=== PATIENT | female | born 1950 | race Caucasian/White ===

== ENCOUNTER 2016-12-30 08:00 | Inpatient (IN) | payer OTHER ==
--- NOTE | 2017-01-10 10:51 | HP ---
Admitting History and Physical - Primary Care Physician PCP: Rohan Stout - Admission Chief Complaint: right breast cancer History of Present Illness: 66 yo female with h/o right DCIS at 40 yo, presented to the office with a scaly red lesion which patient states she had had for a couple of years. Patient had a punch bx of the area which was positive for Paget's dz. MRI done 11/23/2016 was negative. Patient had a negative myRisk done 11/26/2016 which was also negative. Patient is now presenting for a right mastectomy, snbx, poss andx with reconstruction. History Source: Patient Limitations to Obtaining History: No Limitations - Past Medical History Cardiovascular: Yes: HTN Rheumatology: Yes: Gout Endocrine: Yes: Diabetes Mellitus (type two) - Past Surgical History Past Surgical History: Yes: Additional Past Surgical History: right breast WE with axillary LN bx 1990 D and C 3 yrs ago - Smoking History Smoking history: Never smoked Have you smoked in the past 12 months: No - Alcohol/Substance Use Hx Alcohol Use: Yes (socially) Home Medications - Allergies Allergies/Adverse Reactions: Allergies Allergy/AdvReac Type Severity Reaction Status Date / Time No Known Allergies Allergy Verified 11/26/16 15:28 - Home Medications Home Medications (free text): Diovan. Belviq. Toprol. metformi. allopurinol Family Disease History - Family Disease History Family Disease History: Heart Disease: Mother (CRC 82; colon cancer), CA: Grandparent (mat GF gastric ca 93), Mother Other Family History: paternal aunt-breast cancer. maternal uncle-tongue cancer Review of Systems - Review of Systems Constitutional: reports: No Symptoms Cardiovascular: reports: No Symptoms Respiratory: reports: No Symptoms Physical Examination Constitutional: Yes: Well Nourished, Calm Breast(s): Yes: Other (Ptotic B-cup on the right with well healed scar and radiation changes noted. Right/nipple areola complex with erythematous scaly lesion c/w known Paget's dz. No other suspicious masses or adenopathy noted bilaterally.) Problem List - Problems (1) Paget's disease of right breast Code(s): C50.011 - MALIGNANT NEOPLASM OF NIPPLE AND AREOLA, RIGHT FEMALE BREAST Assessment/Plan Plan: Right mastectomy, snbx, lymphoscintogram, poss andx, with reconstruction
[2017-01-18 17:36] VITALS: BMI 47.5
[2017-01-20] MEDS ORDERED: LIDOCAINE HCL 4% PRESERVE-FREE 5 ML AMP ONE (07:09)
[2017-01-20] MEDS ORDERED: HEPARIN NA (PORCINE) 5,000 UNITS/ML 1ML VIAL ONE (07:09)
[2017-01-20] MEDS ORDERED: ISOSULFAN BLUE 10 MG/ML VIAL SQ ONE (07:10)
[2017-01-20] MEDS ORDERED: SUCCINYLCHOLINE CHLORIDE 200 MG/10 ML VIAL ONE (07:41)
[2017-01-20] MEDS ORDERED: MIDAZOLAM HCL 2 MG/2 ML SINGLE DOSE VIAL ONE ×5 (07:41→09:23)
[2017-01-20] MEDS ORDERED: PROPOFOL 20 ML ONE ×2 (07:41)
[2017-01-20] MEDS ORDERED: ROCURONIUM BROMIDE 50 MG/5 ML VIAL ONE ×4 (07:41→12:47)
[2017-01-20] MEDS ORDERED: LIDOCAINE HCL/PF 2% SDV 5ML VIAL ONE (07:41)
[2017-01-20] MEDS ORDERED: PAPAVERINE HCL 30 MG/1 ML 10 ML VIAL NR ONE (07:59)
[2017-01-20] MEDS ORDERED: BUPIVACAINE HCL/PF 0.25% (2.5MG/ML) 10 ML VIAL ONE (07:59)
--- NOTE | 2017-01-20 08:43 | HP ---
History & Physical Update - History History: No Change - Physical Physical: No Change - Assessment Assessment: No Change - Plan Plan: No Change
[2017-01-20] MEDS ORDERED: ePHEDrine SULFATE 50 MG/1 ML AMPULE ONE (09:03)
[2017-01-20] MEDS ORDERED: LIDOCAINE HCL 0.5% EPINEPHRINE 1:200,000 50 ML VIAL IJ ONE ×3 (09:12→14:58)
[2017-01-20] MEDS ORDERED: ceFAZolin SODIUM 1 GM VIAL IVPB ONE (09:20)
[2017-01-20] MEDS ORDERED: HEPARIN NA (PORCINE) 5,000 UNITS/ML 1ML VIAL SQ ONE (09:24)
[2017-01-20] MEDS ORDERED: DESFLURANE GAS 240 ML BOTTLE IH ONE (09:54)
[2017-01-20] MEDS ORDERED: ONDANSETRON 4 MG/2 ML VIAL ONE ×2 (10:32→15:26)
[2017-01-20] MEDS ORDERED: FUROSEMIDE 40 MG/4 ML INJECTABLE VIAL ONE (13:08)
[2017-01-20] MEDS ORDERED: BUPIVACAINE LIPOSOME/PF (EXPAREL) 266 MG/20 ML VIAL NR ONE (14:00)
[2017-01-20] MEDS ORDERED: BUPIVACAINE HCL/PF 0.5% (5MG/ML) 10 ML VIAL ONE (14:53)
[2017-01-20] MEDS ORDERED: GLYCOPYRROLATE 0.2 MG/1 ML VIAL ONE (15:26)
[2017-01-20] MEDS ORDERED: NEOSTIGMINE METHYLSULFATE 0.5 MG/ML - 10 ML MDV ONE (15:26)
[2017-01-20] MEDS ORDERED: LACTATED RINGERS SOLUTION 1,000 ML IV STA (15:48)
[2017-01-20] MEDS ORDERED: LACTATED RINGERS SOLUTION 1,000 ML IV SCH (16:00)
[2017-01-20] MEDS ORDERED: ONDANSETRON 4 MG/2 ML VIAL IVPUSH PRN (16:24)
[2017-01-20] MEDS ORDERED: HYDROmorphone *PCA* 10MG/50ML DISP.SYRIN PCA ONE (16:58)
[2017-01-20] MEDS ORDERED: ceFAZolin SODIUM 1 GM VIAL ONE (16:58)
[2017-01-20] MEDS: HYDROmorphone *PCA* 10MG/50ML DISP.SYRIN PCA SCH ×2 (18:19→23:05)
[2017-01-20] MEDS ORDERED: CEFAZOLIN 1 GM in DEXTROSE 5%-WATER - 50 ML IVPB SCH (21:00)
--- NOTE | 2017-01-20 22:56 | CONSULT ---
Consult - text type - Consultation Consultation Note: PULM/CCM Pt Seen and examined in ICU CC: S/p CAT reconstruction R HPI: Briefly Ms Lao is a 66 yo female with h/o right DCIS at 40 yo in ICU post scheduled right mastectomy, snbx, poss andx with reconstruction. Performed without incident, extubated in PACU, in ICU for overnight observation and doppler monitoring of flap. Past Medical History Cardio/Vascular HTN Rheumatology Gout Endocrine Diabetes Mellitus (type two) Past Surgical History Past Surgical History Ambulatory Orders Allopurinol 300 mg PO DAILY 01/18/17 Aspirin Coated [Ecotrin -] 81 mg PO DAILY 01/18/17 Metformin HCl 500 mg PO BID 01/18/17 Metoprolol Succinate [Toprol Xl] 100 mg PO DAILY 01/18/17 Multivitamins [Tab-A-Vit -] 1 tab PO DAILY 01/18/17 Olmesartan/Hydrochlorothiazide [Benicar Hct 40-12.5 mg Tablet] 1 each PO DAILY 01/18/17 Current Medications Generic Name Dose Route Start Last Admin Trade Name Freq PRN Reason Stop Dose Admin Allopurinol 300 mg 01/21/17 10:00 Zyloprim - PO DAILY NICOL[facility]S Aspirin 325 mg 01/21/17 10:00 Asa - PO DAILY N[facility] Diazepam 5 mg 01/20/17 15:44 Valium - PO Q8H PRN ANXIETY Docusate Sodium 100 mg 01/20/17 22:00 Colace - PO BID N[facility] Enoxaparin Sodium 40 mg 01/21/17 10:00 Lovenox - SQ DAILY [facility] Hydrochlorothiazide 12.5 mg 01/21/17 10:00 Hctz - PO DAILY N[facility] Hydromorphone HCl 10 mg 01/20/17 16:30 01/20/17 18:19 Dilaudid Automatic Pattern Edger - CHIEF CRUISER 01/23/17 16:24 10 mg CHIEF CRUISER N[facility]OL[facility]S Administration Protocol Cefazolin Sodium 1 gm/ 50 mls @ 100 mls/hr 01/20/17 21:00 Dextrose IVPB Q6H-IV [facility] Lactated Ringer's 1,000 mls @ 150 mls/hr 01/20/17 16:00 Lactated Ringers Solution IV ASDIR [facility] Lactated Ringer's 1,000 mls @ 125 mls/hr 01/20/17 16:30 Lactated Ringers Solution IV ASDIR [facility] Metformin HCl 500 mg 01/20/17 16:30 Glucophage - PO BIDI [facility] Metoprolol Succinate 100 mg 01/21/17 10:00 Toprol Xl - PO DAILY [facility] Valsartan 320 mg 01/21/17 10:00 Diovan - PO DAILY [facility] Vital Signs Temp 98.8 F 01/20/17 19:30 Pulse 82 01/20/17 20:03 Resp 18 01/20/17 20:03 BP 125/66 01/20/17 20:03 Pulse Ox 96 01/20/17 20:00 Intake & Output 01/19/17 01/20/17 01/20/17 23:59 11:59 23:59 Intake Total 3500 550 Output Total 900 974 Balance 2600 -424 Weight 121.563 kg Intake: IV 3500 550 Output: Drainage 174 #1 Right Upper Breast 15 #2 Right Lower 22 #3 Left Lower Abdomen 50 Urine 800 800 Estimated Blood Loss 100 Other: Voiding Method Indwelling Catheter Height 5 ft 3 in Body Mass Index (BMI) 47.5 Weight Measurement Method Stated by Patient NO imaging ROS: 9 pt review unrevealing except as per HPI PE: Gen: awake, alert non-toxic HEENT: Atraumatic, PERRL, EOMI PULM: clear anterior, surgical site dressed, two drain with minimanl sero-sang output CV; RRR, no m/r/g appreciate ABD: soft, NT, abd drain with serosang EXT: w/wp, no edema NEURO: intact, non focal, pain controlled A/ 66 y/o woman POD #0 after R mastectomy & breast reconstruction P/ -overnight observation in ICU -monitor drain output -CHIEF CRUISER for pain control -q1 hr doppler of flap, notify Surgery if changes in pulsitility -advance diet in am -restart home meds as tolerated -to floor in am if no overnight changes Balta Gee ACNP [phone]
[2017-01-20] MEDS: LACTATED RINGERS SOLUTION 1,000 ML IV SCH (23:06)
[2017-01-20] MEDS: metFORMIN HCL 500 MG TABLET (FP) PO SCH (23:06)
[2017-01-20] MEDS ORDERED: PT OWN MED DRAWER 7, Y5N ONE (23:28)
[2017-01-20] MEDS: DOCUSATE SODIUM 100 MG CAPSULE (FP) PO SCH (23:59)
--- NOTE | 2017-01-21 09:18 | PN ---
Progress Note, Physician Chief Complaint: POD#1 S/P right mastectomy and CAT reconstruction History of Present Illness: Patient was seen today at the bedside in the semifowler position. Patient states that she does have good pain control but that she does have discomfort in right shoulder. Otherwise, patient reports decreased appetite although tolerating ice chips and some fluids. - Current Medication List Current Medications: Active Medications Allopurinol (Zyloprim -) 300 mg PO DAILY [facility] Aspirin (Asa -) 325 mg PO DAILY [facility] Cefazolin Sodium (Ancef 1gm Ivpb (Pre-Docked)) 1 gm IVPB Q6H-IV [facility] Last Admin: 01/20/17 23:59 Dose: 1 gm Diazepam (Valium -) 5 mg PO Q8H PRN PRN Reason: ANXIETY Docusate Sodium (Colace -) 100 mg PO BID [facility] Last Admin: 01/20/17 23:59 Dose: Not Given Enoxaparin Sodium (Lovenox -) 40 mg SQ DAILY [facility] Hydrochlorothiazide (Hctz -) 12.5 mg PO DAILY [facility] Hydromorphone HCl (Dilaudid Refrigeration Engineer -) 10 mg SULFUR CHLORIDE OPERATOR SULFUR CHLORIDE OPERATOR [facility] PRN Reason: Protocol Stop: 01/23/17 16:24 Last Admin: 01/20/17 23:05 Dose: Not Given Lactated Ringer's (Lactated Ringers Solution) 1,000 mls @ 150 mls/hr IV ASDIR [facility] Last Admin: 01/20/17 23:04 Dose: Not Given Lactated Ringer's (Lactated Ringers Solution) 1,000 mls @ 125 mls/hr IV ASDIR [facility] Last Admin: 01/20/17 23:06 Dose: Not Given Metformin HCl (Glucophage -) 500 mg PO BIDI [facility] Last Admin: 01/20/17 23:06 Dose: Not Given Metoprolol Succinate (Toprol Xl -) 100 mg PO DAILY [facility] Valsartan (Diovan -) 320 mg PO DAILY [facility] - Objective Vital Signs: Vital Signs Temperature 98.4 F 01/21/17 02:03 Pulse Rate 84 01/21/17 06:00 Respiratory Rate 22 01/21/17 06:00 Blood Pressure 110/61 01/21/17 06:00 O2 Sat by Pulse Oximetry (%) 96 01/20/17 20:00 Constitutional: Yes: Well Nourished, Calm Gastrointestinal: Yes: Other (abdominal incisions are clean with JPs intact and serosanginous discharge) Breast(s): Yes: Other (Right flap with good color. No swelling noted. Incision is clean without discharge. Positive doppler signal noted.) Problem List - Problems (1) Paget's disease of right breast Code(s): C50.011 - MALIGNANT NEOPLASM OF NIPPLE AND AREOLA, RIGHT FEMALE BREAST Assessment/Plan Plan: continue current tx regime as per Dr. Ashley Patient to followup with Dr. Stout for postop visit.
--- NOTE | 2017-01-21 09:49 | PN ---
Progress Note (short form) - Note Progress Note: Patient is POD #1 s/p right breast reconstruction with CAT flap immediately after mastectomy. Patient was seen by bedside this morning. Patient was seen by me and her nurse. Patient has been doing well. She has been tolerating pain well. Starting to eat clear liquid diet; did have jello this morning. Drinking water well. Denies headache, chills, nausea/vomiting/diarrhea, or any urinary sxs. Patient has been bedrest and has a ventura. She has been having the ivette hugger on her breast. On PE, she is A&O x 3. Interactive and cooperative. Right breast with appropriate swelling. Incision is covered by dermabond. The incision site is c/d/i with no surrounding erythema. Good cap refill on the flap , Flaps are warm to touch, and doppler has great sound, arterial and venous. MILO drains holding suction well. Left MILO drain is draining more than the right, but it is appropriate amount. Abdomen with appropriate swelling. Incision is covered with steri strips. no surrounding erythema. A/P: POD #1 s/p right breast reconstruction with CAT flap immediately after mastectomy. Diet: Continue with clear diet. Patient is starting to get No caffeine, no chocolate. OOB to chair as toelrated this afternoon. D/c ventura when patient is able to walk Pain: Switch to po pain meds. tolerating pain well. Doppler: q2hr checks Appreciate breast surgery following. Case management requested. Needs VNS upon dc. thank you. Will continue to monitor her closely.
[2017-01-21] MEDS ORDERED: PT OWN MED DRAWER 7, Y5N ONE (09:58)
[2017-01-21] MEDS ORDERED: PATIENT'S OWN MEDICATION (NON-FORMULARY) (Olmesartan/Hydrochlorothiazide [Benicar Hct 40-1 PO SCH (10:00)
[2017-01-21] MEDS: metFORMIN HCL 500 MG TABLET (FP) PO SCH ×2 (10:04→16:44)
[2017-01-21] MEDS: DOCUSATE SODIUM 100 MG CAPSULE (FP) PO SCH ×2 (10:04→23:03)
[2017-01-21] MEDS: VALSARTAN 160 MG TABLET (UD) PO SCH (10:04)
[2017-01-21] MEDS: ASPIRIN 325 MG TABLET PO SCH (10:04)
[2017-01-21] MEDS: HYDROCHLOROTHIAZIDE 12.5 MG CAPSULE (FP) PO SCH (10:04)
[2017-01-21] MEDS: METOPROLOL SUCCINATE 100 MG TAB.SR.24H (FP) PO SCH ×3 (10:05→23:03)
[2017-01-21] MEDS: ALLOPURINOL 300 MG TABLET (FP) PO SCH ×3 (10:05→23:03)
[2017-01-21] MEDS: ENOXAPARIN NA (PORCINE) 40 MG/0.4 ML DISP.SYRIN SQ SCH (10:05)
[2017-01-21] MEDS: diazePAM 5 MG TABLET PO PRN (10:06)
--- NOTE | 2017-01-21 11:51 | PN ---
Progress Note (short form) - Note Progress Note: Post op day#1.S/P Right mastectomy with flap under Ga uneventful.Patient stable and has pain score of 2-3/10 on Dilaudid HIGH SCHOOL PRINCIPAL.Willdc HIGH SCHOOL PRINCIPAL and put patient on prn pain medication.No any anesthesia related problem.Patient DC from the anesthesia care.
[2017-01-21] MEDS: ACETAMINOPHEN 325 MG TABLET (FP) PO PRN ×2 (12:08→16:34)
[2017-01-21] MEDS: oxyCODONE HCL 5 MG TABLET PO PRN ×3 (12:09→23:03)
--- NOTE | 2017-01-21 13:21 | PN ---
Progress Note (short form) - Note Progress Note: Patient seen and examined in the ICU. Awake and alert. Reports that her pain is adequately controlled. Denies CP or SOB Dopler signals adequate. Intake & Output 01/18/17 01/19/17 01/20/17 01/21/17 23:59 23:59 23:59 23:59 Intake Total 4800 1350 Output Total 1874 480 Balance 2926 870 Weight 268 lb 268 lb Last Vital Signs Temp Pulse Resp BP Pulse Ox 99.4 F 86 19 123/55 94 L 01/21/17 10:00 01/21/17 12:00 01/21/17 12:00 01/21/17 12:00 01/21/17 12:00 Active Medications Acetaminophen (Tylenol -) 325 mg PO Q4H PRN PRN Reason: PAIN Stop: 01/24/17 10:15 Last Admin: 01/21/17 12:08 Dose: 325 mg Acetaminophen (Tylenol -) 650 mg PO Q4H PRN PRN Reason: PAIN Stop: 01/24/17 10:15 Allopurinol (Zyloprim -) 300 mg PO HS [facility] Aspirin (Asa -) 325 mg PO DAILY [facility] Last Admin: 01/21/17 10:04 Dose: 325 mg Cefazolin Sodium (Ancef 1gm Ivpb (Pre-Docked)) 1 gm IVPB Q6H-IV [facility] Last Admin: 01/21/17 10:03 Dose: 1 gm Diazepam (Valium -) 5 mg PO Q8H PRN PRN Reason: ANXIETY Last Admin: 01/21/17 10:06 Dose: 5 mg Docusate Sodium (Colace -) 100 mg PO BID [facility] Last Admin: 01/21/17 10:04 Dose: Not Given Enoxaparin Sodium (Lovenox -) 40 mg SQ DAILY [facility] Last Admin: 01/21/17 10:05 Dose: 40 mg Hydrochlorothiazide (Hctz -) 12.5 mg PO DAILY [facility] Last Admin: 01/21/17 10:04 Dose: 12.5 mg Hydromorphone HCl (Dilaudid Injection -) 1 mg IVPB Q4H PRN PRN Reason: PAIN Lactated Ringer's (Lactated Ringers Solution) 1,000 mls @ 125 mls/hr IV ASDIR [facility] Last Admin: 01/20/17 23:06 Dose: Not Given Metformin HCl (Glucophage -) 500 mg PO BIDI [facility] Last Admin: 01/21/17 10:04 Dose: Not Given Metoprolol Succinate (Toprol Xl -) 100 mg PO HS [facility] Oxycodone HCl (Roxicodone -) 5 mg PO Q4H PRN PRN Reason: PAIN Last Admin: 01/21/17 12:09 Dose: 5 mg Oxycodone HCl (Roxicodone -) 10 mg PO Q4H PRN PRN Reason: PAIN Valsartan (Diovan -) 320 mg PO DAILY [facility] Last Admin: 01/21/17 10:04 Dose: 320 mg PE: Gen: awake, alert, NAD HEENT: Atraumatic, PERRL, EOMI PULM: clear anterior, surgical site dressed, two drain with minimanl sero-sang output CV; RRR, no m/r/g appreciated ABD: soft, NT, abd drain with serosang EXT: w/wp, no edema NEURO: intact, non focal, pain controlled Laboratory Results - last 24 hr 01/20/17 01/20/17 13:14 18:40 POC Glucometer 178 189 IMP: POD #1 Right mastectomy & breast reconstruction DM Morbid Obesity HTN Likely Sleep Apnea PLAN: -monitor drain output -pain control -Doppler monitoring of the of flap, notify Surgery if changes -PO as tolerated -Home meds as tolerated -Incentive Spirometry -Would likely benefit from a sleep apnea workup after discharge -Floor Dr Armstrong
[2017-01-21] MEDS: LACTATED RINGERS SOLUTION 1,000 ML IV SCH (13:30)
[2017-01-22] MEDS: HYDROmorphone HCL CARPU-JECT 1 MG/1 ML DISP.SYRIN IVPB PRN ×2 (05:09→21:51)
[2017-01-22] MEDS: metFORMIN HCL 500 MG TABLET (FP) PO SCH ×3 (06:07→17:58)
--- NOTE | 2017-01-22 08:17 | OP ---
DATE OF OPERATION: 01/20/2017 PREOPERATIVE DIAGNOSES: Recurrent right breast cancer, Paget disease. POSTOPERATIVE DIAGNOSES: Recurrent right breast cancer, Paget disease. PROCEDURE: Right breast total mastectomy with attempted right axillary sentinel lymph node biopsy and deep inferior epigastric perforators flap reconstruction. ANESTHESIA: General endotracheal anesthesia. PRIMARY SURGEON: Octavia Nesbitt MD DIRECT MARKETING SPECIALIST: SHAW Glasgow PRIMARY PLASTIC SURGEON: Octavia West MD PLASTIC SURGERY DIRECT MARKETING SPECIALIST: Harvey Ashley MD INSTRUMENT PANEL ASSEMBLER: SHAW Israel COMPLICATIONS: There were no complications. Briefly, the patient is a 66-year-old 3, para 2, postmenopausal white female who has a family history with a mother who had colon cancer at age 82, a paternal aunt had breast cancer in her 60s, and her maternal grandfather had gastric cancer. The patient underwent a right breast partial mastectomy in 1990 for DCIS and had an axillary node dissection, had 9 negative nodes at that time, and underwent radiation to the right breast. The patient had done well and then developed some redness around the right nipple in 2016 and underwent a nipple biopsy showing Paget disease of the right nipple. MRI was negative. The patient was advised on undergoing a total mastectomy and was seen by Plastic Surgery and felt to be a good candidate for a CAT flap reconstruction. It was felt that an attempt at a sentinel lymph node biopsy should be performed. She was brought in for the procedure on January 20, 2017, to [facility] and underwent the lymphoscintigraphy and then was brought to the holding area at [facility] where site verification was made and informed consent was obtained. She was marked preoperatively by the plastic surgeons. She was brought into the operating room and laid on the OR table in the supine position. Venodynes were placed on the lower extremities. She had 2 g of Ancef prior to incision. She underwent general endotracheal anesthesia. Both breasts were sterilely prepped and draped in the usual fashion with the right arm prepped in the field and the abdomen was prepped as well for the CAT flap reconstruction. Lymphazurin blue 2 mL were injected intradermally around the periareolar region of the right nipple-areolar complex. Massage was instituted. Attempt at sentinel lymph node biopsy was first performed and we made an incision just below the hair-bearing area of the right axilla. Dissection was undertaken. Unfortunately, the radioactive dye did not travel and there were no blue nodes found. Thorough dissection was undertaken to make sure there were no blue or hot nodes and none were found, so the sentinel lymph node biopsy was aborted. At this point, the total mastectomy was performed using a circumareolar incision but taking a fair amount of skin around the nipple-areolar complex and she did have significant Paget disease involving the nipple-areolar complex. Skin flaps were raised superiorly to the level of the clavicle, medially to the level of the sternum, laterally to the level of the latissimus, and inferiorly below the level of the inframammary fold. The breast was taken down off the pectoralis major muscle from medial to lateral, completely removed intact. It was oriented with a long lateral, short superior suture and weighed. The specimen was placed in formalin and sent to Pathology as right total mastectomy for Paget disease. At this point, Dr. West and Dr. Ashley were harvesting the CAT flap from the abdomen for the reconstruction and the rest of the dictation will be dictated by Plastic Surgery. All wound closures will be performed by Plastic Surgery and drains will be placed into the right breast and abdominal wall prior to closure. Estimated blood loss was about 40 mL at this point in the case. She was hemodynamically stable throughout. She did have a Araya placed at the beginning of the case and was making good urine at this point in the case. The patient will be recovered postoperatively and will be admitted to the ICU for postoperative management and Doppler checks of the flap. Again, all sponge and needle counts were correct at this point in the case. OCTAVAI NESBITT M.D. [id number]
--- NOTE | 2017-01-22 08:52 | CON.CARD ---
Consult Consult Specialty:: cardiology Reason for Consultation:: post-op arrhythmia - History of Present Illness Chief Complaint: Pt A&Ox3; no palpitations; pain at surgical site is mild, intermittent. History of Present Illness: 66 yo white female with h/o right DCIS at 40 yo,, HTN, obesity, gout, DM, now presented to the office with a scaly red lesion which patient states she had had for a couple of years. Patient had a punch bx of the area which was positive for Paget's dz. MRI done 11/23/2016 was negative. Patient had a negative myRisk done 11/26/2016 which was also negative. Patient is now presenting for a right mastectomy, snbx, poss andx with reconstruction. History Source: Patient Limitations to Obtaining History: No Limitations - Past Medical History Cardiovascular: Yes: HTN Rheumatology: Yes: Gout Endocrine: Yes: Diabetes Mellitus (type two) - Past Surgical History Past Surgical History: Yes: Additional Past Surgical History: right breast WE with axillary LN bx 1990 D and C 3 yrs ago - Smoking History: started at 20 yrs old, never heavy; quit after a short time Denies hx anxiety/depression. - History Source History Provided By: Patient, Medical Record Limitations to Obtaining History: No Limitations - Past Medical History Cardio/Vascular: Yes: HTN Reproductive: Yes: Postmenopausal ...: No Rheumatology: Yes: Gout Endocrine: Yes: Diabetes Mellitus (type two) - Past Surgical History Past Surgical History: Yes: - Alcohol/Substance Use Hx Alcohol Use: Yes (socially) - Smoking History Smoking history: Former smoker Have you smoked in the past 12 months: No If you are a former smoker, when did you quit?: 40YRS AGO Home Medications - Allergies Allergies/Adverse Reactions: Allergies Allergy/AdvReac Type Severity Reaction Status Date / Time No Known Allergies Allergy Verified 01/18/17 17:52 - Home Medications Home Medications: Ambulatory Orders Allopurinol 300 mg PO DAILY 01/18/17 Aspirin Coated [Ecotrin -] 81 mg PO DAILY 01/18/17 Metformin HCl 500 mg PO BID 01/18/17 Metoprolol Succinate [Toprol Xl] 100 mg PO DAILY 01/18/17 Multivitamins [Multivit ([facility] Formulary)] 1 tab PO DAILY 01/18/17 Olmesartan/Hydrochlorothiazide [Benicar Hct 40-12.5 mg Tablet] 1 each PO DAILY 01/18/17 Acetaminophen [Tylenol .Regular Strength -] 325 mg PO Q4H PRN #0 tablet Acetaminophen [Tylenol .Regular Strength -] 650 mg PO Q4H PRN #0 tablet Aspirin [ASA -] 81 mg PO DAILY tablet 01/23/17 Cefadroxil 500 mg PO BID #20 capsule 01/23/17 Diazepam [Valium] 5 mg PO Q8H PRN #15 tablet MDD 3 01/23/17 Metformin HCl [Glucophage -] 500 mg PO BIDI tablet 01/23/17 Oxycodone HCl [Roxicodone -] 5 mg PO Q4H PRN #30 tablet MDD 10 01/23/17 Valsartan [Diovan] 320 mg PO DAILY tablet 01/23/17 Family Disease History - Family Disease History Family Disease History: Heart Disease: Mother (CRC 82; colon cancer), CA: Grandparent (mat GF gastric ca 93), Mother Other Family History: paternal aunt-breast cancer. maternal uncle-tongue cancer - Risk Factors Known Risk Factors: Yes: Age, Hypertension, Physical Inactivity Vital Signs: Vital Signs Temperature 98.4 F 01/22/17 01:35 Pulse Rate 79 01/22/17 07:00 Respiratory Rate 17 01/22/17 07:00 Blood Pressure 91/53 01/22/17 07:00 O2 Sat by Pulse Oximetry (%) 99 01/21/17 21:00 Constitutional: Yes: Calm Eyes: Yes: WNL HENT: Yes: WNL Neck: Yes: WNL Respiratory: Yes: Regular Gastrointestinal: Yes: Soft Renal/: No: Anuria Cardiovascular: Yes: Regular Rate and Rhythm JVD: No Carotid Bruit: No PMI: Non-Displaced Heart Sounds: Yes: S1, S2 Musculoskeletal: Yes: Muscle Weakness Extremities: Yes: WNL Edema: No Peripheral Pulses WNL: Yes Integumentary: Yes: Incision Neurological: Yes: Alert, Oriented Psychiatric: Yes: WNL Imaging - Results Other: Image Reviewed (telemetry: NSR; earlier, several brief episodes of PAF) Problem List - Problems (1) Paget's disease of right breast Code(s): C50.011 - MALIGNANT NEOPLASM OF NIPPLE AND AREOLA, RIGHT FEMALE BREAST (2) PAF (paroxysmal atrial fibrillation) Assessment/Plan: several runs of PAF overa a period of about 5 minutes begining just before 3 am today. Pt denies remembering having palpitations, dizziness, or pain at that time, though she has insomnia, and may have woken up around that time. No hx palpitations, chest pain, syncope. Follow electrolytes. Pain management. Careful fluid control; avoid dehydration. Continue metoprolol. On ASA and Lovenox (DVT prophylaxsis dose). EKG now: NSR; APCs. Will observe.This is likely post-op stress-induced PAF, and may not require systemic anticoagulation. F/u ECHO (may be done as outpatient). Code(s): I48.0 - PAROXYSMAL ATRIAL FIBRILLATION (3) HTN (hypertension) Assessment/Plan: on metoprolol and ARB for years. Code(s): I10 - ESSENTIAL (PRIMARY) HYPERTENSION (4) Diabetes Code(s): E11.9 - TYPE 2 DIABETES MELLITUS WITHOUT COMPLICATIONS (5) Obesity Code(s): E66.9 - OBESITY, UNSPECIFIED (6) Chronic instability of right knee Assessment/Plan: torn menisci; pt says she has always been overweight, but this became much worse when her knee became more unstable. She has lost 30 lbs in the past year, however. Code(s): M23.51 - CHRONIC INSTABILITY OF KNEE, RIGHT KNEE
[2017-01-22] MEDS ORDERED: PT OWN MED DRAWER 7, Y5N ONE ×2 (09:00→21:49)
--- NOTE | 2017-01-22 09:00 | PN ---
Progress Note (short form) - Note Progress Note: Now POD#2 s/p Right mastectomy with immediate CAT flap reconstruction. Overnight, she had a brief run of A-fib. She denies any CP or SOB. Her pain is being controlled with Percocet and Valium. She is only taking liquids at this point. She has been OOB to a chair. She is voiding on her own. AVSS I/O: 3620/2310 MILO: 60cc breast; 140/150 cc abdomen UO:1800cc On exam, right breast flap warm, soft, with good capillary refill. Biphasic doppler signal. Abdomen soft, obese, incision C/D/I; umbilicus viable Plan: 1) Cardiology consult (spoke to Dr. Pérez) 2) 12-lead EKG 3) Full set of labs 4) Advance diet and add Glucerna supplements 5) D/C IVF 6) Can transition to Q4 hour flap checks today 7) D/C Bare Hugger 8) OOB and ambulate 9) Encourage IS 10) Daily ASA 11) DVT Prophylaxis
[2017-01-22] MEDS: HYDROCHLOROTHIAZIDE 12.5 MG CAPSULE (FP) PO SCH (09:04)
[2017-01-22] MEDS: VALSARTAN 160 MG TABLET (UD) PO SCH (09:05)
[2017-01-22] MEDS: DOCUSATE SODIUM 100 MG CAPSULE (FP) PO SCH ×2 (09:05→21:51)
[2017-01-22] MEDS: ASPIRIN 325 MG TABLET PO SCH (09:05)
[2017-01-22] MEDS: ENOXAPARIN NA (PORCINE) 40 MG/0.4 ML DISP.SYRIN SQ SCH (09:15)
--- NOTE | 2017-01-22 09:36 | OP ---
DATE OF OPERATION: 01/20/2017 PREOPERATIVE DIAGNOSES: 1. Right breast cancer. 2. Acquired absence of right breast and nipple. 3. Radiation-induced fibrosis of right breast skin. 4. Acute postoperative abdominal pain. POSTOPERATIVE DIAGNOSES: 1. Right breast cancer. 2. Acquired absence of right breast and nipple. 3. Radiation-induced fibrosis of right breast skin. 4. Acute postoperative abdominal pain. PROCEDURE: 1. Immediate right breast reconstruction with deep inferior epigastric gang bore operator microvascular free flap. 2. Partial resection of right 3rd rib. 3. Exploration of right internal mammary vessels with extensive adventitiectomies. 4. Bilateral ultrasound-guided transverse abdominis plane blocks. 5. Intraoperative angiography of mastectomy flap and microvascular free flap x2. 6. Processing and interpretation of intraoperative angiography images x2. ATTENDING SURGEON: Harvey Ashley MD CO-SURGEON: Dana West MD SERVICE ASSISTANT: SHAW Israel ANESTHESIA: General endotracheal. ESTIMATED BLOOD LOSS: 100 mL for plastic surgery portion. SPECIMEN: Additional right breast skin to pathology. DRAINS: 1. No. 15 round Bhanu drain x1 to right breast. 2. No. 19 round Bhanu drain x2 to abdomen. COMPLICATIONS: None. CONDITION: Stable to recovery room, extubated. INDICATIONS: The patient is a 66-year-old female with a history of right breast cancer who has previously undergone a lumpectomy and radiation therapy. The patient has now developed recurrent right breast cancer and has been recommended for a right mastectomy and sentinel lymph node biopsy. The patient has a large area of skin involvement and will require a large resection of skin along with the breast tissue. She was evaluated preoperatively for immediate reconstruction, and she is most appropriately a candidate for autologous reconstruction using her lower abdomen tissue. The risks, benefits, and alternatives of the immediate reconstruction were discussed with the patient in detail, and all questions were answered. The risks included, but not limited to, bleeding, infection, pain, need for revision or further surgery, partial or complete flap loss, damage to neighboring structures including nerves, arteries, veins, and tendons. The patient understands these risks and has elected to proceed with surgery. DESCRIPTION OF PROCEDURE: After appropriate identification and marking of the patient in the preoperative holding area, the patient was transported to the operating room and placed supine on the table where all noninvasive anesthesia monitors were applied. Intravenous access was established. General anesthesia was administered, and the patient was intubated without difficulty. SCD boots were applied to bilateral lower extremities. Then 5000 units of subcutaneous heparin was then given. Intravenous antibiotics were then given. A Araya catheter was then placed. The patient's bilateral breasts as well as abdomen and flanks were then prepped and draped in the usual sterile fashion. Dr. Stout from surgical oncology then proceeded to perform a right-sided mastectomy as well as an attempt at a sentinel lymph node biopsy. These procedures will be dictated separately. Concurrently, Dr. West and myself began working independently as co- surgeons with separate teams and instrument set ups. Attention was first turned towards the abdomen where the SPY machine was brought into the field, and a 5-mL injection of indocyanine green with a 10-mL saline flush was administered. Angiography of the deep inferior epigastric system was then performed, and the dominant perforators on both sides were marked. Doppler was used to confirm the location of the dominant perforators. Once this first round of angiography was performed, attention was turned towards the umbilicus where skin hooks were placed at the 12 o'clock and 6 o'clock positions. The umbilicus was circumferentially incised, and an umbilical stalk dissection was performed with electrocautery with care taken to leave adequate periumbilical fat. Next, the superior and inferior limbs of the lower abdominal flap were incised. The superior limb was carried down through the full thickness of the subcutaneous tissue down to the anterior abdominal wall. The inferior incision was carried down through the subcutaneous tissue. A superficial inferior epigastric vein was identified , and a more proximal dissection was performed on this until adequate length and caliber were achieved. The superficial vein was then ligated and divided at the most proximal extent of this dissection. The remainder of the subcutaneous tissue of the lower incision was then dissected down to the anterior abdominal wall. At this point, the lower abdominal flap was raised on the left side from a lateral-to- medial direction. There were noted to be multiple small lateral row perforators, and these were ligated and divided. The flap was then carefully raised with bipolar electrocautery until the medial row system was identified. There were noted to be 2 good sized medial row perforators with palpable pulses. The decision was made to include to perfuse the flap based on these 2 dominant perforators, which coincided with the initial angiography images. Therefore, the perforators were circumferentially dissected as they exited out through the fascia. The fascia was then opened superiorly and inferiorly. At this point, retrograde gang bore operator dissections were performed on both perforators down through the full thickness of the rectus abdominis muscle fiber. Care was taken to individually identify, circumferentially dissect, ligate, and divide muscular side branches. The perforators were noted to join in a Y fashion at their takeoff from the inferior epigastric pedicle. The superior continuation of the pedicle was circumferentially dissected and was ligated and divided. At this point, a more proximal pedicle dissection was performed until adequate length and caliber had been achieved. The artery and accompanying venae comitantes were then individually isolated. At this point, there were noted to be good skin signals at the location of the perforators, and these were marked on the skin paddle with 5-0 Prolene sutures. The remainder of lower abdominal tissue was then raised off of the anterior abdominal wall, and at this point, zones 3 and 4 were excised and discarded. There was noted to be good bleeding from the flap dermal edges. The flap was temporarily stapled in place at this point. Next, the SPY system was brought back onto the field, and an additional 3-mL intravenous injection of indocyanine green was given. At this point, angiography of the mastectomy flaps as well as the lower abdominal flap was performed. There was noted to be hypoperfusion to a small rim of the superior mastectomy flap, and this was marked for excision. The lower abdominal flap was noted to be well perfused throughout. Once this angiography was completed, attention was turned towards the chest for harvesting of the internal mammary vessels. Self-retaining retractors were placed. The interspace between the 2nd and 3rd rib was identified. A longitudinal cut was made in the pectoralis major muscle fibers down to the superior surface of the 3rd rib. The muscle was then divided superiorly and inferiorly over the interspace between the 2nd and 3rd rib. At this point, a periosteal elevator was used to perform a circumferential dissection around the 3rd rib, and the 3rd rib was then partially resected with a rongeur. The periosteum on the deep surface was then carefully opened, and the underlying internal mammary vessels were identified. The vein was noted to be bifurcating, and a 1.8-mm artery was noted. At this point, using microvascular instruments and technique, exploration of the internal mammary vessels was performed. Extensive adventitiectomies were performed on the artery as well as along both of the internal mammary vein. Once adequate length and caliber had been achieved, the veins were ligated distally, and an Acland clamp was placed proximally. In a similar fashion, the internal mammary artery was ligated distally, and an Acland clamp placed proximally. Adequate inflow was then confirmed through the internal mammary system, and this was back flushed with heparinized saline. At this point, with the recipient vessels and flap fully repaired, the inferior epigastric pedicle was ligated and divided at the extent of the dissection. The flap was brought up to the right breast pocket where it was temporarily stapled in place. The microvascular anastomoses were then performed. A 3-mm Synovus lead javascript engineer was used to perform the 1st venous anastomosis between the medial flap vein and the larger of the 2 internal mammary veins. Release of all clamps revealed good backflow across this anastomosis. Next, attention was turned towards the arterial anastomosis. An 8-0 nylon suture was used in a simple interrupted fashion in order to anastomose the internal mammary artery with the inferior epigastric artery. Release of all clamps revealed good flow across this anastomosis and good egress of venous blood through the remaining flap vein. A 2nd venous anastomosis was then performed using a 2-mm Synovus lead javascript engineer between the remaining flap vein and the 2nd internal mammary vein. Release of all clamps revealed good flow across the 3rd anastomosis. At this point, the right breast pocket was irrigated, and hemostasis was ensured. The pedicle was then carefully routed up out of the chest, and care was taken to ensure there was a good lie without twisting or kinking. The flap was then carefully positioned into the right breast pocket, and Doppler examination revealed a strong biphasic signal with the flap in place. At this point, the hypoperfused mastectomy flap skin was excised and passed off the field as additional right breast skin to pathology. The mastectomy flaps were then re-draped over the skin paddle of the CAT flap, and the amount of skin paddle to be externalized was marked, and the remainder of the flap was deepithelialized. At this point, a No. 15 round Bhanu drain was placed into the right breast pocket and laid inferiorly brought out through a separate stab incision laterally and secured to the skin with a 3-0 nylon suture. Biopatch and Tegaderm were placed around this drain exit site. The flap skin paddle was then inset to the surrounding mastectomy flap skin edges using a 2-0 Vicryl in an interrupted buried fashion in the level of the deep dermis followed by a 3-0 PDS in a running subcuticular fashion. Dermabond was applied to this incision line. Concurrently, closure of the abdomen was performed. The fascial edges were reapproximated using a 0 Ethibond suture in an interrupted figure of eight fashion. Once the fascia was completely closed, the patient was placed into a slightly flexed position. Prior to closure of the abdomen, the ultrasound was brought into the field and sterilely draped. Bilateral transversus abdominis plane blocks were performed. A local anesthetic solution consisting of 20 mL of Exparel mixed with 30 mL of 0.25% Marcaine and 80 mL of normal saline was used to perform these blocks. A total of 30 mL was injected into each transverse abdominis plane. This local anesthetic mixture was then infiltrated around the drain exit site of the breast. Two No. 19 round Bhanu drains were then placed in the abdominal pocket and brought out through separate stab incisions suprapubically and secured to the skin with 3-0 nylon sutures and dressed with Biopatch and Tegaderm. The Exparel solution was then infiltrated around these drain exit sites as well. At this point, the superior abdominal flap was advanced inferiorly and temporarily stapled close. A layered closure of the abdomen was then performed. A 0 Vicryl was placed in an interrupted buried fashion in the level of Stacy fascia. This was followed by 2-0 Vicryl in a buried deep dermal fashion and finally a 2-0 nylon in a simple running fashion centrally and a 2-0 nylon in a running horizontal mattress fashion laterally to complete the skin closure. Dermabond was then applied over this closure line followed by Steri- Strips. The site of the umbilicus transposition was marked, and a horizontal incision was made, and the umbilicus was delivered and transposed and inset using a 3-0 PDS in a buried deep dermal fashion followed by a 4-0 plain gut in a simple running fashion. Xeroform was applied followed by an eyepatch and Tegaderm to the umbilicus. At this point, Doppler examination of the flap revealed a good biphasic signal; therefore, the patient was slowly awakened and extubated without incident and transported to the recovery room in stable condition. Harsh [id number] MTDD
[2017-01-22 10:07] LABS: BASOPHIL 0.2 % (0-2.0); EOSINOPHIL 1.2 % (0-4.5); MCH 30.7 pg (25.7-33.7); MCHC 33.6 g/dl (32.0-36.0); MEAN CELL VOLUME 91.5 fl (80-96); MEAN PLT VOLUME 8.9 fl (7.5-11.1); NEUTROPHILS 77.1 % (42.8-82.8); PLATELET COUNT 169 K/MM3 (134-434); WHITE BLOOD COUNT 9.3 K/mm3 (4.0-10.0)
[2017-01-22 10:31] LABS: ALBUMIN 2.3 g/dl (3.4-5.0); ANION GAP 6 (8-16); CALCIUM 8.4 mg/dL (8.5-10.1); CO2 28 mmol/L (21-32); CREATININE 1.5 mg/dL (0.55-1.02); GLUCOSE,RANDOM 158 mg/dL (74-106); SGOT/AST 37 U/L (15-37); SGPT/ALT 19 U/L (12-78); TOT PROT 5.2 g/dl (6.4-8.2)
[2017-01-22 10:39] LABS: ALK PHOS 60 U/L (45-117); BILIRUBIN,TOTAL 0.5 mg/dL (0.2-1.0); THYROID STIMULATING HORMONE 1.04 uIU/ml (0.358-3.74); TROPONIN I < 0.02 ng/ml (0.00-0.05)
[2017-01-22] MEDS: ACETAMINOPHEN 325 MG TABLET (FP) PO PRN ×2 (10:52→15:01)
[2017-01-22] MEDS: diazePAM 5 MG TABLET PO PRN (10:52)
[2017-01-22] MEDS: oxyCODONE HCL 5 MG TABLET PO PRN ×2 (10:53→15:00)
--- NOTE | 2017-01-22 11:14 | PN ---
Progress Note, Physician Chief Complaint: s/p right MTX with DEIP History of Present Illness: Run of asymptomatic a-fib with stable vs. Pain controlled without complaints. Comfortable. - Current Medication List Current Medications: Active Medications Acetaminophen (Tylenol -) 325 mg PO Q4H PRN PRN Reason: PAIN Stop: 01/24/17 10:15 Last Admin: 01/22/17 10:52 Dose: 325 mg Acetaminophen (Tylenol -) 650 mg PO Q4H PRN PRN Reason: PAIN Stop: 01/24/17 10:15 Last Admin: 01/21/17 16:34 Dose: 650 mg Allopurinol (Zyloprim -) 300 mg PO HS [facility] Last Admin: 01/21/17 23:03 Dose: Not Given Aspirin (Asa -) 325 mg PO DAILY [facility] Last Admin: 01/22/17 09:05 Dose: 325 mg Cefazolin Sodium (Ancef 1gm Ivpb (Pre-Docked)) 1 gm IVPB Q6H-IV [facility] Last Admin: 01/22/17 09:03 Dose: 1 gm Diazepam (Valium -) 5 mg PO Q8H PRN PRN Reason: ANXIETY Last Admin: 01/22/17 10:52 Dose: 5 mg Docusate Sodium (Colace -) 100 mg PO BID [facility] Last Admin: 01/22/17 09:05 Dose: Not Given Enoxaparin Sodium (Lovenox -) 40 mg SQ DAILY [facility] Last Admin: 01/22/17 09:15 Dose: 40 mg Hydrochlorothiazide (Hctz -) 12.5 mg PO DAILY [facility] Last Admin: 01/22/17 09:04 Dose: 12.5 mg Hydromorphone HCl (Dilaudid Injection -) 1 mg IVPB Q4H PRN PRN Reason: PAIN Last Admin: 01/22/17 05:09 Dose: 1 mg Metformin HCl (Glucophage -) 500 mg PO BIDI [facility] Last Admin: 01/22/17 09:16 Dose: 500 mg Metoprolol Succinate (Toprol Xl -) 100 mg PO HS [facility] Last Admin: 01/21/17 23:03 Dose: 100 mg Oxycodone HCl (Roxicodone -) 5 mg PO Q4H PRN PRN Reason: PAIN Last Admin: 01/22/17 10:53 Dose: 5 mg Oxycodone HCl (Roxicodone -) 10 mg PO Q4H PRN PRN Reason: PAIN Last Admin: 01/21/17 16:32 Dose: 10 mg Valsartan (Diovan -) 320 mg PO DAILY [facility] Last Admin: 01/22/17 09:05 Dose: 320 mg - Objective Vital Signs: Vital Signs Temperature 98.4 F 01/22/17 01:35 Pulse Rate 79 01/22/17 07:00 Respiratory Rate 17 01/22/17 07:00 Blood Pressure 91/53 01/22/17 07:00 O2 Sat by Pulse Oximetry (%) 97 01/22/17 08:00 Constitutional: Yes: No Distress Wound/Incision: Yes: Clean/Dry (Flap viable w/o signs of infection.) Labs: CBC, BMP 01/22/17 09:40 01/22/17 09:40 Assessment/Plan POD #2 Right MTX with DEIP Appreciate PLS and Cards note Clinically looks well Supportive care and ambulation Pulmonary and dvt prophylaxis Disposition per PLS
--- NOTE | 2017-01-22 12:27 | PN ---
Progress Note (short form) - Note Progress Note: PULM/CRITICAL CARE FOLLOW UP: Progress Note (short form) - Note Progress Note: Patient seen and examined in the ICU. OOB to chair POD#2 Short run of paroxysmal AF overnight. Cardiology consulted Stable Current Medications Acetaminophen (Tylenol -) 325 mg PO Q4H PRN PRN Reason: PAIN Stop: 01/24/17 10:15 Last Admin: 01/22/17 10:52 Dose: 325 mg Acetaminophen (Tylenol -) 650 mg PO Q4H PRN PRN Reason: PAIN Stop: 01/24/17 10:15 Last Admin: 01/21/17 16:34 Dose: 650 mg Allopurinol (Zyloprim -) 300 mg PO HS [facility] Last Admin: 01/21/17 23:03 Dose: Not Given Aspirin (Asa -) 325 mg PO DAILY [facility] Last Admin: 01/22/17 09:05 Dose: 325 mg Cefazolin Sodium (Ancef 1gm Ivpb (Pre-Docked)) 1 gm IVPB Q6H-IV [facility] Last Admin: 01/22/17 09:03 Dose: 1 gm Diazepam (Valium -) 5 mg PO Q8H PRN PRN Reason: ANXIETY Last Admin: 01/22/17 10:52 Dose: 5 mg Docusate Sodium (Colace -) 100 mg PO BID [facility] Last Admin: 01/22/17 09:05 Dose: Not Given Enoxaparin Sodium (Lovenox -) 40 mg SQ DAILY [facility] Last Admin: 01/22/17 09:15 Dose: 40 mg Hydrochlorothiazide (Hctz -) 12.5 mg PO DAILY [facility] Last Admin: 01/22/17 09:04 Dose: 12.5 mg Hydromorphone HCl (Dilaudid Injection -) 1 mg IVPB Q4H PRN PRN Reason: PAIN Last Admin: 01/22/17 05:09 Dose: 1 mg Metformin HCl (Glucophage -) 500 mg PO BIDI [facility] Last Admin: 01/22/17 09:16 Dose: 500 mg Metoprolol Succinate (Toprol Xl -) 100 mg PO HS [facility] Last Admin: 01/21/17 23:03 Dose: 100 mg Oxycodone HCl (Roxicodone -) 5 mg PO Q4H PRN PRN Reason: PAIN Last Admin: 01/22/17 10:53 Dose: 5 mg Oxycodone HCl (Roxicodone -) 10 mg PO Q4H PRN PRN Reason: PAIN Last Admin: 01/21/17 16:32 Dose: 10 mg Valsartan (Diovan -) 320 mg PO DAILY [facility] Last Admin: 01/22/17 09:05 Dose: 320 mg Vital Signs Temp 99.8 F H 01/22/17 09:00 Pulse 81 01/22/17 09:00 Resp 15 01/22/17 09:00 BP 116/61 01/22/17 09:00 Pulse Ox 97 01/22/17 08:00 Intake & Output 01/21/17 01/22/17 01/22/17 18:59 06:59 18:59 Intake Total 2370 1550 Output Total 1340 655 600 Balance 1030 895 -600 Intake: IV 1350 1250 Lactated Ringers Solution 300 1,000 ml @ 150 mls/hr IV ASDIR N[facility] Rx#: [id number] Lactated Ringers Solution 1050 1250 1,000 ml @ 125 mls/hr IV ASDIR NICOLÁ[facility] Rx#: [id number] IVPB 100 200 Oral 920 100 Output: Drainage 440 155 #1 Right Upper Breast 40 20 #2 Right Lower 110 55 #3 Left Lower Abdomen 110 80 Right Lateral Chest 20 Both Lower Abdomen 160 Urine 900 500 600 Araya 900 Void 500 600 Other: Voiding Method Indwelling Catheter Bedpan # Unmeasured Voids Void 1 Bowel Movement No PE: Gen: awake, alert, NAD HEENT: Atraumatic, PERRL, EOMI PULM: clear anterior, surgical site dressed, two drain with minimanl sero-sang output CV; RRR, no m/r/g appreciated ABD: soft, NT, abd drain with serosang EXT: w/wp, no edema NEURO: intact, non focal, pain controlled CBC, BMP 01/22/17 09:40 01/22/17 09:40 IMP: POD #2 Right mastectomy & breast reconstruction DM Morbid Obesity HTN Likely Sleep Apnea PAF PLAN: -telemetry monitoring - cardiology following -monitor drain output -pain control -Doppler monitoring of the of flap, notify Surgery if changes -PO as tolerated -Home meds as tolerated -Incentive Spirometry -Would likely benefit from a sleep apnea workup after discharge Transfer to [facility] [place] Pulm/Critical Care [employer] [id number]
[2017-01-22] MEDS ORDERED: SIMETHICONE 80 MG TAB.CHEW (FP) PO PRN (20:27)
[2017-01-22] MEDS: METOPROLOL SUCCINATE 100 MG TAB.SR.24H (FP) PO SCH (21:51)
[2017-01-22] MEDS: ALLOPURINOL 300 MG TABLET (FP) PO SCH (21:51)
[2017-01-23 06:17] LABS: MCH 30.6 pg (25.7-33.7); MCHC 33.3 g/dl (32.0-36.0); MEAN CELL VOLUME 91.7 fl (80-96); MEAN PLT VOLUME 9.6 fl (7.5-11.1); PLATELET COUNT 171 K/MM3 (134-434); RDW 14.1 % (11.6-15.6); WHITE BLOOD COUNT 8.5 K/mm3 (4.0-10.0)
[2017-01-23 06:49] LABS: ANION GAP 15 (8-16); CALCIUM 7.2 mg/dL (8.5-10.1); CO2 23 mmol/L (21-32); MAGNESIUM 1.3 mg/dL (1.8-2.4)
[2017-01-23 06:53] LABS: CREATININE 2.6 mg/dL (0.55-1.02); PHOSPHOROUS 2.4 mg/dL (2.5-4.9)
[2017-01-23 07:08] VITALS: TEMP 98
[2017-01-23] MEDS: metFORMIN HCL 500 MG TABLET (FP) PO SCH (07:18)
[2017-01-23 07:21] LABS: GLUCOSE,RANDOM 675 mg/dL (74-106)
[2017-01-23] MEDS: diazePAM 5 MG TABLET PO PRN (07:57)
[2017-01-23 08:57] LABS: MEAN CELL VOLUME 91.3 fl (80-96); MEAN PLT VOLUME 9.4 fl (7.5-11.1); PLATELET COUNT 195 K/MM3 (134-434); RDW 13.9 % (11.6-15.6); WHITE BLOOD COUNT 11.1 K/mm3 (4.0-10.0)
[2017-01-23 09:06] LABS: ALBUMIN 2.4 g/dl (3.4-5.0); ALK PHOS 88 U/L (45-117); ANION GAP 8 (8-16); BILIRUBIN,TOTAL 0.4 mg/dL (0.2-1.0); CALCIUM 8.3 mg/dL (8.5-10.1); CO2 26 mmol/L (21-32); CREATININE 1.2 mg/dL (0.55-1.02); GLUCOSE,RANDOM 163 mg/dL (74-106); SGOT/AST 45 U/L (15-37); SGPT/ALT 26 U/L (12-78); TOT PROT 5.6 g/dl (6.4-8.2)
--- NOTE | 2017-01-23 09:12 | PN ---
Progress Note (short form) - Note Progress Note: Now POD#3 s/p Right mastectomy with immediate CAT flap reconstruction. Overnight, she has been stable without anymore runs of A-fib. She denies any CP or SOB. Her pain is being controlled with Percocet and Valium. She is OOB and ambulating. She is tolerating PO, but doesn't have much of an appetite. AVSS I/O: 2890/1555 MILO: 40cc breast; 215 cc abdomen total UO:1300cc On exam, right breast flap warm, soft, with good capillary refill. Biphasic doppler signal. Abdomen soft, obese, incision C/D/I; umbilicus viable Plan: 1) Appreciate cardiology input 2) F/U repeat labs 3) Plan for D/C home today as long as labs okay
[2017-01-23] MEDS: VALSARTAN 160 MG TABLET (UD) PO SCH (09:24)
[2017-01-23] MEDS: HYDROCHLOROTHIAZIDE 12.5 MG CAPSULE (FP) PO SCH (09:24)
[2017-01-23] MEDS: ASPIRIN 325 MG TABLET PO SCH (09:24)
[2017-01-23] MEDS: DOCUSATE SODIUM 100 MG CAPSULE (FP) PO SCH (09:24)
[2017-01-23] MEDS: ENOXAPARIN NA (PORCINE) 40 MG/0.4 ML DISP.SYRIN SQ SCH (09:25)
[2017-01-23 09:59] VITALS: BP 108/64; PULSE 74
[2017-01-23] MEDS ORDERED: CEPHALEXIN MONOHYDRATE 500 MG CAPSULE (UD) PO SCH (10:00)
--- NOTE | 2017-01-23 10:44 | PN ---
Progress Note, Physician Chief Complaint: Pt denies chest paiin, palpitations, dyspnea.OOB in chair; and daughter are at bedside. History of Present Illness: 66 yo white female with h/o right DCIS at 40 yo,, HTN, obesity, gout, DM, now presented to the office with a scaly red lesion which patient states she had had for a couple of years. Patient had a punch bx of the area which was positive for Paget's dz. MRI done 11/23/2016 was negative. Patient had a negative myRisk done 11/26/2016 which was also negative. Patient is now presenting for a right mastectomy, snbx, poss andx with reconstruction. History Source: Patient Limitations to Obtaining History: No Limitations - Past Medical History Cardiovascular: Yes: HTN Rheumatology: Yes: Gout Endocrine: Yes: Diabetes Mellitus (type two) - Past Surgical History Past Surgical History: Yes: Additional Past Surgical History: right breast WE with axillary LN bx 1990 D and C 3 yrs ago - Smoking History: started at 20 yrs old, never heavy; quit after a short time Denies hx anxiety/depression. - Current Medication List Current Medications: Active Medications Acetaminophen (Tylenol -) 325 mg PO Q4H PRN PRN Reason: PAIN Stop: 01/24/17 10:15 Last Admin: 01/22/17 10:52 Dose: 325 mg Acetaminophen (Tylenol -) 650 mg PO Q4H PRN PRN Reason: PAIN Stop: 01/24/17 10:15 Last Admin: 01/22/17 15:01 Dose: 650 mg Allopurinol (Zyloprim -) 300 mg PO HS [facility] Last Admin: 01/22/17 21:51 Dose: 300 mg Aspirin (Asa -) 325 mg PO DAILY [facility] Last Admin: 01/23/17 09:24 Dose: 325 mg Cefazolin Sodium (Ancef 1gm Ivpb (Pre-Docked)) 1 gm IVPB Q6H-IV [facility] Last Admin: 01/23/17 08:41 Dose: 1 gm Diazepam (Valium -) 5 mg PO Q8H PRN PRN Reason: ANXIETY Last Admin: 01/23/17 07:57 Dose: 5 mg Docusate Sodium (Colace -) 100 mg PO BID [facility] Last Admin: 01/23/17 09:24 Dose: 100 mg Enoxaparin Sodium (Lovenox -) 40 mg SQ DAILY [facility] Last Admin: 01/23/17 09:25 Dose: 40 mg Hydrochlorothiazide (Hctz -) 12.5 mg PO DAILY [facility] Last Admin: 01/23/17 09:24 Dose: 12.5 mg Hydromorphone HCl (Dilaudid Injection -) 1 mg IVPB Q4H PRN PRN Reason: PAIN Last Admin: 01/22/17 21:51 Dose: 1 mg Metformin HCl (Glucophage -) 500 mg PO BIDI [facility] Last Admin: 01/23/17 07:18 Dose: 500 mg Metoprolol Succinate (Toprol Xl -) 100 mg PO HS [facility] Last Admin: 01/22/17 21:51 Dose: 100 mg Oxycodone HCl (Roxicodone -) 5 mg PO Q4H PRN PRN Reason: PAIN Last Admin: 01/22/17 10:53 Dose: 5 mg Oxycodone HCl (Roxicodone -) 10 mg PO Q4H PRN PRN Reason: PAIN Last Admin: 01/22/17 15:00 Dose: 10 mg Simethicone (Mylicon -) 80 mg PO Q4H PRN PRN Reason: GAS Valsartan (Diovan -) 320 mg PO DAILY [facility] Last Admin: 01/23/17 09:24 Dose: 320 mg - Objective Vital Signs: Vital Signs Temperature 98 F 01/23/17 03:00 Pulse Rate 74 01/23/17 09:58 Respiratory Rate 18 01/23/17 09:58 Blood Pressure 108/64 01/23/17 09:58 O2 Sat by Pulse Oximetry (%) 96 01/23/17 08:00 Constitutional: Yes: Anxious Eyes: Yes: WNL HENT: Yes: WNL Neck: Yes: WNL Cardiovascular: Yes: Regular Rate and Rhythm Respiratory: Yes: Regular Gastrointestinal: Yes: Soft, Abdomen, Obese ...Rectal Exam: Yes: Deferred Genitourinary: No: Anuria Edema: Yes Edema: LLE: Trace, RLE: Trace Peripheral Pulses WNL: Yes Psychiatric: Yes: WNL Labs: CBC, BMP 01/23/17 08:10 01/23/17 08:10 Abnormal Lab Results 01/23/17 01/23/17 01/23/17 05:20 05:20 08:10 WBC 11.1 H D RBC 2.81 L 3.23 L Hgb 8.6 L D 10.0 L D Hct 25.8 L 29.5 L Sodium 125 L Potassium 3.4 L Chloride 87 L D Creatinine 2.6 H D Random Glucose 675 H* D Calcium 7.2 L Phosphorus 2.4 L Magnesium 1.3 L AST Total Protein Albumin 01/23/17 08:10 WBC RBC Hgb Hct Sodium Potassium Chloride Creatinine 1.2 H D Random Glucose 163 H D Calcium 8.3 L Phosphorus Magnesium AST 45 H D Total Protein 5.6 L Albumin 2.4 L Problem List - Problems (1) Paget's disease of right breast Assessment/Plan: s/p surgery. No pain presently. Earlier labs likely artifactual (repeats noted). Code(s): C50.011 - MALIGNANT NEOPLASM OF NIPPLE AND AREOLA, RIGHT FEMALE BREAST (2) PAF (paroxysmal atrial fibrillation) Assessment/Plan: No further PAF. As discussed with pt, would advise ECHO as outpatient to study LVEF, chamber sizes, valve status. The importance of losing weight, controlling blood pressure, and increasing exercise was emphasized. (Pt had a nuclear stress test recently that was reportedly WNL; she had an ECHO about 3 years ago). TSH WNL. Hydration (mild renal insufficiency). Continue metoprolol and ARB for HR, BP. Code(s): I48.0 - PAROXYSMAL ATRIAL FIBRILLATION (3) HTN (hypertension) Assessment/Plan: on metoprolol and ARB for years. Code(s): I10 - ESSENTIAL (PRIMARY) HYPERTENSION (4) Diabetes Code(s): E11.9 - TYPE 2 DIABETES MELLITUS WITHOUT COMPLICATIONS (5) Obesity Code(s): E66.9 - OBESITY, UNSPECIFIED (6) Chronic instability of right knee Assessment/Plan: torn menisci; pt says she has always been overweight, but this became much worse when her knee became more unstable. She has lost 30 lbs in the past year, however. Code(s): M23.51 - CHRONIC INSTABILITY OF KNEE, RIGHT KNEE
--- NOTE | 2017-01-23 18:16 | EKG ---
Test Reason : Blood Pressure : / mmHG Vent. Rate : 085 BPM Atrial Rate : 085 BPM P-R Int : 148 ms QRS Dur : 086 ms QT Int : 382 ms P-R-T Axes : 045 000 006 degrees QTc Int : 454 ms SINUS RHYTHM WITH PREMATURE ATRIAL COMPLEXES OTHERWISE NORMAL ECG WHEN COMPARED WITH ECG OF 17-DEC-2016 13:25, PREMATURE ATRIAL COMPLEXES ARE NOW PRESENT PATIENT SITTING IN CHAIR DURING EKG Confirmed by SHEIKH LISA, ATIF ([id number]) on 01/23/2017 6:15:55 PM Referred By: Rohan Stout Confirmed By:ATIF NUR MD
--- NOTE | 2017-01-26 15:37 | PATH ---
Surgical Pathology Report Patient Name: EUGENE CURTIS [facility]. Rec. #: [id number] /Age/Gender: 1950 (Age: 66) / F Account: [id number] Location: ICU MULESER Taken: 01/20/2017 Received: 01/21/2017 Reported: 01/26/2017 Physicians: Rohan Stout M.D. Specimen(s) Received A: RIGHT BREAST,TOTAL MASTECTOMY B: ABDOMINAL SKIN AND TISSUE Clinical History Right breast cancer Final Diagnosis A. BREAST, LEFT, TOTAL MASTECTOMY: TWO FOCI OF MICROINVASIVE CARCINOMA, NUCLEAR GRADE 2-3 (1.0 MM AND 0.5 MM) AND FEW SMALL FOCI OF ANGIOLYMPHATIC SPREAD. EXTENSIVE DUCTAL CARCINOMA IN SITU (DCIS), INTERMEDIATE TO HIGH NUCLEAR GRADE, SOLID TYPE, WITH CENTRAL COMEDO-TYPE NECROSIS, CALCIFICATIONS, LOBULAR EXTENSIONS, PERIDUCTAL SCLEROSIS, WITH NIPPLE DUCTS INVOLVEMENT; EXTENSIVE PAGET'S DISEASE OF THE NIPPLE. SURGICAL RESECTION MARGINS: NEGATIVE FOR INVASIVE CARCINOMA, CLOSEST RESECTION MARGIN (DEEP) IS 5.0 MM AWAY FROM INVASIVE CARCINOMA, DCIS IS 1.0 MM FROM ANTERIOR SIFT TISSUE MARGIN, SKIN AT RESECTION MARGINS APPEARS NEGATIVE FOR PAGET'S DISEASE. LYMPHOVASCULAR INVASION: PRESENT. PERINEURAL INVASION: NOT IDENTIFIED. SKIN: NOT INVOLVED BY INVASIVE CARCINOMA. SKELETAL MUSCLE: NOT INVOLVED BY CARCINOMA. SURROUNDING BREAST TISSUE: STROMAL FIBROSIS WITH FOCAL CALCIFICATIONS, SUGGESTIVE OF RADIATION RELATED CHANGES. PATHOLOGIC STAGING: mpT1mi pNX (ALSO REFER TO CHECKLIST BELOW). RECEPTOR STATUS: SEE COMMENT. Comment: ER, NY, Her2 and Ki67 studies are pending; results will be reported in an addendum. B. ABDOMINAL SKIN AND TISSUE: BENIGN SKIN AND FATTY TISSUE. Comments Breast Invasive Carcinoma: Surgical Pathology Cancer Case Summary Based on AJCC/UICC TNM, 7th edition Procedure _x_ Total mastectomy (including nipple and skin) Lymph Node Sampling _x_ No lymph nodes present Specimen Laterality _x_ Right Tumor Size: Size of Largest Invasive Carcinoma _x_ Microinvasion only (= 1 mm) Tumor Focality _x_ Multiple foci of invasive carcinoma Number of foci: 2 and few additional small foci of angiolymphatic spread Sizes of individual foci: 1.0 mm and 0.5 mm Macroscopic and Microscopic Extent of Tumor Skin _x_ Invasive carcinoma does not invade into the dermis or epidermis Nipple _x_ DCIS involves nipple epidermis (Paget disease of the nipple) Skeletal Muscle _x_ Carcinoma does not invades skeletal muscle Ductal Carcinoma In Situ (DCIS) _x_ DCIS is present _x_ as a major component (>25% of tumor, extensive intraductal component) Histologic Type of Invasive Carcinoma: _x_ Micro-invasive carcinoma Histologic Grade: (Gamaliel Histologic Score) Tubular Differentiation _x_ Only microinvasion present (not graded) Nuclear Pleomorphism _x_ Only microinvasion present (not graded) Mitotic Rate _x_ Only microinvasion present (not graded) Overall Grade _x_ Only microinvasion present (not graded) Margins _x_ Margins uninvolved by invasive carcinoma (required only if residual invasive carcinoma is present in specimen) Distance from closest margin: 1 mm Specify margin: deep _x_ DCIS is focally 1.0 mm from the anterior soft tissue margin Lymph-Vascular Invasion _x_ Present Pathologic Staging (pTNM) Primary Tumor (Invasive Carcinoma): mpT1mi Regional Lymph Nodes (pN): pNX Distant Metastasis (pM): not applicable Biomarker Studies Results of ER, NY Her2 and KI67 studies will be reported separately in an addendum. Electronically Signed Khris Webb M.D. Addendum Reported: 01/28/2017 Addendum Diagnosis Immunohistochemical stain for E-cadherin performed and interpreted at [facility] on antoine A14 is positive in tumor cells with membranous staining supporting ductal phenotype. Results of Estrogen Receptor (ER) and Progesterone Receptor (NY) studies performed on block A14 at [facility] are as follows: ER (clone [id number] mouse monoclonal antibody by [employer]): ~50-60% nuclear staining moderate intensity (Positive). NY (clone16 mouse monoclonal antibody by [employer]): ~25-30% nuclear staining moderate intensity (Positive). Results of Her2 (IHC) & Ki-67 studies performed on block A14 at [place], [place] ([id number]) are as follows: Her2 IHC (EP3 from [employer], formerly known as [id number], using [employer] Polymer Refine detection kit): 0 (Negative) Ki-67: ~20% (Intermediate proliferation index) Positive and negative controls (internal if applicable) show appropriate results. Formalin fixation and cold ischemic times are within current ASCO/CAP recommendations for ER, NY and Her2 testing. Khris Webb M.D. Gross Description A. Received in formalin, labeled "right breast total mastectomy" is a 435 gram, 14 x 14 x 6 cm. right skin sparing mastectomy specimen with a short suture marking the superior aspect and a long suture marking the lateral aspect of the specimen, per the surgeon. There is an 8.5 x 7.5 portion of skin containing the nipple and areola, with marked discoloration. Scaly induration is noted in this area.. The deep margin is inked black and the anterior soft tissue margin is inked blue. The specimen is serially sectioned from lateral to medial. Sectioning reveals yellow adipose tissue and osei fibrous tissue with marked discoloration in the retroareolar area. No distinct mass is identified within the retroareolar tissue. Approximately 0.6 cm in greatest dimension firm area is noted abutting the deep margin, and 0.5 cm from the superior portion of the anterior margin. In addition, a 0.6 cm calcified nodule is present 1.1 cm from the superior portion of the anterior margin, and 1.9 cm from the deep margin. Also present within the specimen container is an 8 x 8 x 3 cm aggregate of portions of skin and yellow fibrofatty tissue. Director Social Service sections are submitted in 17 cassettes as follows: 1-accounts payable representative superior skin shaved margin, 2- accounts payable representative inferior skin shaved margin, 3-7-nipple with adjacent areola, 8-areola with superior skin, 9-areola with anterior skin, 10 and 11-retroareolar tissue, 12-14-deep margin with firm area, 15 -16-hard nodule submitted after decalcification, 17-sections of additional skin and soft tissue within specimen container, cassettes 18-24 additional sections of breast tissue Time to formalin fixation: not indicated Total formalin fixation time: ~12-48h. B. Received in formalin labelled "abdominal skin and tissue" is a 1623 gram, 30 x 25 x 2 5 cm aggregate of portions of skin and subcutaneous adipose tissue. No focal lesions are identified. A accounts payable representative portion is submitted in one cassette. [facility]/01/21/2017 [facility]/01/21/2017
== END 2017-01-23 11:33 | disposition home health service (06) | DRG 580 ==
LOC: JSAMEDAYSX 01-20 06:11 → JICU 01-20 19:34
PROVIDERS: ADMIT Surgery Surgical Oncology; ATTEND Surgery Surgical Oncology
PROC: 0HTT0ZZ Resection of Right Breast, Open Approach (ICD-10-PCS; principal; 2017-01-20 08:00)
PROC: 0XJ Anatomical Regions, Upper Extremities, Inspection (ICD-10-PCS; 2017-01-20 08:00)
PROC: 0HRT077 Replacement of Right Breast using Deep Inferior Epigastric Artery Perforator Flap, Open Approach (ICD-10-PCS; 2017-01-20 08:00)
PROC: 4A1GXSH Monitoring of Skin and Breast Vascular Perfusion using Indocyanine Green Dye, External Approach (ICD-10-PCS; 2017-01-20 08:00)
DX: C50.011 Malignant neoplasm of nipple and areola, right female breast (principal); I97.89 Other postprocedural complications and disorders of the circulatory system, not elsewhere classified; Z68.42 Body mass index [BMI] 45.0-49.9, adult; N60.31 Fibrosclerosis of right breast; R10.9 Unspecified abdominal pain; I10 Essential (primary) hypertension; M10.9 Gout, unspecified; E11.9 Type 2 diabetes mellitus without complications; Z79.84 Long term (current) use of oral hypoglycemic drugs; Z53.8 Procedure and treatment not carried out for other reasons; E66.01 Morbid (severe) obesity due to excess calories; G47.30 Sleep apnea, unspecified; Z87.891 Personal history of nicotine dependence; I48.0 Paroxysmal atrial fibrillation; M23.51 Chronic instability of knee, right knee; Y83.8 Other surgical procedures as the cause of abnormal reaction of the patient, or of later complication, without mention of misadventure at the time of the procedure; Z80.0 Family history of malignant neoplasm of digestive organs
CPT/HCPCS: 36415; 78195-TC; 80048; 80053; 83735; 84100; 84443; 84484; 85025; 85027; 86850; 86900; 86901; 88302-TC; 88307-TC; 93005; 93010; 94010; 94760; A9541; J1644

== ENCOUNTER 2017-02-20 03:26 | Inpatient (IN) | payer OTHER ==
[2017-02-20 03:43] VITALS: BMI 44.9
[2017-02-20] MEDS ORDERED: SODIUM CHLORIDE 0.9% 1000 ML INFUS.BAG IV ONE (04:03)
[2017-02-20] MEDS ORDERED: SODIUM CHLORIDE 0.9% 500 ML INFUS.BAG IV ONE (04:06)
[2017-02-20] MEDS ORDERED: dilTIAZem HCL 50 MG/10 ML - 10 ML VIAL IVPUSH ONE ×2 (04:07→04:23)
[2017-02-20 04:08] LABS: BASOPHIL 0.6 % (0-2.0); EOSINOPHIL 2.3 % (0-4.5); MCH 30.6 pg (25.7-33.7); MCHC 33.3 g/dl (32.0-36.0); MEAN PLT VOLUME 9.5 fl (7.5-11.1); NEUTROPHILS 64.6 % (42.8-82.8); PLATELET COUNT 295 K/MM3 (134-434); RDW 14.3 % (11.6-15.6); WHITE BLOOD COUNT 11.9 K/mm3 (4.0-10.0)
[2017-02-20 04:22] LABS: INR 0.88 (0.82-1.09); PROTHROMBIN TIME (PATIENT) 9.6 SEC (9.98-11.88)
[2017-02-20 04:25] LABS: ACTIVATED PTT 27.5 SECONDS (26.9-34.4)
[2017-02-20 04:31] LABS: ALBUMIN 3.4 g/dl (3.4-5.0); ANION GAP 15 (8-16); BILIRUBIN,TOTAL 0.4 mg/dL (0.2-1.0); CALCIUM 7.7 mg/dL (8.5-10.1); CO2 19 mmol/L (21-32); CPK 60 IU/L (26-192); CREATININE 1.8 mg/dL (0.55-1.02); GLUCOSE,RANDOM 274 mg/dL (74-106); MAGNESIUM 1.7 mg/dL (1.8-2.4); PHOSPHOROUS 4.3 mg/dL (2.5-4.9); SGOT/AST 22 U/L (15-37); SGPT/ALT 29 U/L (12-78); TOT PROT 6.8 g/dl (6.4-8.2)
[2017-02-20 04:34] LABS: ALK PHOS 73 U/L (45-117); TROPONIN I 0.11 ng/ml (0.00-0.05)
--- NOTE | 2017-02-20 04:35 | PDOC ---
Attending Attestation - Resident Resident Name: Driss Mathews - ED Attending Attestation I have performed the following: I have examined & evaluated the patient, The case was reviewed & discussed with the resident, I agree w/resident's findings & plan, Exceptions are as noted - HPI HPI: 02/20/17 04:32 66 year old female with hx of breast ca, HTN, obesity, gout, DM, Paget's disease p/w shortness of breath x 4 day. The patient ~4 wks ago had R sided mastectomy and plastic reconstruction. Several days ago, she had her drains pulled out. Noticed 4 days ago that she was feeling short of breath and lightheaded. Never had chest pain. Today, she woke up feeling significant palpitations and shortness of breath. Denies recent illnesses, fevers, chills. Did endorse intermittent loose stools x 1 month. Pt was noted to be ~200 and irregularly irregular. Pt was seen immediately by me and Dr. Driss Mathews. - Physicial Exam PE: 02/20/17 04:35 GENERAL: Awake, alert, and fully oriented. Tachypneic and visibly short of breath. HEAD: No signs of trauma EYES: PERRLA, EOMI, sclera anicteric, conjunctiva clear ENT: Auricles normal inspection, hearing grossly normal, nares patent, oropharynx clear without exudates. NECK: Normal ROM, supple, no lymphadenopathy, JVD, or masses LUNGS: Breath sounds equal, clear to auscultation bilaterally. No wheezes, and no crackles HEART: Irregularly regular rate and rhythm and tachycardic. normal S1 and S2, no murmurs, rubs or gallops ABDOMEN: Soft, nontender, normoactive bowel sounds. No guarding, no rebound. No masses EXTREMITIES: Normal range of motion, no edema. No clubbing or cyanosis. No cords, erythema, or tenderness NEUROLOGICAL: Cranial nerves II through XII grossly intact. Normal speech, normal gait SKIN: Warm, Dry, normal turgor, no rashes or lesions noted. S/P right sided mastectomy. Several surgical drains with no erythema. - Critical Care Time Total Critical Care Time: 35 Critical Care Statement: The care of this patient involved high complexity decision making to prevent further life threatening deterioration of the patient 's condition and/or to evaluate & treat vital organ system(s) failure or risk of failure. - Medical Decision Making 02/20/17 04:39 Vital Signs Temp Pulse Resp BP Pulse Ox 109 H 14 91/53 100 02/20/17 03:34 02/20/17 03:34 02/20/17 03:34 02/20/17 03:34 66 year old female c/ multiple medical problems presents with palpitations and SOB. ECG demonstrates afib RVR (which is new. she did have some pafib several weeks ago, but pt not on anticoagulation). Denies chest pain. Denies hx of clots. Pt given IV diltiazem with improvement of symptoms for afib RVR. Chest xray, Trop, labs. web developer. Consider anticoagulation. Admit to cardiac tele. 02/20/17 05:08 CBC, BMP 02/20/17 03:50 02/20/17 03:50 CMP Sodium 138 mmol/L (136-145) 02/20/17 03:50 Potassium 4.9 mmol/L (3.5-5.1) D 02/20/17 03:50 Chloride 104 mmol/L (98-107) 02/20/17 03:50 Carbon Dioxide 19 mmol/L (21-32) L D 02/20/17 03:50 Anion Gap 15 (8-16) 02/20/17 03:50 BUN 31 mg/dL (7-18) H D 02/20/17 03:50 Creatinine 1.8 mg/dL (0.55-1.02) H D 02/20/17 03:50 Creat Clearance w eGFR 28.33 (>60) 02/20/17 03:50 Random Glucose 274 mg/dL (74-106) H D 02/20/17 03:50 Lactic Acid 5.9 mmol/L (0.4-2.0) H* 02/20/17 03:50 Calcium 7.7 mg/dL (8.5-10.1) L 02/20/17 03:50 Phosphorus 4.3 mg/dL (2.5-4.9) D 02/20/17 03:50 Magnesium 1.7 mg/dL (1.8-2.4) L D 02/20/17 03:50 Total Bilirubin 0.4 mg/dL (0.2-1.0) 02/20/17 03:50 AST 22 U/L (15-37) D 02/20/17 03:50 ALT 29 U/L (12-78) 02/20/17 03:50 Alkaline Phosphatase 73 U/L (45-117) 02/20/17 03:50 Creatine Kinase 60 IU/L (26-192) 02/20/17 03:50 Troponin I 0.11 ng/ml (0.00-0.05) H 02/20/17 03:50 B-Natriuretic Peptide 4839.61 pg/ml (5-125) H 02/20/17 03:50 Total Protein 6.8 g/dl (6.4-8.2) D 02/20/17 03:50 Albumin 3.4 g/dl (3.4-5.0) D 02/20/17 03:50 Magnesium repleted. Noted to have trop 0.11 and BNP 4800. Chest xray reviewed by me. No acute findings. No pleural effusion or pulm vasc congestion. I suspect the tachycardia was driving the demand ischemia and elevated BNP. Pt had recieved 2L of IVF initially for low BPs. Will continue to monitor. Pt should be admitted for further evaluation to telemetry and for consideration of anticoagulation and echo. 02/20/17 06:59 Critical Care Time: 35 minutes Heart Score/ECG Review #1 ECG reviewed & interpreted by me at: 03:40 02/20/17 04:36 atrial fibrillation 194 RVR, no JESÚS, QTC 391 msec #2 ECG reviewed & interpreted by me at: 05:00 02/20/17 05:08 atrial fibrillation 107, TWI III, V-3, no std/jesús, QTC 515 msec #3 ECG reviewed & interpreted by me at: 06:00 02/20/17 06:07 NSR 71, TWI III, avF, QTC 502 msec. no std/jesús.
[2017-02-20] MEDS ORDERED: dilTIAZem HCL 30 MG TABLET (FP) PO ONE (04:48)
[2017-02-20] MEDS ORDERED: MAGNESIUM SULF 50% (8.12 MEQ/2 ML-1 GM VIAL) IVPB ONE (04:50)
[2017-02-20] MEDS ORDERED: MAGNESIUM SULF 50% (8.12 MEQ/2 ML-1 GM VIAL) ONE (05:02)
[2017-02-20] MEDS ORDERED: dilTIAZem HCL 30 MG TABLET (FP) ONE (05:02)
--- NOTE | 2017-02-20 05:04 | PDOC ---
History of Present Illness - General Chief Complaint: Shortness of Breath Stated Complaint: SHORTNESS OF BREATH Time Seen by Provider: 02/20/17 03:28 - History of Present Illness Initial Comments: 02/20/17 04:59 Patient is a 66 year old female with progressive sob of 4 days that became acutely worse this morning waking patient from sleep. Past History - Past Medical History Allergies/Adverse Reactions: Allergies Allergy/AdvReac Type Severity Reaction Status Date / Time No Known Allergies Allergy Verified 02/20/17 03:33 Home Medications: Ambulatory Orders Allopurinol 300 mg PO DAILY 01/18/17 Aspirin Coated [Ecotrin -] 81 mg PO DAILY 01/18/17 Metformin HCl 500 mg PO BID 01/18/17 Metoprolol Succinate [Toprol Xl] 100 mg PO DAILY 01/18/17 Multivitamins [Multivit ([facility] Formulary)] 1 tab PO DAILY 01/18/17 Olmesartan/Hydrochlorothiazide [Benicar Hct 40-12.5 mg Tablet] 1 each PO DAILY 01/18/17 Acetaminophen [Tylenol .Regular Strength -] 325 mg PO Q4H PRN #0 tablet Acetaminophen [Tylenol .Regular Strength -] 650 mg PO Q4H PRN #0 tablet Aspirin [ASA -] 81 mg PO DAILY tablet 01/23/17 Cefadroxil 500 mg PO BID #20 capsule 01/23/17 Diazepam [Valium] 5 mg PO Q8H PRN #15 tablet MDD 3 01/23/17 Metformin HCl [Glucophage -] 500 mg PO BIDI tablet 01/23/17 Oxycodone HCl [Roxicodone -] 5 mg PO Q4H PRN #30 tablet MDD 10 01/23/17 Valsartan [Diovan] 320 mg PO DAILY tablet 01/23/17 Anemia: No Asthma: No Cancer: Yes (BREAST CANCER -RIGHT 25YRS AGO) Cardiac Disorders: No CVA: No COPD: No CHF: No Dementia: No Diabetes: Yes (TYPE 2 (2YRS)) GI Disorders: No Disorders: No HTN: Yes Hypercholesterolemia: No Liver Disease: No Seizures: No Thyroid Disease: No - Psycho/Social/Smoking Cessation Hx Suicidal Ideation: No Smoking History: Never smoked Have you smoked in the past 12 months: No If you are a former smoker, when did you quit?: 40YRS AGO Information on smoking cessation initiated: No Hx Alcohol Use: No Drug/Substance Use Hx: No Substance Use Type: Alcohol Hx Substance Use Treatment: No *Physical Exam - Vital Signs Last Vital Signs Temp Pulse Resp BP Pulse Ox 109 H 14 91/53 100 02/20/17 03:34 02/20/17 03:34 02/20/17 03:34 02/20/17 03:34 ED Treatment Course - LABORATORY CBC & Chemistry Diagram: 02/20/17 03:50 02/20/17 03:50 - ADDITIONAL ORDERS Additional order review: Laboratory Results 02/20/17 02/20/17 02/20/17 03:50 03:50 03:50 INR 0.88 PTT (Actin FS) 27.5 Sodium 138 Potassium 4.9 D Chloride 104 Carbon Dioxide 19 L D Anion Gap 15 BUN 31 H D Creatinine 1.8 H D Creat Clearance w eGFR 28.33 Random Glucose 274 H D Lactic Acid 5.9 H* Calcium 7.7 L Phosphorus 4.3 D Magnesium 1.7 L D Total Bilirubin 0.4 AST 22 D ALT 29 Alkaline Phosphatase 73 Creatine Kinase 60 Troponin I 0.11 H B-Natriuretic Peptide 4839.61 H Total Protein 6.8 D Albumin 3.4 D 02/20/17 03:50 RBC 3.98 D MCV 92.0 MCHC 33.3 RDW 14.3 MPV 9.5 Neutrophils % 64.6 Lymphocytes % 26.3 D Monocytes % 6.2 Eosinophils % 2.3 D Basophils % 0.6 - Medications Given in the ED: ED Medications Discontinued Medications Generic Name Dose Route Start Last Admin Trade Name Brendan PRLakesha Reason Stop Dose Admin Diltiazem HCl 20 mg 02/20/17 04:07 02/20/17 04:07 Cardizem Injection - IVPUSH 02/20/17 04:08 20 mg NOW ONE Administration Diltiazem HCl 10 mg 02/20/17 04:23 02/20/17 04:32 Cardizem Injection - IVPUSH 02/20/17 04:24 10 mg ONCE ONE Administration Sodium Chloride 1,000 ml 02/20/17 04:03 02/20/17 04:05 Normal Saline - IV 02/20/17 04:04 1,000 ml NOW ONE Administration Sodium Chloride 1,000 ml 02/20/17 04:06 02/20/17 04:06 Normal Saline - IV 02/20/17 04:07 1,000 ml NOW ONE Administration Medical Decision Making - Medical Decision Making 02/20/17 05:00 66 year old female with sob presenting in afib Plan Dilt IV 10 mg, repeat doses titrate to HR < 120 Dilt PO 30 mg 02/20/17 05:00 Patient has a HAS-BLED score of 3 (HTN, Renal Disease, Age) indicating a high risk of bleeding (5.8%) if started on anticoagulation. Patient was not started on anticoagulation in the ED and left for the slitter and cutter operator decision 02/20/17 05:49 Spoke with hospitalist about patient admission. *DC/Admit/Observation/Transfer Diagnosis at time of Disposition: PAF (paroxysmal atrial fibrillation) - Discharge Dispostion Condition at time of disposition: Improved Admit: Yes - Attestations Physician Attestion: 02/20/17 05:54 I, Dr. Driss Mathews, attest that this document has been prepared under my direction and personally reviewed by me in its entirety. I further attest, that it accurately reflects all work, treatment, procedures and medical decision -making performed by me.
--- NOTE | 2017-02-20 08:07 | CON.CARD ---
Consult - History of Present Illness History of Present Illness: 66 year old female with hx of breast ca, HTN, obesity, gout, DM, Paget's disease p/w shortness of breath x 4 day. The patient ~4 wks ago had R sided mastectomy and plastic reconstruction. Several days ago, she had her drains pulled out. Noticed 4 days ago that she was feeling short of breath and lightheaded. Never had chest pain. Today, she woke up feeling significant palpitations and shortness of breath. Denies recent illnesses, fevers, chills. Did endorse intermittent loose stools x 1 month. - Past Medical History Cardio/Vascular: Yes: HTN Rheumatology: Yes: Gout Endocrine: Yes: Diabetes Mellitus (type two) - Past Surgical History Past Surgical History: Yes: - Alcohol/Substance Use Hx Alcohol Use: No - Smoking History Smoking history: Never smoked Have you smoked in the past 12 months: No If you are a former smoker, when did you quit?: 40YRS AGO Home Medications - Allergies Allergies/Adverse Reactions: Allergies Allergy/AdvReac Type Severity Reaction Status Date / Time No Known Allergies Allergy Verified 02/20/17 03:33 - Home Medications Home Medications: Ambulatory Orders Allopurinol 300 mg PO DAILY 01/18/17 Aspirin Coated [Ecotrin -] 81 mg PO DAILY 01/18/17 Metformin HCl 500 mg PO BID 01/18/17 Metoprolol Succinate [Toprol Xl] 100 mg PO DAILY 01/18/17 Multivitamins [Multivit ([facility] Formulary)] 1 tab PO DAILY 01/18/17 Olmesartan/Hydrochlorothiazide [Benicar Hct 40-12.5 mg Tablet] 1 each PO DAILY 01/18/17 Acetaminophen [Tylenol .Regular Strength -] 650 mg PO Q4H PRN #0 tablet Cefadroxil 500 mg PO BID #20 capsule 01/23/17 Diazepam [Valium] 5 mg PO Q8H PRN #15 tablet MDD 3 01/23/17 Oxycodone HCl [Roxicodone -] 5 mg PO Q4H PRN #30 tablet MDD 10 01/23/17 Valsartan [Diovan] 320 mg PO DAILY tablet 01/23/17 Family Disease History - Family Disease History Family Disease History: Heart Disease: Mother (CRC 82; colon cancer), CA: Grandparent (mat GF gastric ca 93), Mother Vital Signs: Vital Signs Temperature Pulse Rate 75 02/20/17 06:30 Respiratory Rate 19 02/20/17 06:30 Blood Pressure 89/48 02/20/17 06:30 O2 Sat by Pulse Oximetry (%) 99 02/20/17 06:30 - Other Data Labs, Other Data: INR, PTT INR 0.88 (0.82-1.09) 02/20/17 03:50
--- NOTE | 2017-02-20 08:23 | HP ---
CHIEF COMPLAINT: palpitations and SOB Surgeon: Chilo Miner and Dr. Ashley Endo: Dr. Hansen PCP: none HISTORY OF PRESENT ILLNESS: 66 yr old woman with recent breast reconstruction surgery 01/20, present with palpitations since 12AM this morning. She was sleeping and was woken up with "pounding" in her chest, midsternum, no pain, nonradiating, lasting few minutes , a/w shortness of breath. While laying in bed she felt dizzy and lightheaded, she felt that if she stood up she would pass out.For past few days she has been having worsening exertional dyspnea, walking from her car to her Dr's office ( in [facility]) on Tuesday made her feel "winded." Last week she was walking around her house packing clothes when she suddenly had an episode of lightheadedness and shortness of breath, she immediately laid down and her symptoms improved in seconds, denies LOC/chest pain/palpitations at that time. She was seen on Tuesday to remove a drain on the right side incision. As per daughter, since then there has been more foul-smelling discharge "oozing" out. Also notes that her BGM's at home have been much higher than usual in the last few days; typically she is between 100-120, now 200's. On previous admission for surgery, pt had asymptomatic paroxsyml afib that resolved without intervention. says she had a treadmill stress test prior to surgery in September and she reached the target hr and was told everything was normal. ER course was notable for: (1) cardizem 10+20mg push + 30mg po (2) serial EKG's (3) Cxy Recent Travel: none PAST MEDICAL HISTORY: NIDDM II, last Hba1c in september 6.3, as per pt HTN Breast Ca (DCIS) dx'd >25 yrs ago, underwent lumpectomy and radiation to the right chest at that time Gout Chart reviewed for further information. PAST SURGICAL HISTORY: Breast surgery 01/20 Hx of C-sections Social History: Smoking: denies Alcohol: denies Drugs: denies Family History: Mother (CRC 82; colon cancer), CA: maternal Grandparent (mat GF gastric ca 93), paternal aunt-breast cancer. maternal uncle-tongue cancer Allergies No Known Allergies Allergy (Verified 02/20/17 03:33) HOME MEDICATIONS: Home Medications Medication Instructions Recorded Allopurinol 300 mg PO DAILY 01/18/17 Aspirin Coated [Ecotrin -] 81 mg PO DAILY 01/18/17 Metformin HCl 500 mg PO BID 01/18/17 Metoprolol Succinate [Toprol Xl] 100 mg PO DAILY 01/18/17 Multivitamins [Multivit ([facility] 1 tab PO DAILY 01/18/17 Formulary)] Olmesartan/Hydrochlorothiazide 1 each PO DAILY 01/18/17 [Benicar Hct 40-12.5 mg Tablet] Acetaminophen [Tylenol .Regular 650 mg PO Q4H PRN #0 tablet 01/23/17 Strength -] Cefadroxil 500 mg PO BID #20 capsule 01/23/17 Diazepam [Valium] 5 mg PO Q8H PRN #15 tablet MDD 3 01/23/17 Oxycodone HCl [Roxicodone -] 5 mg PO Q4H PRN #30 tablet MDD 10 01/23/17 Valsartan [Diovan] 320 mg PO DAILY tablet 01/23/17 REVIEW OF SYSTEMS CONSTITUTIONAL: Present: intentional weight change, loss of 30lbs Absent: fever, chills, diaphoresis, generalized weakness, malaise, loss of appetite, HEENT: Absent: rhinorrhea, nasal congestion, throat pain, throat swelling, difficulty swallowing, mouth swelling, ear pain, eye pain, visual changes CARDIOVASCULAR: Present: palpitations, irregular heart rate, Absent: chest pain, syncope, lightheadedness, peripheral edema RESPIRATORY: Present: dyspnea with exertion, Absent: cough, shortness of breath, orthopnea, wheezing, stridor, hemoptysis GASTROINTESTINAL: Present: diarrhea, for the past month, nonbloody watery loose bowel movements Absent: abdominal pain, abdominal distension, nausea, vomiting, constipation, melena, hematochezia GENITOURINARY: Absent: dysuria, frequency, urgency, hesitancy, hematuria, flank pain, genital pain MUSCULOSKELETAL: Absent: myalgia, arthralgia, joint swelling, back pain, neck pain SKIN: Absent: rash, itching, pallor HEMATOLOGIC/IMMUNOLOGIC: Absent: easy bleeding, easy bruising, lymphadenopathy, frequent infections ENDOCRINE: Absent: unexplained weight gain, unexplained weight loss, heat intolerance, cold intolerance NEUROLOGIC: Absent: headache, focal weakness or paresthesias, dizziness, unsteady gait, seizure, mental status changes, bladder or bowel incontinence PHYSICAL EXAMINATION Vital Signs - 24 hr 02/20/17 06:30 Pulse Rate [ 75 Right Apical] Respiratory 19 Rate Blood Pressure 89/48 [Left Arm] O2 Sat by Pulse 99 Oximetry (%) GENERAL: Awake, alert, and fully oriented, in no acute distress. HEAD: Normal with no signs of trauma. EYES: Pupils equal, round and reactive to light, extraocular movements intact, sclera anicteric, conjunctiva clear. No lid lag. EARS, NOSE, THROAT: oropharynx clear without exudates. dry mucous membranes. no erythema, no thrush NECK: Normal range of motion, supple without lymphadenopathy, JVD, or masses. LUNGS: Breath sounds equal, clear to auscultation bilaterally. No wheezes, and no crackles. No accessory muscle use. HEART: Regular rate and rhythm, normal S1 and S2 without murmur, rub or gallop. ABDOMEN: obese, Soft, nontender, +distended, normoactive bowel sounds, no guarding, no rebound, no masses. lower abdominal incision, well healing anteriorly, right and left lateral portions with areas of drainage, left with 2mev4op serous drainage no underlying fluctuance, no purulent discharge, nontender, right with 2cm serous nonbloody drainage with minimal surrounding erythema, nontender, no underlying fluctuance. right breast with circumferential insicion with dried scabs, medially with open skin and serous/ thick drainage(pt has been placing sulfaziade on at the side) center has darkened skin. umbilicus with scant serous drainage and dried scabs circumferentially, nontender, mild erythema surrounding MUSCULOSKELETAL: Normal range of motion at all joints. No bony deformities or tenderness. No CVA tenderness. UPPER EXTREMITIES: 2+ radial pulses, warm, well-perfused. No cyanosis. No clubbing. No peripheral edema. LOWER EXTREMITIES: 2+ DP pulses, warm, well-perfused. No calf tenderness. scant NEUROLOGICAL: Cranial nerves II-XII intact. Normal speech. Normal gait. PSYCHIATRIC: Cooperative. Good eye contact. Appropriate mood and affect. SKIN: Warm, dry, normal turgor, no rashes or lesions noted, normal capillary refill. Laboratory Results - last 24 hr 02/20/17 06:30 Lactic Acid 3.8 H* Active Medications Acetaminophen (Tylenol -) 650 mg PO Q4H PRN PRN Reason: FEVER OR PAIN Aspirin (Asa -) 325 mg PO DAILY [facility] Last Admin: 02/20/17 16:56 Dose: 325 mg Diltiazem HCl (Cardizem -) 30 mg PO Q8H [facility] Last Admin: 02/20/17 14:10 Dose: 30 mg Enoxaparin Sodium (Lovenox -) 100 mg SQ BID [facility] Last Admin: 02/20/17 16:56 Dose: 100 mg Sodium Chloride (Normal Saline -) 1,000 mls @ 75 mls/hr IV ASDIR [facility] Last Admin: 02/20/17 09:04 Dose: 75 mls/hr Insulin Aspart (Novolog Vial Sliding Scale -) 1 vial SQ ACHS [facility] PRN Reason: Protocol Last Admin: 02/20/17 16:58 Dose: Not Given Melatonin (Melatonin) 1 mg PO HS [facility] Silver Sulfadiazine (Silvadene -) 1 applic TP DAILY [facility] Last Admin: 02/20/17 15:28 Dose: 1 applic ASSESSMENT/PLAN: 66 yr old woman with Breast Ca, DM II, presents with rapid Afib and sob admitted to Tele for further workup. - r/o DVT due to LE swelling and c/o of sob(vitals currently stable, if continues to worsen, will consider CTA to r/o PE #Rapid Afib - now rate controlled after cardizem 30mg push and 30 mg po - continue cardizem 30mg q8hr, hold benicar and toprol xl for now as per cardio - Tele monitoring, echo - cardiology consult Dr. Oneal - Has bleed score of 3, ChadsVasc 2 #DM II - hold metformin, BGM ACHS with NISS - diabetic diet #Jimmie (baseline 1.2) - likely due to hypoperfusion - urine studies #Lactic acidosis - likely due to increased wob vs infectious cause, bld cx drawn in the ED, monitor off abx for now - trend #Diarrhea - check c.diff given recent abx use #s/p surgery: daily dressing changes at draining sites, call placed to Dr. Stout, discussed with on-call surgeon, pt will be seen shortly and they will notify Dr. Ashley (as I was unable to reach his call service to notify him myself). apply silver silvadene daily to sites DVT: lovenox sq diet: diabetic/low Na Pain: tylenol 650mg po F: IVF NS @75cc/hr Visit type - Emergency Visit Emergency Visit: Yes ED Registration Date: 02/20/17 Care time: The patient presented to the Emergency Department on the above date and was hospitalized for further evaluation of their emergent condition. - New Patient This patient is new to me today: Yes Date on this admission: 02/20/17 - Critical Care Critical Care patient: No
[2017-02-20] MEDS ORDERED: ACETAMINOPHEN 325 MG TABLET (FP) PO PRN (08:59)
[2017-02-20] MEDS: SODIUM CHLORIDE 1,000 ML IV SCH (09:04)
[2017-02-20 11:17] LABS: TROPONIN I 0.1 ng/ml (0.00-0.05)
[2017-02-20] MEDS: INSULIN SLIDING SCALE (NOVOLOG) 1 VIAL SQ SCH ×3 (12:21→21:45)
[2017-02-20] MEDS ORDERED: HEPARIN NA (PORCINE) 5,000 UNITS/ML 1ML VIAL SQ SCH (14:00)
[2017-02-20] MEDS: dilTIAZem HCL 30 MG TABLET (FP) PO SCH ×2 (14:10→21:44)
--- NOTE | 2017-02-20 14:43 | PN ---
Teaching Attending Note Name of Resident: Harry Blair ATTENDING PHYSICIAN STATEMENT I saw and evaluated the patient. I reviewed the resident's note and discussed the case with the resident. I agree with the resident's findings and plan as documented. SUBJECTIVE:66yo F c/o SOB and dizziness for the past 2 weeks. episodes on exertion but would resolve with rest. this morning she had palpitations which she did not previously experience with SOB which prompted her to come to the ER. She underwent breast reconstruction surgery on 01/20. denies CP, hemoptysis, N/V/C/D, blurred vision, calf pain or tenderness OBJECTIVE: Last Vital Signs Temp Pulse Resp BP Pulse Ox 98.6 F 75 20 116/68 99 02/20/17 11:09 02/20/17 11:09 02/20/17 11:09 02/20/17 11:09 02/20/17 11:09 General NAD CV S1 S2 RRR no murmur/rub/gallop Lungs CTA B/L no wheezing/rales/rhonchi Abdomen soft NT/ND obese large trans-abdominal scar under pannus, dehisced on ends with pus drainage and mild erythema. middle of scar looks clean without drainage extremities non pitting edema B/L no calf tenderness ASSESSMENT AND PLAN: 66yo F with PMH breast ca, DM, HTn and gout presented to the ER with SOb and found to be in afib 1. Paroxysmal afib- tele admission for continous cardiac monitoring. on monitor now pt currently in sinus rhythm after receiving cardizem 30mg IV and 30mg po. now on cardizem po. check echo. [id number] 2. will hold on anticoagulation at this time as already converted. will defer to cardiology. on asa 2. SOB- can likely be due to afib. however has high risk factors for PE. currently saturating 97% on RA. if remains SOB now that is in sinus rhythm should consider CTA. will hold off for now as not hypoxic and in AILYN. ddimer would not be useful at this time due to cancer pt with recent surgery, likely to be flasely elevated. will check dopplers of legs. 3. AILYN- likley due to hypoperfusion as was hypotensive on arrival. gently IV fluids as may need contrast tomorrow. check urine studies avoid nephrotoxic agents 4. hypotension- now resolved. hold oral antihypertensives at this time 5. Elevated troponin- likely demand ischemia due to tachycardia. trend cardiac enzymes Q6H. echo pending 6. Lactic acidosis- likley due to demand ischemia. IVF. repeat 7. surgical wound- +active drainage at surgical site. states she saw plastic surgeon last week, unsure if it was actively draining at that time. will hold off on treating with abx at this time. call placed out to Dr Stout and Dr Ashley. daily dressing changes for now 8. DM- hold oral agents. ISS, bgm. diabetic diet 9. Breast ca- outpatient follow up 10. DVT ppx- lovenox
--- NOTE | 2017-02-20 15:09 | CON.CARD ---
Consult - History of Present Illness History of Present Illness: 66 year old female with hx of breast ca, HTN, obesity, gout, DM, Paget's disease p/w shortness of breath x 4 day. The patient ~4 wks ago had R sided mastectomy and plastic reconstruction. Several days ago, she had her drains pulled out. Noticed 4 days ago that she was feeling short of breath and lightheaded. Never had chest pain. Today, she woke up feeling significant palpitations and shortness of breath. Denies recent illnesses, fevers, chills. Did endorse intermittent loose stools x 1 month. - History Source History Provided By: Patient, Medical Record - Past Medical History Cardio/Vascular: Yes: AFIB, HTN Rheumatology: Yes: Gout Endocrine: Yes: Diabetes Mellitus (type two) - Past Surgical History Past Surgical History: Yes: - Alcohol/Substance Use Hx Alcohol Use: No - Smoking History Smoking history: Never smoked Have you smoked in the past 12 months: No If you are a former smoker, when did you quit?: 40YRS AGO Home Medications - Allergies Allergies/Adverse Reactions: Allergies Allergy/AdvReac Type Severity Reaction Status Date / Time No Known Allergies Allergy Verified 02/20/17 03:33 - Home Medications Home Medications: Ambulatory Orders Allopurinol 300 mg PO DAILY 01/18/17 Aspirin Coated [Ecotrin -] 81 mg PO DAILY 01/18/17 Metformin HCl 500 mg PO BID 01/18/17 Metoprolol Succinate [Toprol Xl] 100 mg PO DAILY 01/18/17 Multivitamins [Multivit ([facility] Formulary)] 1 tab PO DAILY 01/18/17 Olmesartan/Hydrochlorothiazide [Benicar Hct 40-12.5 mg Tablet] 1 each PO DAILY 01/18/17 Acetaminophen [Tylenol .Regular Strength -] 650 mg PO Q4H PRN #0 tablet Cefadroxil 500 mg PO BID #20 capsule 01/23/17 Diazepam [Valium] 5 mg PO Q8H PRN #15 tablet MDD 3 01/23/17 Oxycodone HCl [Roxicodone -] 5 mg PO Q4H PRN #30 tablet MDD 10 01/23/17 Valsartan [Diovan] 320 mg PO DAILY tablet 01/23/17 Family Disease History - Family Disease History Family Disease History: Heart Disease: Mother (CRC 82; colon cancer), CA: Grandparent (mat GF gastric ca 93), Mother Review of Systems - Review of Systems Constitutional: reports: No Symptoms Eyes: reports: No Symptoms HENT: reports: No Symptoms Neck: reports: No Symptoms Cardiovascular: reports: Palpitations Gastrointestinal: reports: No Symptoms Genitourinary: reports: No Symptoms Breasts: reports: No Symptoms Reported Musculoskeletal: reports: No Symptoms Integumentary: reports: No Symptoms Neurological: reports: No Symptoms Endocrine: reports: No Symptoms Hematology/Lymphatic: reports: No Symptoms Psychiatric: reports: No Symptoms Vital Signs: Vital Signs Temperature 98.6 F 02/20/17 11:09 Pulse Rate 75 02/20/17 11:09 Respiratory Rate 20 02/20/17 11:09 Blood Pressure 116/68 02/20/17 11:09 O2 Sat by Pulse Oximetry (%) 99 02/20/17 11:09 Constitutional: Yes: Well Nourished, No Distress, Calm Eyes: Yes: WNL, Conjunctiva Clear, EOM Intact HENT: Yes: WNL, Atraumatic, Normocephalic Neck: Yes: WNL, Supple, Trachea Midline Respiratory: Yes: WNL, Regular, CTA Bilaterally Gastrointestinal: Yes: WNL, Normal Bowel Sounds Renal/: Yes: WNL Cardiovascular: Yes: WNL, Regular Rate and Rhythm Musculoskeletal: Yes: WNL Extremities: Yes: WNL Integumentary: Yes: WNL Neurological: Yes: WNL, Alert, Oriented ...Motor Strength: WNL Psychiatric: Yes: WNL, Alert, Oriented - Other Data Labs, Other Data: INR, PTT INR 0.88 (0.82-1.09) 02/20/17 03:50 Troponin, BNP 02/20/17 09:56 Troponin I 0.10 H Troponin, BNP 02/20/17 09:56 Troponin I 0.10 H Laboratory Tests 02/20/17 02/20/17 02/20/17 03:48 03:50 03:50 WBC 11.9 H RBC 3.98 D Hgb 12.2 D Hct 36.6 D MCV 92.0 MCH 30.6 MCHC 33.3 RDW 14.3 Plt Count 295 D MPV 9.5 Neutrophils % 64.6 Lymphocytes % 26.3 D Monocytes % 6.2 Eosinophils % 2.3 D Basophils % 0.6 INR 0.88 PTT (Actin FS) 27.5 Sodium Potassium Chloride Carbon Dioxide Anion Gap BUN Creatinine Creat Clearance w eGFR POC Glucometer Random Glucose Serum Osmolality 304 Lactic Acid Calcium Phosphorus Magnesium Total Bilirubin AST ALT Alkaline Phosphatase Creatine Kinase Troponin I B-Natriuretic Peptide Total Protein Albumin Ur Random Urea Nitrogn 02/20/17 02/20/17 02/20/17 03:50 03:50 06:30 WBC RBC Hgb Hct MCV MCH MCHC RDW Plt Count MPV Neutrophils % Lymphocytes % Monocytes % Eosinophils % Basophils % INR PTT (Actin FS) Sodium 138 Potassium 4.9 D Chloride 104 Carbon Dioxide 19 L D Anion Gap 15 BUN 31 H D Creatinine 1.8 H D Creat Clearance w eGFR 28.33 POC Glucometer Random Glucose 274 H D Serum Osmolality Lactic Acid 5.9 H* 3.8 H* Calcium 7.7 L Phosphorus 4.3 D Magnesium 1.7 L D Total Bilirubin 0.4 AST 22 D ALT 29 Alkaline Phosphatase 73 Creatine Kinase 60 Troponin I 0.11 H B-Natriuretic Peptide 4839.61 H Total Protein 6.8 D Albumin 3.4 D Ur Random Urea Nitrogn 02/20/17 02/20/17 02/20/17 09:56 11:39 14:00 WBC RBC Hgb Hct MCV MCH MCHC RDW Plt Count MPV Neutrophils % Lymphocytes % Monocytes % Eosinophils % Basophils % INR PTT (Actin FS) Sodium Potassium Chloride Carbon Dioxide Anion Gap BUN Creatinine Creat Clearance w eGFR POC Glucometer 153 Random Glucose Serum Osmolality Lactic Acid Calcium Phosphorus Magnesium Total Bilirubin AST ALT Alkaline Phosphatase Creatine Kinase 55 Troponin I 0.10 H B-Natriuretic Peptide Total Protein Albumin Ur Random Urea Nitrogn Cancelled Imaging - Results Chest X-ray: Image Reviewed (wnl) EKG: Image Reviewed (af rvr repeated sr wnl) Problem List - Problems (1) PAF (paroxysmal atrial fibrillation) Code(s): I48.0 - PAROXYSMAL ATRIAL FIBRILLATION (2) Chronic instability of right knee Code(s): M23.51 - CHRONIC INSTABILITY OF KNEE, RIGHT KNEE (3) Diabetes Code(s): E11.9 - TYPE 2 DIABETES MELLITUS WITHOUT COMPLICATIONS (4) HTN (hypertension) Code(s): I10 - ESSENTIAL (PRIMARY) HYPERTENSION (5) Obesity Code(s): E66.9 - OBESITY, UNSPECIFIED (6) Paget's disease of right breast Code(s): C50.011 - MALIGNANT NEOPLASM OF NIPPLE AND AREOLA, RIGHT FEMALE BREAST Assessment/Plan paf in nsr htn dm sob elevated tni/s obesity plan r/o PE echo cont telemetry and cardizem AC foe cva prevention lipids
[2017-02-20] MEDS ORDERED: ENOXAPARIN NA (PORCINE) 100 MG/1 ML DISP.SYRIN SQ SCH (15:15)
[2017-02-20] MEDS: SILVER SULFADIAZINE 1% TOP CREAM 50 GM JAR TP SCH (15:28)
[2017-02-20] MEDS: ASPIRIN 325 MG TABLET PO SCH (16:56)
--- NOTE | 2017-02-20 20:20 | EKG ---
Test Reason : Blood Pressure : / mmHG Vent. Rate : 194 BPM Atrial Rate : 192 BPM P-R Int : 000 ms QRS Dur : 080 ms QT Int : 218 ms P-R-T Axes : 000 061 017 degrees QTc Int : 391 ms ATRIAL FIBRILLATION WITH RAPID VENTRICULAR RESPONSE MARKED ST ABNORMALITY, POSSIBLE ANTERIOR SUBENDOCARDIAL INJURY ABNORMAL ECG WHEN COMPARED WITH ECG OF 22-JAN-2017 09:44, ATRIAL FIBRILLATION HAS REPLACED SINUS RHYTHM SIGNIFICANT CHANGES HAVE OCCURRED Reconfirmed by WILBER BREWSTER MD ([id number]) on 02/20/2017 8:22:34 PM Referred By: MILO Confirmed By:WILBER BREWSTER MD
--- NOTE | 2017-02-20 20:24 | EKG ---
Test Reason : Blood Pressure : / mmHG Vent. Rate : 107 BPM Atrial Rate : 098 BPM P-R Int : 000 ms QRS Dur : 090 ms QT Int : 386 ms P-R-T Axes : 000 047 008 degrees QTc Int : 515 ms ATRIAL FIBRILLATION WITH RAPID VENTRICULAR RESPONSE NONSPECIFIC ST AND T WAVE ABNORMALITY ABNORMAL ECG WHEN COMPARED WITH ECG OF 20-FEB-2017 03:37, VENT. RATE HAS DECREASED BY 86 BPM Confirmed by WILBER BREWSTER MD ([id number]) on 02/20/2017 8:24:10 PM Referred By: Confirmed By:WILBER BREWSTER MD
--- NOTE | 2017-02-20 20:26 | EKG ---
Test Reason : Blood Pressure : / mmHG Vent. Rate : 071 BPM Atrial Rate : 071 BPM P-R Int : 152 ms QRS Dur : 086 ms QT Int : 462 ms P-R-T Axes : 007 039 001 degrees QTc Int : 502 ms NORMAL SINUS RHYTHM LOW VOLTAGE QRS T-WAVE INVERSION IN ANTERIOR LEADS PROLONGED QT ABNORMAL ECG WHEN COMPARED WITH ECG OF 20-FEB-2017 04:55, SINUS RHYTHM HAS REPLACED ATRIAL FIBRILLATION VENT. RATE HAS DECREASED BY 36 BPM T WAVE INVERSION MORE EVIDENT IN ANTERIOR LEADS Confirmed by WILBER BREWSTER MD ([id number]) on 02/20/2017 8:25:55 PM Referred By: Confirmed By:WILBER BREWSTER MD
[2017-02-20] MEDS: MELATONIN 1 MG TABLET PO SCH (21:44)
[2017-02-20] MEDS: ENOXAPARIN NA (PORCINE) 100 MG/1 ML DISP.SYRIN SQ SCH (21:45)
[2017-02-21] MEDS: dilTIAZem HCL 30 MG TABLET (FP) PO SCH ×3 (05:55→21:31)
[2017-02-21] MEDS: SODIUM CHLORIDE 1,000 ML IV SCH ×2 (05:55→09:35)
[2017-02-21] MEDS: INSULIN SLIDING SCALE (NOVOLOG) 1 VIAL SQ SCH ×4 (06:05→21:38)
[2017-02-21 07:44] LABS: CHOLESTEROL 171 mg/dL (50-200)
[2017-02-21 07:46] LABS: LDL CHOLESTEROL (ONLY SJRH) 91 mg/dL (5-100)
[2017-02-21 09:08] LABS: BASOPHIL 0.3 % (0-2.0); EOSINOPHIL 2.6 % (0-4.5); MCH 30.1 pg (25.7-33.7); MCHC 32.6 g/dl (32.0-36.0); MEAN CELL VOLUME 92.1 fl (80-96); MEAN PLT VOLUME 9.1 fl (7.5-11.1); NEUTROPHILS 63.4 % (42.8-82.8); PLATELET COUNT 132 K/MM3 (134-434); RDW 14.3 % (11.6-15.6); WHITE BLOOD COUNT 8.1 K/mm3 (4.0-10.0)
[2017-02-21 09:28] LABS: ANION GAP 12 (8-16); CALCIUM 8.6 mg/dL (8.5-10.1); CO2 20 mmol/L (21-32); CREATININE 1.1 mg/dL (0.55-1.02); GLUCOSE,RANDOM 136 mg/dL (74-106)
[2017-02-21] MEDS: ENOXAPARIN NA (PORCINE) 100 MG/1 ML DISP.SYRIN SQ SCH ×2 (09:28→21:30)
[2017-02-21] MEDS: ASPIRIN 325 MG TABLET PO SCH (09:28)
--- NOTE | 2017-02-21 09:36 | PN ---
Progress Note, Physician Chief Complaint: c/o sob History of Present Illness: 66 year old female with hx of breast ca, HTN, obesity, gout, DM, Paget's disease p/w shortness of breath x 4 day. The patient ~4 wks ago had R sided mastectomy and plastic reconstruction. Several days ago, she had her drains pulled out. Noticed 4 days ago that she was feeling short of breath and lightheaded. Never had chest pain. Today, she woke up feeling significant palpitations and shortness of breath. Denies recent illnesses, fevers, chills. Did endorse intermittent loose stools x 1 month. - Current Medication List Current Medications: Active Medications Acetaminophen (Tylenol -) 650 mg PO Q4H PRN PRN Reason: FEVER OR PAIN Aspirin (Asa -) 325 mg PO DAILY [facility] Last Admin: 02/20/17 16:56 Dose: 325 mg Diltiazem HCl (Cardizem -) 30 mg PO Q8H [facility] Last Admin: 02/21/17 05:55 Dose: 30 mg Enoxaparin Sodium (Lovenox -) 100 mg SQ BID [facility] Last Admin: 02/20/17 21:45 Dose: 100 mg Sodium Chloride (Normal Saline -) 1,000 mls @ 75 mls/hr IV ASDIR [facility] Last Admin: 02/21/17 05:55 Dose: 75 mls/hr Insulin Aspart (Novolog Vial Sliding Scale -) 1 vial SQ ACHS [facility] PRN Reason: Protocol Last Admin: 02/21/17 06:05 Dose: Not Given Melatonin (Melatonin) 1 mg PO HS [facility] Last Admin: 02/20/17 21:44 Dose: 1 mg Silver Sulfadiazine (Silvadene -) 1 applic TP DAILY [facility] Last Admin: 02/20/17 15:28 Dose: 1 applic - Objective Vital Signs: Vital Signs Temperature 97.7 F 02/21/17 05:58 Pulse Rate 81 02/21/17 05:58 Respiratory Rate 18 02/21/17 05:58 Blood Pressure 131/75 02/21/17 05:58 O2 Sat by Pulse Oximetry (%) 97 02/20/17 21:00 Eyes: Yes: WNL, Conjunctiva Clear, EOM Intact HENT: Yes: WNL, Atraumatic, Normocephalic Neck: Yes: WNL, Supple, Trachea Midline Cardiovascular: Yes: WNL, Regular Rate and Rhythm Respiratory: Yes: WNL, Regular, CTA Bilaterally Gastrointestinal: Yes: WNL, Normal Bowel Sounds Genitourinary: Yes: WNL Musculoskeletal: Yes: WNL Extremities: Yes: WNL Edema: No Integumentary: Yes: WNL Neurological: Yes: WNL, Alert, Oriented ...Motor Strength: WNL Psychiatric: Yes: WNL Labs: CBC, BMP 02/21/17 06:24 02/21/17 06:00 INR, PTT INR 0.88 (0.82-1.09) 02/20/17 03:50 Problem List - Problems (1) PAF (paroxysmal atrial fibrillation) Code(s): I48.0 - PAROXYSMAL ATRIAL FIBRILLATION (2) Chronic instability of right knee Code(s): M23.51 - CHRONIC INSTABILITY OF KNEE, RIGHT KNEE (3) Diabetes Code(s): E11.9 - TYPE 2 DIABETES MELLITUS WITHOUT COMPLICATIONS (4) HTN (hypertension) Code(s): I10 - ESSENTIAL (PRIMARY) HYPERTENSION (5) Obesity Code(s): E66.9 - OBESITY, UNSPECIFIED (6) Paget's disease of right breast Code(s): C50.011 - MALIGNANT NEOPLASM OF NIPPLE AND AREOLA, RIGHT FEMALE BREAST Assessment/Plan paf in nsr htn dm sob elevated tni/s obesity plan r/o PE echo cont telemetry and cardizem AC foe cva prevention lipids d/c IVF check BNP
--- NOTE | 2017-02-21 10:39 | PN ---
Progress Note, Physician Chief Complaint: Pt admitted yesterday with complaint of sob, and lightheadedness x 4 days. She was in Afib but now in NSR. Pt is s/p CAT flap to right breast 4 wks ago. History of Present Illness: 66 y/o female s/p cat flap reconstruction of right breast Ca over 4 weeks ago admitted for AF. Pt states she is sob when she ambulates a few states. Denies any sob at rest. No cp, nausea or vomiting. Pt had been doing daily dressing changes to wound under right breast and right lower abdominal incision, and dry gauze to umbilicus. Afebrile. - Current Medication List Current Medications: Active Medications Acetaminophen (Tylenol -) 650 mg PO Q4H PRN PRN Reason: FEVER OR PAIN Aspirin (Asa -) 325 mg PO DAILY [facility] Last Admin: 02/21/17 09:28 Dose: 325 mg Diltiazem HCl (Cardizem -) 30 mg PO Q8H [facility] Last Admin: 02/21/17 05:55 Dose: 30 mg Enoxaparin Sodium (Lovenox -) 100 mg SQ BID [facility] Last Admin: 02/21/17 09:28 Dose: 100 mg Insulin Aspart (Novolog Vial Sliding Scale -) 1 vial SQ ACHS [facility] PRN Reason: Protocol Last Admin: 02/21/17 06:05 Dose: Not Given Melatonin (Melatonin) 1 mg PO HS [facility] Last Admin: 02/20/17 21:44 Dose: 1 mg Silver Sulfadiazine (Silvadene -) 1 applic TP DAILY [facility] Last Admin: 02/20/17 15:28 Dose: 1 applic - Objective Vital Signs: Vital Signs Temperature 98.2 F 02/21/17 10:00 Pulse Rate 91 H 02/21/17 10:00 Respiratory Rate 18 02/21/17 10:00 Blood Pressure 158/73 02/21/17 10:00 O2 Sat by Pulse Oximetry (%) 99 02/21/17 10:00 Constitutional: Yes: No Distress, Calm Eyes: Yes: WNL HENT: Yes: WNL Neck: Yes: WNL Cardiovascular: Yes: Regular Rate and Rhythm Respiratory: Yes: Regular, CTA Bilaterally Gastrointestinal: Yes: Normal Bowel Sounds, Soft, Other (1cm dehiscence to right lateral lower abdominal wound with mild drainage. No s/s of infection.) ...Rectal Exam: Yes: Deferred Genitourinary: Yes: WNL Breast(s): Yes: Other (Right breast cat flap healing well with 2inch x 2inch superficial wound at medial IMF. No s/s of infection noted. No drainage noted. ) Extremities: Yes: WNL Edema: No Peripheral Pulses WNL: Yes Integumentary: Yes: WNL Wound/Incision: Yes: Other (as noted in breast and abd exam) ...Motor Strength: WNL Psychiatric: Yes: WNL Additional Findings/Remarks: Assessment /Plan Pt is s/p Cat reconstruction over 4 weeks ago. She was brought to ER yesterday in Afib. Pt is currently in NSR with sob. She has concurrent HTN, DM, and obesity. Plan: R/o PE, pending CT of lungs Echocardiogram/ f/u results cont with Lovonox and asa cont to f/u daily labs Please do daily dressing changes. Clean area with normal saline and apply silvadine cream to right breast wound, right lower abdominal incision wound, and dry gauze to umbilicus. Surgical site can get wet. Labs: CBC, BMP 02/21/17 06:24 02/21/17 06:00 INR, PTT INR 0.88 (0.82-1.09) 02/20/17 03:50
[2017-02-21] MEDS: SILVER SULFADIAZINE 1% TOP CREAM 50 GM JAR TP SCH (11:13)
[2017-02-21] MEDS ORDERED: SODIUM CHLORIDE 1,000 ML IV SCH (14:45)
--- NOTE | 2017-02-21 15:10 | PN ---
Teaching Attending Note Name of Resident: Evaristo Cheung ATTENDING PHYSICIAN STATEMENT I saw and evaluated the patient. I reviewed the resident's note and discussed the case with the resident. I agree with the resident's findings and plan as documented. SUBJECTIVE:clinically improved. states she feels slightly dyspnic on exertion but much improved from yesterday. denies palpitations, hemoptysis, N/V/C/D OBJECTIVE: Last Vital Signs Temp Pulse Resp BP Pulse Ox 97.7 F 83 18 126/73 99 02/21/17 11:00 02/21/17 11:00 02/21/17 11:00 02/21/17 11:00 02/21/17 10:00 General NAD CV S1 S2 RRR no murmur/rub/gallop Lungs CTA B/L no wheezing/rales/rhonchi Abdomen soft NT/ND obese large trans-abdominal scar under pannus, dehisced on ends with pus drainage and mild erythema. middle of scar looks clean without drainage extremities non pitting edema B/L no calf tenderness ASSESSMENT AND PLAN: 66yo F with PMH breast ca, DM, HTn and gout presented to the ER with SOb and found to be in afib 1. Paroxysmal afib-self converted to sinus rhythm. on cardizem po. on full dose lovenox. echo pending. cardio on board. 2. SOB- can likely be due to afib. however has high risk factors for PE. currently saturating 97% on RA. vascular dopplers negative for DVT. less dyspnic than yesterday. d/w pt about still possibly having a PE. since pt is symptomatically improved and just recovering from AILYN. since she is already on anticoagulation it will not change current management. will hold off on CTA at this time and re-evaluate tomorrow. if dyspnea worsens will workup for PE. echo pneding. 3. AILYN- likley due to hypoperfusion vs lactic acidosis. improved. urine studies pending. hold ARB. avoid nephrotoxic agents 4. hypotension- now resolved. hold oral antihypertensives at this time 5. Elevated troponin- likely demand ischemia due to tachycardia. cardiac enzymes stable at 0.11. echo pending 6. Lactic acidosis- likley due to demand ischemia vs metformin. was trending down but now trending up. repeat 7. surgical wound- +active drainage at surgical site. evalauted by plastic surgery. daily dressing changes per plastics. 8. DM- hold oral agents. ISS, bgm. diabetic diet 9. Acute microcytic anemia- likely dilutional due to aggressive IVF. seems to be near baseline during previous admission. no signs of active bleeding. repeat CBC to ensure it is stable. check iron studies 10. Breast ca- outpatient follow up 11. DVT ppx- full dose lovenox
--- NOTE | 2017-02-21 16:35 | PN ---
Physical Exam: SUBJECTIVE: Patient seen and examined at bed side. complained of some episode of palpitation. She stiill have some dyspnea but improved compare to yesterday. She denies D/C/N/N or chest pain. OBJECTIVE: Last Vital Signs Vital Signs Period Temp Pulse Resp BP Sys/Beck Pulse Ox Last 24 Hr 97.4 F-98.2 F 77-91 16-18 107-158/65-75 97-99 GENERAL: The patient is awake, alert, and fully oriented, in no acute distress. HEAD: Normal with no signs of trauma. EYES: PERRL, sclera anicteric, conjunctiva clear. No ptosis. ENT: Ears normal, moist mucous membranes. NECK: Trachea midline, full range of motion, supple. LUNGS: Breath sounds equal, clear to auscultation bilaterally, no wheezes, no crackles, no accessory muscle use. HEART: Regular rate and rhythm, S1, S2 without murmur, rub or gallop. ABDOMEN: soft NT/ND obese large trans-abdominal scar under pannus, dehisced on ends with pus drainage and mild erythema. middle of scar looks clean without drainage EXTREMITIES: 2+ pulses, warm, well-perfused, no edema. NEUROLOGICAL: Normal speech, gait not observed. PSYCH: Normal mood, normal affect. SKIN: Warm, dry, normal turgor, no rashes or lesions noted Laboratory Results - last 24 hr 02/20/17 02/21/17 02/21/17 20:47 05:54 06:00 WBC RBC Hgb Hct MCV MCH MCHC RDW Plt Count MPV Neutrophils % Lymphocytes % Monocytes % Eosinophils % Basophils % Sodium 142 Potassium 4.5 Chloride 110 H Carbon Dioxide 20 L Anion Gap 12 BUN 24 H D Creatinine 1.1 H D POC Glucometer 126 143 Random Glucose 136 H D Lactic Acid Calcium 8.6 Triglycerides 373 H Cholesterol 171 Total LDL Cholesterol 91 HDL Cholesterol 40 02/21/17 02/21/17 02/21/17 06:00 06:24 09:50 WBC 8.1 D RBC 3.50 L Hgb 10.5 L D Hct 32.2 L MCV 92.1 MCH 30.1 MCHC 32.6 RDW 14.3 Plt Count 132 L D MPV 9.1 Neutrophils % 63.4 Lymphocytes % 28.3 Monocytes % 5.4 Eosinophils % 2.6 Basophils % 0.3 Sodium Cancelled Potassium Cancelled Chloride Cancelled Carbon Dioxide Cancelled Anion Gap Cancelled BUN Cancelled Creatinine Cancelled POC Glucometer Random Glucose Cancelled Lactic Acid 3.9 H* Calcium Cancelled Triglycerides Cholesterol Total LDL Cholesterol HDL Cholesterol 02/21/17 02/21/17 11:13 17:06 WBC RBC Hgb Hct MCV MCH MCHC RDW Plt Count MPV Neutrophils % Lymphocytes % Monocytes % Eosinophils % Basophils % Sodium Potassium Chloride Carbon Dioxide Anion Gap BUN Creatinine POC Glucometer 150 124 Random Glucose Lactic Acid Calcium Triglycerides Cholesterol Total LDL Cholesterol HDL Cholesterol 02/21/17 02/21/17 02/21/17 05:54 06:00 06:00 WBC RBC Hgb Hct MCV MCH MCHC RDW Plt Count MPV Neutrophils % Lymphocytes % Monocytes % Eosinophils % Basophils % Sodium 142 Cancelled Potassium 4.5 Cancelled Chloride 110 H Cancelled Carbon Dioxide 20 L Cancelled Anion Gap 12 Cancelled BUN 24 H D Cancelled Creatinine 1.1 H D Cancelled POC Glucometer 143 Random Glucose 136 H D Cancelled Lactic Acid Calcium 8.6 Cancelled Triglycerides 373 H Cholesterol 171 Total LDL Cholesterol 91 HDL Cholesterol 40 02/21/17 02/21/17 02/21/17 06:24 09:50 11:13 WBC 8.1 D RBC 3.50 L Hgb 10.5 L D Hct 32.2 L MCV 92.1 MCH 30.1 MCHC 32.6 RDW 14.3 Plt Count 132 L D MPV 9.1 Neutrophils % 63.4 Lymphocytes % 28.3 Monocytes % 5.4 Eosinophils % 2.6 Basophils % 0.3 Sodium Potassium Chloride Carbon Dioxide Anion Gap BUN Creatinine POC Glucometer 150 Random Glucose Lactic Acid 3.9 H* Calcium Triglycerides Cholesterol Total LDL Cholesterol HDL Cholesterol Active Medications Generic Name Dose Route Start Last Admin Trade Name Freq PRN Reason Stop Dose Admin Acetaminophen 650 mg 02/20/17 08:59 Tylenol - PO Q4H PRN FEVER OR PAIN Aspirin 325 mg 02/20/17 15:15 02/21/17 09:28 Asa - PO 325 mg DAILY [facility] Administration Diltiazem HCl 30 mg 02/20/17 13:00 02/21/17 12:37 Cardizem - PO 30 mg Q8H [facility] Administration Enoxaparin Sodium 100 mg 02/20/17 22:00 02/21/17 09:28 Lovenox - SQ 100 mg BID [facility] Administration Sodium Chloride 1,000 mls @ 125 mls/hr 02/21/17 14:45 Normal Saline - IV ASDIR [facility] Insulin Aspart 1 vial 02/20/17 11:00 02/21/17 11:14 Novolog Vial Sliding Scale - SQ Not Given ACHS [facility] Protocol Melatonin 1 mg 02/20/17 22:00 02/20/17 21:44 Melatonin PO 1 mg HS [facility] Administration Silver Sulfadiazine 1 applic 02/20/17 10:00 02/21/17 11:13 Silvadene - TP 1 applic DAILY [facility] Administration ASSESSMENT/PLAN: 66 yr old woman with Breast Ca, DM II, presents with rapid Afib and sob admitted to Tele for further workup. to r/o DVT due to LE swelling and c/o of sob(vitals currently stable, if continues to worsen, will consider CTA to r/o PE #Paroxysmal Afib - now rate controlled after cardizem 30mg push and 30 mg po. converted to Sinus rhythm - continue cardizem 30mg q8hr, hold benicar and toprol xl for now as per cardio - on full dose Levonox - Tele monitoring, echo did not show any acute pathology - cardiology consult Dr. Oneal - Has bleed score of 3, ChadsVasc 2 # Shortness of breath - Most likely due to Afib vs high possibility PE -Saturation is 97 % on room air , dyspnes has improved. - LE Doppler are negative for DVT - will continue anticoagulation for now and will reassess the patient tomorrow - Will reconsider CTA if dyspnea worsen tomorrow - Echo WNL no acute pathology. #DM II - hold metformin, BGM ACHS with NISS - diabetic diet - Random Glu 143 #Jimmie (baseline 1.2) Likely due to hypoperfusion vs Lactic acidosis - Cr today 1.1 improved from 1.8 - F/U urine studies - Avoid nephrotoxic agents, Hold ARB #Lactic acidosis likely due to demand ischemia vs infectious cause vs metformin - LA today 3.9 worsen after has improved - blood cx drawn in the ED, monitor, off abx for now - trend LA - Start IV fluids NS @125 # Acute microcytic anemia - likely dilutional due to aggressive IVF. - no signs of active bleeding. -repeat CBC to ensure it is stable. - check iron studies #Elevated troponin - likely due to demand ischemia due to tachycardia. -cardiac enzymes stable at 0.11. -echo did not show any acute pathology #Diarrhea - check c.diff given recent abx use #s/p surgery:+active drainage at surgical site. daily dressing changes at draining sites. apply silver silvadene daily to sites. Patient evaluated by plastic surgery. # hypotension, Resolved - hold oral antihypertensives at this time -continue monitor BP # Breast cancer : -Will follow as out patient DVT: lovenox sq diet: diabetic/low Na Pain: tylenol 650mg po F: IVF NS @75cc/hr Visit type - Emergency Visit Emergency Visit: Yes ED Registration Date: 02/20/17 Care time: The patient presented to the Emergency Department on the above date and was hospitalized for further evaluation of their emergent condition. - New Patient This patient is new to me today: Yes Date on this admission: 02/21/17 - Critical Care Critical Care patient: No
[2017-02-21 17:30] LABS: MCH 30.9 pg (25.7-33.7); MCHC 33.8 g/dl (32.0-36.0); MEAN CELL VOLUME 91.3 fl (80-96); PLATELET COUNT 144 K/MM3 (134-434); RDW 14.4 % (11.6-15.6); WHITE BLOOD COUNT 6.3 K/mm3 (4.0-10.0)
--- NOTE | 2017-02-21 18:58 | EKG ---
Test Reason : Blood Pressure : / mmHG Vent. Rate : 086 BPM Atrial Rate : 086 BPM P-R Int : 146 ms QRS Dur : 088 ms QT Int : 404 ms P-R-T Axes : 071 057 005 degrees QTc Int : 483 ms NORMAL SINUS RHYTHM NONSPECIFIC T WAVE ABNORMALITY PROLONGED QT ABNORMAL ECG WHEN COMPARED WITH ECG OF 20-FEB-2017 06:03, T WAVE VARIATION Confirmed by SANA SANCHEZ MD ([id number]) on 02/21/2017 6:57:45 PM Referred By: ANTONIO HERRERA Confirmed By:SANA SANCHEZ MD
[2017-02-21] MEDS ORDERED: PT OWN MED DRAWER 7, Y5N ONE (21:25)
[2017-02-21] MEDS: MELATONIN 1 MG TABLET PO SCH (21:31)
[2017-02-22] MEDS: dilTIAZem HCL 30 MG TABLET (FP) PO SCH ×3 (05:15→22:55)
[2017-02-22] MEDS: INSULIN SLIDING SCALE (NOVOLOG) 1 VIAL SQ SCH ×4 (06:35→22:57)
[2017-02-22 09:25] LABS: MCH 30.5 pg (25.7-33.7); MCHC 33.2 g/dl (32.0-36.0); MEAN CELL VOLUME 91.9 fl (80-96); MEAN PLT VOLUME 8.1 fl (7.5-11.1); PLATELET COUNT 87 K/MM3 (134-434); RDW 14.1 % (11.6-15.6); WHITE BLOOD COUNT 5.9 K/mm3 (4.0-10.0)
--- NOTE | 2017-02-22 09:30 | PN ---
Progress Note, Physician Chief Complaint: c/o sob History of Present Illness: 66 year old female with hx of breast ca, HTN, obesity, gout, DM, Paget's disease p/w shortness of breath x 4 day. The patient ~4 wks ago had R sided mastectomy and plastic reconstruction. Several days ago, she had her drains pulled out. Noticed 4 days ago that she was feeling short of breath and lightheaded. Never had chest pain. Today, she woke up feeling significant palpitations and shortness of breath. Denies recent illnesses, fevers, chills. Did endorse intermittent loose stools x 1 month. - Current Medication List Current Medications: Active Medications Acetaminophen (Tylenol -) 650 mg PO Q4H PRN PRN Reason: FEVER OR PAIN Last Admin: 02/22/17 05:15 Dose: 650 mg Aspirin (Asa -) 325 mg PO DAILY [facility] Last Admin: 02/21/17 09:28 Dose: 325 mg Diltiazem HCl (Cardizem -) 30 mg PO Q8H [facility] Last Admin: 02/22/17 05:15 Dose: 30 mg Enoxaparin Sodium (Lovenox -) 100 mg SQ BID [facility] Last Admin: 02/21/17 21:30 Dose: 100 mg Sodium Chloride (Normal Saline -) 1,000 mls @ 125 mls/hr IV ASDIR [facility] Last Admin: 02/21/17 17:14 Dose: 125 mls/hr Insulin Aspart (Novolog Vial Sliding Scale -) 1 vial SQ ACHS [facility] PRN Reason: Protocol Last Admin: 02/22/17 06:35 Dose: Not Given Melatonin (Melatonin) 1 mg PO HS [facility] Last Admin: 02/21/17 21:31 Dose: 1 mg Silver Sulfadiazine (Silvadene -) 1 applic TP DAILY [facility] Last Admin: 02/21/17 11:13 Dose: 1 applic - Objective Vital Signs: Vital Signs Temperature 97.4 F L 02/22/17 06:00 Pulse Rate 95 H 02/22/17 06:00 Respiratory Rate 18 02/22/17 06:00 Blood Pressure 123/65 02/22/17 06:00 O2 Sat by Pulse Oximetry (%) 99 02/21/17 22:00 Eyes: Yes: WNL, Conjunctiva Clear, EOM Intact HENT: Yes: WNL, Atraumatic, Normocephalic Neck: Yes: WNL, Supple, Trachea Midline Cardiovascular: Yes: WNL, Regular Rate and Rhythm Respiratory: Yes: WNL, Regular, CTA Bilaterally Gastrointestinal: Yes: WNL, Normal Bowel Sounds Genitourinary: Yes: WNL Musculoskeletal: Yes: WNL Extremities: Yes: WNL Edema: No Integumentary: Yes: WNL Neurological: Yes: WNL, Alert, Oriented ...Motor Strength: WNL Psychiatric: Yes: WNL Labs: CBC, BMP 02/22/17 08:55 INR, PTT INR 0.88 (0.82-1.09) 02/20/17 03:50 Problem List - Problems (1) PAF (paroxysmal atrial fibrillation) Code(s): I48.0 - PAROXYSMAL ATRIAL FIBRILLATION (2) Chronic instability of right knee Code(s): M23.51 - CHRONIC INSTABILITY OF KNEE, RIGHT KNEE (3) Diabetes Code(s): E11.9 - TYPE 2 DIABETES MELLITUS WITHOUT COMPLICATIONS (4) HTN (hypertension) Code(s): I10 - ESSENTIAL (PRIMARY) HYPERTENSION (5) Obesity Code(s): E66.9 - OBESITY, UNSPECIFIED (6) Paget's disease of right breast Code(s): C50.011 - MALIGNANT NEOPLASM OF NIPPLE AND AREOLA, RIGHT FEMALE BREAST Assessment/Plan paf in nsr htn dm sob elevated tni/s obesity plan r/o PE VQ scan echo tds cont telemetry and cardizem AC foe cva prevention lipids d/c IVF bnp elevated check d - diamer
[2017-02-22 09:32] LABS: ANION GAP 12 (8-16); CALCIUM 8.3 mg/dL (8.5-10.1); CO2 17 mmol/L (21-32); CREATININE 0.9 mg/dL (0.55-1.02); GLUCOSE,RANDOM 136 mg/dL (74-106)
[2017-02-22] MEDS: ASPIRIN 325 MG TABLET PO SCH (09:56)
[2017-02-22] MEDS: ENOXAPARIN NA (PORCINE) 100 MG/1 ML DISP.SYRIN SQ SCH ×2 (09:56→22:56)
[2017-02-22] MEDS ORDERED: INSULIN (NOVOLOG) ASPART 100 UNITS/ML 10ML VIAL ONE (11:59)
--- NOTE | 2017-02-22 12:52 | PN ---
Teaching Attending Note Name of Resident: Evaristo Cheung ATTENDING PHYSICIAN STATEMENT I saw and evaluated the patient. I reviewed the resident's note and discussed the case with the resident. I agree with the resident's findings and plan as documented. SUBJECTIVE: Patient feels short of breath with exertion. OBJECTIVE: Vital Signs Period Temp Pulse Resp BP Sys/Beck Pulse Ox Last 24 Hr 97.4 F-98.8 F 87-95 16-18 117-154/65-89 98-99 HEART: S1S2, RRR LUNGS: Clear ABDOMEN: Obese, soft, non-tender, non-distended, normal BS EXTREMITIES: No edema ASSESSMENT AND PLAN: This is a 66 year old woman with a history of breast cancer, type 2 DM, HTN, gout who presented to the ER with SOB. 1. Atrial fibrillation - Continues to have episodes of a fib - Continue Cardizem, Lovenox - Echo pending 2. Dyspnea - Likely secondary to a fib - Has risks for PE - Plan for chest CTA 3. Acute kidney injury - Improved 4. Hypotension - Resolved 5. Demand ischemia - Secondary to tachycardia - Continue aspirin 6. Lactic acidosis - Improved 7. Right breast cancer, recent CAT flap reconstruction - Continue to apply Silvadene to breast wound, dressing changes 8. Type 2 DM - Metformin held - Continue Novolog sliding scale 9. HTN - Benicar HCT, Toprol XL, Diovan held secondary to AILYN, hypotension - On Cardizem
--- NOTE | 2017-02-22 13:33 | MSN ---
Progress Note (SOAP) - Subjective Chief Complaint: SOB History of Present Illness: No overnight events. Pt's dyspnea has improved. Pt denies palpitations, chest pain, headache, and dizziness. - Current Medications Current Medications: Active Medications Acetaminophen (Tylenol -) 650 mg PO Q4H PRN PRN Reason: FEVER OR PAIN Last Admin: 02/22/17 05:15 Dose: 650 mg Aspirin (Asa -) 325 mg PO DAILY [facility] Last Admin: 02/22/17 09:56 Dose: 325 mg Diltiazem HCl (Cardizem -) 30 mg PO Q8H [facility] Last Admin: 02/22/17 05:15 Dose: 30 mg Enoxaparin Sodium (Lovenox -) 100 mg SQ BID [facility] Last Admin: 02/22/17 09:56 Dose: 100 mg Insulin Aspart (Novolog Vial Sliding Scale -) 1 vial SQ ACHS [facility] PRN Reason: Protocol Last Admin: 02/22/17 12:04 Dose: Not Given Melatonin (Melatonin) 1 mg PO HS [facility] Last Admin: 02/21/17 21:31 Dose: 1 mg Silver Sulfadiazine (Silvadene -) 1 applic TP DAILY [facility] Last Admin: 02/21/17 11:13 Dose: 1 applic - Objective Vital Signs: Vital Signs Temperature 98.8 F 02/22/17 09:00 Pulse Rate 91 H 02/22/17 09:00 Respiratory Rate 18 02/22/17 09:00 Blood Pressure 154/89 02/22/17 09:00 O2 Sat by Pulse Oximetry (%) 98 02/22/17 09:00 Constitutional: Yes: Well Nourished, No Distress, Calm, Obese HENT: Yes: Atraumatic, Normocephalic Cardiovascular: Yes: Regular Rate and Rhythm Respiratory: Yes: CTA Bilaterally, SOB. No: Cough, Rales, Rhonchi, Stridor, Wheezes Breast(s): Yes: Other (Well-healing scars from mastectomy 01/20/17) Extremities: Yes: Other (UE edema B/L) Neurological: Yes: WNL, Alert, Oriented Psychiatric: Yes: WNL Labs Lab Results: Laboratory Results - last 24 hr 02/21/17 02/21/17 02/21/17 17:06 17:21 17:21 WBC 6.3 RBC 3.57 L Hgb 11.0 Hct 32.6 MCV 91.3 MCH 30.9 MCHC 33.8 RDW 14.4 Plt Count 144 MPV 9.0 D-Dimer Sodium Potassium Chloride Carbon Dioxide Anion Gap BUN Creatinine POC Glucometer 124 Random Glucose Lactic Acid 1.5 Calcium Ferritin B-Natriuretic Peptide Ur Random Sodium Ur Random Potassium Ur Random Chloride 02/21/17 02/22/17 02/22/17 21:36 04:10 05:17 WBC RBC Hgb Hct MCV MCH MCHC RDW Plt Count MPV D-Dimer Sodium Potassium Chloride Carbon Dioxide Anion Gap BUN Creatinine POC Glucometer 130 145 Random Glucose Lactic Acid Calcium Ferritin B-Natriuretic Peptide Ur Random Sodium 95 Ur Random Potassium 11.3 Ur Random Chloride 97 02/22/17 02/22/17 02/22/17 06:15 06:15 06:15 WBC RBC Hgb Hct MCV MCH MCHC RDW Plt Count MPV D-Dimer Sodium 141 Cancelled Potassium 4.4 Cancelled Chloride 112 H Cancelled Carbon Dioxide 17 L Cancelled Anion Gap 12 Cancelled BUN 17 D Cancelled Creatinine 0.9 Cancelled POC Glucometer Random Glucose 136 H Cancelled Lactic Acid Calcium 8.3 L Cancelled Ferritin 225.340 B-Natriuretic Peptide 2898.69 H Ur Random Sodium Ur Random Potassium Ur Random Chloride 02/22/17 02/22/17 02/22/17 08:55 10:53 11:45 WBC 5.9 RBC 3.59 L Hgb 11.0 Hct 33.0 MCV 91.9 MCH 30.5 MCHC 33.2 RDW 14.1 Plt Count 87 L D MPV 8.1 D-Dimer 1168 H Sodium Potassium Chloride Carbon Dioxide Anion Gap BUN Creatinine POC Glucometer 156 Random Glucose Lactic Acid Calcium Ferritin B-Natriuretic Peptide Ur Random Sodium Ur Random Potassium Ur Random Chloride Assessment/Plan #Dyspnea - continue anticoagulation - reassess patient tomorrow - possible CTA if dyspnea worsens #PAF - monitor rate and rhythm - continue Cardizem 30mg q8hr - continue Lovenox #DM II - continue to hold metformin - continue BGM #AILYN - trend Cr #Lactic Acidosis - trend LA - discontinue IV fluids NS @125 #Acute microcytic anemia - trend CBC
[2017-02-22] MEDS: SILVER SULFADIAZINE 1% TOP CREAM 50 GM JAR TP SCH (13:39)
--- NOTE | 2017-02-22 14:07 | PN ---
Physical Exam: SUBJECTIVE: Patient seen and examined at bed side . she still have some SOB on small excretion. she denies any palpitation light headedness. She denies N/V/D/ C. OBJECTIVE: Vital Signs Period Temp Pulse Resp BP Sys/Beck Pulse Ox Last 24 Hr 97.4 F-98.8 F 87-95 18-18 117-154/65-89 98-99 GENERAL: The patient is awake, alert, and fully oriented, in no acute distress. HEAD: Normal with no signs of trauma. EYES: PERRL, extraocular movements intact, sclera anicteric, conjunctiva clear. No ptosis. ENT: Ears normal, nares patent, oropharynx clear without exudates, moist mucous membranes. NECK: Trachea midline, full range of motion, supple. LUNGS: Breath sounds equal, clear to auscultation bilaterally, no wheezes, no crackles, no accessory muscle use. HEART: Sinus Tachy @ 120, S1, S2 without murmur, rub or gallop. ABDOMEN: Soft, nontender, nondistended, normoactive bowel sounds, no guarding, no rebound, no hepatosplenomegaly, no masses. EXTREMITIES: 2+ pulses, warm, well-perfused, no edema. trace edema in LE . Upper extremity Righ Arm edema S/P breast mastectomy NEUROLOGICAL: Cranial nerves II through XII grossly intact. Normal speech, gait not observed. PSYCH: Normal mood, normal affect. SKIN: Warm, dry, normal turgor, no rashes or lesions noted Laboratory Results - last 24 hr 02/21/17 02/21/17 02/21/17 17:06 17:21 17:21 WBC 6.3 RBC 3.57 L Hgb 11.0 Hct 32.6 MCV 91.3 MCH 30.9 MCHC 33.8 RDW 14.4 Plt Count 144 MPV 9.0 D-Dimer Sodium Potassium Chloride Carbon Dioxide Anion Gap BUN Creatinine POC Glucometer 124 Random Glucose Lactic Acid 1.5 Calcium Ferritin B-Natriuretic Peptide Ur Random Sodium Ur Random Potassium Ur Random Chloride 02/21/17 02/22/17 02/22/17 21:36 04:10 05:17 WBC RBC Hgb Hct MCV MCH MCHC RDW Plt Count MPV D-Dimer Sodium Potassium Chloride Carbon Dioxide Anion Gap BUN Creatinine POC Glucometer 130 145 Random Glucose Lactic Acid Calcium Ferritin B-Natriuretic Peptide Ur Random Sodium 95 Ur Random Potassium 11.3 Ur Random Chloride 97 02/22/17 02/22/17 02/22/17 06:15 06:15 06:15 WBC RBC Hgb Hct MCV MCH MCHC RDW Plt Count MPV D-Dimer Sodium 141 Cancelled Potassium 4.4 Cancelled Chloride 112 H Cancelled Carbon Dioxide 17 L Cancelled Anion Gap 12 Cancelled BUN 17 D Cancelled Creatinine 0.9 Cancelled POC Glucometer Random Glucose 136 H Cancelled Lactic Acid Calcium 8.3 L Cancelled Ferritin 225.340 B-Natriuretic Peptide 2898.69 H Ur Random Sodium Ur Random Potassium Ur Random Chloride 02/22/17 02/22/17 02/22/17 08:55 10:53 11:45 WBC 5.9 RBC 3.59 L Hgb 11.0 Hct 33.0 MCV 91.9 MCH 30.5 MCHC 33.2 RDW 14.1 Plt Count 87 L D MPV 8.1 D-Dimer 1168 H Sodium Potassium Chloride Carbon Dioxide Anion Gap BUN Creatinine POC Glucometer 156 Random Glucose Lactic Acid Calcium Ferritin B-Natriuretic Peptide Ur Random Sodium Ur Random Potassium Ur Random Chloride Active Medications Generic Name Dose Route Start Last Admin Trade Name Freq PRN Reason Stop Dose Admin Acetaminophen 650 mg 02/20/17 08:59 02/22/17 05:15 Tylenol - PO 650 mg Q4H PRN Administration FEVER OR PAIN Aspirin 325 mg 02/20/17 15:15 02/22/17 09:56 Asa - PO 325 mg DAILY NICOLÁS Administration Diltiazem HCl 30 mg 02/20/17 13:00 02/22/17 14:00 Cardizem - PO 30 mg Q8H NICOLÁS Administration Enoxaparin Sodium 100 mg 02/20/17 22:00 02/22/17 09:56 Lovenox - SQ 100 mg BID NICOLÁS Administration Insulin Aspart 1 vial 02/20/17 11:00 02/22/17 12:04 Novolog Vial Sliding Scale - SQ Not Given ACHS [facility] Protocol Melatonin 1 mg 02/20/17 22:00 02/21/17 21:31 Melatonin PO 1 mg HS NICOLÁS Administration Silver Sulfadiazine 1 applic 02/20/17 10:00 02/22/17 13:39 Silvadene - TP 1 applic DAILY NICOLÁS Administration ASSESSMENT/PLAN: 66 yr old woman with Breast Ca, DM II, presents with rapid Afib and sob admitted to Tele for further workup. to r/o DVT due to LE swelling and c/o of sob(vitals currently stable, if continues to worsen, will consider CTA to r/o PE #Paroxysmal Afib - now rate controlled after cardizem 30mg push and 30 mg po. converted to Sinus rhythm - continue cardizem 30mg q8hr, hold benicar and toprol xl for now as per cardio - on full dose Levonox - Tele monitoring, echo did not show any acute pathology - cardiology consult Dr. Oneal - Has bleed score of 3, ChadsVasc 2 # Shortness of breath - Most likely due to Afib vs high possibility PE vs Obstructive sleep apnea -Saturation is 97 % on room air , dyspnes has improved. - LE Doppler are negative for DVT - will continue anticoagulation for now and will reassess the patient tomorrow - Will reconsider CTA if dyspnea worsen tomorrow - Echo WNL no acute pathology. #DM II - hold metformin, BGM ACHS with NISS - diabetic diet - Random Glu 121 #Jimmie (baseline 1.2) Likely due to hypoperfusion vs Lactic acidosis - Cr today 1.1 improved from 1.8 - F/U urine studies - Avoid nephrotoxic agents, Hold ARB #Lactic acidosis likely due to demand ischemia vs infectious cause vs metformin - LA today 1.5 - blood cx drawn in the ED, monitor, off abx for now - trend LA - Dc IV fluids # Acute microcytic anemia - likely dilutional due to aggressive IVF. - no signs of active bleeding. -repeat CBC to ensure it is stable. - check iron studies #Elevated troponin - likely due to demand ischemia due to tachycardia. -cardiac enzymes stable at 0.11. -echo did not show any acute pathology #Diarrhea - check c.diff given recent abx use #s/p surgery:+active drainage at surgical site. daily dressing changes at draining sites. apply silver silvadene daily to sites. Patient evaluated by plastic surgery. # hypotension, Resolved - hold oral antihypertensives at this time -continue monitor BP # Breast cancer : -Will follow as out patient DVT: lovenox sq diet: diabetic/low Na Pain: tylenol 650mg po F: IVF NS @75cc/hr Visit type - Emergency Visit Emergency Visit: Yes ED Registration Date: 02/20/17 Care time: The patient presented to the Emergency Department on the above date and was hospitalized for further evaluation of their emergent condition. - New Patient This patient is new to me today: No - Critical Care Critical Care patient: No
[2017-02-22] MEDS ORDERED: PT OWN MED DRAWER 7, Y5N ONE (22:53)
[2017-02-22] MEDS: MELATONIN 1 MG TABLET PO SCH (22:55)
[2017-02-23] MEDS: dilTIAZem HCL 30 MG TABLET (FP) PO SCH (05:53)
[2017-02-23] MEDS: INSULIN SLIDING SCALE (NOVOLOG) 1 VIAL SQ SCH ×4 (06:03→22:04)
[2017-02-23 06:09] LABS: SERUM IRON 70 ug/dL (27-139); TOTAL IRON BINDING CAPACITY 310 ug/dL (250-450); UIBC 240 ug/dL (118-369)
[2017-02-23] MEDS: ASPIRIN 325 MG TABLET PO SCH (09:35)
[2017-02-23] MEDS: ENOXAPARIN NA (PORCINE) 100 MG/1 ML DISP.SYRIN SQ SCH ×2 (09:35→22:06)
--- NOTE | 2017-02-23 10:15 | PN ---
Progress Note, Physician Chief Complaint: c/o sob History of Present Illness: 66 year old female with hx of breast ca, HTN, obesity, gout, DM, Paget's disease p/w shortness of breath x 4 day. The patient ~4 wks ago had R sided mastectomy and plastic reconstruction. Several days ago, she had her drains pulled out. Noticed 4 days ago that she was feeling short of breath and lightheaded. Never had chest pain. Today, she woke up feeling significant palpitations and shortness of breath. Denies recent illnesses, fevers, chills. Did endorse intermittent loose stools x 1 month. - Current Medication List Current Medications: Active Medications Acetaminophen (Tylenol -) 650 mg PO Q4H PRN PRN Reason: FEVER OR PAIN Last Admin: 02/22/17 05:15 Dose: 650 mg Aspirin (Asa -) 325 mg PO DAILY [facility] Last Admin: 02/23/17 09:35 Dose: 325 mg Diltiazem HCl (Cardizem -) 30 mg PO Q8H [facility] Last Admin: 02/23/17 05:53 Dose: 30 mg Enoxaparin Sodium (Lovenox -) 100 mg SQ BID [facility] Last Admin: 02/23/17 09:35 Dose: 100 mg Insulin Aspart (Novolog Vial Sliding Scale -) 1 vial SQ ACHS [facility] PRN Reason: Protocol Last Admin: 02/23/17 06:03 Dose: Not Given Melatonin (Melatonin) 1 mg PO HS [facility] Last Admin: 02/22/17 22:55 Dose: 1 mg Silver Sulfadiazine (Silvadene -) 1 applic TP DAILY [facility] Last Admin: 02/22/17 13:39 Dose: 1 applic - Objective Vital Signs: Vital Signs Temperature 97.4 F L 02/23/17 06:00 Pulse Rate 98 H 02/23/17 06:00 Respiratory Rate 18 02/23/17 06:00 Blood Pressure 146/70 02/23/17 06:00 O2 Sat by Pulse Oximetry (%) 96 02/22/17 21:00 Eyes: Yes: WNL, Conjunctiva Clear, EOM Intact HENT: Yes: WNL, Atraumatic, Normocephalic Neck: Yes: WNL, Supple, Trachea Midline Cardiovascular: Yes: WNL, Regular Rate and Rhythm Respiratory: Yes: WNL, Regular, CTA Bilaterally Gastrointestinal: Yes: WNL, Normal Bowel Sounds Genitourinary: Yes: WNL Musculoskeletal: Yes: WNL Extremities: Yes: WNL Edema: No Integumentary: Yes: WNL Neurological: Yes: WNL, Alert, Oriented ...Motor Strength: WNL Psychiatric: Yes: WNL Labs: CBC, BMP 02/22/17 08:55 02/22/17 06:15 INR, PTT INR 0.88 (0.82-1.09) 02/20/17 03:50 Problem List - Problems (1) PAF (paroxysmal atrial fibrillation) Code(s): I48.0 - PAROXYSMAL ATRIAL FIBRILLATION (2) Chronic instability of right knee Code(s): M23.51 - CHRONIC INSTABILITY OF KNEE, RIGHT KNEE (3) Diabetes Code(s): E11.9 - TYPE 2 DIABETES MELLITUS WITHOUT COMPLICATIONS (4) HTN (hypertension) Code(s): I10 - ESSENTIAL (PRIMARY) HYPERTENSION (5) Obesity Code(s): E66.9 - OBESITY, UNSPECIFIED (6) Paget's disease of right breast Code(s): C50.011 - MALIGNANT NEOPLASM OF NIPPLE AND AREOLA, RIGHT FEMALE BREAST Assessment/Plan paf in nsr htn dm sob elevated tni/s obesity plan r/o PE VQ scan echo tds cont telemetry and cardizem add toprol AC foe cva prevention lipids d/c IVF bnp elevated d - diamer elevated poor IV acces and no electrolytes for last 48 hrs make CTA impossible to perform right now. V/Q scan canceled by radiology
[2017-02-23] MEDS: METOPROLOL SUCCINATE 25 MG TAB.SR.24H (FP) PO SCH (11:32)
[2017-02-23] MEDS: SILVER SULFADIAZINE 1% TOP CREAM 50 GM JAR TP SCH (11:32)
--- NOTE | 2017-02-23 13:14 | PN ---
Physical Exam: SUBJECTIVE: Patient seen and examined at bed side. She is doing better bur she is still complaining of SOB on excertion. She denies any chest pain ,light headedness, N/V/D/C. No acute events over night. OBJECTIVE: Vital Signs Period Temp Pulse Resp BP Sys/Beck Pulse Ox Last 24 Hr 97.4 F-98.7 F 75-102 16-18 103-159/65-88 95-96 GENERAL: The patient is awake, alert, and fully oriented, in no acute distress. HEAD: Normal with no signs of trauma. EYES: PERRL, extraocular movements intact, sclera anicteric, conjunctiva clear. No ptosis. ENT: Ears normal, nares patent, oropharynx clear without exudates, moist mucous membranes. NECK: Trachea midline, full range of motion, supple. LUNGS: Breath sounds equal, clear to auscultation bilaterally, no wheezes, no crackles, no accessory muscle use. HEART: Regular rate and rhythm, S1, S2 without murmur, rub or gallop. ABDOMEN: Soft, nontender, nondistended, normoactive bowel sounds, no guarding, no rebound, no hepatosplenomegaly, no masses. EXTREMITIES: 2+ pulses, warm, well-perfused, no edema. NEUROLOGICAL: Normal speech, gait not observed. PSYCH: Normal mood, normal affect. SKIN: Warm, dry, normal turgor, no rashes or lesions noted Laboratory Results - last 24 hr 02/22/17 02/22/17 02/22/17 06:15 16:45 22:40 POC Glucometer 138 128 Iron 70 TIBC 310 Iron Saturation 23 02/23/17 02/23/17 05:52 11:47 POC Glucometer 121 137 Iron TIBC Iron Saturation Active Medications Generic Name Dose Route Start Last Admin Trade Name Freq PRN Reason Stop Dose Admin Acetaminophen 650 mg 02/20/17 08:59 02/22/17 05:15 Tylenol - PO 650 mg Q4H PRN Administration FEVER OR PAIN Aspirin 325 mg 02/20/17 15:15 02/23/17 09:35 Asa - PO 325 mg DAILY NICOLÁS Administration Diltiazem HCl 120 mg 02/23/17 10:30 02/23/17 11:32 Cardizem Cd - PO 120 mg DAILY NICOLÁS Administration Enoxaparin Sodium 100 mg 02/20/17 22:00 02/23/17 09:35 Lovenox - SQ 100 mg BID NICOLÁS Administration Insulin Aspart 1 vial 02/20/17 11:00 02/23/17 11:49 Novolog Vial Sliding Scale - SQ Not Given ACHS [facility] Protocol Melatonin 1 mg 02/20/17 22:00 02/22/17 22:55 Melatonin PO 1 mg HS NICOLÁS Administration Metoprolol Succinate 25 mg 02/23/17 10:30 02/23/17 11:32 Toprol Xl - PO 25 mg DAILY NICOLÁS Administration Silver Sulfadiazine 1 applic 02/20/17 10:00 02/23/17 11:32 Silvadene - TP 1 applic DAILY NICOLÁS Administration ASSESSMENT/PLAN: 66 yr old woman with Breast Ca, DM II, presents with rapid Afib and sob admitted to Tele for further workup. to r/o DVT due to LE swelling and c/o of sob(vitals currently stable, if continues to worsen, will consider CTA to r/o PE #Paroxysmal Afib - now rate controlled after cardizem 30mg push and 30 mg po. converted to Sinus rhythm - continue cardizem 30mg q8hr, hold benicar and toprol xl for now as per cardio - on full dose Levonox - Tele monitoring, echo did not show any acute pathology - cardiology consulted Dr. Oneal - Has bleed score of 3, ChadsVasc 2 # Shortness of breath - Most likely due to Afib vs high possibility PE vs Obstructive sleep apnea -Saturation is 97 % on room air , dyspnes has improved. - LE Doppler are negative for DVT - will continue anticoagulation for now and will reassess the patient tomorrow -D-DIMER ELEVATION MAY BE SECONDARY TO RECENT SURG/UNDERLYING BREAST CA - pulmonary consulted and ordered CTA to R/o PE witch come back positive for B/ L PE -POSSIBLE UNDERLYING OSAS WHICH IS ASSOCIATED WITH AN INCREASED INCIDENCE OF AF/ MO/CVA/TIA -sleep screening study to R/o Sleep apnea - Echo WNL no acute pathology. - She will follow as out patient with the pulmonary doctor. -F/U PT recommendation #DM II - hold metformin, BGM ACHS with NISS - diabetic diet - Random Glu 121 #Jimmie (baseline 1.2) Likely due to hypoperfusion vs Lactic acidosis - Cr today 1.1 improved from 1.8 - F/U urine studies - Avoid nephrotoxic agents, Hold ARB #Lactic acidosis likely due to demand ischemia vs infectious cause vs metformin - LA today 1.5 - blood cx drawn in the ED, monitor, off abx for now - trend LA - Dc IV fluids # Acute microcytic anemia - likely dilutional due to aggressive IVF. - no signs of active bleeding. -repeat CBC to ensure it is stable. - check iron studies #Elevated troponin - likely due to demand ischemia due to tachycardia. -cardiac enzymes stable at 0.11. -echo did not show any acute pathology #s/p surgery:+active drainage at surgical site. daily dressing changes at draining sites. apply silver silvadene daily to sites. Patient evaluated by plastic surgery. # hypotension, Resolved - hold oral antihypertensives at this time -continue monitor BP # Breast cancer : -Will follow as out patient Patient seen and examined at bed side. She is doing better bur she is still complaining of SOB on excertion. She denies any chest pain ,light headedness, N /V/D/C. No acute events over night. # Morbid obesity with BMI 45.0 #Probable ABENA DVT: lovenox sq diet: diabetic/low Na Pain: tylenol 650mg po F: on no fluid Evaristo Cheung MD. PGY1 Visit type - Emergency Visit Emergency Visit: Yes ED Registration Date: 02/20/17 Care time: The patient presented to the Emergency Department on the above date and was hospitalized for further evaluation of their emergent condition. - New Patient This patient is new to me today: No - Critical Care Critical Care patient: No
--- NOTE | 2017-02-23 14:25 | CON.PULM ---
Consult Consult Specialty:: PULMONARY Referred by:: NIMISHA Reason for Consultation:: R/O PE - History of Present Illness Chief Complaint: SOB History of Present Illness: 66 yr old woman with recent breast reconstruction surgery 01/20, present with palpitations since this morning. She was sleeping and was awoken with "pounding " in her chest, no chest pain, palps lasted a few minutes, admits to shortness of breath. While laying in bed she felt dizzy and lightheaded, she felt that if she stood up she would pass out. For past few days she has been having worsening exertional dyspnea, walking from her car to her Dr's office (in [facility] ) on Tuesday made her feel "winded." Last week she was walking around her house packing clothes when she suddenly had an episode of lightheadedness and shortness of breath, she immediately laid down and her symptoms improved in seconds, denies LOC/chest pain/palpitations at that time. She was seen on Tuesday to remove a drain on the right side incision. As per daughter, since then there has been more foul-smelling discharge "oozing" out. Also notes that her BGM's at home have been much higher than usual in the last few days; typically she is between 100-120, now 200's. On previous admission for surgery, pt had asymptomatic paroxsyml afib that resolved without intervention. 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 No: Asthma, COPD, O2 Dependent, Pneumonia , Pulmonary Embolus, Pulmonary Fibrosis Gastrointestinal: No: Ascites Hepatobiliary: No: Cirrhosis Renal/: No: Renal Failure Reproductive: Yes: Postmenopausal Heme/Onc: Yes: Anemia, Cancer (breast) Infectious Disease: No: AIDS Psych: No: Addictions Musculoskeletal: Yes: Other (pagets/gout) Rheumatology: Yes: Gout Endocrine: Yes: Diabetes Mellitus (type two) - Past Surgical History Past Surgical History: Yes: , Mastectomy (right with reconstruction) - Alcohol/Substance Use Hx Alcohol Use: No - Smoking History Smoking history: Never smoked Have you smoked in the past 12 months: No If you are a former smoker, when did you quit?: 40YRS AGO - Social History Usual Living Arrangement: With Spouse ADL: Independent Place of : [place] History of Recent Travel: No Home Medications - Allergies Allergies/Adverse Reactions: Allergies Allergy/AdvReac Type Severity Reaction Status Date / Time No Known Allergies Allergy Verified 02/20/17 03:33 - Home Medications Home Medications: Ambulatory Orders Allopurinol 300 mg PO DAILY 01/18/17 Aspirin Coated [Ecotrin -] 81 mg PO DAILY 01/18/17 Metformin HCl 500 mg PO BID 01/18/17 Metoprolol Succinate [Toprol Xl] 100 mg PO DAILY 01/18/17 Multivitamins [Multivit ([facility] Formulary)] 1 tab PO DAILY 01/18/17 Olmesartan/Hydrochlorothiazide [Benicar Hct 40-12.5 mg Tablet] 1 each PO DAILY 01/18/17 Acetaminophen [Tylenol .Regular Strength -] 650 mg PO Q4H PRN #0 tablet Cefadroxil 500 mg PO BID #20 capsule 01/23/17 Diazepam [Valium] 5 mg PO Q8H PRN #15 tablet MDD 3 01/23/17 Oxycodone HCl [Roxicodone -] 5 mg PO Q4H PRN #30 tablet MDD 10 01/23/17 Valsartan [Diovan] 320 mg PO DAILY tablet 01/23/17 Family Disease History - Family Disease History Family Disease History: Heart Disease: Mother (CRC 82; colon cancer), CA: Grandparent (mat GF gastric ca 93), Mother Review of Systems - Review of Systems Constitutional: denies: Fever Eyes: denies: Blurred Vision HENT: denies: Difficult Swallowing Neck: denies: Decreased ROM Cardiovascular: reports: Palpitations, Shortness of Breath. denies: Chest Pain Respiratory: reports: Exercise Intolerance, SOB, SOB on Exertion. denies: Hemoptysis, Wheezing Gastrointestinal: denies: Abdominal Pain Genitourinary: reports: No Symptoms Breasts: reports: Other (s/p right mastectomy with reconstruction) Physical Exam Vital Sings: Vital Signs Temperature 98.3 F 02/23/17 13:45 Pulse Rate 89 02/23/17 13:45 Respiratory Rate 16 02/23/17 13:45 Blood Pressure 138/57 02/23/17 13:45 O2 Sat by Pulse Oximetry (%) 95 02/23/17 09:00 Constitutional: Yes: Calm Eyes: Yes: EOM Intact HENT: Yes: Normocephalic Neck: Yes: Trachea Midline Cardiovascular: Yes: Regular Rate and Rhythm, S1, S2 Respiratory: Yes: CTA Bilaterally Gastrointestinal: Yes: Soft, Abdomen, Obese Breast(s): Yes: Other (s/p right reconstructive surg) Edema: LLE: 3+, RLE: 3+ Labs: CBC, BMP 02/22/17 08:55 02/22/17 06:15 Imaging - Results Chest X-ray: Report Reviewed, Image Reviewed Problem List - Problems (1) PAF (paroxysmal atrial fibrillation) Code(s): I48.0 - PAROXYSMAL ATRIAL FIBRILLATION (2) Chronic instability of right knee Code(s): M23.51 - CHRONIC INSTABILITY OF KNEE, RIGHT KNEE (3) Diabetes Code(s): E11.9 - TYPE 2 DIABETES MELLITUS WITHOUT COMPLICATIONS (4) HTN (hypertension) Code(s): I10 - ESSENTIAL (PRIMARY) HYPERTENSION (5) Obesity Code(s): E66.9 - OBESITY, UNSPECIFIED (6) Paget's disease of right breast Code(s): C50.011 - MALIGNANT NEOPLASM OF NIPPLE AND AREOLA, RIGHT FEMALE BREAST (7) ABENA (obstructive sleep apnea) Code(s): G47.33 - OBSTRUCTIVE SLEEP APNEA (ADULT) (PEDIATRIC) Assessment/Plan MODERATE INDEX OF SUSPICION FOR PE CTA HAS BEEN ORDERED D-DIMER ELEVATION MAY BE SECONDARY TO RECENT SURG/UNDERLYING BREAST CA RAPID AF MAY BE SOLE CAUSATIVE FACTOR IN SOB OF NOTE IS POSSIBLE UNDERLYING OSAS WHICH IS ASSOCIATED WITH AN INCREASED INCIDENCE OF AF/AK/CVA/TIA HAVE ORDERED ABENA SCREEN TONIGHT HAVE INSTRUCTED PATIENT TO FOLLOW IN MY OFFICE FOR OUTPATIENT PSG WILL FOLLOW Nicole BARKSDALE MD
--- NOTE | 2017-02-23 15:59 | PN ---
Teaching Attending Note Name of Resident: Evaristo Cheung ATTENDING PHYSICIAN STATEMENT I saw and evaluated the patient. I reviewed the resident's note and discussed the case with the resident. I agree with the resident's findings and plan as documented. SUBJECTIVE: Patient still feels SOB with exertion, but she feels she is improving. OBJECTIVE: Vital Signs Period Temp Pulse Resp BP Sys/Beck Pulse Ox Last 24 Hr 97.4 F-98.7 F 75-102 16-18 110-159/57-88 95-96 HEART: Irregular LUNGS: Clear ABDOMEN: Obese, soft, non-tender, non-distended, normal BS EXTREMITIES: 1+ edema Current Medications Generic Name Dose Route Start Last Admin Trade Name Freq PRN Reason Stop Dose Admin Acetaminophen 650 mg 02/20/17 08:59 02/22/17 05:15 Tylenol - PO 650 mg Q4H PRN Administration FEVER OR PAIN Aspirin 325 mg 02/20/17 15:15 02/23/17 09:35 Asa - PO 325 mg DAILY NICOLÁS Administration Diltiazem HCl 120 mg 02/23/17 10:30 02/23/17 11:32 Cardizem Cd - PO 120 mg DAILY [facility] Administration Enoxaparin Sodium 100 mg 02/20/17 22:00 02/23/17 09:35 Lovenox - SQ 100 mg BID NICOLÁS Administration Insulin Aspart 1 vial 02/20/17 11:00 02/23/17 11:49 Novolog Vial Sliding Scale - SQ Not Given ACHS [facility] Protocol Melatonin 1 mg 02/20/17 22:00 02/22/17 22:55 Melatonin PO 1 mg HS NICOLÁS Administration Metoprolol Succinate 25 mg 02/23/17 10:30 02/23/17 11:32 Toprol Xl - PO 25 mg DAILY N[facility]S Administration Silver Sulfadiazine 1 applic 02/20/17 10:00 02/23/17 11:32 Silvadene - TP 1 applic DAILY NICOLÁS Administration ASSESSMENT AND PLAN: This is a 66 year old woman with a history of breast cancer, type 2 DM, HTN, gout who presented to the ER with SOB. 1. Atrial fibrillation - Continues to have episodes of a fib - Continue Cardizem, Lovenox - Toprol XL restarted - Echo technically limited but shows normal size LV with normal EF 2. Dyspnea - Likely secondary to a fib - Has risks for PE - D-dimer elevated possibly secondary to recent surgery, breast cancer - Pulmonary consult appreciated - Plan for chest CTA 3. Acute kidney injury - Improved 4. Hypotension - Resolved 5. Demand ischemia - Secondary to tachycardia - Continue aspirin 6. Lactic acidosis - Improved 7. Right breast cancer, recent CAT flap reconstruction - Continue to apply Silvadene to breast wound, dressing changes 8. Type 2 DM - Metformin held - Continue Novolog sliding scale 9. HTN - Benicar HCT, Diovan held secondary to AILYN, hypotension - Continue Cardizem, Toprol XL 10. Morbid obesity with BMI 45.0 11. Probable ABENA
[2017-02-23] MEDS ORDERED: PT OWN MED DRAWER 7, Y5N ONE (21:45)
[2017-02-23] MEDS: MELATONIN 1 MG TABLET PO SCH (22:06)
[2017-02-24] MEDS: INSULIN SLIDING SCALE (NOVOLOG) 1 VIAL SQ SCH ×4 (06:41→21:59)
--- NOTE | 2017-02-24 07:55 | PN ---
Physical Exam: SUBJECTIVE: Patient seen and examined at bed side. She is doing better bur she is still complaining of SOB on excertion. She denies any chest pain ,light headedness, N/V/D/C. No acute events over night.Screening sleep test was done last night. some oozing from her surgery wound. OBJECTIVE: Vital Signs Period Temp Pulse Resp BP Sys/Beck Pulse Ox Last 24 Hr 98.0 F-98.7 F 80-100 16-20 114-159/57-88 95-98 GENERAL: The patient is awake, alert, and fully oriented, in no acute distress. HEAD: Normal with no signs of trauma. EYES: PERRL, extraocular movements intact, sclera anicteric, conjunctiva clear. No ptosis. ENT: Ears normal, nares patent, oropharynx clear without exudates, moist mucous membranes. NECK: Trachea midline, full range of motion, supple. LUNGS: Breath sounds equal, clear to auscultation bilaterally, no wheezes, no crackles, no accessory muscle use. HEART: Regular rate and rhythm, S1, S2 without murmur, rub or gallop. ABDOMEN: Soft, nontender, nondistended, normoactive bowel sounds, no guarding, no rebound, no hepatosplenomegaly, no masses. EXTREMITIES: 2+ pulses, warm, well-perfused, no edema. NEUROLOGICAL: Cranial nerves II through XII grossly intact. Normal speech, gait not observed. PSYCH: Normal mood, normal affect. SKIN: Warm, dry, normal turgor, no rashes or lesions noted Laboratory Results - last 24 hr 02/23/17 02/23/17 02/23/17 11:47 18:43 20:40 POC Glucometer 137 122 175 02/24/17 06:10 POC Glucometer 136 Active Medications Generic Name Dose Route Start Last Admin Trade Name Freq PRN Reason Stop Dose Admin Acetaminophen 650 mg 02/20/17 08:59 02/22/17 05:15 Tylenol - PO 650 mg Q4H PRN Administration FEVER OR PAIN Aspirin 325 mg 02/20/17 15:15 02/23/17 09:35 Asa - PO 325 mg DAILY NICOLÁS Administration Diltiazem HCl 120 mg 02/23/17 10:30 02/23/17 11:32 Cardizem Cd - PO 120 mg DAILY NICOLÁS Administration Enoxaparin Sodium 100 mg 02/20/17 22:00 02/23/17 22:06 Lovenox - SQ 100 mg BID NICOLÁS Administration Insulin Aspart 1 vial 02/20/17 11:00 02/24/17 06:41 Novolog Vial Sliding Scale - SQ Not Given ACHS [facility] Protocol Melatonin 1 mg 02/20/17 22:00 02/23/17 22:06 Melatonin PO 1 mg HS NICOLÁS Administration Metoprolol Succinate 25 mg 02/23/17 10:30 02/23/17 11:32 Toprol Xl - PO 25 mg DAILY NICOLÁS Administration Silver Sulfadiazine 1 applic 02/20/17 10:00 02/23/17 11:32 Silvadene - TP 1 applic DAILY NICOLÁS Administration ASSESSMENT/PLAN: 66 yr old woman with Breast Ca, DM II, presents with rapid Afib and sob admitted to Tele for further workup. to r/o DVT due to LE swelling and c/o of sob(vitals currently stable, if continues to worsen, will consider CTA to r/o PE #Paroxysmal Afib - now rate controlled after cardizem 30mg push and 30 mg po. converted to Sinus rhythm - continue cardizem 30mg q8hr, hold benicar and toprol xl for now as per cardio - on full dose Levonox - Tele monitoring, echo did not show any acute pathology - cardiology consulted Dr. Oneal - Has bleed score of 3, ChadsVasc 2 - Patient refused to be Discharge on Lovenox injection -Hematology/oncology were consulted for antincoagulation.(DR. Devyn chopra) -credit collections specialist agree to the treatment with Lovenox 110 mg SQ BID -ID was consulted due to possible infection in the wound site. # Shortness of breath - Most likely due to Afib vs high possibility PE vs Obstructive sleep apnea -Saturation is 97 % on room air , dyspnes has improved. - LE Doppler are negative for DVT - will continue anticoagulation for now and will reassess the patient tomorrow -D-DIMER ELEVATION MAY BE SECONDARY TO RECENT SURG/UNDERLYING BREAST CA - pulmonary consulted and ordered CTA to R/o PE witch come back positive for B/ L PE -POSSIBLE UNDERLYING OSAS WHICH IS ASSOCIATED WITH AN INCREASED INCIDENCE OF AF/ [place]/CVA/TIA -sleep screening study to R/o Sleep apnea - Echo WNL no acute pathology. - She will follow as out patient with the pulmonary doctor. -F/U PT recommendation #DM II - hold metformin, BGM ACHS with NISS - diabetic diet - Random Glu 121 #Jimmie (baseline 1.2) Likely due to hypoperfusion vs Lactic acidosis - Cr today 1.1 improved from 1.8 - F/U urine studies - Avoid nephrotoxic agents, Hold ARB #Lactic acidosis likely due to demand ischemia vs infectious cause vs metformin - LA today 1.5 - blood cx drawn in the ED, monitor, off abx for now - trend LA - Dc IV fluids # Acute microcytic anemia - likely dilutional due to aggressive IVF. - no signs of active bleeding. -repeat CBC to ensure it is stable. - check iron studies #Elevated troponin - likely due to demand ischemia due to tachycardia. -cardiac enzymes stable at 0.11. -echo did not show any acute pathology #s/p surgery:+active drainage at surgical site. daily dressing changes at draining sites. apply silver silvadene daily to sites. Patient evaluated by plastic surgery. # hypotension, Resolved - hold oral antihypertensives at this time -continue monitor BP -ID was consulted to possible infection in the wound site. # Breast cancer : -Will follow as out patient Patient seen and examined at bed side. She is doing better bur she is still complaining of SOB on excertion. She denies any chest pain ,light headedness, N /V/D/C. No acute events over night. # Morbid obesity with BMI 45.0 #Probable ABENA DVT: lovenox sq diet: diabetic/low Na Pain: tylenol 650mg po F: on no fluid Visit type - Emergency Visit Emergency Visit: Yes ED Registration Date: 02/20/17 Care time: The patient presented to the Emergency Department on the above date and was hospitalized for further evaluation of their emergent condition. - New Patient This patient is new to me today: No - Critical Care Critical Care patient: No
--- NOTE | 2017-02-24 09:19 | PN ---
Progress Note, Physician Chief Complaint: Pt A&Ox3; OOB in chair. Feels much better (less dyspneic with exertion). 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 The patient ~4 wks ago had R sided mastectomy and plastic reconstruction. Several days ago, she had her drains pulled out. Noticed 4 days ago that she was feeling short of breath and lightheaded. Never had chest pain. Today, she woke up feeling significant palpitations and shortness of breath. Denies recent illnesses, fevers, chills. Did endorse intermittent loose stools x 1 month. Pt was noted to have a heart rate of ~200 and irregularly irregular. - Current Medication List Current Medications: Active Medications Acetaminophen (Tylenol -) 650 mg PO Q4H PRN PRN Reason: FEVER OR PAIN Last Admin: 02/22/17 05:15 Dose: 650 mg Aspirin (Asa -) 325 mg PO DAILY [facility] Last Admin: 02/23/17 09:35 Dose: 325 mg Diltiazem HCl (Cardizem Cd -) 120 mg PO DAILY [facility] Last Admin: 02/23/17 11:32 Dose: 120 mg Enoxaparin Sodium (Lovenox -) 100 mg SQ BID [facility] Last Admin: 02/23/17 22:06 Dose: 100 mg Insulin Aspart (Novolog Vial Sliding Scale -) 1 vial SQ ACHS [facility] PRN Reason: Protocol Last Admin: 02/24/17 06:41 Dose: Not Given Melatonin (Melatonin) 1 mg PO HS [facility] Last Admin: 02/23/17 22:06 Dose: 1 mg Metoprolol Succinate (Toprol Xl -) 25 mg PO DAILY [facility] Last Admin: 02/23/17 11:32 Dose: 25 mg Silver Sulfadiazine (Silvadene -) 1 applic TP DAILY [facility] Last Admin: 02/23/17 11:32 Dose: 1 applic - Objective Vital Signs: Vital Signs Temperature 98.7 F 02/24/17 06:00 Pulse Rate 80 02/24/17 06:00 Respiratory Rate 18 02/24/17 06:00 Blood Pressure 130/68 02/24/17 06:00 O2 Sat by Pulse Oximetry (%) 98 02/23/17 21:00 Constitutional: Yes: Calm Eyes: Yes: WNL HENT: Yes: WNL Neck: Yes: WNL Cardiovascular: Yes: Regular Rate and Rhythm Respiratory: Yes: Diminished Gastrointestinal: Yes: Soft, Abdomen, Obese ...Rectal Exam: Yes: Deferred Genitourinary: No: Anuria Breast(s): No: Right (mastectomy 01/10) Musculoskeletal: Yes: Muscle Weakness Extremities: Yes: Cool Edema: Yes Edema: LLE: 1+, RLE: 2+ Peripheral Pulses WNL: Yes Integumentary: Yes: Incision Wound/Incision: Yes: Clean/Dry Neurological: Yes: Alert, Oriented Psychiatric: Yes: WNL Labs: CBC, BMP 02/22/17 08:55 02/22/17 06:15 INR, PTT INR 0.88 (0.82-1.09) 02/20/17 03:50 Problem List - Problems (1) Breast CA Code(s): C50.919 - MALIGNANT NEOPLASM OF UNSP SITE OF UNSPECIFIED FEMALE BREAST (2) ABENA (obstructive sleep apnea) Assessment/Plan: f/u with real estate agency principal for Rx. Code(s): G47.33 - OBSTRUCTIVE SLEEP APNEA (ADULT) (PEDIATRIC) (3) PAF (paroxysmal atrial fibrillation) Assessment/Plan: On metoprolol and diltiazem for HR control; now in normal sinus rhythm. On IV heparin for PE, PAF; change eventually to PO (warfarin or NOAC). ECHO: normal LVEF (limited study; could not r/o regional wall motion abnormailities; consider repeat when pt is better able to be positioned for optimal views). Code(s): I48.0 - PAROXYSMAL ATRIAL FIBRILLATION (4) Pulmonary emboli Assessment/Plan: CTA results noted. On IV heparin; eventually change to PO anticoagulant (warfarin or NOAC). PAF: on diltiazem and metoprolol for HR control. Code(s): I26.99 - OTHER PULMONARY EMBOLISM WITHOUT ACUTE COR PULMONALE (5) Chronic instability of right knee Code(s): M23.51 - CHRONIC INSTABILITY OF KNEE, RIGHT KNEE (6) Diabetes Code(s): E11.9 - TYPE 2 DIABETES MELLITUS WITHOUT COMPLICATIONS (7) HTN (hypertension) Assessment/Plan: start losartan 50 mg daily (HTN; DM). Pt was on another ARB in the past, but stopped it due to insurance not paying for it. Code(s): I10 - ESSENTIAL (PRIMARY) HYPERTENSION (8) Obesity Code(s): E66.9 - OBESITY, UNSPECIFIED (9) Paget's disease of right breast Code(s): C50.011 - MALIGNANT NEOPLASM OF NIPPLE AND AREOLA, RIGHT FEMALE BREAST (10) Hypertriglyceridemia Assessment/Plan: start fibrate. Diet modification; weight loss; increase exercise. Code(s): E78.1 - PURE HYPERGLYCERIDEMIA (11) Diastolic CHF Code(s): I50.30 - UNSPECIFIED DIASTOLIC (CONGESTIVE) HEART FAILURE
[2017-02-24] MEDS: ENOXAPARIN NA (PORCINE) 100 MG/1 ML DISP.SYRIN SQ SCH ×2 (10:20→22:07)
[2017-02-24] MEDS: METOPROLOL SUCCINATE 25 MG TAB.SR.24H (FP) PO SCH (10:20)
[2017-02-24] MEDS: SILVER SULFADIAZINE 1% TOP CREAM 50 GM JAR TP SCH (11:00)
[2017-02-24] MEDS: ASPIRIN 325 MG TABLET PO SCH (12:09)
--- NOTE | 2017-02-24 13:47 | PN ---
Progress Note, Physician History of Present Illness: pulmonary alert,feeling better,less dyspneic - Current Medication List Current Medications: Active Medications Acetaminophen (Tylenol -) 650 mg PO Q4H PRN PRN Reason: FEVER OR PAIN Last Admin: 02/22/17 05:15 Dose: 650 mg Aspirin (Asa -) [address] [facility] Last Admin: 02/24/17 12:09 Dose: Not Given Diltiazem HCl (Cardizem Cd -) [address] [facility] Last Admin: 02/24/17 10:20 Dose: 120 mg Enoxaparin Sodium (Lovenox -) [address] [facility] Last Admin: 02/24/17 10:20 Dose: 100 mg Insulin Aspart (Novolog Vial Sliding Scale -) [address] [facility] PRN Reason: Protocol Last Admin: 02/24/17 11:50 Dose: Not Given Melatonin (Melatonin) [address] [facility] Last Admin: 02/23/17 22:06 Dose: 1 mg Metoprolol Succinate (Toprol Xl -) [address] [facility] Last Admin: 02/24/17 10:20 Dose: 25 mg Silver Sulfadiazine (Silvadene -) [address] [facility] Last Admin: 02/23/17 11:32 Dose: 1 applic - Objective Vital Signs: Vital Signs Temperature 98.6 F 02/24/17 09:00 Pulse Rate 83 02/24/17 09:00 Respiratory Rate 17 02/24/17 09:00 Blood Pressure 145/70 02/24/17 09:00 O2 Sat by Pulse Oximetry (%) 98 02/23/17 21:00 Constitutional: Yes: Well Nourished, Calm Eyes: Yes: WNL HENT: Yes: WNL, Tonsillar Exudate Cardiovascular: Yes: Regular Rate and Rhythm, S1, S2 Respiratory: Yes: CTA Bilaterally Gastrointestinal: Yes: Normal Bowel Sounds, Soft Extremities: Yes: WNL Edema: Yes Labs: CBC, BMP 02/22/17 08:55 02/22/17 06:15 INR, PTT INR 0.88 (0.82-1.09) 02/20/17 03:50 Problem List - Problems (1) ABENA (obstructive sleep apnea) Code(s): G47.33 - OBSTRUCTIVE SLEEP APNEA (ADULT) (PEDIATRIC) (2) PAF (paroxysmal atrial fibrillation) Code(s): I48.0 - PAROXYSMAL ATRIAL FIBRILLATION (3) Diabetes Code(s): E11.9 - TYPE 2 DIABETES MELLITUS WITHOUT COMPLICATIONS (4) HTN (hypertension) Code(s): I10 - ESSENTIAL (PRIMARY) HYPERTENSION (5) Obesity Code(s): E66.9 - OBESITY, UNSPECIFIED (6) Pulmonary emboli Code(s): I26.99 - OTHER PULMONARY EMBOLISM WITHOUT ACUTE COR PULMONALE (7) Breast CA Code(s): C50.919 - MALIGNANT NEOPLASM OF UNSP SITE OF UNSPECIFIED FEMALE BREAST Assessment/Plan IMP ACUTE PULMONARY EMBOLISM BREAST CA S/P MASTECTOMY AFIB MILD ABENA PLAN LOVENOX MONITOR HR HEME/ONC OPINION SLEEP STUDIES OUTPATIENT DR GONZALEZ
--- NOTE | 2017-02-24 15:02 | PN ---
Teaching Attending Note Name of Resident: Evaristo Cheung ATTENDING PHYSICIAN STATEMENT I saw and evaluated the patient. I reviewed the resident's note and discussed the case with the resident. I agree with the resident's findings and plan as documented. SUBJECTIVE: Patient feels less short of breath with exertion. OBJECTIVE: Vital Signs Period Temp Pulse Resp BP Sys/Beck Pulse Ox Last 24 Hr 98.0 F-98.7 F 80-89 16-20 114-161/62-82 98-98 HEART: Irregular LUNGS: Clear ABDOMEN: Obese, soft, non-tender, non-distended, normal BS EXTREMITIES: Trace edema Current Medications Generic Name Dose Route Start Last Admin Trade Name Freq PRN Reason Stop Dose Admin Acetaminophen 650 mg 02/20/17 08:59 02/22/17 05:15 Tylenol - PO 650 mg Q4H PRN Administration FEVER OR PAIN Aspirin 325 mg 02/20/17 15:15 02/24/17 12:09 Asa - PO Not Given DAILY NICOLÁS Diltiazem HCl 120 mg 02/23/17 10:30 02/24/17 10:20 Cardizem Cd - PO 120 mg DAILY NIC[facility]S Administration Enoxaparin Sodium 100 mg 02/20/17 22:00 02/24/17 10:20 Lovenox - SQ 100 mg BID NICOLÁS Administration Insulin Aspart 1 vial 02/20/17 11:00 02/24/17 11:50 Novolog Vial Sliding Scale - SQ Not Given ACHS [facility] Protocol Melatonin 1 mg 02/20/17 22:00 02/23/17 22:06 Melatonin PO 1 mg HS NICOLÁS Administration Metoprolol Succinate 25 mg 02/23/17 10:30 02/24/17 10:20 Toprol Xl - PO 25 mg DAILY NICOLÁS Administration Silver Sulfadiazine 1 applic 02/20/17 10:00 02/23/17 11:32 Silvadene - TP 1 applic DAILY NICOLÁS Administration ASSESSMENT AND PLAN: This is a 66 year old woman with a history of breast cancer, type 2 DM, HTN, gout who presented to the ER with SOB. 1. Atrial fibrillation - Continues to have episodes of a fib - rate controlled - Continue Cardizem, Toprol XL, Lovenox - Echo technically limited but shows normal size LV with normal EF 2. Bilateral pulmonary emboli - On Lovenox - Pulmonary consult appreciated - Discussed lifetime treatment with Lovenox - Patient does not want to self- inject - Hematology consult 3. Acute kidney injury - Improved 4. Hypotension - Resolved 5. Demand ischemia - Secondary to tachycardia - Continue aspirin 6. Lactic acidosis - Improved 7. Right breast cancer, recent CAT flap reconstruction - Continue to apply Silvadene to breast wound, dressing changes 8. Type 2 DM - Metformin held - Continue Novolog sliding scale 9. HTN - Benicar HCT, Diovan held secondary to AILYN, hypotension - Continue Cardizem, Toprol XL 10. Morbid obesity with BMI 45.0 11. Probable ABENA
[2017-02-24] MEDS ORDERED: PT OWN MED DRAWER 7, Y5N ONE ×2 (18:18→22:00)
[2017-02-24] MEDS: LOSARTAN POTASSIUM 50 MG TABLET (FP) PO SCH (18:25)
[2017-02-24] MEDS: FENOFIBRIC ACID 135 MG CAP PO SCH (18:26)
--- NOTE | 2017-02-24 21:48 | CONSULT ---
Consult - text type - Consultation Consultation Note: 66 yr old woman with recent rt. brest mastectomy and breast reconstruction surgery 01/20, presented with palpitations. She was sleeping and was woken up with "pounding" in her chest, midsternum, no pain, nonradiating, lasting few minutes, a/w shortness of breath. While laying in bed she felt dizzy and lightheaded, she felt that if she stood up she would pass out. She had worsening exertional dyspnea. She was seen on Tuesday to remove a drain on the right side incision. As per daughter, since then there has been more foul-smelling discharge "oozing" out. Also notes that her BGM's at home have been much higher than usual in the last few days; typically she is between 100-120, now 200's. 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 T1mi, with LVI ER+/MN+/Her2- Gout PAST SURGICAL HISTORY: Breast surgery 01/20 Hx of C-sections Social History: Smoking: denies Alcohol: denies Drugs: denies Family History: Mother (CRC 82; colon cancer), CA: maternal Grandparent (mat GF gastric ca 93), paternal aunt-breast cancer. maternal uncle-tongue cancer Allergies No Known Allergies Allergy (Verified 02/20/17 03:33) HOME MEDICATIONS: Home Medications Medication Instructions Recorded Allopurinol 300 mg PO DAILY 01/18/17 Aspirin Coated [Ecotrin -] 81 mg PO DAILY 01/18/17 Metformin HCl 500 mg PO BID 01/18/17 Metoprolol Succinate [Toprol Xl] 100 mg PO DAILY 01/18/17 Multivitamins [Multivit ([facility] 1 tab PO DAILY 01/18/17 Formulary)] Olmesartan/Hydrochlorothiazide 1 each PO DAILY 01/18/17 [Benicar Hct 40-12.5 mg Tablet] Acetaminophen [Tylenol .Regular 650 mg PO Q4H PRN #0 tablet 01/23/17 Strength -] Cefadroxil 500 mg PO BID #20 capsule 01/23/17 Diazepam [Valium] 5 mg PO Q8H PRN #15 tablet MDD 3 01/23/17 Oxycodone HCl [Roxicodone -] 5 mg PO Q4H PRN #30 tablet MDD 10 01/23/17 Valsartan [Diovan] 320 mg PO DAILY tablet 01/23/17 PHYSICAL EXAMINATION Last Vital Signs Temp Pulse Resp BP Pulse Ox 97.6 F 81 18 131/73 96 02/25/17 02:00 02/25/17 02:00 02/25/17 02:00 02/25/17 02:00 02/24/17 21:00 HEENT: PRESLEY, EOM Intact Oropharynx: No thrush, No mucositis Neck: Supple Nodes: Without adenopathy Breasts:rt. breast reconstruction/healing incisions Cor: RSR, No murmurs, No gallops Lungs: Clear to P&A Abd: Soft, Normal bowel sounds, healing abdominal wall incisions. Drainage from belly button incision Ext:No significant edema ASSESSMENT/PLAN: 66 yr old woman with obesity, recent rt. mastectomy and reconstruction 01/20, DM II, presents with rapid Afib and sob Patient was relatively immobile post operatively Noted to have extensive b/l PE involving Rt. main PA and multple b/l upper and lower lobar arteries On lovenox----based on weight ----110mg SC bid discussed with patient pros/cons of different a/c options including NOACS/ coumadin/lovenox. discussed that NOACs have a warning for use in patients with BMI > 40 and may be ineffective in this subgroup of patients. Discussed coumadin would be ideal as we could monitor its efficacy in this setting. But patient reluctant to get INR monitoring and bridging. discussed that its recommended to check anti Xa levels even for lovenox use in obese patients. She understands pros/cons of various options and at this time prefers to take lovenox Will prescribe lovenox 1mg/kg Sc bid PE most likely provoked from relative immobility post op. Could consider 3 months of a/c-reevaluate as outpatient Pagets disease of the breast Microinvasive breast cancer: T1mi, LVI+, extensive DCIS, ER 50-60%, MN-25-30%, Her2 neg. Would consider aromatase inhibitor for 5yrs. Drainage from abdominal incision---would consult ID teAM Patient to f/u as outpatient WITH US Discussed with house staff
[2017-02-24] MEDS: MELATONIN 1 MG TABLET PO SCH (22:08)
[2017-02-25] MEDS: INSULIN SLIDING SCALE (NOVOLOG) 1 VIAL SQ SCH ×3 (06:56→17:20)
[2017-02-25 07:08] VITALS: TEMP 98.7
[2017-02-25 07:19] LABS: MCH 30.6 pg (25.7-33.7); MCHC 33.4 g/dl (32.0-36.0); MEAN CELL VOLUME 91.5 fl (80-96); MEAN PLT VOLUME 8.4 fl (7.5-11.1); PLATELET COUNT 93 K/MM3 (134-434); RDW 14.9 % (11.6-15.6); WHITE BLOOD COUNT 6.3 K/mm3 (4.0-10.0)
[2017-02-25 07:40] LABS: ANION GAP 7 (8-16); CO2 24 mmol/L (21-32); CREATININE 0.9 mg/dL (0.55-1.02); GLUCOSE,RANDOM 123 mg/dL (74-106)
--- NOTE | 2017-02-25 08:19 | PN ---
Progress Note (short form) - Note Progress Note: ID Consult dictated NO fever chills Not acutely ill in appearance Selected Entries 02/25/17 06:45 Temperature 98.7 F Pulse Rate 76 Respiratory 16 Rate Blood Pressure 144/50 Breast ABD and umbilical wounds noted No purulence odor or erythema There is some drainage noted on dressing no fluctuance Laboratory Tests 02/25/17 02/25/17 02/25/17 07:00 07:00 07:10 WBC 6.3 Hgb 10.4 L Hct 31.2 L Plt Count 93 L BUN 14 POC Glucometer 121 Assessment From ID standpoint nothing to do other then local wound care as ordered and f/u with her surgeon next week Donnell GONZALEZ Problem List - Problems (1) Cellulitis Code(s): L03.90 - CELLULITIS, UNSPECIFIED
--- NOTE | 2017-02-25 08:49 | CONS ---
DATE OF CONSULTATION: DATE OF DICTATION: 02/25/2017 This is a 66-year-old diabetic woman who recently underwent right breast mastectomy with reconstructive surgery January 20 at [facility]. Surgery was uneventful, and the patient was discharged and readmitted with chief complaint of palpitations which woke her up, experienced as a pounding in her chest and midsternal area, unassociated with any pain and nonradiating. She also noted shortness of breath and here had a CAT scan of the chest done which was positive for pulmonary embolus for which she was anticoagulated and also found to be in new-onset atrial fibrillation. She is a diabetic type 2, and I am asked to see her at the request of Dr. Khan, the oncologist, after she saw the patient yesterday and expressed concerns about possible wound infection. The patient notes that the plastic surgeon's nurse practitioner has been to the hospital recently, examined the wounds and found no evidence of infection and/or need for antibiotic treatment beyond just local wound care with Silvadene. She has no fever, chills, or other systemic complaints and generally appears in good spirits at the current time. PAST MEDICAL HISTORY: Wwe-pyivepj-qkviulpcc diabetes, hypertension, Paget's disease of the nipple, microinvasive breast cancer diagnosed, with mastectomy another reconstruction. Gout, cesarian sections. SOCIAL HISTORY: Nonsmoker, no alcohol, no history of substance abuse. FAMILY HISTORY: Mother with colon cancer. Maternal grandparent with gastric cancer. Paternal aunt and maternal uncle with breast and tongue cancer. ALLERGIES: None known. REVIEW OF SYSTEMS: All systems reviewed and noncontributory. PHYSICAL EXAMINATION: Vital Signs: Physical examination revealed a heavy-set woman, 254 pounds, afebrile. Pulse 76, blood pressure 144/50, respirations 16. Neck: Supple. Lungs: Clear to P&A. Heart: S1, S2, regular rhythm without audible murmur. Abdomen: Soft, nontender, without organomegaly. Skin: Skin revealed a circular reconstructive incision of the right breast with some superficial skin necrosis but no erythema or fluctuance noted. The abdomen with an umbilical reconstructive surgery wound with some dry skin, eschar, but no purulent drainage or fluctuance noted. Two lower abdominal lateral reconstructive incisions. The right was open, with some drainage on the wound dressing, but not purulent and no erythema or fluctuance. The left abdominal wound appeared well healed. LABORATORY: The BUN was , creatinine 0.9. White count 6.3, hemoglobin 10.4, platelets of 93. Two sets of blood cultures obtained February 20, no growth. CTA of the chest shows acute pulmonary embolus, trace right pleural effusion, trace pericardial effusion. ASSESSMENT: A 66-year-old female status post reconstructive breast surgery, right mastectomy January 20, now complicated by atrial fibrillation and pulmonary embolus. Asked to evaluate the wounds, which do not appear grossly infected. She is at high risk for infection based on her diabetes mellitus; however, at the current time she is asymptomatic with a normal white count, and the wounds do not appear to me to require antibiotic treatment. I would continue with the local wound care with Yolanda, and she has an appointment with her plastic surgeon to be seen within the coming days. Please kidney re-call me for any further questions. CELESTE NAQVI M.D. [id number]
[2017-02-25] MEDS ORDERED: PT OWN MED DRAWER 7, Y5N ONE (10:06)
[2017-02-25] MEDS: FENOFIBRIC ACID 135 MG CAP PO SCH (10:08)
[2017-02-25] MEDS: METOPROLOL SUCCINATE 25 MG TAB.SR.24H (FP) PO SCH (10:09)
[2017-02-25] MEDS: ENOXAPARIN NA (PORCINE) 100 MG/1 ML DISP.SYRIN SQ SCH (10:09)
[2017-02-25] MEDS: LOSARTAN POTASSIUM 50 MG TABLET (FP) PO SCH (10:09)
[2017-02-25] MEDS: SILVER SULFADIAZINE 1% TOP CREAM 50 GM JAR TP SCH (10:38)
--- NOTE | 2017-02-25 10:38 | PN ---
Progress Note, Physician Chief Complaint: Pt A&Ox3. Denies chest pain, palpitations, or dyspnea. 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 The patient ~4 wks ago had R sided mastectomy and plastic reconstruction. Several days ago, she had her drains pulled out. Noticed 4 days ago that she was feeling short of breath and lightheaded. Never had chest pain. Today, she woke up feeling significant palpitations and shortness of breath. Denies recent illnesses, fevers, chills. Did endorse intermittent loose stools x 1 month. Pt was noted to have a heart rate of ~200 and irregularly irregular. - Current Medication List Current Medications: Active Medications Acetaminophen (Tylenol -) 650 mg PO Q4H PRN PRN Reason: FEVER OR PAIN Last Admin: 02/22/17 05:15 Dose: 650 mg Diltiazem HCl (Cardizem Cd -) 120 mg PO DAILY [facility] Last Admin: 02/25/17 10:09 Dose: 120 mg Enoxaparin Sodium (Lovenox -) 100 mg SQ BID [facility] Last Admin: 02/25/17 10:09 Dose: 100 mg Fenofibric Acid (Trilipix -) 135 mg PO DAILY [facility] Last Admin: 02/25/17 10:08 Dose: Not Given Insulin Aspart (Novolog Vial Sliding Scale -) 1 vial SQ ACHS [facility] PRN Reason: Protocol Last Admin: 02/25/17 06:56 Dose: Not Given Losartan Potassium (Cozaar -) 50 mg PO DAILY [facility] Last Admin: 02/25/17 10:09 Dose: 50 mg Melatonin (Melatonin) 1 mg PO HS [facility] Last Admin: 02/24/17 22:08 Dose: 1 mg Metoprolol Succinate (Toprol Xl -) 25 mg PO DAILY [facility] Last Admin: 02/25/17 10:09 Dose: 25 mg Silver Sulfadiazine (Silvadene -) 1 applic TP DAILY [facility] Last Admin: 02/24/17 11:00 Dose: 1 applic - Objective Vital Signs: Vital Signs Temperature 98.7 F 02/25/17 09:58 Pulse Rate 83 09/01/17 09:58 Respiratory Rate 18 02/25/17 09:58 Blood Pressure 150/74 02/25/17 09:58 O2 Sat by Pulse Oximetry (%) 96 02/24/17 21:00 Labs: CBC, BMP 02/25/17 07:00 02/25/17 07:00 INR, PTT INR 0.88 (0.82-1.09) 02/20/17 03:50 Problem List - Problems (1) Breast CA Code(s): C50.919 - MALIGNANT NEOPLASM OF UNSP SITE OF UNSPECIFIED FEMALE BREAST (2) ABENA (obstructive sleep apnea) Code(s): G47.33 - OBSTRUCTIVE SLEEP APNEA (ADULT) (PEDIATRIC) (3) PAF (paroxysmal atrial fibrillation) Assessment/Plan: On metoprolol and diltiazem for HR control; now in normal sinus rhythm. On IV heparin for PE, PAF; change eventually to PO (she says warfarin would be acceptable to her if she could use a home monitor for INR). ECHO: normal LVEF (limited study; could not r/o regional wall motion abnormailities; consider repeat when pt is better able to be positioned for optimal views). Code(s): I48.0 - PAROXYSMAL ATRIAL FIBRILLATION (4) Pulmonary emboli Assessment/Plan: CTA results noted. On IV heparin; eventually change to PO anticoagulant (warfarin). PAF: on diltiazem and metoprolol for HR control. Code(s): I26.99 - OTHER PULMONARY EMBOLISM WITHOUT ACUTE COR PULMONALE (5) Chronic instability of right knee Code(s): M23.51 - CHRONIC INSTABILITY OF KNEE, RIGHT KNEE (6) Diabetes Code(s): E11.9 - TYPE 2 DIABETES MELLITUS WITHOUT COMPLICATIONS (7) HTN (hypertension) Assessment/Plan: start losartan 50 mg daily (HTN; DM). Pt was on another ARB in the past, but stopped it due to insurance not paying for it. Pt agrees to take it now. Code(s): I10 - ESSENTIAL (PRIMARY) HYPERTENSION (8) Obesity Code(s): E66.9 - OBESITY, UNSPECIFIED (9) Paget's disease of right breast Code(s): C50.011 - MALIGNANT NEOPLASM OF NIPPLE AND AREOLA, RIGHT FEMALE BREAST (10) Hypertriglyceridemia Assessment/Plan: Wanted to start fibrate, but pt had bad reaction to a cholesterol medication ( does not remember which) in the past. She prefers to try non-medication regime, then repeat triglycerides in 3 months. Diet modification; weight loss (she has lost 30 lbs in the past 3 years after changing diet when she learned she had diabetes); increase exercise. Code(s): E78.1 - PURE HYPERGLYCERIDEMIA (11) Diastolic CHF Code(s): I50.30 - UNSPECIFIED DIASTOLIC (CONGESTIVE) HEART FAILURE
--- NOTE | 2017-02-25 12:51 | PN ---
Teaching Attending Note Name of Resident: Evaristo Cheung ATTENDING PHYSICIAN STATEMENT I saw and evaluated the patient. I reviewed the resident's note and discussed the case with the resident. I agree with the resident's findings and plan as documented. SUBJECTIVE: Patient has no complaints. OBJECTIVE: Vital Signs Period Temp Pulse Resp BP Sys/Beck Pulse Ox Last 24 Hr 97.6 F-98.8 F 76-89 16-18 131-161/50-82 96 HEART: S1S2, RRR LUNGS: Clear ABDOMEN: Obese, soft, non-tender, non-distended, normal BS EXTREMITIES: Trace edema Current Medications Generic Name Dose Route Start Last Admin Trade Name Freq PRN Reason Stop Dose Admin Acetaminophen 650 mg 02/20/17 08:59 02/22/17 05:15 Tylenol - PO 650 mg Q4H PRN Administration FEVER OR PAIN Diltiazem HCl 120 mg 02/23/17 10:30 02/25/17 10:09 Cardizem Cd - PO 120 mg DAILY [facility] Administration Enoxaparin Sodium 100 mg 02/20/17 22:00 02/25/17 10:09 Lovenox - SQ 100 mg BID [facility] Administration Fenofibric Acid 135 mg 02/24/17 17:45 02/25/17 10:08 Trilipix - PO Not Given DAILY [facility] Insulin Aspart 1 vial 02/20/17 11:00 02/25/17 12:28 Novolog Vial Sliding Scale - SQ Not Given ACHS [facility] Protocol Losartan Potassium 50 mg 02/24/17 17:45 02/25/17 10:09 Cozaar - PO 50 mg DAILY [facility] Administration Melatonin 1 mg 02/20/17 22:00 02/24/17 22:08 Melatonin PO 1 mg HS [facility] Administration Metoprolol Succinate 25 mg 02/23/17 10:30 02/25/17 10:09 Toprol Xl - PO 25 mg DAILY [facility] Administration Silver Sulfadiazine 1 applic 02/20/17 10:00 02/25/17 10:38 Silvadene - TP 1 applic DAILY [facility] Administration ASSESSMENT AND PLAN: This is a 66 year old woman with a history of breast cancer, type 2 DM, HTN, gout who presented to the ER with SOB. 1. Paroxysmal atrial fibrillation - Currently in SR - Continue Cardizem CD, Toprol XL, Lovenox - Echo technically limited but shows normal size LV with normal EF 2. Bilateral pulmonary emboli - Continue Lovenox - Heme/onc consult appreciated - Plan for Lovenox x 3 months, then re-evaluate 3. Acute kidney injury - Improved 4. Hypotension - Resolved 5. Demand ischemia - Secondary to tachycardia - Continue aspirin 6. Lactic acidosis - Improved 7. Right breast cancer, history of lumpectomy/XRT, recent mastectomy and CAT flap reconstruction - Continue wound care 8. Type 2 DM - Restart Metformin at discharge 9. HTN - Continue Diana Vogel CD, Toprol XL 10. Morbid obesity with BMI 45.0 11. Probable ABENA - Outpatient sleep study 12. OK for discharge home
--- NOTE | 2017-02-25 14:06 | PN ---
Progress Note, Physician History of Present Illness: pulmonary alert,feeling better,less dyspneic - Current Medication List Current Medications: Active Medications Acetaminophen (Tylenol -) 650 mg PO Q4H PRN PRN Reason: FEVER OR PAIN Last Admin: 02/22/17 05:15 Dose: 650 mg Diltiazem HCl (Cardizem Cd -) 120 mg PO DAILY [facility] Last Admin: 02/25/17 10:09 Dose: 120 mg Enoxaparin Sodium (Lovenox -) 100 mg SQ BID [facility] Last Admin: 02/25/17 10:09 Dose: 100 mg Fenofibric Acid (Trilipix -) 135 mg PO DAILY [facility] Last Admin: 02/25/17 10:08 Dose: Not Given Insulin Aspart (Novolog Vial Sliding Scale -) 1 vial SQ ACHS [facility] PRN Reason: Protocol Last Admin: 02/25/17 12:28 Dose: Not Given Losartan Potassium (Cozaar -) 50 mg PO DAILY [facility] Last Admin: 02/25/17 10:09 Dose: 50 mg Melatonin (Melatonin) 1 mg PO HS [facility] Last Admin: 02/24/17 22:08 Dose: 1 mg Metoprolol Succinate (Toprol Xl -) 25 mg PO DAILY [facility] Last Admin: 02/25/17 10:09 Dose: 25 mg Silver Sulfadiazine (Silvadene -) 1 applic TP DAILY [facility] Last Admin: 02/25/17 10:38 Dose: 1 applic - Objective Vital Signs: Vital Signs Temperature 98.7 F 02/25/17 09:58 Pulse Rate 83 02/25/17 09:58 Respiratory Rate 18 02/25/17 09:58 Blood Pressure 150/74 02/25/17 09:58 O2 Sat by Pulse Oximetry (%) 96 02/24/17 21:00 Constitutional: Yes: Well Nourished, Calm Eyes: Yes: WNL HENT: Yes: WNL Neck: Yes: WNL Cardiovascular: Yes: Regular Rate and Rhythm, S1, S2 Respiratory: Yes: CTA Bilaterally Gastrointestinal: Yes: Normal Bowel Sounds, Soft Extremities: Yes: WNL Edema: Yes Labs: CBC, BMP 02/25/17 07:00 02/25/17 07:00 INR, PTT INR 0.88 (0.82-1.09) 02/20/17 03:50 Problem List - Problems (1) ABENA (obstructive sleep apnea) Code(s): G47.33 - OBSTRUCTIVE SLEEP APNEA (ADULT) (PEDIATRIC) (2) PAF (paroxysmal atrial fibrillation) Code(s): I48.0 - PAROXYSMAL ATRIAL FIBRILLATION (3) Diabetes Code(s): E11.9 - TYPE 2 DIABETES MELLITUS WITHOUT COMPLICATIONS (4) HTN (hypertension) Code(s): I10 - ESSENTIAL (PRIMARY) HYPERTENSION (5) Obesity Code(s): E66.9 - OBESITY, UNSPECIFIED (6) Pulmonary emboli Code(s): I26.99 - OTHER PULMONARY EMBOLISM WITHOUT ACUTE COR PULMONALE (7) Breast CA Code(s): C50.919 - MALIGNANT NEOPLASM OF UNSP SITE OF UNSPECIFIED FEMALE BREAST Assessment/Plan IMP ACUTE PULMONARY EMBOLISM BREAST CA S/P MASTECTOMY AFIB MILD ABENA PLAN LOVENOX MONITOR HR SLEEP STUDIES OUTPATIENT DR GONZALEZ
[2017-02-25 15:33] VITALS: BP 145/71; PULSE 81
--- NOTE | 2017-02-26 17:10 | DS ---
Physical Exam: SUBJECTIVE: Patient seen and examined at bed side. She is stable and ready to be discharged home OBJECTIVE: PHYSICAL EXAM GENERAL: The patient is awake, alert, and fully oriented, in no acute distress. HEAD: Normal with no signs of trauma. EYES: PERRL, extraocular movements intact, sclera anicteric, conjunctiva clear. ENT: Ears normal, nares patent, oropharynx clear without exudates, moist mucous membranes. NECK: Trachea midline, full range of motion, supple. LUNGS: Breath sounds equal, clear to auscultation bilaterally, no wheezes, no crackles, no accessory muscle use. HEART: Regular rate and rhythm, S1, S2 without murmur, rub or gallop. ABDOMEN: Soft, nontender, nondistended, normoactive bowel sounds, no guarding, no rebound, no hepatosplenomegaly, no masses. EXTREMITIES: 2+ pulses, warm, well-perfused, no edema. NEUROLOGICAL: Cranial nerves II through XII grossly intact. Normal speech, gait not observed. PSYCH: Normal mood, normal affect. SKIN: Warm, dry, normal turgor, no rashes or lesions noted. LABS HOSPITAL COURSE: Date of Admission:02/20/17 Date of Discharge: 02/26/17 Patient is 66 yr old woman with Breast Cancer, DM II, presents with rapid Afib and sob admitted to Tele for further workup. and to r/o DVT due to LE swelling and sob patient was found to have Atrial fibrillation which was treated with Cardizem 30 mg and converted to sinus rhythm , and she was put on Lovenox full dose for anticoagulation.She was on tele monitor to follow cardiac rhythm. Cardiology was consulted, Echo was done WNL . she was worked out also for the shortness of breath and CTA was done and we found B/L pulmonary embolism which is already being treated with full dose Lovenox. Procedure Rn was consulted and agreed to put her on 110 Lovenox SQ BID and will follow up with her as out patient. Church Official DR. Rose was consulted and put her on screening test for Obstructive sleep apnea and she will follow up with him as out patient regarding that. Her Lactic acidosis was elevated on admission most likely 2/2 demand ischemia vs infectious etiology, Blood culture came back negative and the LA went back to Normal limits with IV fluids . patient has AILYN on admission most likely 2/2 to dehydration vs hypoperfusion and it is improved with IV fluids and AFIB treatment. Patient was stable on day of discharge and she agreed with the plan. Patient was informed that she need to follow up with her primary care physician in one week, Follow up with Dr Stacy Vo or DR May For Pulmonary embolism and obstructive sleep apnea. They will be able to do further testing for your sleep apnea. Follow up with the supervisor loading for your atrial fibrillation. Follow up with the printer assistant/oncologist for anticoagulation. Patient was informed about the changes in her medications. Prescriptions needed were sent to appropriate pharmacy. If she develop fever , chills, Shortness of breath, chest pain, She call her primary care doctor or come back to Emergency room. Discharged summary was discussed with the medical team and the attending Discharge information was discussed with the patient Evaristo Cheung MD PGY1 Minutes to complete discharge: 20 Discharge Summary Reason For Visit: PAF (PAROXYSMAL ATRIAL FIBRILLATION Condition: Stable - Instructions Diet, Activity, Other Instructions: Follow upu with your primary care physician in one week Follow up with Dr Stacy Vo or DR May For Pulmonary embolism and obstructive sleep apnea. They will be able to do further testing for your sleep apnea. Follow up with the supervisor loading for your atrial fibrillation. Follow up with the printer assistant/oncologist for anticoagulation. Take your medicine as prescribed. Lovenox 110 mg Sub cutaneous Twice aday for blood thinner The followinh changes has been made to your meds: you will be taking Cardizem, Losartan, for blood pressure and heart rate control your Metoprolol has been decreased to 25 Mg daily, Fenofibric is also had beed added to control your fatty acid in the blood. You are to stop taking the following meds, Benicar, Aspirin, your 100 mg metoprolol , valsartan. Continue to do at home physical therapy to help strengthen your muscles and to improve your breathing. Your swelling in your legs will also improve with movement. If your legs get swollen after walking elevate them when sitting down. Your new meds have been sent to your pharmacy. If you develop fever , chills, Shortness of breath, chest pain call your primary care doctor or come back to Emergency room. Referrals: Rohan Stout MD [Staff Physician] - Dalton Rose MD [Staff Physician] - Harvey Ashley MD [Staff Physician] - Robert Pérez MD [Staff Physician] - Yolanda Marcus MD [Staff Physician] - Disposition: HOME - Home Medications Comprehensive Discharge Medication List: Ambulatory Orders Allopurinol 300 mg PO DAILY 01/18/17 Metformin HCl 500 mg PO BID 01/18/17 Multivitamins [Multivit ([facility] Formulary)] 1 tab PO DAILY 01/18/17 Diazepam [Valium] 5 mg PO Q8H PRN #15 tablet MDD 3 01/23/17 Diltiazem Cd [Cardizem Cd -] 120 mg PO DAILY #30 cap.cd.24h 02/25/17 Enoxaparin Sodium [Lovenox] 110 mg SQ BID #60 vial 02/25/17 Fenofibric Acid [Trilipix -] 135 mg PO DAILY #30 cap 02/25/17 Losartan Potassium [Cozaar -] 50 mg PO DAILY #30 tablet 02/25/17 Metoprolol Succinate [Toprol Xl -] 25 mg PO DAILY #30 tab.sr.24h 02/25/17 This patient is new to me today: No Emergency Visit: Yes ED Registration Date: 02/20/17 Care time: The patient presented to the Emergency Department on the above date and was hospitalized for further evaluation of their emergent condition. Critical Care patient: No - Discharge Referral Referred to [facility] Med P.C.: No
== END 2017-02-25 16:33 | disposition home or self-care (01) | DRG 291 ==
LOC: JER 03:26 → JERBED 05:55 → J4S 10:21
PROVIDERS: ADMIT Internal Medicine; ATTEND Internal Medicine
DX: I50.32 Chronic diastolic (congestive) heart failure (principal); I26.99 Other pulmonary embolism without acute cor pulmonale; N17.9 Acute kidney failure, unspecified; E87.2 Acidosis; Z68.42 Body mass index [BMI] 45.0-49.9, adult; I48.0 Paroxysmal atrial fibrillation; E66.01 Morbid (severe) obesity due to excess calories; D50.9 Iron deficiency anemia, unspecified; I10 Essential (primary) hypertension; E11.9 Type 2 diabetes mellitus without complications; Z85.3 Personal history of malignant neoplasm of breast; M10.9 Gout, unspecified; Z90.11 Acquired absence of right breast and nipple; Z79.84 Long term (current) use of oral hypoglycemic drugs; Z87.891 Personal history of nicotine dependence; Z80.3 Family history of malignant neoplasm of breast; Z80.0 Family history of malignant neoplasm of digestive organs; Z80.8 Family history of malignant neoplasm of other organs or systems; R19.7 Diarrhea, unspecified; M23.51 Chronic instability of knee, right knee; G47.33 Obstructive sleep apnea (adult) (pediatric); E78.1 Pure hyperglyceridemia
CPT/HCPCS: 36415; 71010-TC; 71275-TC; 80048; 80053; 80061; 82436; 82728; 83540; 83550; 83605; 83721; 83735; 83880; 83930; 84100; 84133; 84300; 84484; 84540; 85025; 85027; 85379; 85610; 85730; 87040; 93005; 93010; 93306-TC; 93970-TC; 97116-GP; 97161-GP; 99285-25; J1644

== ENCOUNTER 2017-03-09 10:18 | Inpatient (IN) | payer OTHER ==
[2017-03-09 11:14] LABS: BASOPHIL 0.8 % (0-2.0); EOSINOPHIL 2.3 % (0-4.5); MCH 29.8 pg (25.7-33.7); MCHC 33.4 g/dl (32.0-36.0); MEAN CELL VOLUME 89.2 fl (80-96); MEAN PLT VOLUME 8.9 fl (7.5-11.1); NEUTROPHILS 63.5 % (42.8-82.8); RDW 14.2 % (11.6-15.6); WHITE BLOOD COUNT 5.6 K/mm3 (4.0-10.0)
[2017-03-09 11:18] LABS: PLATELET COUNT 24 K/MM3 (134-434)
[2017-03-09 11:34] LABS: ALBUMIN 3.7 g/dl (3.4-5.0); ANION GAP 11 (8-16); BILIRUBIN,TOTAL 0.5 mg/dL (0.2-1.0); CALCIUM 9.2 mg/dL (8.5-10.1); CO2 23 mmol/L (21-32); GLUCOSE,RANDOM 142 mg/dL (74-106); SGOT/AST 19 U/L (15-37); SGPT/ALT 34 U/L (12-78); TOT PROT 7.2 g/dl (6.4-8.2)
[2017-03-09 11:35] LABS: ALK PHOS 87 U/L (45-117); CPK 51 IU/L (26-192)
[2017-03-09 11:36] LABS: TROPONIN I < 0.02 ng/ml (0.00-0.05)
[2017-03-09 11:41] LABS: INR 1.08 (0.82-1.09); PROTHROMBIN TIME (PATIENT) 11.9 SEC (9.98-11.88)
[2017-03-09 11:43] LABS: ACTIVATED PTT 31.1 SECONDS (26.9-34.4)
--- NOTE | 2017-03-09 13:54 | PDOC ---
History of Present Illness <Meagan Hutchinson - Last Filed: 03/09/17 14:06> - History of Present Illness Initial Comments: 03/09/17 13:48 "The patient is a 66 year old female, with a significant past medical history of PE on lovenox, HTN, diabetes mellitus, gout, and breast cancer s/p right mastectomy around 7 weeks ago (January 20) who was referred to the emergency department by her PCP due to low blood platelet count. She states she was started on lovenox 2 weeks ago when she was diagnosed with acute PE. Patient denies currently experiencing any chest pain or palpitations but admits to SOB from time to time. She denies experiencing any new bruises. She denies recent fevers, chills, headache or dizziness. She denies recent nausea, vomit, diarrhea or constipation. She denies recent dysuria, frequency, urgency or hematuria. She denies recent chest pain. Allergies: NKA Past surgical history: Right masectomy Social history: Nonsmoker. Denies EtOH use and recreational drug use. Primary Care Physician: Carrie Price M.D. " <Carlton Encinas - Last Filed: 03/09/17 14:39> - General Chief Complaint: Revisit, Lab Variance Stated Complaint: LOW BLOOD LEVEL (PCP SENT) Time Seen by Provider: 03/09/17 10:38 Past History <Meagan Hutchinson - Last Filed: 03/09/17 14:06> - Past Medical History Anemia: No Asthma: No Cancer: Yes (BREAST CANCER -RIGHT 25YRS AGO) Cardiac Disorders: No CVA: No COPD: No (HX PE) CHF: No Dementia: No Diabetes: Yes (TYPE 2 (2YRS)) GI Disorders: No Disorders: No HTN: Yes Hypercholesterolemia: No Liver Disease: No Seizures: No Thyroid Disease: No - Surgical History Abdominal Surgery: Yes (FLAP.) - Immunization History Immunization Up to Date: No - Psycho/Social/Smoking Cessation Hx Anxiety: No Suicidal Ideation: No Smoking History: Never smoked Have you smoked in the past 12 months: No If you are a former smoker, when did you quit?: 40YRS AGO Hx Alcohol Use: No Drug/Substance Use Hx: No Substance Use Type: None Hx Substance Use Treatment: No <Carlton Encinas - Last Filed: 03/09/17 14:39> - Past Medical History Allergies/Adverse Reactions: Allergies Allergy/AdvReac Type Severity Reaction Status Date / Time No Known Allergies Allergy Verified 03/09/17 10:22 Home Medications: Ambulatory Orders Allopurinol 300 mg PO DAILY 01/18/17 Metformin HCl 500 mg PO BID 01/18/17 Multivitamins [Multivit ([facility] Formulary)] 1 tab PO DAILY 01/18/17 Diltiazem Cd [Cardizem Cd -] 120 mg PO DAILY #30 cap.cd.24h 02/25/17 Enoxaparin Sodium [Lovenox] 110 mg SQ BID #60 vial 02/25/17 Fenofibric Acid [Trilipix -] 135 mg PO DAILY #30 cap 02/25/17 Losartan Potassium [Cozaar -] 50 mg PO DAILY #30 tablet 02/25/17 Metoprolol Succinate [Toprol Xl -] 25 mg PO DAILY #30 tab.sr.24h 02/25/17 Review of Systems - Review of Systems Comments:: 03/09/17 13:50 "GENERAL/CONSTITUTIONAL: No fever or chills. No weakness. HEAD, EYES, EARS, NOSE AND THROAT: No change in vision. No ear pain or discharge. No sore throat. CARDIOVASCULAR: + Shortness of breath.No chest pain. RESPIRATORY: No cough, wheezing, or hemoptysis. GASTROINTESTINAL: No nausea, vomiting, diarrhea or constipation. GENITOURINARY: No dysuria, frequency, or change in urination. MUSCULOSKELETAL: No joint or muscle swelling or pain. No neck or back pain. SKIN: No rash NEUROLOGIC: No headache, vertigo, loss of consciousness, or change in strength/ sensation. ENDOCRINE: No increased thirst. No abnormal weight change. HEMATOLOGIC/LYMPHATIC: No anemia, no bruising or bleeding. ALLERGIC/IMMUNOLOGIC: No hives or skin allergy." <Carlton Encinas - Last Filed: 03/09/17 14:39> *Physical Exam - Vital Signs Last Vital Signs Temp Pulse Resp BP Pulse Ox 98.5 F 86 18 115/57 96 03/09/17 10:19 03/09/17 12:01 03/09/17 12:01 03/09/17 12:01 03/09/17 12:01 <Meagan Hutchinson - Last Filed: 03/09/17 14:06> - Vital Signs Last Vital Signs Temp Pulse Resp BP Pulse Ox 98.5 F 86 18 115/57 96 03/09/17 10:19 03/09/17 12:01 03/09/17 12:01 03/09/17 12:01 03/09/17 12:01 - Physical Exam Comments: 03/09/17 13:51 "GENERAL: Awake, alert, and fully oriented, in no acute distress HEAD: No signs of trauma EYES: PERRLA, EOMI, sclera anicteric, conjunctiva clear ENT: Auricles normal inspection, hearing grossly normal, nares patent, oropharynx clear without exudates. Moist mucosa NECK: Normal ROM, supple, no lymphadenopathy, JVD, or masses LUNGS: Breath sounds equal, clear to auscultation bilaterally. No wheezes, and no crackles HEART: Regular rate and rhythm, normal S1 and S2, no murmurs, rubs or gallops ABDOMEN: Soft, nontender, normoactive bowel sounds. No guarding, no rebound. No masses EXTREMITIES: Normal range of motion, no edema. No clubbing or cyanosis. No cords, erythema, or tenderness NEUROLOGICAL: Cranial nerves II through XII grossly intact. Normal speech, normal gait SKIN: Warm, Dry, normal turgor, no rashes or lesions noted. " <CeCarlton - Last Filed: 03/09/17 14:39> ED Treatment Course - LABORATORY CBC & Chemistry Diagram: 03/09/17 11:00 03/09/17 11:00 - ADDITIONAL ORDERS Additional order review: Laboratory Results 03/09/17 03/09/17 03/09/17 11:00 11:00 11:00 INR 1.08 PTT (Actin FS) 31.1 Sodium 142 Potassium 4.1 Chloride 108 H Carbon Dioxide 23 Anion Gap 11 BUN 15 Creatinine 1.0 Creat Clearance w eGFR 55.82 Random Glucose 142 H Calcium 9.2 Total Bilirubin 0.5 D AST 19 ALT 34 Alkaline Phosphatase 87 Creatine Kinase Troponin I B-Natriuretic Peptide Total Protein 7.2 Albumin 3.7 Blood Type A POSITIVE Antibody Screen Negative 03/09/17 11:00 INR PTT (Actin FS) Sodium Potassium Chloride Carbon Dioxide Anion Gap BUN Creatinine Creat Clearance w eGFR Random Glucose Calcium Total Bilirubin AST ALT Alkaline Phosphatase Creatine Kinase 51 Troponin I < 0.02 B-Natriuretic Peptide 179.12 H Total Protein Albumin Blood Type Antibody Screen 03/09/17 11:00 RBC 4.15 D MCV 89.2 MCHC 33.4 RDW 14.2 MPV 8.9 Neutrophils % 63.5 Lymphocytes % 25.5 Monocytes % 7.9 Eosinophils % 2.3 Basophils % 0.8 <Meagan Hutchinson - Last Filed: 03/09/17 14:06> - LABORATORY CBC & Chemistry Diagram: 03/09/17 11:00 03/09/17 11:00 - ADDITIONAL ORDERS Additional order review: Laboratory Results 03/09/17 03/09/17 03/09/17 11:00 11:00 11:00 INR 1.08 PTT (Actin FS) 31.1 Sodium 142 Potassium 4.1 Chloride 108 H Carbon Dioxide 23 Anion Gap 11 BUN 15 Creatinine 1.0 Creat Clearance w eGFR 55.82 Random Glucose 142 H Calcium 9.2 Total Bilirubin 0.5 D AST 19 ALT 34 Alkaline Phosphatase 87 Creatine Kinase Troponin I B-Natriuretic Peptide Total Protein 7.2 Albumin 3.7 Blood Type A POSITIVE Antibody Screen Negative 03/09/17 11:00 INR PTT (Actin FS) Sodium Potassium Chloride Carbon Dioxide Anion Gap BUN Creatinine Creat Clearance w eGFR Random Glucose Calcium Total Bilirubin AST ALT Alkaline Phosphatase Creatine Kinase 51 Troponin I < 0.02 B-Natriuretic Peptide 179.12 H Total Protein Albumin Blood Type Antibody Screen 03/09/17 11:00 RBC 4.15 D MCV 89.2 MCHC 33.4 RDW 14.2 MPV 8.9 Neutrophils % 63.5 Lymphocytes % 25.5 Monocytes % 7.9 Eosinophils % 2.3 Basophils % 0.8 - RADIOLOGY Radiology Studies Ordered: Category Date Time Status CHEST CTA [CT] Stat CT Scan 03/09/17 12:40 Ordered DUPLEX VASCUL US-2LEGS [US] Stat Ultrasound 03/09/17 12:43 Ordered <Ou,Carlton - Last Filed: 03/09/17 14:39> Medical Decision Making - Medical Decision Making 03/09/17 13:54 66 F with thrombocytopenia of unclear etiology. Concerning for HIT given recent initiation of lovenox for PE. - Labs - Repeat CTPE, LE dopplers - Hold heparin/lovenox - Will need bridge to coumadin <Ou,Carlton - Last Filed: 03/09/17 14:39> *DC/Admit/Observation/Transfer - Attestations Scribe Attestion: 03/09/17 14:06 Documentation prepared by Meagan Hutchinson, acting as medical office manager for Carlton Encinas MD. <Meagan Hutchinson - Last Filed: 03/09/17 14:06> - Discharge Dispostion Admit: Yes <Carlton Encinas - Last Filed: 03/09/17 14:39> Diagnosis at time of Disposition: Thrombocytopenia - Referrals Referrals: Carrie Price MD [Primary Care Provider] -
--- NOTE | 2017-03-09 14:21 | PN ---
Progress Note (short form) - Note Progress Note: PULMONARY CONSULTATION DICTATED 03/09/17 IMP THROMBOCYTOPENIA LIKELY HIT RECENT BILATERAL EMBOLI PROVOKED BREAST CA S/P MASTECTOMY OSAS DM PLAN MONITOR PLT CT CHEST CTA DUPLEX ULTRASOUND HEME W/UP ? ARGATROBAN DR GONZALEZ Problem List - Problems (1) ABENA (obstructive sleep apnea) Code(s): G47.33 - OBSTRUCTIVE SLEEP APNEA (ADULT) (PEDIATRIC) (2) PAF (paroxysmal atrial fibrillation) Code(s): I48.0 - PAROXYSMAL ATRIAL FIBRILLATION (3) Pulmonary emboli Code(s): I26.99 - OTHER PULMONARY EMBOLISM WITHOUT ACUTE COR PULMONALE (4) Breast CA Code(s): C50.919 - MALIGNANT NEOPLASM OF UNSP SITE OF UNSPECIFIED FEMALE BREAST (5) Diabetes Code(s): E11.9 - TYPE 2 DIABETES MELLITUS WITHOUT COMPLICATIONS (6) HTN (hypertension) Code(s): I10 - ESSENTIAL (PRIMARY) HYPERTENSION (7) Obesity Code(s): E66.9 - OBESITY, UNSPECIFIED (8) Thrombocytopenia Code(s): D69.6 - THROMBOCYTOPENIA, UNSPECIFIED
--- NOTE | 2017-03-09 15:35 | HP ---
Admitting History and Physical - Primary Care Physician PCP: Carrie Price - Admission Chief Complaint: thrombocytopenia History of Present Illness: was seen in office for first time yesterday, following discharge from [facility] after PE. has been on lovenox 110 mg sc bid since dc on 02.25.17 pt was reluctant to start warfarin inpt myra blood that showed plt count of 22 000-pt was called and sent to er has been complaining of easy bruising and fatigue also has dry non-productive cough exertional dyspnea is better than during previous admission, in fact has been improving History Source: Patient Limitations to Obtaining History: No Limitations - Past Medical History Cardiovascular: Yes: AFIB (paroxysmal while with PE), HTN Pulmonary: Yes: Pulmonary Embolus (2017), Other (likely osas). 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) Musculoskeletal: Yes: Other (pagets/gout) Rheumatology: Yes: Gout Endocrine: Yes: Diabetes Mellitus (type two) - Past Surgical History Past Surgical History: Yes: , Mastectomy (right with reconstruction 01.20.17) - Smoking History Smoking history: Never smoked Have you smoked in the past 12 months: No If you are a former smoker, when did you quit?: 40YRS AGO - Alcohol/Substance Use Hx Alcohol Use: No - Social History Usual Living Arrangement: Yes: With Spouse ADL: Independent History of Recent Travel: No Home Medications - Allergies Allergies/Adverse Reactions: Allergies Allergy/AdvReac Type Severity Reaction Status Date / Time No Known Allergies Allergy Verified 03/09/17 10:22 - Home Medications Home Medications: Ambulatory Orders Allopurinol 300 mg PO DAILY 01/18/17 Metformin HCl 500 mg PO BID 01/18/17 Multivitamins [Multivit ([facility] Formulary)] 1 tab PO DAILY 01/18/17 Diltiazem Cd [Cardizem Cd -] 120 mg PO DAILY #30 cap.cd.24h 02/25/17 Enoxaparin Sodium [Lovenox] 110 mg SQ BID #60 vial 02/25/17 Fenofibric Acid [Trilipix -] 135 mg PO DAILY #30 cap 02/25/17 Losartan Potassium [Cozaar -] 50 mg PO DAILY #30 tablet 02/25/17 Metoprolol Succinate [Toprol Xl -] 25 mg PO DAILY #30 tab.sr.24h 02/25/17 Family Disease History - Family Disease History Family Disease History: Heart Disease: Mother (CRC 82; colon cancer), CA: Grandparent (mat GF gastric ca 93), Mother, Other: Brother (CVA) Review of Systems - Review of Systems Constitutional: reports: No Symptoms Eyes: reports: No Symptoms HENT: reports: No Symptoms Neck: reports: No Symptoms Respiratory: reports: Cough (dry), Exercise Intolerance, SOB on Exertion. denies: Hemoptysis, Orthopnea, Wheezing Gastrointestinal: reports: No Symptoms Genitourinary: reports: No Symptoms Musculoskeletal: reports: Back Pain Integumentary: reports: Wound Hematology/Lymphatic: reports: Easily Bruised Physical Examination Vital Signs: Vital Signs Temperature 98.5 F 03/09/17 10:19 Pulse Rate 86 03/09/17 12:01 Respiratory Rate 18 03/09/17 12:01 Blood Pressure 115/57 03/09/17 12:01 O2 Sat by Pulse Oximetry (%) 96 03/09/17 12:01 Constitutional: Yes: No Distress, Calm Eyes: Yes: EOM Intact HENT: Yes: Normocephalic Neck: Yes: Trachea Midline Cardiovascular: Yes: Regular Rate and Rhythm Respiratory: Yes: CTA Bilaterally Gastrointestinal: Yes: Normal Bowel Sounds, Soft Breast(s): Yes: Other Edema: Yes Edema: LLE: 1+, RLE: 1+ Peripheral Pulses WNL: Yes Integumentary: Yes: Other (healing garnulomatous skin over righ t lower abdominal incision, umbilicus, below right breast-without sign of infection) Wound/Incision: Yes: Clean/Dry Neurological: Yes: WNL ...Motor Strength: WNL Psychiatric: Yes: WNL Labs: Laboratory Results - last 24 hr 03/09/17 03/09/17 03/09/17 11:00 11:00 11:00 WBC 5.6 RBC 4.15 D Hgb 12.4 D Hct 37.0 D MCV 89.2 MCH 29.8 MCHC 33.4 RDW 14.2 Plt Count 24 L* D MPV 8.9 Neutrophils % 63.5 Lymphocytes % 25.5 Monocytes % 7.9 Eosinophils % 2.3 Basophils % 0.8 INR 1.08 PTT (Actin FS) 31.1 Sodium Potassium Chloride Carbon Dioxide Anion Gap BUN Creatinine Creat Clearance w eGFR Random Glucose Calcium Total Bilirubin AST ALT Alkaline Phosphatase Creatine Kinase 51 Troponin I < 0.02 B-Natriuretic Peptide 179.12 H Total Protein Albumin Blood Type Antibody Screen 03/09/17 03/09/17 11:00 11:00 WBC RBC Hgb Hct MCV MCH MCHC RDW Plt Count MPV Neutrophils % Lymphocytes % Monocytes % Eosinophils % Basophils % INR PTT (Actin FS) Sodium 142 Potassium 4.1 Chloride 108 H Carbon Dioxide 23 Anion Gap 11 BUN 15 Creatinine 1.0 Creat Clearance w eGFR 55.82 Random Glucose 142 H Calcium 9.2 Total Bilirubin 0.5 D AST 19 ALT 34 Alkaline Phosphatase 87 Creatine Kinase Troponin I B-Natriuretic Peptide Total Protein 7.2 Albumin 3.7 Blood Type A POSITIVE Antibody Screen Negative Problem List - Problems (1) Thrombocytopenia Code(s): D69.6 - THROMBOCYTOPENIA, UNSPECIFIED (2) PAF (paroxysmal atrial fibrillation) Code(s): I48.0 - PAROXYSMAL ATRIAL FIBRILLATION (3) Pulmonary emboli Code(s): I26.99 - OTHER PULMONARY EMBOLISM WITHOUT ACUTE COR PULMONALE Qualifiers: Pulmonary embolism type: other (4) Breast CA Code(s): C50.919 - MALIGNANT NEOPLASM OF UNSP SITE OF UNSPECIFIED FEMALE BREAST Qualifiers: Patient sex: female Laterality: right (5) Diabetes Code(s): E11.9 - TYPE 2 DIABETES MELLITUS WITHOUT COMPLICATIONS Qualifiers: Diabetes mellitus type: type 2 Diabetes mellitus complication status: without complication Diabetes mellitus laborer marine terminal insulin use: without laborer marine terminal use Qualified Code(s): E11.9 - Type 2 diabetes mellitus without complications (6) HTN (hypertension) Code(s): I10 - ESSENTIAL (PRIMARY) HYPERTENSION Qualifiers: Hypertension type: essential hypertension Qualified Code(s): I10 - Essential (primary) hypertension Assessment/Plan r/o HIT on lovenox does not appear septic but will do cultures if plt count is stable will consider starting warfarin tomorrow hold heparin now Heme f/up requested
--- NOTE | 2017-03-09 16:13 | CON.CARD ---
Consult Consult Specialty:: cardiology - History of Present Illness History of Present Illness: "The patient is a 66 year old female, with a significant past medical history of PE on lovenox, HTN, diabetes mellitus, gout, and breast cancer s/p right mastectomy around 7 weeks ago (January 20) who was referred to the emergency department by her PCP due to low blood platelet count. She states she was started on lovenox 2 weeks ago when she was diagnosed with acute PE. Patient denies currently experiencing any chest pain or palpitations but admits to SOB from time to time. She denies experiencing any new bruises. She denies recent fevers, chills, headache or dizziness. She denies recent nausea, vomit, diarrhea or constipation. She denies recent dysuria, frequency, urgency or hematuria. She denies recent chest pain. Allergies: NKA Past surgical history: Right masectomy Social history: Nonsmoker. Denies EtOH use and recreational drug use. Primary Care Physician: Carrie Price M.D. " - Past Medical History Cardio/Vascular: Yes: AFIB (paroxysmal while with PE), HTN Pulmonary: Yes: Pulmonary Embolus (2017), Other (likely osas). No: Asthma, COPD , O2 Dependent, Pneumonia, Pulmonary Fibrosis Musculoskeletal: Yes: Other (pagets/gout) Rheumatology: Yes: Gout Endocrine: Yes: Diabetes Mellitus (type two) - Past Surgical History Past Surgical History: Yes: , Mastectomy (right with reconstruction 01.20.17) - Alcohol/Substance Use Hx Alcohol Use: No - Smoking History Smoking history: Never smoked Have you smoked in the past 12 months: No If you are a former smoker, when did you quit?: 40YRS AGO - Social History Usual Living Arrangement: With Spouse ADL: Independent History of Recent Travel: No Home Medications - Allergies Allergies/Adverse Reactions: Allergies Allergy/AdvReac Type Severity Reaction Status Date / Time No Known Allergies Allergy Verified 03/09/17 10:22 - Home Medications Home Medications: Ambulatory Orders Allopurinol 300 mg PO DAILY 01/18/17 Metformin HCl 500 mg PO BID 01/18/17 Multivitamins [Multivit ([facility] Formulary)] 1 tab PO DAILY 01/18/17 Diltiazem Cd [Cardizem Cd -] 120 mg PO DAILY #30 cap.cd.24h 02/25/17 Enoxaparin Sodium [Lovenox] 110 mg SQ BID #60 vial 02/25/17 Fenofibric Acid [Trilipix -] 135 mg PO DAILY #30 cap 02/25/17 Losartan Potassium [Cozaar -] 50 mg PO DAILY #30 tablet 02/25/17 Metoprolol Succinate [Toprol Xl -] 25 mg PO DAILY #30 tab.sr.24h 02/25/17 Family Disease History - Family Disease History Family Disease History: Heart Disease: Mother (CRC 82; colon cancer), CA: Grandparent (mat GF gastric ca 93), Mother, Other: Brother (CVA) Review of Systems - Review of Systems Constitutional: reports: No Symptoms Eyes: reports: No Symptoms HENT: reports: No Symptoms Neck: reports: No Symptoms Cardiovascular: reports: No Symptoms Gastrointestinal: reports: No Symptoms Genitourinary: reports: No Symptoms Breasts: reports: No Symptoms Reported Musculoskeletal: reports: No Symptoms Integumentary: reports: No Symptoms Neurological: reports: No Symptoms Endocrine: reports: No Symptoms Hematology/Lymphatic: reports: Easily Bruised Psychiatric: reports: No Symptoms Vital Signs: Vital Signs Temperature 98.5 F 03/09/17 10:19 Pulse Rate 86 03/09/17 12:01 Respiratory Rate 18 03/09/17 12:01 Blood Pressure 115/57 03/09/17 12:01 O2 Sat by Pulse Oximetry (%) 96 03/09/17 12:01 Constitutional: Yes: Well Nourished, No Distress, Calm Eyes: Yes: WNL, Conjunctiva Clear, EOM Intact HENT: Yes: WNL, Atraumatic, Normocephalic Neck: Yes: WNL, Supple, Trachea Midline Respiratory: Yes: WNL, Regular, CTA Bilaterally Gastrointestinal: Yes: WNL, Normal Bowel Sounds Renal/: Yes: WNL Cardiovascular: Yes: WNL, Regular Rate and Rhythm Musculoskeletal: Yes: WNL Extremities: Yes: WNL Integumentary: Yes: WNL Neurological: Yes: WNL, Alert, Oriented ...Motor Strength: WNL Psychiatric: Yes: WNL, Alert, Oriented - Other Data Labs, Other Data: INR, PTT INR 1.08 (0.82-1.09) 03/09/17 11:00 Laboratory Tests 03/09/17 03/09/17 03/09/17 11:00 11:00 11:00 WBC 5.6 RBC 4.15 D Hgb 12.4 D Hct 37.0 D MCV 89.2 MCH 29.8 MCHC 33.4 RDW 14.2 Plt Count 24 L* D MPV 8.9 Neutrophils % 63.5 Lymphocytes % 25.5 Monocytes % 7.9 Eosinophils % 2.3 Basophils % 0.8 INR 1.08 PTT (Actin FS) 31.1 Sodium Potassium Chloride Carbon Dioxide Anion Gap BUN Creatinine Creat Clearance w eGFR Random Glucose Calcium Total Bilirubin AST ALT Alkaline Phosphatase Creatine Kinase 51 Troponin I < 0.02 B-Natriuretic Peptide 179.12 H Total Protein Albumin Blood Type Antibody Screen 03/09/17 03/09/17 11:00 11:00 WBC RBC Hgb Hct MCV MCH MCHC RDW Plt Count MPV Neutrophils % Lymphocytes % Monocytes % Eosinophils % Basophils % INR PTT (Actin FS) Sodium 142 Potassium 4.1 Chloride 108 H Carbon Dioxide 23 Anion Gap 11 BUN 15 Creatinine 1.0 Creat Clearance w eGFR 55.82 Random Glucose 142 H Calcium 9.2 Total Bilirubin 0.5 D AST 19 ALT 34 Alkaline Phosphatase 87 Creatine Kinase Troponin I B-Natriuretic Peptide Total Protein 7.2 Albumin 3.7 Blood Type A POSITIVE Antibody Screen Negative Imaging - Results Chest X-ray: Pending EKG: Pending Problem List - Problems (1) Thrombocytopenia Code(s): D69.6 - THROMBOCYTOPENIA, UNSPECIFIED (2) Cellulitis Code(s): L03.90 - CELLULITIS, UNSPECIFIED (3) Chronic instability of right knee Code(s): M23.51 - CHRONIC INSTABILITY OF KNEE, RIGHT KNEE (4) ABENA (obstructive sleep apnea) Code(s): G47.33 - OBSTRUCTIVE SLEEP APNEA (ADULT) (PEDIATRIC) (5) PAF (paroxysmal atrial fibrillation) Code(s): I48.0 - PAROXYSMAL ATRIAL FIBRILLATION (6) Pulmonary emboli Code(s): I26.99 - OTHER PULMONARY EMBOLISM WITHOUT ACUTE COR PULMONALE Qualifiers: Pulmonary embolism type: other (7) Breast CA Code(s): C50.919 - MALIGNANT NEOPLASM OF UNSP SITE OF UNSPECIFIED FEMALE BREAST Qualifiers: Patient sex: female Laterality: right (8) Diabetes Code(s): E11.9 - TYPE 2 DIABETES MELLITUS WITHOUT COMPLICATIONS Qualifiers: Diabetes mellitus type: type 2 Diabetes mellitus complication status: without complication Diabetes mellitus custodial insulin use: without custodial use Qualified Code(s): E11.9 - Type 2 diabetes mellitus without complications (9) Diastolic CHF Code(s): I50.30 - UNSPECIFIED DIASTOLIC (CONGESTIVE) HEART FAILURE (10) HTN (hypertension) Code(s): I10 - ESSENTIAL (PRIMARY) HYPERTENSION Qualifiers: Hypertension type: essential hypertension Qualified Code(s): I10 - Essential (primary) hypertension (11) Hypertriglyceridemia Code(s): E78.1 - PURE HYPERGLYCERIDEMIA (12) Obesity Code(s): E66.9 - OBESITY, UNSPECIFIED (13) Paget's disease of right breast Code(s): C50.011 - MALIGNANT NEOPLASM OF NIPPLE AND AREOLA, RIGHT FEMALE BREAST Assessment/Plan PE on lovenox, HTN, diabetes mellitus, gout, breast cancer s/p right mastectomy around 7 weeks ago (January 20) thrombocytopenia -most likely HIT Plan ekg cardiac mckeon stable no signs of chf or paf ac with coumadin hematology consult
[2017-03-09] MEDS ORDERED: SODIUM CHLORIDE 1,000 ML IV SCH ×2 (17:45→18:48)
--- NOTE | 2017-03-09 18:05 | CONSULT ---
Consult - text type - Consultation Consultation Note: Discussed dtails of case with all teams involved The patient is a 66 year old female, with a significant past medical history of PE on lovenox, HTN, diabetes mellitus, gout, and breast cancer s/p right mastectomy/reconstruction around 7 weeks ago (January 20) . She was started on lovenox 02/20 when she was diagnosed with afib./acute PE. Patient denies currently experiencing any chest pain or palpitations . She reports bruising at the sites of lovenox injections but not else where. No other bleeding issues she was asked to come in for thrombocytopenia She denies recent fevers, chills, headache or dizziness. She denies recent nausea, vomit, abdominal pain. She denies recent dysuria, frequency, urgency or hematuria. She denies recent chest pain. 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 T1mi, with LVI ER+/ME+/Her2- 02/20 mastectomy/TRAM flap Gout PAST SURGICAL HISTORY: Breast surgery 01/20 Hx of C-sections Social History: Smoking: denies Alcohol: denies Drugs: denies Family History: Mother (CRC 82; colon cancer), CA: maternal Grandparent (mat GF gastric ca 93), paternal aunt-breast cancer. maternal uncle-tongue cancer Allergies No Known Allergies Allergy (Verified 02/20/17 03:33) Home Medications: Ambulatory Orders Allopurinol 300 mg PO DAILY 01/18/17 Metformin HCl 500 mg PO BID 01/18/17 Multivitamins [Multivit ([facility] Formulary)] 1 tab PO DAILY 01/18/17 Diltiazem Cd [Cardizem Cd -] 120 mg PO DAILY #30 cap.cd.24h 02/25/17 Enoxaparin Sodium [Lovenox] 110 mg SQ BID #60 vial 02/25/17 Fenofibric Acid [Trilipix -] 135 mg PO DAILY #30 cap 02/25/17 Losartan Potassium [Cozaar -] 50 mg PO DAILY #30 tablet 02/25/17 Metoprolol Succinate [Toprol Xl -] 25 mg PO DAILY #30 tab.sr.24h 02/25/17 Active Medications Allopurinol (Zyloprim -) 300 mg PO DAILY [facility] Last Admin: 03/10/17 09:56 Dose: 300 mg Diltiazem HCl (Cardizem Cd -) 120 mg PO DAILY [facility] Last Admin: 03/10/17 09:56 Dose: 120 mg Fenofibric Acid (Trilipix -) 135 mg PO DAILY [facility] Last Admin: 03/10/17 13:24 Dose: Not Given Argatroban 250,000 mcg/ Sodium (Chloride) 250 mls @ 13.77 mls/hr IVPB TITR NICOLÁS ; 2 MCG/KG/MIN PRN Reason: Protocol Last Admin: 03/09/17 20:37 Dose: 13.77 mls/hr Sodium Chloride (Normal Saline -) 1,000 mls @ 60 mls/hr IV ASDIR [facility] Losartan Potassium (Cozaar -) 50 mg PO DAILY [facility] Last Admin: 03/10/17 09:56 Dose: 50 mg Melatonin (Melatonin) 1 mg PO [facility] Metoprolol Succinate (Toprol Xl -) 25 mg PO DAILY [facility] Last Admin: 03/10/17 09:56 Dose: 25 mg Silver Sulfadiazine (Silvadene -) 1 applic TP DAILY [facility] *Physical Exam - Vital Signs Last Vital Signs Temp Pulse Resp BP Pulse Ox 98.5 F 86 18 115/57 96 03/09/17 10:19 03/09/17 12:01 03/09/17 12:01 03/09/17 12:01 03/09/17 12:01 HEENT: PRESLEY, EOM Intact Oropharynx: No thrush, No mucositis Neck: Supple Nodes: Without adenopathy Breasts: rt. breast reconstruction healing incisional wound Cor: RSR, No murmurs, No gallops Lungs: Clear to P&A Abd: Soft, Normal bowel sounds, No organomegaly Ext:No significant edema Abnormal Lab Results 03/09/17 03/10/17 03/10/17 18:00 05:00 05:00 RBC 3.54 L Hct 31.3 L D Plt Count 26 L* INR 1.33 H PTT (Actin FS) Fibrinogen 176.0 L Chloride Random Glucose Total Protein Albumin 03/10/17 03/10/17 05:00 05:00 RBC Hct Plt Count INR PTT (Actin FS) 48.3 H D Fibrinogen Chloride 110 H Random Glucose 125 H Total Protein 6.3 L Albumin 3.1 L A/P 66 y/o patient s/p mastectomy/breast reconstrucion--01/20 presented with palpitations/afib --02/20 Diagnosed with PE 02/23, Now with severe thrombocytopenia High suspicion for HIT/T given time frame and clinical scenario No other obvious etiology for thrombocytopenia CT scan shows increased embolic clot Lt. main pulmonary artery Discussewd scenario with patient in detail challenging situation with high clot burden PE and thrombocytopenia High risk of clotting. need to monitor for bleeding complications aswell Will start argatroban with close monitoring PTT Monitor CBC closely gentle hydration will hold coumadin until platelets normalize will check antiphospholipid panel discussed in great detail with patient, her and daughters discussed potentially serious, life threatening consequences of HIT/t
[2017-03-09 18:29] VITALS: BMI 44.9
[2017-03-09] MEDS: ARGATROBAN - 250,000 MCG in SODIUM CHLORIDE 247.5 ML IVPB SCH (20:37)
--- NOTE | 2017-03-09 21:33 | CONS ---
DATE OF CONSULTATION: 03/09/2017 REFERRING PHYSICIAN: Yolanda Marcus MD; Carrie Price MD The patient is a 66-year-old white female, known to me from previous hospitalization, history of breast CA 25 years ago, had recurrent breast CA on the right breast, status post right mastectomy January 20 with breast reconstruction, who was recently hospitalized at [facility] secondary to a pulmonary embolism. Patient was treated with Lovenox and discharged home in stable condition. Patient went to see a PMD yesterday, had a CBC drawn, which revealed evidence of thrombocytopenia, at which time she was advised to go back to the emergency room to treat for possible HIT. Patient denies any chest pain, palpitations. She does complain of shortness of breath with exertion. She denies any cough or hemoptysis. Denies any excessive bruising, except by the injection site where she administers Lovenox. Of note is on previous hospitalization she underwent a sleep scan, which revealed mild obstructive sleep apnea with AHI of 5.0, for which she is going to have an outpatient sleep study. She is a nonsmoker. There is no history of occupational exposure to chemicals or fumes. She denies any history of COPD or asthma in the past. Past medical history, again, includes breast CA on the right 25 years ago, recurrence 2 months ago, status post right mastectomy, status post breast reconstruction; history of bilateral pulmonary emboli; type 2 diabetes mellitus for approximately 2 years. SOCIAL HISTORY: Again, history of smoking greater than 40 years ago, quit greater than 40 years ago. No occupational exposures. REVIEW OF SYSTEMS: No orthopnea, no PND, no chest pain, no palpitations. Positive dyspnea on exertion. No dyspnea at rest. Positive mild cough, nonproductive. No fever, no chills, no weight loss, no night sweats. PHYSICAL EXAMINATION: General: The patient is a well-developed, well-nourished female, awake, alert, in no acute distress. Vital Signs: She is currently afebrile. Blood pressure is 115/57. Respiratory rate is 18. O2 saturation is 99% on room air. HEENT: Normocephalic, atraumatic. Neck: Supple. Heart: Regular, with S1, S2. Chest: Clear. Abdomen: Soft. Bowel sounds are present. Extremities: No cyanosis. Mild lower extremity edema. LABORATORIES: WBC is 5.6, hemoglobin 12.4, hematocrit 37, platelet count is 24,000. BUN 15, creatinine 1.0. INR is 1.08. Chest x-ray is pending. IMPRESSION: 1. 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 2. History of bilateral pulmonary emboli, provoked, secondary to history of recent surgery as well as breast cancer. 3. Cough, etiology to be determined. 4. Mild obstructive sleep apnea. 5. Type 2 diabetes. PLAN: Argatroban, start bridging heparin, start Coumadin, monitor platelet count and CBC. Would also obtain duplex of the lower extremities and will review chest x-ray. Will schedule for sleep study as outpatient. CAITIE GONZALEZ M.D. DAVID/[id number]
[2017-03-09] MEDS ORDERED: MELATONIN 1 MG TABLET PO SCH (22:00)
[2017-03-10 05:40] LABS: BASOPHIL 0.7 % (0-2.0); EOSINOPHIL 2.9 % (0-4.5); MCH 30.1 pg (25.7-33.7); MCHC 34.1 g/dl (32.0-36.0); MEAN CELL VOLUME 88.4 fl (80-96); WHITE BLOOD COUNT 4.4 K/mm3 (4.0-10.0)
[2017-03-10 05:57] LABS: INR 1.33 (0.82-1.09); PROTHROMBIN TIME (PATIENT) 14.7 SEC (9.98-11.88)
[2017-03-10 06:11] LABS: ALBUMIN 3.1 g/dl (3.4-5.0); ALK PHOS 72 U/L (45-117); ANION GAP 10 (8-16); BILIRUBIN,TOTAL 0.3 mg/dL (0.2-1.0); CALCIUM 8.8 mg/dL (8.5-10.1); CO2 21 mmol/L (21-32); CREATININE 0.9 mg/dL (0.55-1.02); GLUCOSE,RANDOM 125 mg/dL (74-106); SGOT/AST 19 U/L (15-37); SGPT/ALT 30 U/L (12-78); TOT PROT 6.3 g/dl (6.4-8.2)
[2017-03-10 06:31] LABS: MEAN PLT VOLUME 9.3 fl (7.5-11.1)
[2017-03-10 06:32] LABS: PLATELET COMMENT2 NO CLUMPING NOTED; PLATELET ESTIMATE MARKEDLY DECREASED (NORMAL)
[2017-03-10 06:41] LABS: PLATELET COUNT 26 K/MM3 (134-434)
[2017-03-10] MEDS: LOSARTAN POTASSIUM 50 MG TABLET (FP) PO SCH (09:56)
[2017-03-10] MEDS: ALLOPURINOL 300 MG TABLET (FP) PO SCH (09:56)
[2017-03-10] MEDS: FENOFIBRIC ACID 135 MG CAP PO SCH ×2 (09:56→13:24)
[2017-03-10] MEDS: METOPROLOL SUCCINATE 25 MG TAB.SR.24H (FP) PO SCH (09:56)
[2017-03-10] MEDS ORDERED: MULTIVITAMINS (DAILY MVI) TABLET (FP) PO SCH (10:00)
--- NOTE | 2017-03-10 10:11 | PN ---
Progress Note, Physician Chief Complaint: Pt Beatrist; OOB in chair; asymptomatic (her breathing has steadily improved at home). History of Present Illness: "The patient is a 66 year old white female, with a significant past medical history of PE on lovenox, HTN, diabetes mellitus, gout, and breast cancer s/p right mastectomy around 7 weeks ago (January 20) who was referred to the emergency department by her PCP due to low blood platelet count. She states she was started on lovenox 2 weeks ago when she was diagnosed with acute PE. Patient denies currently experiencing any chest pain or palpitations but admits to SOB from time to time. She denies experiencing any new bruises. She denies recent fevers, chills, headache or dizziness. She denies recent nausea, vomit, diarrhea or constipation. She denies recent dysuria, frequency, urgency or hematuria. She denies recent chest pain. Allergies: NKA Past surgical history: Right masectomy Social history: Nonsmoker. Denies EtOH use and recreational drug use. Primary Care Physician: Carrie Price M.D. - Current Medication List Current Medications: Active Medications Allopurinol (Zyloprim -) 300 mg PO DAILY [facility] [place] Last Admin: 03/10/17 09:56 Dose: 300 mg Diltiazem HCl (Cardizem Cd -) 120 mg PO DAILY [facility] Last Admin: 03/10/17 09:56 Dose: 120 mg Fenofibric Acid (Trilipix -) 135 mg PO DAILY [facility] Argatroban 250,000 mcg/ Sodium (Chloride) 250 mls @ 13.77 mls/hr IVPB TITR NICOLÁS ; 2 MCG/KG/MIN PRN Reason: Protocol Last Admin: 03/09/17 20:37 Dose: 13.77 mls/hr Sodium Chloride (Normal Saline -) 1,000 mls @ 60 mls/hr IV ASDIR NICOLÁS Losartan Potassium (Cozaar -) 50 mg PO DAILY N[facility]S Last Admin: 03/10/17 09:56 Dose: 50 mg Melatonin (Melatonin) 1 mg PO HS NICOL[facility]S Metoprolol Succinate (Toprol Xl -) 25 mg PO DAILY N[facility] Last Admin: 03/10/17 09:56 Dose: 25 mg - Objective Vital Signs: Vital Signs Temperature 98 F 03/10/17 05:37 Pulse Rate 89 03/10/17 05:37 Respiratory Rate 20 03/10/17 05:37 Blood Pressure 130/70 03/10/17 05:37 O2 Sat by Pulse Oximetry (%) 96 03/09/17 20:00 Constitutional: Yes: Calm Eyes: Yes: WNL HENT: Yes: WNL Neck: Yes: WNL Cardiovascular: Yes: Regular Rate and Rhythm Respiratory: Yes: Regular Gastrointestinal: Yes: Soft ...Rectal Exam: Yes: Deferred Genitourinary: No: Anuria Breast(s): Yes: WNL Musculoskeletal: Yes: WNL Extremities: Yes: WNL Edema: No Peripheral Pulses WNL: Yes Integumentary: Yes: WNL Neurological: Yes: WNL Psychiatric: Yes: WNL Labs: CBC, BMP 03/10/17 05:00 03/10/17 05:00 INR, PTT INR 1.33 (0.82-1.09) H 03/10/17 05:00 Fibrinogen 176.0 mg/dL (238-498) L 03/09/17 18:00 - ....Imaging Other: Image Reviewed (telemetry: NSR; no arrhythmias) Problem List - Problems (1) Thrombocytopenia Assessment/Plan: Start agatroban. start warfarin when directed to by Dr. Guerrero, stone sandblaster. Code(s): D69.6 - THROMBOCYTOPENIA, UNSPECIFIED (2) Cellulitis Code(s): L03.90 - CELLULITIS, UNSPECIFIED (3) Chronic instability of right knee Code(s): M23.51 - CHRONIC INSTABILITY OF KNEE, RIGHT KNEE (4) ABENA (obstructive sleep apnea) Code(s): G47.33 - OBSTRUCTIVE SLEEP APNEA (ADULT) (PEDIATRIC) (5) PAF (paroxysmal atrial fibrillation) Code(s): I48.0 - PAROXYSMAL ATRIAL FIBRILLATION (6) Pulmonary emboli Code(s): I26.99 - OTHER PULMONARY EMBOLISM WITHOUT ACUTE COR PULMONALE Qualifiers: Pulmonary embolism type: other (7) Breast CA Code(s): C50.919 - MALIGNANT NEOPLASM OF UNSP SITE OF UNSPECIFIED FEMALE BREAST Qualifiers: Patient sex: female Laterality: right (8) Diabetes Code(s): E11.9 - TYPE 2 DIABETES MELLITUS WITHOUT COMPLICATIONS Qualifiers: Diabetes mellitus type: type 2 Diabetes mellitus complication status: without complication Diabetes mellitus residential insulin use: without termite control service representative use Qualified Code(s): E11.9 - Type 2 diabetes mellitus without complications (9) Diastolic CHF Code(s): I50.30 - UNSPECIFIED DIASTOLIC (CONGESTIVE) HEART FAILURE (10) HTN (hypertension) Code(s): I10 - ESSENTIAL (PRIMARY) HYPERTENSION Qualifiers: Hypertension type: essential hypertension Qualified Code(s): I10 - Essential (primary) hypertension (11) Hypertriglyceridemia Code(s): E78.1 - PURE HYPERGLYCERIDEMIA (12) Obesity Code(s): E66.9 - OBESITY, UNSPECIFIED (13) Paget's disease of right breast Code(s): C50.011 - MALIGNANT NEOPLASM OF NIPPLE AND AREOLA, RIGHT FEMALE BREAST
--- NOTE | 2017-03-10 11:07 | PN ---
Progress Note (short form) - Note Progress Note: Patient seen and examined c/o 3 episodes of diarrhea yesterday some cough But reports feeling much better overall Denies dyspnea/chest pain Last Vital Signs Temp Pulse Resp BP Pulse Ox 98 F 89 20 130/70 96 03/10/17 05:37 03/10/17 05:37 03/10/17 05:37 03/10/17 05:37 03/09/17 20:00 Breasts: right breast reconstruction. Incision is healing Cor: RSR, No murmurs, No gallops Lungs: Clear to P&A Abd: Soft, Normal bowel sounds, healing abdominal incision Ext:No significant edema Skin: No rashes, Integument intact A/P 66 y/o patient s/p Rt. mastectomy/breast reconstrucion--01/20 presented with palpitations/afib --02/20 Diagnosed with b/l PE 02/23, Now with severe thrombocytopenia High suspicion for delayed onset HIT/T given time frame and clinical scenario No other obvious etiology for thrombocytopenia CT scan shows increased embolic clot Lt. main pulmonary artery challenging situation with high clot burden PE and thrombocytopenia High risk of clotting. need to monitor for bleeding complications given thrombocytopenia on argatroban -- PTT is 48.3 at 15cc/hr, recheck PTT/CBC later today will hold coumadin until platelets normalize will check antiphospholipid panel
--- NOTE | 2017-03-10 12:15 | PN ---
Progress Note (short form) - Note Progress Note: No new complaints, dry cough persists. CBC, BMP 03/10/17 05:00 03/10/17 05:00 Vital Signs Period Temp Pulse Resp BP Sys/Beck Pulse Ox Last 24 Hr 96.8 F-98.9 F 88-90 18-20 130-166/70-84 96 S1S2 RRR LUNGS CTA decreased pedal edema scattered bruising over thigh, abdomen due to injections. Imp Thrombocytopenia, likely heparin induced recent bilateral pulmonary embolism following reconstructive breast surgery after mastectomy. NIDDM HTN h/o afib during the last admission Plan Argatroban while monitoring plt count close monitoring for bleeding problems once thrombocytes recover will have to be bridged to warfarin continue other care wound care with silvadene below breast Problem List - Problems (1) Thrombocytopenia Code(s): D69.6 - THROMBOCYTOPENIA, UNSPECIFIED (2) PAF (paroxysmal atrial fibrillation) Code(s): I48.0 - PAROXYSMAL ATRIAL FIBRILLATION (3) Pulmonary emboli Code(s): I26.99 - OTHER PULMONARY EMBOLISM WITHOUT ACUTE COR PULMONALE Qualifiers: Pulmonary embolism type: other (4) Breast CA Code(s): C50.919 - MALIGNANT NEOPLASM OF UNSP SITE OF UNSPECIFIED FEMALE BREAST Qualifiers: Patient sex: female Laterality: right (5) Diabetes Code(s): E11.9 - TYPE 2 DIABETES MELLITUS WITHOUT COMPLICATIONS Qualifiers: Diabetes mellitus type: type 2 Diabetes mellitus complication status: without complication Diabetes mellitus penitentiary insulin use: without roasterman use Qualified Code(s): E11.9 - Type 2 diabetes mellitus without complications (6) HTN (hypertension) Code(s): I10 - ESSENTIAL (PRIMARY) HYPERTENSION Qualifiers: Hypertension type: essential hypertension Qualified Code(s): I10 - Essential (primary) hypertension
--- NOTE | 2017-03-10 12:50 | PN ---
Progress Note (short form) - Note Progress Note: OOB to chair. NAD on RA. Breathing feels overall better, but still with some SCHILLING. No CP. Intake & Output 03/07/17 03/08/17 03/09/17 03/10/17 23:59 23:59 23:59 23:59 Weight 254 lb Last Vital Signs Temp Pulse Resp BP Pulse Ox 98 F 89 20 130/70 96 03/10/17 05:37 03/10/17 05:37 03/10/17 05:37 03/10/17 05:37 03/09/17 20:00 Active Medications Allopurinol (Zyloprim -) 300 mg PO DAILY [facility] Last Admin: 03/10/17 09:56 Dose: 300 mg Diltiazem HCl (Cardizem Cd -) 120 mg PO DAILY [facility] Last Admin: 03/10/17 09:56 Dose: 120 mg Fenofibric Acid (Trilipix -) 135 mg PO DAILY [facility] Argatroban 250,000 mcg/ Sodium (Chloride) 250 mls @ 13.77 mls/hr IVPB TITR NICOLÁS ; 2 MCG/KG/MIN PRN Reason: Protocol Last Admin: 03/09/17 20:37 Dose: 13.77 mls/hr Sodium Chloride (Normal Saline -) 1,000 mls @ 60 mls/hr IV ASDIR NICOLÁS Losartan Potassium (Cozaar -) 50 mg PO DAILY [facility] Last Admin: 03/10/17 09:56 Dose: 50 mg Melatonin (Melatonin) 1 mg PO HS [facility] Metoprolol Succinate (Toprol Xl -) 25 mg PO DAILY [facility] Last Admin: 03/10/17 09:56 Dose: 25 mg Silver Sulfadiazine (Silvadene -) 1 applic TP DAILY [facility] Constitutional: Yes: NAD Eyes: Yes: WNL, Conjunctiva Clear, EOM Intact HENT: Yes: WNL, Atraumatic, Normocephalic Neck: Yes: WNL, Supple, Trachea Midline Respiratory: Yes: CTA Bilaterally Gastrointestinal: Yes: WNL, Normal Bowel Sounds Renal/: Yes: WNL Cardiovascular: Yes: WNL, Regular Rate and Rhythm Musculoskeletal: Yes: WNL Extremities: Yes: WNL Integumentary: Yes: WNL Neurological: Yes: WNL, Alert, Oriented ...Motor Strength: WNL Psychiatric: Yes: WNL, Alert, Oriented Laboratory Results - last 24 hr 03/09/17 03/09/17 03/10/17 18:00 23:10 05:00 WBC 4.4 RBC 3.54 L Hgb 10.7 D Hct 31.3 L D MCV 88.4 MCH 30.1 MCHC 34.1 RDW 14.0 Plt Count 26 L* MPV 9.3 Neutrophils % 62.0 Lymphocytes % 25.8 Monocytes % 8.6 Eosinophils % 2.9 Basophils % 0.7 Platelet Estimate Markedly decreased Platelet Comment No clumping noted INR PTT (Actin FS) 30.0 Fibrinogen 176.0 L Sodium Potassium Chloride Carbon Dioxide Anion Gap BUN Creatinine Creat Clearance w eGFR Random Glucose Calcium Total Bilirubin AST ALT Alkaline Phosphatase Total Protein Albumin 03/10/17 03/10/17 03/10/17 05:00 05:00 05:00 WBC RBC Hgb Hct MCV MCH MCHC RDW Plt Count MPV Neutrophils % Lymphocytes % Monocytes % Eosinophils % Basophils % Platelet Estimate Platelet Comment INR 1.33 H PTT (Actin FS) 48.3 H D Fibrinogen Sodium 141 Potassium 3.7 Chloride 110 H Carbon Dioxide 21 Anion Gap 10 BUN 14 Creatinine 0.9 Creat Clearance w eGFR > 60 Random Glucose 125 H Calcium 8.8 Total Bilirubin 0.3 D AST 19 ALT 30 Alkaline Phosphatase 72 Total Protein 6.3 L Albumin 3.1 L Problem List - Problems (1) ABENA (obstructive sleep apnea) Code(s): G47.33 - OBSTRUCTIVE SLEEP APNEA (ADULT) (PEDIATRIC) (2) PAF (paroxysmal atrial fibrillation) Code(s): I48.0 - PAROXYSMAL ATRIAL FIBRILLATION (3) Pulmonary emboli Code(s): I26.99 - OTHER PULMONARY EMBOLISM WITHOUT ACUTE COR PULMONALE (4) Breast CA Code(s): C50.919 - MALIGNANT NEOPLASM OF UNSP SITE OF UNSPECIFIED FEMALE BREAST (5) Diabetes Code(s): E11.9 - TYPE 2 DIABETES MELLITUS WITHOUT COMPLICATIONS (6) HTN (hypertension) Code(s): I10 - ESSENTIAL (PRIMARY) HYPERTENSION (7) Obesity Code(s): E66.9 - OBESITY, UNSPECIFIED (8) Thrombocytopenia Code(s): D69.6 - THROMBOCYTOPENIA, UNSPECIFIED IMP THROMBOCYTOPENIA -> SUSPECTED HIT RECENT PROVOKED BILATERAL PE BREAST CA S/P MASTECTOMY OSAS DM PLAN MONITOR PLT CT ARGATROBAN O2 NEEDED AMBULATE TOLERATED DR TREJO
[2017-03-10] MEDS: SILVER SULFADIAZINE 1% TOP CREAM 50 GM JAR TP SCH (13:17)
[2017-03-10] MEDS ORDERED: PT OWN MED DRAWER 7, Y5N ONE ×2 (13:18→21:32)
[2017-03-10 15:15] LABS: URINE APPEARANCE CLEAR; URINE BILIRUBIN NEGATIVE (NEGATIVE); URINE BLOOD NEGATIVE (NEGATIVE); URINE COLOR LTYELLOW; URINE GLUCOSE (UA) NEGATIVE (NEGATIVE); URINE KETONE NEGATIVE (NEGATIVE); URINE LEUK ESTERASE NEGATIVE (NEGATIVE); URINE NITRITE NEGATIVE (NEGATIVE); URINE PROTEIN NEGATIVE (NEGATIVE); URINE UROBILINOGEN NEGATIVE mg/dL (0.2-1.0)
[2017-03-10 15:35] LABS: BASOPHIL 0.7 % (0-2.0); EOSINOPHIL 2.9 % (0-4.5); MCH 29.9 pg (25.7-33.7); MCHC 33.5 g/dl (32.0-36.0); MEAN CELL VOLUME 89.2 fl (80-96); MEAN PLT VOLUME 9.6 fl (7.5-11.1); NEUTROPHILS 66.1 % (42.8-82.8); PLATELET COUNT 38 K/MM3 (134-434); RDW 14.3 % (11.6-15.6); WHITE BLOOD COUNT 5.5 K/mm3 (4.0-10.0)
[2017-03-10 15:50] LABS: INR 1.59 (0.82-1.09); PROTHROMBIN TIME (PATIENT) 17.6 SEC (9.98-11.88)
[2017-03-10 15:52] LABS: ACTIVATED PTT 63.4 SECONDS (26.9-34.4)
[2017-03-10] MEDS: ARGATROBAN - 250,000 MCG in SODIUM CHLORIDE 247.5 ML IVPB SCH ×2 (17:28→22:45)
[2017-03-10] MEDS: guaiFENesin/D-METHORPHAN HB 10 ML UNIT-DOSE CUPS PO PRN (21:35)
[2017-03-10] MEDS ORDERED: MELATONIN 5 MG TABLETS PO SCH (22:00)
[2017-03-11] MEDS: ARGATROBAN - 250,000 MCG in SODIUM CHLORIDE 247.5 ML IVPB SCH ×2 (00:15→18:00)
[2017-03-11 08:09] LABS: BASOPHIL 0.6 % (0-2.0); EOSINOPHIL 2.8 % (0-4.5); MCH 29.9 pg (25.7-33.7); MCHC 33.7 g/dl (32.0-36.0); MEAN CELL VOLUME 88.6 fl (80-96); MEAN PLT VOLUME 9.7 fl (7.5-11.1); NEUTROPHILS 62.6 % (42.8-82.8); PLATELET COUNT 39 K/MM3 (134-434); RDW 14.2 % (11.6-15.6); WHITE BLOOD COUNT 5.1 K/mm3 (4.0-10.0)
--- NOTE | 2017-03-11 08:31 | PN ---
Progress Note (short form) - Note Progress Note: ID Full note dictated Patient known to me from recent visit in which I am asked to see her for evaluation of slowly healing wounds related to breat reconstructive surgery. I did not find the wounds to be infected then nor now. Low platelets likley related to heparin ( Lovenox) at home for PE rather then infection. Cultures sent any way No need for antibiotics Plastic surgery following carefully for slowly healing wounds Anticoagulation per hematology No work up for infection related thrombocytopenia Donnell GONZALEZ Problem List - Problems (1) Thrombocytopenia Code(s): D69.6 - THROMBOCYTOPENIA, UNSPECIFIED (2) Cellulitis Code(s): L03.90 - CELLULITIS, UNSPECIFIED (3) Breast CA Code(s): C50.919 - MALIGNANT NEOPLASM OF UNSP SITE OF UNSPECIFIED FEMALE BREAST Qualifiers: Patient sex: female Laterality: right
[2017-03-11 08:47] LABS: INR 2.06 (0.82-1.09)
[2017-03-11 08:50] LABS: ACTIVATED PTT 60.5 SECONDS (26.9-34.4)
[2017-03-11 08:56] LABS: ALK PHOS 66 U/L (45-117); ANION GAP 8 (8-16); BILIRUBIN,TOTAL 0.4 mg/dL (0.2-1.0); CALCIUM 8.8 mg/dL (8.5-10.1); CO2 24 mmol/L (21-32); CREATININE 0.8 mg/dL (0.55-1.02); GLUCOSE,RANDOM 121 mg/dL (74-106); SGOT/AST 17 U/L (15-37); SGPT/ALT 29 U/L (12-78)
[2017-03-11] MEDS ORDERED: PT OWN MED DRAWER 7, Y5N ONE ×3 (09:12→22:06)
[2017-03-11] MEDS: LOSARTAN POTASSIUM 50 MG TABLET (FP) PO SCH (09:23)
[2017-03-11] MEDS: PANTOPRAZOLE 40 MG TABLET (FP) PO SCH (09:23)
[2017-03-11] MEDS: ALLOPURINOL 300 MG TABLET (FP) PO SCH (09:23)
[2017-03-11] MEDS: METOPROLOL SUCCINATE 25 MG TAB.SR.24H (FP) PO SCH (09:24)
--- NOTE | 2017-03-11 09:24 | PN ---
Progress Note (short form) - Note Progress Note: No new complaints, dry cough persists. CBC, BMP 03/11/17 06:00 03/11/17 06:00 Vital Signs Period Temp Pulse Resp BP Sys/Beck Pulse Ox Last 24 Hr 97.8 F-98.8 F 70-98 19-20 121-136/44-70 95 S1S2 RRR LUNGS CTA decreased pedal edema scattered bruising over thigh, abdomen due to injections. Imp Heparin Induced Thrombocytopenia recent bilateral pulmonary embolism following reconstructive breast surgery after mastectomy. NIDDM HTN h/o afib-paroxysmal with PE diagnosis-none on telemetry so far Plan Argatroban while monitoring plt count close monitoring for bleeding problems once thrombocytes over 150 will have to be bridged to warfarin dc iv fluids continue other care Problem List - Problems (1) Thrombocytopenia Code(s): D69.6 - THROMBOCYTOPENIA, UNSPECIFIED (2) PAF (paroxysmal atrial fibrillation) Code(s): I48.0 - PAROXYSMAL ATRIAL FIBRILLATION (3) Pulmonary emboli Code(s): I26.99 - OTHER PULMONARY EMBOLISM WITHOUT ACUTE COR PULMONALE Qualifiers: Pulmonary embolism type: other (4) Breast CA Code(s): C50.919 - MALIGNANT NEOPLASM OF UNSP SITE OF UNSPECIFIED FEMALE BREAST Qualifiers: Patient sex: female Laterality: right (5) Diabetes Code(s): E11.9 - TYPE 2 DIABETES MELLITUS WITHOUT COMPLICATIONS Qualifiers: Diabetes mellitus type: type 2 Diabetes mellitus complication status: without complication Diabetes mellitus fpc insulin use: without fpc use Qualified Code(s): E11.9 - Type 2 diabetes mellitus without complications (6) HTN (hypertension) Code(s): I10 - ESSENTIAL (PRIMARY) HYPERTENSION Qualifiers: Hypertension type: essential hypertension Qualified Code(s): I10 - Essential (primary) hypertension
[2017-03-11] MEDS: FENOFIBRIC ACID 135 MG CAP PO SCH (09:28)
[2017-03-11] MEDS: SILVER SULFADIAZINE 1% TOP CREAM 50 GM JAR TP SCH (09:28)
--- NOTE | 2017-03-11 09:38 | CONS ---
INFECTIOUS DISEASE CONSULTATION DATE OF CONSULTATION: DATE OF DICTATION: 03/11/2017 HISTORY OF PRESENT ILLNESS: This is a 66-year-old female who I am asked to see for concern regarding possible soft tissue infection from a recent breast reconstructive surgery. She was recently discharged from an admission in which she was diagnosed with a large pulmonary embolus on February 23. An acute embolic clot was then seen in the distal aspect of the right main pulmonary artery as well as within several bilateral upper and lower lobe arteries. I had seen her during that admission at the request of Dr. Guerrero, noting that the patient had underwent a right breast mastectomy with reconstructive surgery at [facility] on January 20. The patient was discharged postoperatively and readmitted with palpitations and new-onset atrial fibrillation with a diagnosis of pulmonary embolus. She was anticoagulated with Lovenox in and around surgery as well as after the diagnosis of PE was made. She is a type 2 diabetic, and I had seen her on February 25 because of concerns about slowly healing breast wounds that were thought potentially to be infected. The patient is carefully followed by her plastic surgeon as an outpatient. At the time of my evaluation, February 25, the breast wounds did not appear to be infected, and though she was at high risk for infection because of her diabetes, I felt no antibiotics were necessary and that she could proceed with Silvadene dressings as had bene suggested by her plastic surgeon. He has continued to follow her as an outpatient. However, she was recently noted in the last 2 days to have a low platelet count and was referred to the hospital for admission. I am asked to see her now specifically regarding whether or not the wounds might be once again infected. I am asked to see her once again regarding the issue of infection related to her original breast surgery. She has no fever and no chills. Her white count on admission was 5.6 with a hemoglobin of 12.4 and platelets of 24,000. Again, she had been on b.i.d. Lovenox at home since discharge. She has no fever, though did note an episode of chills on the night of discharge at home but took her temperature and found that she had no fever. She has no headaches, abdominal pain, diarrhea, or sore throat. She does have a dry cough but states she has had this for several weeks. There is no history of travel. She lives in [place]. She has [id number] tick exposure locally at least in the last few weeks, but did travel to [place], [place], during the summer and did remove several ticks from her dog at that time. PAST MEDICAL HISTORY: As noted above. CURRENT MEDICATION: Cozaar, argatroban, Toprol, Cardizem. ALLERGIES: None known. SOCIAL HISTORY: Former smoker many years ago, gave this up. . No HIV risk factors. No alcohol use. FAMILY HISTORY: Reviewed and noncontributory. REVIEW OF SYSTEMS: Respiratory: Dry nonproductive cough. No hemoptysis. No shortness of breath. Cardiac: History of recent-onset atrial fibrillation. No palpitations, syncope, or chest pain. Gastrointestinal: No nausea, vomiting, or abdominal pain. Genitourinary: No dysuria, hematuria, or urinary frequency. PHYSICAL EXAMINATION: General: The patient was a heavy-set woman, alert and in no acute distress. Vital Signs: The temperature was 98, pulse 98, blood pressure 127/44, respirations 20. Neck: Supple. Lungs: Clear to auscultation. Heart: S1, S2. Regular rhythm without murmur. Chest: With recent reconstructive breast surgery. Still, there was an inferior breast incision which had some superficial skin necrosis but no cellulitis or purulent drainage, tenderness, or fluctuance noted. Smaller wounds were noted on the lower abdomen and right upper quadrant, again related to recent reconstructive surgery, which were not infected. DIAGNOSTIC DATA: The white count is 5.1, hemoglobin 10.7, platelets of 39,000. INR of 1.59. BUN 14, creatinine 0.9. Liver enzymes within normal limit. Urinalysis screening negative. Two sets of blood cultures and a urine culture pending. ASSESSMENT: A 66-year-old female with: 1. Recent reconstructive breast surgery complicated by massive pulmonary embolus. 2. Thrombocytopenia related to heparin-induced effect (HIT, heparin-induced thrombocytopenia). 3. Slowly healing breast wounds, noninfected, being closely followed by Plastic Surgery with topical Silvadene dressing. 4. Diabetes mellitus. 5. Hypertension. 6. New-onset atrial fibrillation. PLAN: At this point, would continue with local wound care, does not need antibiotic treatment. We will defer any further workup for infectious cause of low platelets given positive HIT antibody. CELESTE NAQVI M.D. JENNIFER/[id number]
--- NOTE | 2017-03-11 11:32 | PN ---
Progress Note (short form) - Note Progress Note: Patient seen and examined. She still has cough, took robitussin last night, helped her. Breasts: right breast reconstruction. Incision is healing Cor: RSR, No murmurs, No gallops Lungs: Clear to P&A Abd: Soft, Normal bowel sounds, healing abdominal incision Ext:No significant edema Skin: No rashes, Integument intact Last Vital Signs Temp Pulse Resp BP Pulse Ox 97.8 F 86 22 145/78 95 03/11/17 10:00 03/11/17 10:00 03/11/17 10:00 03/11/17 10:00 03/10/17 21:00 CBC, BMP 03/11/17 06:00 03/11/17 06:00 Current Medications Generic Name Dose Route Start Last Admin Trade Name Freq PRN Reason Stop Dose Admin Allopurinol 300 mg 03/10/17 10:00 03/11/17 09:23 Zyloprim - PO 300 mg DAILY NICOLÁS Administration Diltiazem HCl 120 mg 03/10/17 10:00 03/11/17 09:23 Cardizem Cd - PO 120 mg DAILY NICOLÁS Administration Fenofibric Acid 135 mg 03/10/17 10:00 03/11/17 09:28 Trilipix - PO Not Given DAILY NICOLÁS Guaifenesin 10 ml 03/10/17 17:20 03/10/17 21:35 Robitussin Dm - PO 10 ml Q6H PRN Administration COUGH Argatroban 250,000 mcg/ Sodium 250 mls @ 13.77 mls/hr 03/09/17 18:00 03/11/17 00:15 Chloride IVPB 13.77 mls/hr TITR NICOLÁS Administration Protocol 2 MCG/KG/MIN Losartan Potassium 50 mg 03/10/17 10:00 03/11/17 09:23 Cozaar - PO 50 mg DAILY NICOLÁS Administration Melatonin 3 mg 03/11/17 22:00 Melatonin PO HS NICOLÁS Metoprolol Succinate 25 mg 03/10/17 10:00 03/11/17 09:24 Toprol Xl - PO 25 mg DAILY NICOL[facility]S Administration Pantoprazole Sodium 40 mg 03/11/17 10:00 03/11/17 09:23 Protonix - PO 40 mg DAILY NICOLÁS Administration Silver Sulfadiazine 1 applic 03/10/17 12:30 03/11/17 09:28 Silvadene - TP 1 applic DAILY NICOLÁS Administration A/P 66 y/o patient s/p Rt. 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 on argatroban -- PTT is therapeutic (goal of 45-60),now at 13.8 cc/hr, platelets are improving slowly, anticipating for the uptrend recheck PTT later today will hold coumadin until platelets normalize ( goal of 150K to start coumadin) f/u on APLS labs. No further diarrhea. Cough: etilogy? dry, will c/w robitussin. Cards note reviewed. Pulm on case. ID note noted. If access issues , may need to consider PICC line.
--- NOTE | 2017-03-11 11:43 | PN ---
Progress Note, Physician History of Present Illness: PULMONARY ALERT,OOB-CHAIR,FEELING BETTER,LESS SOB - Current Medication List Current Medications: Active Medications Allopurinol (Zyloprim -) 300 mg PO DAILY [facility] Last Admin: 03/11/17 09:23 Dose: 300 mg Diltiazem HCl (Cardizem Cd -) 120 mg PO DAILY [facility] Last Admin: 03/11/17 09:23 Dose: 120 mg Fenofibric Acid (Trilipix -) 135 mg PO DAILY [facility] Last Admin: 03/11/17 09:28 Dose: Not Given Guaifenesin (Robitussin Dm -) 10 ml PO Q6H PRN PRN Reason: COUGH Last Admin: 03/10/17 21:35 Dose: 10 ml Argatroban 250,000 mcg/ Sodium (Chloride) 250 mls @ 13.77 mls/hr IVPB TITR [facility] ; 2 MCG/KG/MIN PRN Reason: Protocol Last Admin: 03/11/17 00:15 Dose: 13.77 mls/hr Losartan Potassium (Cozaar -) 50 mg PO DAILY [facility] Last Admin: 03/11/17 09:23 Dose: 50 mg Melatonin (Melatonin) 3 mg PO [facility] Metoprolol Succinate (Toprol Xl -) 25 mg PO DAILY [facility] Last Admin: 03/11/17 09:24 Dose: 25 mg Pantoprazole Sodium (Protonix -) 40 mg PO DAILY [facility] Last Admin: 03/11/17 09:23 Dose: 40 mg Silver Sulfadiazine (Silvadene -) 1 applic TP DAILY [facility] Last Admin: 03/11/17 09:28 Dose: 1 applic - Objective Vital Signs: Vital Signs Temperature 97.8 F 03/11/17 10:00 Pulse Rate 86 03/11/17 10:00 Respiratory Rate 22 03/11/17 10:00 Blood Pressure 145/78 03/11/17 10:00 O2 Sat by Pulse Oximetry (%) 95 03/10/17 21:00 Constitutional: Yes: Well Nourished, Calm Eyes: Yes: WNL HENT: Yes: WNL Neck: Yes: WNL Cardiovascular: Yes: Regular Rate and Rhythm, S1, S2 Respiratory: Yes: Diminished Gastrointestinal: Yes: Normal Bowel Sounds, Soft Extremities: Yes: WNL Edema: No Labs: CBC, BMP 03/11/17 06:00 03/11/17 06:00 INR, PTT INR 2.06 (0.82-1.09) H 03/11/17 06:00 Fibrinogen 176.0 mg/dL (238-498) L 03/09/17 18:00 Problem List - Problems (1) ABENA (obstructive sleep apnea) Code(s): G47.33 - OBSTRUCTIVE SLEEP APNEA (ADULT) (PEDIATRIC) (2) PAF (paroxysmal atrial fibrillation) Code(s): I48.0 - PAROXYSMAL ATRIAL FIBRILLATION (3) Pulmonary emboli Code(s): I26.99 - OTHER PULMONARY EMBOLISM WITHOUT ACUTE COR PULMONALE Qualifiers: Pulmonary embolism type: other (4) Breast CA Code(s): C50.919 - MALIGNANT NEOPLASM OF UNSP SITE OF UNSPECIFIED FEMALE BREAST Qualifiers: Patient sex: female Laterality: right (5) Diabetes Code(s): E11.9 - TYPE 2 DIABETES MELLITUS WITHOUT COMPLICATIONS Qualifiers: Diabetes mellitus type: type 2 Diabetes mellitus complication status: without complication Diabetes mellitus chcf insulin use: without exterminator termite use Qualified Code(s): E11.9 - Type 2 diabetes mellitus without complications (6) HTN (hypertension) Code(s): I10 - ESSENTIAL (PRIMARY) HYPERTENSION Qualifiers: Hypertension type: essential hypertension Qualified Code(s): I10 - Essential (primary) hypertension (7) Obesity Code(s): E66.9 - OBESITY, UNSPECIFIED (8) Thrombocytopenia Code(s): D69.6 - THROMBOCYTOPENIA, UNSPECIFIED Assessment/Plan Progress Note: PULMONARY IMP THROMBOCYTOPENIA LIKELY HIT RECENT BILATERAL EMBOLI PROVOKED BREAST CA S/P MASTECTOMY OSAS DM PLAN MONITOR PLT CT ARGATROBAN ECHO DR GONZALEZ Problem List - Problems (1) ABENA (obstructive sleep apnea) Code(s): G47.33 - OBSTRUCTIVE SLEEP APNEA (ADULT) (PEDIATRIC) (2) PAF (paroxysmal atrial fibrillation) Code(s): I48.0 - PAROXYSMAL ATRIAL FIBRILLATION (3) Pulmonary emboli Code(s): I26.99 - OTHER PULMONARY EMBOLISM WITHOUT ACUTE COR PULMONALE (4) Breast CA Code(s): C50.919 - MALIGNANT NEOPLASM OF UNSP SITE OF UNSPECIFIED FEMALE BREAST (5) Diabetes Code(s): E11.9 - TYPE 2 DIABETES MELLITUS WITHOUT COMPLICATIONS (6) HTN (hypertension) Code(s): I10 - ESSENTIAL (PRIMARY) HYPERTENSION (7) Obesity Code(s): E66.9 - OBESITY, UNSPECIFIED (8) Thrombocytopenia Code(s): D69.6 - THROMBOCYTOPENIA, UNSPECIFIED
[2017-03-11] MEDS: guaiFENesin/D-METHORPHAN HB 10 ML UNIT-DOSE CUPS PO PRN ×2 (12:06→22:04)
--- NOTE | 2017-03-11 12:22 | PN ---
Progress Note (short form) - Note Progress Note: Dr. Guerrero did a review on HIT asssociated with profound thrombocytopenia. No indication for platelet infusion unless bleeding diathesis Continue argatroban - to prevent arterial thrombosis. Monitor platelets. No indication for IVC filter.
--- NOTE | 2017-03-11 16:20 | PN ---
Progress Note, Physician Chief Complaint: Pt sitting in chair; her daughter is present. Pt denies chest pain or dyspnea. History of Present Illness: "The patient is a 66 year old white female, with a significant past medical history of PE on lovenox, HTN, diabetes mellitus, obesity, gout, presumed obstructive sleep apnea, and breast cancer s/p right mastectomy around 7 weeks ago (January 20) who was referred to the emergency department by her PCP due to low blood platelet count. She states she was started on lovenox 2 weeks ago when she was diagnosed with acute PE. Patient denies currently experiencing any chest pain or palpitations but admits to SOB from time to time. She denies experiencing any new bruises. She denies recent fevers, chills, headache or dizziness. She denies recent nausea, vomit, diarrhea or constipation. She denies recent dysuria, frequency, urgency or hematuria. She denies recent chest pain. Allergies: NKA Past surgical history: Right masectomy Social history: Nonsmoker. Denies EtOH use and recreational drug use. Primary Care Physician: Carrie Price M.D. - Current Medication List Current Medications: Active Medications Allopurinol (Zyloprim -) 300 mg PO DAILY [facility] Last Admin: 03/11/17 09:23 Dose: 300 mg Diltiazem HCl (Cardizem Cd -) 120 mg PO DAILY [facility] Last Admin: 03/11/17 09:23 Dose: 120 mg Fenofibric Acid (Trilipix -) 135 mg PO DAILY [facility] Last Admin: 03/11/17 09:28 Dose: Not Given Guaifenesin (Robitussin Dm -) 10 ml PO Q6H PRN PRN Reason: COUGH Last Admin: 03/11/17 12:06 Dose: 10 ml Argatroban 250,000 mcg/ Sodium (Chloride) 250 mls @ 13.77 mls/hr IVPB TITR [facility] ; 2 MCG/KG/MIN PRN Reason: Protocol Last Admin: 03/11/17 00:15 Dose: 13.77 mls/hr Losartan Potassium (Cozaar -) 50 mg PO DAILY [facility] Last Admin: 03/11/17 09:23 Dose: 50 mg Melatonin (Melatonin) 3 mg PO [facility] Metoprolol Succinate (Toprol Xl -) 25 mg PO DAILY [facility] Last Admin: 09/15/17 09:24 Dose: 25 mg Pantoprazole Sodium (Protonix -) 40 mg PO DAILY [facility] Last Admin: 03/11/17 09:23 Dose: 40 mg Silver Sulfadiazine (Silvadene -) 1 applic TP DAILY [facility] Last Admin: 03/11/17 09:28 Dose: 1 applic - Objective Vital Signs: Vital Signs Temperature 97.7 F 03/11/17 14:00 Pulse Rate 78 03/11/17 14:00 Respiratory Rate 18 03/11/17 14:00 Blood Pressure 152/76 03/11/17 14:00 O2 Sat by Pulse Oximetry (%) 96 03/11/17 09:00 Constitutional: Yes: Calm Eyes: Yes: WNL HENT: Yes: WNL Neck: Yes: WNL Cardiovascular: Yes: Regular Rate and Rhythm, S1, S2, S4 Respiratory: Yes: Regular Gastrointestinal: Yes: Soft, Abdomen, Obese ...Rectal Exam: Yes: Deferred Genitourinary: No: Anuria Breast(s): Yes: Other (s/p right mastectomy) Musculoskeletal: Yes: Muscle Weakness Extremities: Yes: Cool Edema: Yes Edema: LLE: Trace, RLE: Trace Peripheral Pulses WNL: Yes Integumentary: Yes: WNL Neurological: Yes: WNL Psychiatric: Yes: WNL Labs: CBC, BMP 03/11/17 06:00 03/11/17 06:00 INR, PTT INR 2.06 (0.82-1.09) H 03/11/17 06:00 Fibrinogen 176.0 mg/dL (238-498) L 03/09/17 18:00 Abnormal Lab Results 03/09/17 03/11/17 03/11/17 14:34 06:00 06:00 Hct 31.9 L Plt Count 39 L PT with INR 23.00 H INR 2.06 H PTT (Actin FS) 60.5 H Chloride Random Glucose Total Protein Albumin Hep-Induced Plt Ab Rapid 2.540 H 03/11/17 03/11/17 06:00 18:45 Hct Plt Count PT with INR INR PTT (Actin FS) 59.3 H Chloride 110 H Random Glucose 121 H Total Protein 6.0 L Albumin 3.0 L Hep-Induced Plt Ab Rapid - ....Imaging Ultrasound: Report Reviewed (ECHO: normal LVEF: hyperdynamic RV) Problem List - Problems (1) Thrombocytopenia Assessment/Plan: Started agatroban. start warfarin when directed to by Dr. Guerrero, pan shover.\\ Platelets 24-->39 in past 48 hours. Code(s): D69.6 - THROMBOCYTOPENIA, UNSPECIFIED (2) Cellulitis Code(s): L03.90 - CELLULITIS, UNSPECIFIED (3) ABENA (obstructive sleep apnea) Assessment/Plan: f/u sleep studies. Code(s): G47.33 - OBSTRUCTIVE SLEEP APNEA (ADULT) (PEDIATRIC) (4) Chronic instability of right knee Code(s): M23.51 - CHRONIC INSTABILITY OF KNEE, RIGHT KNEE (5) PAF (paroxysmal atrial fibrillation) Code(s): I48.0 - PAROXYSMAL ATRIAL FIBRILLATION (6) Pulmonary emboli Assessment/Plan: On agatraban until able to start warfarin. Code(s): I26.99 - OTHER PULMONARY EMBOLISM WITHOUT ACUTE COR PULMONALE Qualifiers: Pulmonary embolism type: other (7) Breast CA Code(s): C50.919 - MALIGNANT NEOPLASM OF UNSP SITE OF UNSPECIFIED FEMALE BREAST Qualifiers: Patient sex: female Laterality: right (8) Diabetes Code(s): E11.9 - TYPE 2 DIABETES MELLITUS WITHOUT COMPLICATIONS Qualifiers: Diabetes mellitus type: type 2 Diabetes mellitus complication status: without complication Diabetes mellitus technician terminal and repeater insulin use: without detention use Qualified Code(s): E11.9 - Type 2 diabetes mellitus without complications (9) Diastolic CHF Code(s): I50.30 - UNSPECIFIED DIASTOLIC (CONGESTIVE) HEART FAILURE (10) HTN (hypertension) Assessment/Plan: on metoprolol, diltiazem, and losartan, Serial BP checks; increse losartan to 100 mg daily if necessary. F/u EKG Code(s): I10 - ESSENTIAL (PRIMARY) HYPERTENSION Qualifiers: Hypertension type: essential hypertension Qualified Code(s): I10 - Essential (primary) hypertension (11) Hypertriglyceridemia Assessment/Plan: On Trilipix. Code(s): E78.1 - PURE HYPERGLYCERIDEMIA (12) Obesity Assessment/Plan: f/u with contract administrative assistant. Code(s): E66.9 - OBESITY, UNSPECIFIED (13) Paget's disease of right breast Code(s): C50.011 - MALIGNANT NEOPLASM OF NIPPLE AND AREOLA, RIGHT FEMALE BREAST
[2017-03-11] MEDS ORDERED: MELATONIN 1 MG TABLET PO SCH (22:00)
[2017-03-12 07:31] LABS: BASOPHIL 0.6 % (0-2.0); EOSINOPHIL 2.6 % (0-4.5); MCH 30.1 pg (25.7-33.7); MCHC 34.2 g/dl (32.0-36.0); MEAN CELL VOLUME 88.1 fl (80-96); MEAN PLT VOLUME 8.2 fl (7.5-11.1); NEUTROPHILS 64.6 % (42.8-82.8); PLATELET COUNT 41 K/MM3 (134-434); WHITE BLOOD COUNT 5.7 K/mm3 (4.0-10.0)
--- NOTE | 2017-03-12 07:39 | PN ---
Progress Note (short form) - Note Progress Note: No new complaints, dry cough persists. Vital Signs Period Temp Pulse Resp BP Sys/Beck Pulse Ox Last 24 Hr 97.6 F-98.5 F 75-86 18-22 131-152/69-78 96-97 S1S2 RRR LUNGS CTA decreased pedal edema scattered bruising over thigh, abdomen due to injections. Imp Heparin Induced Thrombocytopenia recent bilateral pulmonary embolism following reconstructive breast surgery after mastectomy. NIDDM HTN h/o afib-paroxysmal with PE diagnosis-none on telemetry so far Plan Argatroban while monitoring plt count close monitoring for bleeding problems once thrombocytes over 150 will have to be bridged to warfarin dc iv fluids continue other care Problem List - Problems (1) Thrombocytopenia Code(s): D69.6 - THROMBOCYTOPENIA, UNSPECIFIED (2) PAF (paroxysmal atrial fibrillation) Code(s): I48.0 - PAROXYSMAL ATRIAL FIBRILLATION (3) Pulmonary emboli Code(s): I26.99 - OTHER PULMONARY EMBOLISM WITHOUT ACUTE COR PULMONALE Qualifiers: Pulmonary embolism type: other (4) Breast CA Code(s): C50.919 - MALIGNANT NEOPLASM OF UNSP SITE OF UNSPECIFIED FEMALE BREAST Qualifiers: Patient sex: female Laterality: right (5) Diabetes Code(s): E11.9 - TYPE 2 DIABETES MELLITUS WITHOUT COMPLICATIONS Qualifiers: Diabetes mellitus type: type 2 Diabetes mellitus complication status: without complication Diabetes mellitus trim setter insulin use: without trim setter use Qualified Code(s): E11.9 - Type 2 diabetes mellitus without complications (6) HTN (hypertension) Code(s): I10 - ESSENTIAL (PRIMARY) HYPERTENSION Qualifiers: Hypertension type: essential hypertension Qualified Code(s): I10 - Essential (primary) hypertension
[2017-03-12 08:04] LABS: INR 1.47 (0.82-1.09); PROTHROMBIN TIME (PATIENT) 16.3 SEC (9.98-11.88)
--- NOTE | 2017-03-12 08:41 | PN ---
Progress Note, Physician History of Present Illness: "The patient is a 66 year old female, with a significant past medical history of PE on lovenox, HTN, diabetes mellitus, gout, and breast cancer s/p right mastectomy around 7 weeks ago (January 20) who was referred to the emergency department by her PCP due to low blood platelet count. She states she was started on lovenox 2 weeks ago when she was diagnosed with acute PE. Patient denies currently experiencing any chest pain or palpitations but admits to SOB from time to time. She denies experiencing any new bruises. She denies recent fevers, chills, headache or dizziness. She denies recent nausea, vomit, diarrhea or constipation. She denies recent dysuria, frequency, urgency or hematuria. She denies recent chest pain. Allergies: NKA Past surgical history: Right masectomy Social history: Nonsmoker. Denies EtOH use and recreational drug use. Primary Care Physician: Carrie Price M.D. " - Current Medication List Current Medications: Active Medications Allopurinol (Zyloprim -) 300 mg PO DAILY [facility] Last Admin: 03/11/17 09:23 Dose: 300 mg Diltiazem HCl (Cardizem Cd -) 120 mg PO DAILY [facility] Last Admin: 03/11/17 09:23 Dose: 120 mg Fenofibric Acid (Trilipix -) 135 mg PO DAILY [facility] Last Admin: 03/11/17 09:28 Dose: Not Given Guaifenesin (Robitussin Dm -) 10 ml PO Q6H PRN PRN Reason: COUGH Last Admin: 03/11/17 22:04 Dose: 10 ml Hydrochlorothiazide (Hctz -) 12.5 mg PO DAILY [facility] Argatroban 250,000 mcg/ Sodium (Chloride) 250 mls @ 13.77 mls/hr IVPB TITR [facility] ; 2 MCG/KG/MIN PRN Reason: Protocol Last Admin: 03/11/17 18:00 Dose: 13.77 mls/hr Losartan Potassium (Cozaar -) 50 mg PO DAILY [facility] Last Admin: 03/11/17 09:23 Dose: 50 mg Melatonin (Melatonin) 5 mg PO HS [facility] Metoprolol Succinate (Toprol Xl -) 25 mg PO DAILY [facility] Last Admin: 03/11/17 09:24 Dose: 25 mg Pantoprazole Sodium (Protonix -) 40 mg PO DAILY [facility] Last Admin: 03/11/17 09:23 Dose: 40 mg Silver Sulfadiazine (Silvadene -) 1 applic TP DAILY [facility] Last Admin: 03/11/17 09:28 Dose: 1 applic - Objective Vital Signs: Vital Signs Temperature 98.1 F 03/12/17 06:00 Pulse Rate 80 03/12/17 06:00 Respiratory Rate 20 03/12/17 06:00 Blood Pressure 140/72 03/12/17 06:00 O2 Sat by Pulse Oximetry (%) 97 03/11/17 21:00 Eyes: Yes: WNL, Conjunctiva Clear, EOM Intact HENT: Yes: WNL, Atraumatic, Normocephalic Neck: Yes: WNL, Supple, Trachea Midline Cardiovascular: Yes: WNL, Regular Rate and Rhythm Respiratory: Yes: WNL, Regular, CTA Bilaterally Gastrointestinal: Yes: WNL, Normal Bowel Sounds Genitourinary: Yes: WNL Musculoskeletal: Yes: WNL Extremities: Yes: WNL Edema: No Integumentary: Yes: WNL Neurological: Yes: WNL, Alert, Oriented ...Motor Strength: WNL Psychiatric: Yes: WNL Labs: CBC, BMP 03/12/17 05:48 03/11/17 06:00 INR, PTT INR 1.47 (0.82-1.09) H 03/12/17 05:48 Fibrinogen 176.0 mg/dL (238-498) L 03/09/17 18:00 Problem List - Problems (1) Thrombocytopenia Code(s): D69.6 - THROMBOCYTOPENIA, UNSPECIFIED (2) Cellulitis Code(s): L03.90 - CELLULITIS, UNSPECIFIED (3) Chronic instability of right knee Code(s): M23.51 - CHRONIC INSTABILITY OF KNEE, RIGHT KNEE (4) ABENA (obstructive sleep apnea) Code(s): G47.33 - OBSTRUCTIVE SLEEP APNEA (ADULT) (PEDIATRIC) (5) PAF (paroxysmal atrial fibrillation) Code(s): I48.0 - PAROXYSMAL ATRIAL FIBRILLATION (6) Pulmonary emboli Code(s): I26.99 - OTHER PULMONARY EMBOLISM WITHOUT ACUTE COR PULMONALE Qualifiers: Pulmonary embolism type: other (7) Breast CA Code(s): C50.919 - MALIGNANT NEOPLASM OF UNSP SITE OF UNSPECIFIED FEMALE BREAST Qualifiers: Patient sex: female Laterality: right (8) Diabetes Code(s): E11.9 - TYPE 2 DIABETES MELLITUS WITHOUT COMPLICATIONS Qualifiers: Diabetes mellitus type: type 2 Diabetes mellitus complication status: without complication Diabetes mellitus longwall foreman insulin use: without mcfp use Qualified Code(s): E11.9 - Type 2 diabetes mellitus without complications (9) Diastolic CHF Code(s): I50.30 - UNSPECIFIED DIASTOLIC (CONGESTIVE) HEART FAILURE (10) HTN (hypertension) Code(s): I10 - ESSENTIAL (PRIMARY) HYPERTENSION Qualifiers: Hypertension type: essential hypertension Qualified Code(s): I10 - Essential (primary) hypertension (11) Hypertriglyceridemia Code(s): E78.1 - PURE HYPERGLYCERIDEMIA (12) Obesity Code(s): E66.9 - OBESITY, UNSPECIFIED (13) Paget's disease of right breast Code(s): C50.011 - MALIGNANT NEOPLASM OF NIPPLE AND AREOLA, RIGHT FEMALE BREAST Assessment/Plan - Problems (1) Thrombocytopenia Assessment/Plan: Started agatroban. start warfarin when directed to by Dr. Guerrero, long chain beamer.\\ Platelets 24-->39 in past 48 hours. Code(s): D69.6 - THROMBOCYTOPENIA, UNSPECIFIED (2) Cellulitis Code(s): L03.90 - CELLULITIS, UNSPECIFIED (3) ABENA (obstructive sleep apnea) Assessment/Plan: f/u sleep studies. Code(s): G47.33 - OBSTRUCTIVE SLEEP APNEA (ADULT) (PEDIATRIC) (4) Chronic instability of right knee Code(s): M23.51 - CHRONIC INSTABILITY OF KNEE, RIGHT KNEE (5) PAF (paroxysmal atrial fibrillation) Code(s): I48.0 - PAROXYSMAL ATRIAL FIBRILLATION (6) Pulmonary emboli Assessment/Plan: On agatraban until able to start warfarin. Code(s): I26.99 - OTHER PULMONARY EMBOLISM WITHOUT ACUTE COR PULMONALE Qualifiers: Pulmonary embolism type: other (7) Breast CA Code(s): C50.919 - MALIGNANT NEOPLASM OF UNSP SITE OF UNSPECIFIED FEMALE BREAST Qualifiers: Patient sex: female Laterality: right (8) Diabetes Code(s): E11.9 - TYPE 2 DIABETES MELLITUS WITHOUT COMPLICATIONS Qualifiers: Diabetes mellitus type: type 2 Diabetes mellitus complication status: without complication Diabetes mellitus longwall foreman insulin use: without longwall foreman use Qualified Code(s): E11.9 - Type 2 diabetes mellitus without complications (9) Diastolic CHF Code(s): I50.30 - UNSPECIFIED DIASTOLIC (CONGESTIVE) HEART FAILURE (10) HTN (hypertension) Assessment/Plan: on metoprolol, diltiazem, and losartan, Serial BP checks; increse losartan to 100 mg daily if necessary. F/u EKG Code(s): I10 - ESSENTIAL (PRIMARY) HYPERTENSION Qualifiers: Hypertension type: essential hypertension Qualified Code(s): I10 - Essential (primary) hypertension (11) Hypertriglyceridemia Assessment/Plan: On Trilipix. Code(s): E78.1 - PURE HYPERGLYCERIDEMIA (12) Obesity Assessment/Plan: f/u with arc trimmer. Code(s): E66.9 - OBESITY, UNSPECIFIED (13) Paget's disease of right breast Code(s): C50.011 - MALIGNANT NEOPLASM OF NIPPLE AND AREOLA, RIGHT FEMALE BREAST
[2017-03-12] MEDS ORDERED: ARGATROBAN - 250,000 MCG in SODIUM CHLORIDE 247.5 ML IVPB SCH (09:00)
[2017-03-12] MEDS: ARGATROBAN - 250,000 MCG in SODIUM CHLORIDE 247.5 ML IVPB SCH ×2 (09:26→18:25)
[2017-03-12] MEDS: guaiFENesin/D-METHORPHAN HB 10 ML UNIT-DOSE CUPS PO PRN (09:46)
[2017-03-12] MEDS: ALLOPURINOL 300 MG TABLET (FP) PO SCH (09:46)
[2017-03-12] MEDS: METOPROLOL SUCCINATE 25 MG TAB.SR.24H (FP) PO SCH (09:46)
[2017-03-12] MEDS: HYDROCHLOROTHIAZIDE 12.5 MG CAPSULE (FP) PO SCH (09:46)
[2017-03-12] MEDS: LOSARTAN POTASSIUM 50 MG TABLET (FP) PO SCH (09:46)
[2017-03-12] MEDS: FENOFIBRIC ACID 135 MG CAP PO SCH (09:46)
[2017-03-12] MEDS: PANTOPRAZOLE 40 MG TABLET (FP) PO SCH (09:46)
[2017-03-12] MEDS: SILVER SULFADIAZINE 1% TOP CREAM 50 GM JAR TP SCH (11:18)
--- NOTE | 2017-03-12 13:11 | PN ---
Progress Note (short form) - Note Progress Note: Hematology/Oncology Progress Note S : Patient feels well when visited today, watching television Last Vital Signs Temp Pulse Resp BP Pulse Ox 97.9 F 85 18 133/81 98 03/12/17 10:00 03/12/17 10:00 03/12/17 10:00 03/12/17 10:00 03/12/17 09:00 . Patient seen and examined Pleasant and in no distress Breasts: right breast reconstruction. Incision is healing Cor: RSR, No murmurs, No gallops Lungs: Clear to P&A Abd: Soft, Normal bowel sounds, healing abdominal incision Ext:No significant edema Skin: No rashes, Integument intact CBC, BMP 03/12/17 05:48 03/11/17 06:00 Current Medications Generic Name Dose Route Start Last Admin Trade Name Freq PRN Reason Stop Dose Admin Allopurinol 300 mg 03/10/17 10:00 03/12/17 09:46 Zyloprim - PO 300 mg DAILY [facility] Administration Diltiazem HCl 120 mg 03/10/17 10:00 03/12/17 09:46 Cardizem Cd - PO 120 mg DAILY [facility] Administration Fenofibric Acid 135 mg 03/10/17 10:00 03/12/17 09:46 Trilipix - PO Not Given DAILY [facility] Guaifenesin 10 ml 03/10/17 17:20 03/12/17 09:46 Robitussin Dm - PO 10 ml Q6H PRN Administration COUGH Hydrochlorothiazide 12.5 mg 03/12/17 10:00 03/12/17 09:46 Hctz - PO 12.5 mg DAILY [facility] Administration Argatroban 250,000 mcg/ Sodium 250 mls @ 13.77 mls/hr 03/09/17 18:00 03/12/17 09:26 Chloride IVPB 13.77 mls/hr TITR [facility] Administration Protocol 2 MCG/KG/MIN Losartan Potassium 50 mg 03/10/17 10:00 03/12/17 09:46 Cozaar - PO 50 mg DAILY [facility] Administration Melatonin 5 mg 03/12/17 20:00 Melatonin PO HS [facility] Metoprolol Succinate 25 mg 03/10/17 10:00 03/12/17 09:46 Toprol Xl - PO 25 mg DAILY [facility] Administration Pantoprazole Sodium 40 mg 03/11/17 10:00 03/12/17 09:46 Protonix - PO 40 mg DAILY [facility] Administration Silver Sulfadiazine 1 applic 03/10/17 12:30 03/12/17 11:18 Silvadene - TP 1 applic DAILY [facility] Administration A/P : 66 y/o patient s/p Rt. 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 on argatroban -- PTT goal of 45-60, platelet count is improving, follow-up evening PTT and adjust drip accordingly will hold coumadin until platelets normalize ( goal of 150K to start coumadin) f/u on [facility]PLS labs.
--- NOTE | 2017-03-12 13:24 | PN ---
Progress Note (short form) - Note Progress Note: OOB to chair. NAD on RA. Breathing feels overall better, but still with some SCHILLING. No CP. Intake & Output 03/09/17 03/10/17 03/11/17 03/12/17 23:59 23:59 23:59 23:59 Intake Total 949 1225.6 Balance 949 1225.6 Weight 254 lb Last Vital Signs Temp Pulse Resp BP Pulse Ox 97.9 F 85 18 133/81 98 03/12/17 10:00 03/12/17 10:00 03/12/17 10:00 03/12/17 10:00 03/12/17 09:00 Active Medications Allopurinol (Zyloprim -) 300 mg PO DAILY [facility] Last Admin: 03/12/17 09:46 Dose: 300 mg Diltiazem HCl (Cardizem Cd -) 120 mg PO DAILY [facility] Last Admin: 03/12/17 09:46 Dose: 120 mg Fenofibric Acid (Trilipix -) 135 mg PO DAILY [facility] Last Admin: 03/12/17 09:46 Dose: Not Given Guaifenesin (Robitussin Dm -) 10 ml PO Q6H PRN PRN Reason: COUGH Last Admin: 03/12/17 09:46 Dose: 10 ml Hydrochlorothiazide (Hctz -) 12.5 mg PO DAILY [facility] Last Admin: 03/12/17 09:46 Dose: 12.5 mg Argatroban 250,000 mcg/ Sodium (Chloride) 250 mls @ 13.77 mls/hr IVPB TITR [facility] ; 2 MCG/KG/MIN PRN Reason: Protocol Last Admin: 03/12/17 09:26 Dose: 13.77 mls/hr Losartan Potassium (Cozaar -) 50 mg PO DAILY [facility] Last Admin: 03/12/17 09:46 Dose: 50 mg Melatonin (Melatonin) 5 mg PO HS [facility] Metoprolol Succinate (Toprol Xl -) 25 mg PO DAILY [facility] Last Admin: 03/12/17 09:46 Dose: 25 mg Pantoprazole Sodium (Protonix -) 40 mg PO DAILY [facility] Last Admin: 03/12/17 09:46 Dose: 40 mg Silver Sulfadiazine (Silvadene -) 1 applic TP DAILY [facility] Last Admin: 03/12/17 11:18 Dose: 1 applic Constitutional: Yes: NAD Eyes: Yes: WNL, Conjunctiva Clear, EOM Intact HENT: Yes: WNL, Atraumatic, Normocephalic Neck: Yes: WNL, Supple, Trachea Midline Respiratory: Yes: Diminished breath sounds Gastrointestinal: Yes: WNL, Normal Bowel Sounds Renal/: Yes: WNL Cardiovascular: Yes: WNL, Regular Rate and Rhythm Musculoskeletal: Yes: WNL Extremities: Yes: WNL Integumentary: Yes: WNL Neurological: Yes: WNL, Alert, Oriented ...Motor Strength: WNL Psychiatric: Yes: WNL, Alert, Oriented Laboratory Results - last 24 hr 03/11/17 03/12/17 03/12/17 18:45 05:48 05:48 WBC 5.7 RBC 3.40 L Hgb 10.2 L Hct 30.0 L MCV 88.1 MCH 30.1 MCHC 34.2 RDW 14.0 Plt Count 41 L MPV 8.2 D Neutrophils % 64.6 Lymphocytes % 25.4 Monocytes % 6.8 Eosinophils % 2.6 Basophils % 0.6 PT with INR 16.30 H INR 1.47 H PTT (Actin FS) 59.3 H 40.0 H D POC Glucometer 03/12/17 08:40 WBC RBC Hgb Hct MCV MCH MCHC RDW Plt Count MPV Neutrophils % Lymphocytes % Monocytes % Eosinophils % Basophils % PT with INR INR PTT (Actin FS) POC Glucometer 166 Problem List - Problems (1) ABENA (obstructive sleep apnea) Code(s): G47.33 - OBSTRUCTIVE SLEEP APNEA (ADULT) (PEDIATRIC) (2) PAF (paroxysmal atrial fibrillation) Code(s): I48.0 - PAROXYSMAL ATRIAL FIBRILLATION (3) Pulmonary emboli Code(s): I26.99 - OTHER PULMONARY EMBOLISM WITHOUT ACUTE COR PULMONALE (4) Breast CA Code(s): C50.919 - MALIGNANT NEOPLASM OF UNSP SITE OF UNSPECIFIED FEMALE BREAST (5) Diabetes Code(s): E11.9 - TYPE 2 DIABETES MELLITUS WITHOUT COMPLICATIONS (6) HTN (hypertension) Code(s): I10 - ESSENTIAL (PRIMARY) HYPERTENSION (7) Obesity Code(s): E66.9 - OBESITY, UNSPECIFIED (8) Thrombocytopenia Code(s): D69.6 - THROMBOCYTOPENIA, UNSPECIFIED IMP THROMBOCYTOPENIA -> SUSPECTED HIT RECENT PROVOKED BILATERAL PE BREAST CA S/P MASTECTOMY OSAS DM PLAN MONITOR PLT CT ARGATROBAN O2 NEEDED AMBULATE TOLERATED DR TREJO
[2017-03-12 13:31] LABS: LAC INTERPRETATION Comment: (.)
--- NOTE | 2017-03-12 15:13 | PN ---
Progress Note (short form) - Note Progress Note: feels well no chills no fever no dysuria diarrhea much improved- almost resolved Vital Signs Period Temp Pulse Resp BP Sys/Beck Pulse Ox Last 24 Hr 97.6 F-98.5 F 75-85 18-20 131-148/69-81 97-98 cor-rrr lungs clear abd soft,nt ext no edema CBC, BMP 03/12/17 05:48 03/11/17 06:00 Microbiology 03/09/17 19:45 Blood - Peripheral Venous Blood Culture - Preliminary NO GROWTH OBTAINED AFTER 48 HOURS, INCUBATION TO CONTINUE FOR 3 DAYS. 03/09/17 18:00 Blood - Peripheral Venous Blood Culture - Preliminary NO GROWTH OBTAINED AFTER 48 HOURS, INCUBATION TO CONTINUE FOR 3 DAYS. 03/10/17 11:59 Urine - Urine Clean Catch Urine Culture - Final Contaminated: Please Repeat a/p thrombocytopenia secondary to HIT no need for antiibotics at this time (UA negative, blood cultures are negative) please call back if needed
[2017-03-12] MEDS: MELATONIN 5 MG TABLETS PO SCH ×2 (21:00→22:00)
[2017-03-12] MEDS ORDERED: PT OWN MED DRAWER 7, Y5N ONE (22:32)
[2017-03-13 07:46] LABS: BASOPHIL 0.7 % (0-2.0); EOSINOPHIL 2.8 % (0-4.5); MCH 29.9 pg (25.7-33.7); MCHC 33.7 g/dl (32.0-36.0); MEAN CELL VOLUME 88.8 fl (80-96); MEAN PLT VOLUME 8.1 fl (7.5-11.1); NEUTROPHILS 62.3 % (42.8-82.8); PLATELET COUNT 46 K/MM3 (134-434); RDW 14.2 % (11.6-15.6); WHITE BLOOD COUNT 5.8 K/mm3 (4.0-10.0)
[2017-03-13 08:00] LABS: INR 1.71 (0.82-1.09)
[2017-03-13 08:03] LABS: ACTIVATED PTT 50.4 SECONDS (26.9-34.4)
[2017-03-13 08:22] LABS: ANION GAP 11 (8-16); CALCIUM 8.9 mg/dL (8.5-10.1); CO2 23 mmol/L (21-32); CREATININE 0.9 mg/dL (0.55-1.02); GLUCOSE,RANDOM 128 mg/dL (74-106)
--- NOTE | 2017-03-13 08:56 | PN ---
Progress Note, Physician History of Present Illness: "The patient is a 66 year old female, with a significant past medical history of PE on lovenox, HTN, diabetes mellitus, gout, and breast cancer s/p right mastectomy around 7 weeks ago (January 20) who was referred to the emergency department by her PCP due to low blood platelet count. She states she was started on lovenox 2 weeks ago when she was diagnosed with acute PE. Patient denies currently experiencing any chest pain or palpitations but admits to SOB from time to time. She denies experiencing any new bruises. She denies recent fevers, chills, headache or dizziness. She denies recent nausea, vomit, diarrhea or constipation. She denies recent dysuria, frequency, urgency or hematuria. She denies recent chest pain. Allergies: NKA Past surgical history: Right masectomy Social history: Nonsmoker. Denies EtOH use and recreational drug use. Primary Care Physician: Carrie Price M.D. " - Current Medication List Current Medications: Active Medications Allopurinol (Zyloprim -) 300 mg PO DAILY [facility] Last Admin: 03/12/17 09:46 Dose: 300 mg Diltiazem HCl (Cardizem Cd -) 120 mg PO DAILY [facility] Last Admin: 03/12/17 09:46 Dose: 120 mg Fenofibric Acid (Trilipix -) 135 mg PO DAILY [facility] Last Admin: 03/12/17 09:46 Dose: Not Given Guaifenesin (Robitussin Dm -) 10 ml PO Q6H PRN PRN Reason: COUGH Last Admin: 03/12/17 09:46 Dose: 10 ml Hydrochlorothiazide (Hctz -) 12.5 mg PO DAILY [facility] Last Admin: 03/12/17 09:46 Dose: 12.5 mg Argatroban 250,000 mcg/ Sodium (Chloride) 250 mls @ 13.77 mls/hr IVPB TITR [facility] ; 2 MCG/KG/MIN PRN Reason: Protocol Last Admin: 03/12/17 18:25 Dose: 13.77 mls/hr Losartan Potassium (Cozaar -) 50 mg PO DAILY [facility] Last Admin: 03/12/17 09:46 Dose: 50 mg Melatonin (Melatonin) 5 mg PO HS [facility] Last Admin: 03/12/17 22:00 Dose: 5 mg Metoprolol Succinate (Toprol Xl -) 25 mg PO DAILY [facility] Last Admin: 03/12/17 09:46 Dose: 25 mg Pantoprazole Sodium (Protonix -) 40 mg PO DAILY [facility] Last Admin: 03/12/17 09:46 Dose: 40 mg Silver Sulfadiazine (Silvadene -) 1 applic TP DAILY [facility] Last Admin: 03/12/17 11:18 Dose: 1 applic - Objective Vital Signs: Vital Signs Temperature 98.2 F 03/13/17 07:00 Pulse Rate 62 03/13/17 07:00 Respiratory Rate 20 03/13/17 07:00 Blood Pressure 137/67 03/13/17 07:00 O2 Sat by Pulse Oximetry (%) 96 03/12/17 21:00 Eyes: Yes: WNL, Conjunctiva Clear, EOM Intact HENT: Yes: WNL, Atraumatic, Normocephalic Neck: Yes: WNL, Supple, Trachea Midline Cardiovascular: Yes: WNL, Regular Rate and Rhythm Respiratory: Yes: WNL, Regular, CTA Bilaterally Gastrointestinal: Yes: WNL, Normal Bowel Sounds Genitourinary: Yes: WNL Musculoskeletal: Yes: WNL Extremities: Yes: WNL Edema: No Integumentary: Yes: WNL Neurological: Yes: WNL, Alert, Oriented ...Motor Strength: WNL Psychiatric: Yes: WNL Labs: CBC, BMP 03/13/17 05:45 03/13/17 05:45 INR, PTT INR 1.71 (0.82-1.09) H 03/13/17 05:45 Fibrinogen 176.0 mg/dL (238-498) L 03/09/17 18:00 Problem List - Problems (1) Thrombocytopenia Code(s): D69.6 - THROMBOCYTOPENIA, UNSPECIFIED (2) Cellulitis Code(s): L03.90 - CELLULITIS, UNSPECIFIED (3) Chronic instability of right knee Code(s): M23.51 - CHRONIC INSTABILITY OF KNEE, RIGHT KNEE (4) ABENA (obstructive sleep apnea) Code(s): G47.33 - OBSTRUCTIVE SLEEP APNEA (ADULT) (PEDIATRIC) (5) PAF (paroxysmal atrial fibrillation) Code(s): I48.0 - PAROXYSMAL ATRIAL FIBRILLATION (6) Pulmonary emboli Code(s): I26.99 - OTHER PULMONARY EMBOLISM WITHOUT ACUTE COR PULMONALE Qualifiers: Pulmonary embolism type: other (7) Breast CA Code(s): C50.919 - MALIGNANT NEOPLASM OF UNSP SITE OF UNSPECIFIED FEMALE BREAST Qualifiers: Patient sex: female Laterality: right (8) Diabetes Code(s): E11.9 - TYPE 2 DIABETES MELLITUS WITHOUT COMPLICATIONS Qualifiers: Diabetes mellitus type: type 2 Diabetes mellitus complication status: without complication Diabetes mellitus intermediate manager insulin use: without intermediate manager use Qualified Code(s): E11.9 - Type 2 diabetes mellitus without complications (9) Diastolic CHF Code(s): I50.30 - UNSPECIFIED DIASTOLIC (CONGESTIVE) HEART FAILURE (10) HTN (hypertension) Code(s): I10 - ESSENTIAL (PRIMARY) HYPERTENSION Qualifiers: Hypertension type: essential hypertension Qualified Code(s): I10 - Essential (primary) hypertension (11) Hypertriglyceridemia Code(s): E78.1 - PURE HYPERGLYCERIDEMIA (12) Obesity Code(s): E66.9 - OBESITY, UNSPECIFIED (13) Paget's disease of right breast Code(s): C50.011 - MALIGNANT NEOPLASM OF NIPPLE AND AREOLA, RIGHT FEMALE BREAST Assessment/Plan - Problems (1) Thrombocytopenia Assessment/Plan: Started agatroban. start warfarin when directed to by Dr. Guerrero, waste water operator.\\ Platelets 24-->39 in past 48 hours. Code(s): D69.6 - THROMBOCYTOPENIA, UNSPECIFIED (2) Cellulitis Code(s): L03.90 - CELLULITIS, UNSPECIFIED (3) ABENA (obstructive sleep apnea) Assessment/Plan: f/u sleep studies. Code(s): G47.33 - OBSTRUCTIVE SLEEP APNEA (ADULT) (PEDIATRIC) (4) Chronic instability of right knee Code(s): M23.51 - CHRONIC INSTABILITY OF KNEE, RIGHT KNEE (5) PAF (paroxysmal atrial fibrillation) Code(s): I48.0 - PAROXYSMAL ATRIAL FIBRILLATION (6) Pulmonary emboli Assessment/Plan: On agatraban until able to start warfarin. Code(s): I26.99 - OTHER PULMONARY EMBOLISM WITHOUT ACUTE COR PULMONALE Qualifiers: Pulmonary embolism type: other (7) Breast CA Code(s): C50.919 - MALIGNANT NEOPLASM OF UNSP SITE OF UNSPECIFIED FEMALE BREAST Qualifiers: Patient sex: female Laterality: right (8) Diabetes Code(s): E11.9 - TYPE 2 DIABETES MELLITUS WITHOUT COMPLICATIONS Qualifiers: Diabetes mellitus type: type 2 Diabetes mellitus complication status: without complication Diabetes mellitus intermediate manager insulin use: without senior living use Qualified Code(s): E11.9 - Type 2 diabetes mellitus without complications (9) Diastolic CHF Code(s): I50.30 - UNSPECIFIED DIASTOLIC (CONGESTIVE) HEART FAILURE (10) HTN (hypertension) Assessment/Plan: on metoprolol, diltiazem, and losartan, Serial BP checks; increse losartan to 100 mg daily if necessary. F/u EKG Code(s): I10 - ESSENTIAL (PRIMARY) HYPERTENSION Qualifiers: Hypertension type: essential hypertension Qualified Code(s): I10 - Essential (primary) hypertension (11) Hypertriglyceridemia Assessment/Plan: On Trilipix. Code(s): E78.1 - PURE HYPERGLYCERIDEMIA (12) Obesity Assessment/Plan: f/u with asphalt roller operator. Code(s): E66.9 - OBESITY, UNSPECIFIED (13) Paget's disease of right breast Code(s): C50.011 - MALIGNANT NEOPLASM OF NIPPLE AND AREOLA, RIGHT FEMALE BREAST
[2017-03-13] MEDS: ARGATROBAN - 250,000 MCG in SODIUM CHLORIDE 247.5 ML IVPB SCH (09:20)
[2017-03-13] MEDS: HYDROCHLOROTHIAZIDE 12.5 MG CAPSULE (FP) PO SCH (09:26)
[2017-03-13] MEDS: ALLOPURINOL 300 MG TABLET (FP) PO SCH (09:26)
[2017-03-13] MEDS: METOPROLOL SUCCINATE 25 MG TAB.SR.24H (FP) PO SCH (09:26)
[2017-03-13] MEDS: LOSARTAN POTASSIUM 50 MG TABLET (FP) PO SCH (09:26)
[2017-03-13] MEDS: FENOFIBRIC ACID 135 MG CAP PO SCH (09:26)
[2017-03-13] MEDS: guaiFENesin/D-METHORPHAN HB 10 ML UNIT-DOSE CUPS PO PRN (09:26)
[2017-03-13] MEDS: PANTOPRAZOLE 40 MG TABLET (FP) PO SCH (09:26)
[2017-03-13] MEDS: SILVER SULFADIAZINE 1% TOP CREAM 50 GM JAR TP SCH (12:23)
--- NOTE | 2017-03-13 12:32 | PN ---
Progress Note (short form) - Note Progress Note: Hematology/Oncology Progress Note S : Patient feels well when visited today, no complaints Last Vital Signs Temp Pulse Resp BP Pulse Ox 98.2 F 62 20 137/67 96 03/13/17 07:00 03/13/17 07:00 03/13/17 07:00 03/13/17 07:00 03/12/17 21:00 . Patient seen and examined Pleasant and in no distress Breasts: right breast reconstruction. Incision is healing Cor: RSR, No murmurs, No gallops Lungs: Clear to P&A Abd: Soft, Normal bowel sounds, healing abdominal incision Ext:No significant edema Skin: No rashes, Integument intact CBC, BMP 03/13/17 05:45 03/13/17 05:45 Current Medications Generic Name Dose Route Start Last Admin Trade Name Freq PRN Reason Stop Dose Admin Allopurinol 300 mg 03/10/17 10:00 03/13/17 09:26 Zyloprim - PO 300 mg DAILY [facility] Administration Diltiazem HCl 120 mg 03/10/17 10:00 03/13/17 09:26 Cardizem Cd - PO 120 mg DAILY [facility] Administration Fenofibric Acid 135 mg 03/10/17 10:00 03/13/17 09:26 Trilipix - PO Not Given DAILY [facility] Guaifenesin 10 ml 03/10/17 17:20 03/13/17 09:26 Robitussin Dm - PO 10 ml Q6H PRN Administration COUGH Hydrochlorothiazide 12.5 mg 03/12/17 10:00 03/13/17 09:26 Hctz - PO 12.5 mg DAILY [facility] Administration Argatroban 250,000 mcg/ Sodium 250 mls @ 13.77 mls/hr 03/09/17 18:00 03/13/17 09:20 Chloride IVPB 13.77 mls/hr TITR [facility] Administration Protocol 2 MCG/KG/MIN Losartan Potassium 50 mg 03/10/17 10:00 03/13/17 09:26 Cozaar - PO 50 mg DAILY [facility] Administration Melatonin 5 mg 03/12/17 20:00 03/12/17 22:00 Melatonin PO 5 mg HS [facility] Administration Metoprolol Succinate 25 mg 03/10/17 10:00 03/13/17 09:26 Toprol Xl - PO 25 mg DAILY [facility] Administration Pantoprazole Sodium 40 mg 03/11/17 10:00 03/13/17 09:26 Protonix - PO 40 mg DAILY [facility] Administration Silver Sulfadiazine 1 applic 03/10/17 12:30 03/13/17 12:23 Silvadene - TP 1 applic DAILY [facility] Administration A/P : 66 y/o patient s/p Rt. 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 on argatroban -- PTT goal of 45-60, platelet count is improving, follow-up evening PTT and adjust drip accordingly will hold coumadin until platelets normalize ( goal of 150K to start coumadin) f/u on [facility]PL[facility] labs.
--- NOTE | 2017-03-13 13:15 | PN ---
Progress Note (short form) - Note Progress Note: OOB to chair. NAD on RA. Breathing feels overall better, but still with some SCHILLING. No CP. Platelets 46K. Intake & Output 03/10/17 03/11/17 03/12/17 03/13/17 23:59 23:59 23:59 23:59 Intake Total 949 1405.6 645 Balance 949 1405.6 645 Last Vital Signs Temp Pulse Resp BP Pulse Ox 98.2 F 62 20 137/67 96 03/13/17 07:00 03/13/17 07:00 03/13/17 07:00 03/13/17 07:00 03/12/17 21:00 Active Medications Allopurinol (Zyloprim -) 300 mg PO DAILY [facility] Last Admin: 03/13/17 09:26 Dose: 300 mg Diltiazem HCl (Cardizem Cd -) 120 mg PO DAILY [facility] Last Admin: 03/13/17 09:26 Dose: 120 mg Fenofibric Acid (Trilipix -) 135 mg PO DAILY [facility] Last Admin: 03/13/17 09:26 Dose: Not Given Guaifenesin (Robitussin Dm -) 10 ml PO Q6H PRN PRN Reason: COUGH Last Admin: 03/13/17 09:26 Dose: 10 ml Hydrochlorothiazide (Hctz -) 12.5 mg PO DAILY [facility] Last Admin: 03/13/17 09:26 Dose: 12.5 mg Argatroban 250,000 mcg/ Sodium (Chloride) 250 mls @ 13.77 mls/hr IVPB TITR [facility] ; 2 MCG/KG/MIN PRN Reason: Protocol Last Admin: 03/13/17 09:20 Dose: 13.77 mls/hr Losartan Potassium (Cozaar -) 50 mg PO DAILY [facility] Last Admin: 03/13/17 09:26 Dose: 50 mg Melatonin (Melatonin) 5 mg PO HS [facility] Last Admin: 03/12/17 22:00 Dose: 5 mg Metoprolol Succinate (Toprol Xl -) 25 mg PO DAILY [facility] Last Admin: 03/13/17 09:26 Dose: 25 mg Pantoprazole Sodium (Protonix -) 40 mg PO DAILY [facility] Last Admin: 03/13/17 09:26 Dose: 40 mg Silver Sulfadiazine (Silvadene -) 1 applic TP DAILY [facility] Last Admin: 03/13/17 12:23 Dose: 1 applic Constitutional: Yes: NAD Eyes: Yes: WNL, Conjunctiva Clear, EOM Intact HENT: Yes: WNL, Atraumatic, Normocephalic Neck: Yes: WNL, Supple, Trachea Midline Respiratory: Yes: Diminished breath sounds Gastrointestinal: Yes: WNL, Normal Bowel Sounds Renal/: Yes: WNL Cardiovascular: Yes: WNL, Regular Rate and Rhythm Musculoskeletal: Yes: WNL Extremities: Yes: WNL Integumentary: Yes: WNL Neurological: Yes: WNL, Alert, Oriented ...Motor Strength: WNL Psychiatric: Yes: WNL, Alert, Oriented Laboratory Results - last 24 hr 03/09/17 03/12/17 03/13/17 18:00 17:05 05:45 WBC 5.8 RBC 3.49 L Hgb 10.4 L Hct 31.0 L MCV 88.8 MCH 29.9 MCHC 33.7 RDW 14.2 Plt Count 46 L MPV 8.1 Neutrophils % 62.3 Lymphocytes % 27.0 Monocytes % 7.2 Eosinophils % 2.8 Basophils % 0.7 PT with INR INR PTT (Actin FS) 51.7 H LA PTT Baseline 43.7 dRVVT Confirm Interp 50.3 H dRVVT Mixing Study 42.7 Sodium Potassium Chloride Carbon Dioxide Anion Gap BUN Creatinine POC Glucometer Random Glucose Calcium 03/13/17 03/13/17 03/13/17 05:45 05:45 06:20 WBC RBC Hgb Hct MCV MCH MCHC RDW Plt Count MPV Neutrophils % Lymphocytes % Monocytes % Eosinophils % Basophils % PT with INR 19.00 H INR 1.71 H PTT (Actin FS) 50.4 H LA PTT Baseline dRVVT Confirm Interp dRVVT Mixing Study Sodium 142 Potassium 3.9 Chloride 108 H Carbon Dioxide 23 Anion Gap 11 BUN 13 Creatinine 0.9 POC Glucometer 132 Random Glucose 128 H Calcium 8.9 Problem List - Problems (1) ABENA (obstructive sleep apnea) Code(s): G47.33 - OBSTRUCTIVE SLEEP APNEA (ADULT) (PEDIATRIC) (2) PAF (paroxysmal atrial fibrillation) Code(s): I48.0 - PAROXYSMAL ATRIAL FIBRILLATION (3) Pulmonary emboli Code(s): I26.99 - OTHER PULMONARY EMBOLISM WITHOUT ACUTE COR PULMONALE (4) Breast CA Code(s): C50.919 - MALIGNANT NEOPLASM OF UNSP SITE OF UNSPECIFIED FEMALE BREAST (5) Diabetes Code(s): E11.9 - TYPE 2 DIABETES MELLITUS WITHOUT COMPLICATIONS (6) HTN (hypertension) Code(s): I10 - ESSENTIAL (PRIMARY) HYPERTENSION (7) Obesity Code(s): E66.9 - OBESITY, UNSPECIFIED (8) Thrombocytopenia Code(s): D69.6 - THROMBOCYTOPENIA, UNSPECIFIED IMP THROMBOCYTOPENIA -> HIT RECENT PROVOKED BILATERAL PE BREAST CA S/P MASTECTOMY OSAS DM PLAN MONITOR PLT CT ARGATROBAN O2 NEEDED AMBULATE TOLERATED DR TREJO
--- NOTE | 2017-03-13 15:55 | PN ---
Progress Note, Physician Chief Complaint: No new complaints - Current Medication List Current Medications: Active Medications Allopurinol (Zyloprim -) 300 mg PO DAILY [facility] Last Admin: 03/13/17 09:26 Dose: 300 mg Diltiazem HCl (Cardizem Cd -) 120 mg PO DAILY [facility] Last Admin: 03/13/17 09:26 Dose: 120 mg Fenofibric Acid (Trilipix -) 135 mg PO DAILY [facility] Last Admin: 03/13/17 09:26 Dose: Not Given Guaifenesin (Robitussin Dm -) 10 ml PO Q6H PRN PRN Reason: COUGH Last Admin: 03/13/17 09:26 Dose: 10 ml Hydrochlorothiazide (Hctz -) 12.5 mg PO DAILY [facility] Last Admin: 03/13/17 09:26 Dose: 12.5 mg Argatroban 250,000 mcg/ Sodium (Chloride) 250 mls @ 13.77 mls/hr IVPB TITR [facility] ; 2 MCG/KG/MIN PRN Reason: Protocol Last Admin: 03/13/17 09:20 Dose: 13.77 mls/hr Losartan Potassium (Cozaar -) 50 mg PO DAILY [facility] Last Admin: 03/13/17 09:26 Dose: 50 mg Melatonin (Melatonin) 5 mg PO HS [facility] Last Admin: 03/12/17 22:00 Dose: 5 mg Metoprolol Succinate (Toprol Xl -) 25 mg PO DAILY [facility] Last Admin: 03/13/17 09:26 Dose: 25 mg Pantoprazole Sodium (Protonix -) 40 mg PO DAILY [facility] Last Admin: 03/13/17 09:26 Dose: 40 mg Silver Sulfadiazine (Silvadene -) 1 applic TP DAILY [facility] Last Admin: 03/13/17 12:23 Dose: 1 applic - Objective Vital Signs: Vital Signs Temperature 97.5 F L 03/13/17 14:00 Pulse Rate 73 03/13/17 14:00 Respiratory Rate 20 03/13/17 07:00 Blood Pressure 137/80 03/13/17 14:00 O2 Sat by Pulse Oximetry (%) 96 03/12/17 21:00 Constitutional: Yes: No Distress Neck: Yes: Supple Cardiovascular: Yes: Regular Rate and Rhythm, S1, S2 Respiratory: Yes: Regular, CTA Bilaterally Gastrointestinal: Yes: Normal Bowel Sounds, Soft Neurological: Yes: Alert, Oriented. No: Loss of Sensation ...Motor Strength: WNL Labs: CBC, BMP 03/13/17 05:45 03/13/17 05:45 INR, PTT INR 1.71 (0.82-1.09) H 03/13/17 05:45 Fibrinogen 176.0 mg/dL (238-498) L 03/09/17 18:00 Problem List - Problems (1) Thrombocytopenia Assessment/Plan: Plt count stable Code(s): D69.6 - THROMBOCYTOPENIA, UNSPECIFIED
[2017-03-13] MEDS ORDERED: PT OWN MED DRAWER 7, Y5N ONE (20:49)
[2017-03-13] MEDS: MELATONIN 5 MG TABLETS PO SCH (21:19)
[2017-03-14] MEDS: ARGATROBAN - 250,000 MCG in SODIUM CHLORIDE 247.5 ML IVPB SCH ×3 (01:44→21:13)
[2017-03-14 07:26] LABS: BASOPHIL 0.8 % (0-2.0); EOSINOPHIL 3.1 % (0-4.5); MCH 29.5 pg (25.7-33.7); MCHC 33.2 g/dl (32.0-36.0); MEAN PLT VOLUME 8.5 fl (7.5-11.1); NEUTROPHILS 63.1 % (42.8-82.8); PLATELET COUNT 55 K/MM3 (134-434); RDW 14.2 % (11.6-15.6)
[2017-03-14 07:35] LABS: INR 1.8 (0.82-1.09)
[2017-03-14 07:37] LABS: ACTIVATED PTT 55.3 SECONDS (26.9-34.4)
--- NOTE | 2017-03-14 09:09 | PN ---
Progress Note (short form) - Note Progress Note: No new complaints, dry cough persists. CBC, BMP 03/14/17 05:35 03/13/17 05:45 Vital Signs Period Temp Pulse Resp BP Sys/Beck Pulse Ox Last 24 Hr 97.5 F-98.3 F 66-75 19-20 132-153/50-92 97 S1S2 RRR LUNGS CTA decreased pedal edema bruising resolving Imp Heparin Induced Thrombocytopenia recent bilateral pulmonary embolism following reconstructive breast surgery after mastectomy. Paget's disease NIDDM HTN h/o afib-paroxysmal with PE diagnosis-none on telemetry so far Plan Argatroban while monitoring plt count close monitoring for bleeding problems once thrombocytes over 150 will have to be bridged to warfarin continue other care Problem List - Problems (1) Thrombocytopenia Code(s): D69.6 - THROMBOCYTOPENIA, UNSPECIFIED (2) PAF (paroxysmal atrial fibrillation) Code(s): I48.0 - PAROXYSMAL ATRIAL FIBRILLATION (3) Pulmonary emboli Code(s): I26.99 - OTHER PULMONARY EMBOLISM WITHOUT ACUTE COR PULMONALE Qualifiers: Pulmonary embolism type: other (4) Breast CA Code(s): C50.919 - MALIGNANT NEOPLASM OF UNSP SITE OF UNSPECIFIED FEMALE BREAST Qualifiers: Patient sex: female Laterality: right (5) Diabetes Code(s): E11.9 - TYPE 2 DIABETES MELLITUS WITHOUT COMPLICATIONS Qualifiers: Diabetes mellitus type: type 2 Diabetes mellitus complication status: without complication Diabetes mellitus intermediate project manager insulin use: without intermediate project manager use Qualified Code(s): E11.9 - Type 2 diabetes mellitus without complications (6) HTN (hypertension) Code(s): I10 - ESSENTIAL (PRIMARY) HYPERTENSION Qualifiers: Hypertension type: essential hypertension Qualified Code(s): I10 - Essential (primary) hypertension
[2017-03-14] MEDS ORDERED: PT OWN MED DRAWER 7, Y5N ONE ×4 (10:25→22:08)
[2017-03-14] MEDS: LACTOBACILLUS ACIDOPHILUS 1 EACH TAB (FP) PO SCH (10:42)
[2017-03-14] MEDS: ALLOPURINOL 300 MG TABLET (FP) PO SCH (10:42)
[2017-03-14] MEDS: LOSARTAN POTASSIUM 50 MG TABLET (FP) PO SCH (10:42)
[2017-03-14] MEDS: FENOFIBRIC ACID 135 MG CAP PO SCH (10:43)
[2017-03-14] MEDS: PANTOPRAZOLE 40 MG TABLET (FP) PO SCH (10:43)
[2017-03-14] MEDS: HYDROCHLOROTHIAZIDE 12.5 MG CAPSULE (FP) PO SCH (10:43)
[2017-03-14] MEDS: METOPROLOL SUCCINATE 25 MG TAB.SR.24H (FP) PO SCH (10:43)
[2017-03-14] MEDS: guaiFENesin/D-METHORPHAN HB 10 ML UNIT-DOSE CUPS PO PRN (10:51)
[2017-03-14] MEDS: SILVER SULFADIAZINE 1% TOP CREAM 50 GM JAR TP SCH (11:27)
--- NOTE | 2017-03-14 11:29 | PN ---
Progress Note, Physician History of Present Illness: pulmonary alert,nad,oob-chair,-tachypnea - Current Medication List Current Medications: Active Medications Allopurinol (Zyloprim -) 300 mg PO DAILY [facility] Last Admin: 03/14/17 10:42 Dose: 300 mg Diltiazem HCl (Cardizem Cd -) 120 mg PO DAILY [facility] Last Admin: 03/14/17 10:42 Dose: 120 mg Fenofibric Acid (Trilipix -) 135 mg PO DAILY [facility] Last Admin: 03/14/17 10:43 Dose: Not Given Guaifenesin (Robitussin Dm -) 10 ml PO Q6H PRN PRN Reason: COUGH Last Admin: 03/14/17 10:51 Dose: 10 ml Hydrochlorothiazide (Hctz -) 12.5 mg PO DAILY [facility] Last Admin: 03/14/17 10:43 Dose: 12.5 mg Argatroban 250,000 mcg/ Sodium (Chloride) 250 mls @ 13.82 mls/hr IVPB TITR [facility] ; 2 MCG/KG/MIN PRN Reason: Protocol Last Titration: 03/14/17 01:45 Dose: 2.16 mcg/kg/min Lactobacillus Acidophilus (Bacid -) 2 tab PO DAILY [facility] Last Admin: 03/14/17 10:42 Dose: 2 tab Losartan Potassium (Cozaar -) 50 mg PO DAILY [facility] Last Admin: 03/14/17 10:42 Dose: 50 mg Melatonin (Melatonin) 5 mg PO HS [facility] Last Admin: 03/13/17 21:19 Dose: 5 mg Metoprolol Succinate (Toprol Xl -) 25 mg PO DAILY [facility] Last Admin: 03/14/17 10:43 Dose: 25 mg Pantoprazole Sodium (Protonix -) 40 mg PO DAILY [facility] Last Admin: 03/14/17 10:43 Dose: 40 mg Silver Sulfadiazine (Silvadene -) 1 applic TP DAILY [facility] Last Admin: 03/13/17 12:23 Dose: 1 applic - Objective Vital Signs: Vital Signs Temperature 98 F 03/14/17 10:00 Pulse Rate 84 03/14/17 10:00 Respiratory Rate 18 03/14/17 10:00 Blood Pressure 124/58 03/14/17 10:00 O2 Sat by Pulse Oximetry (%) 97 03/13/17 21:00 Constitutional: Yes: Well Nourished, Calm Eyes: Yes: WNL HENT: Yes: WNL Neck: Yes: WNL Cardiovascular: Yes: Regular Rate and Rhythm, S1, S2 Respiratory: Yes: CTA Bilaterally Gastrointestinal: Yes: Normal Bowel Sounds, Soft Extremities: Yes: WNL Edema: Yes Labs: CBC, BMP 03/14/17 05:35 03/13/17 05:45 INR, PTT INR 1.80 (0.82-1.09) H 03/14/17 05:35 Fibrinogen 176.0 mg/dL (238-498) L 03/09/17 18:00 Problem List - Problems (1) ABENA (obstructive sleep apnea) Code(s): G47.33 - OBSTRUCTIVE SLEEP APNEA (ADULT) (PEDIATRIC) (2) PAF (paroxysmal atrial fibrillation) Code(s): I48.0 - PAROXYSMAL ATRIAL FIBRILLATION (3) Pulmonary emboli Code(s): I26.99 - OTHER PULMONARY EMBOLISM WITHOUT ACUTE COR PULMONALE Qualifiers: Pulmonary embolism type: other (4) Breast CA Code(s): C50.919 - MALIGNANT NEOPLASM OF UNSP SITE OF UNSPECIFIED FEMALE BREAST Qualifiers: Patient sex: female Laterality: right (5) Diabetes Code(s): E11.9 - TYPE 2 DIABETES MELLITUS WITHOUT COMPLICATIONS Qualifiers: Diabetes mellitus type: type 2 Diabetes mellitus complication status: without complication 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 use: without group home use Qualified Code(s): E11.9 - Type 2 diabetes mellitus without complications (6) HTN (hypertension) Code(s): I10 - ESSENTIAL (PRIMARY) HYPERTENSION Qualifiers: Hypertension type: essential hypertension Qualified Code(s): I10 - Essential (primary) hypertension (7) Obesity Code(s): E66.9 - OBESITY, UNSPECIFIED (8) Thrombocytopenia Code(s): D69.6 - THROMBOCYTOPENIA, UNSPECIFIED Assessment/Plan Progress Note: PULMONARY IMP THROMBOCYTOPENIA LIKELY HIT RECENT BILATERAL EMBOLI PROVOKED BREAST CA S/P MASTECTOMY OSAS DM PULMONARY HTN PLAN MONITOR PLT CT ARGATROBAN DR GONZALEZ Problem List - Problems (1) ABENA (obstructive sleep apnea) Code(s): G47.33 - OBSTRUCTIVE SLEEP APNEA (ADULT) (PEDIATRIC) (2) PAF (paroxysmal atrial fibrillation) Code(s): I48.0 - PAROXYSMAL ATRIAL FIBRILLATION (3) Pulmonary emboli Code(s): I26.99 - OTHER PULMONARY EMBOLISM WITHOUT ACUTE COR PULMONALE (4) Breast CA Code(s): C50.919 - MALIGNANT NEOPLASM OF UNSP SITE OF UNSPECIFIED FEMALE BREAST (5) Diabetes Code(s): E11.9 - TYPE 2 DIABETES MELLITUS WITHOUT COMPLICATIONS (6) HTN (hypertension) Code(s): I10 - ESSENTIAL (PRIMARY) HYPERTENSION (7) Obesity Code(s): E66.9 - OBESITY, UNSPECIFIED (8) Thrombocytopenia Code(s): D69.6 - THROMBOCYTOPENIA, UNSPECIFIED
--- NOTE | 2017-03-14 13:05 | PN ---
Progress Note, Physician History of Present Illness: "The patient is a 66 year old female, with a significant past medical history of PE on lovenox, HTN, diabetes mellitus, gout, and breast cancer s/p right mastectomy around 7 weeks ago (January 20) who was referred to the emergency department by her PCP due to low blood platelet count. She states she was started on lovenox 2 weeks ago when she was diagnosed with acute PE. Patient denies currently experiencing any chest pain or palpitations but admits to SOB from time to time. She denies experiencing any new bruises. She denies recent fevers, chills, headache or dizziness. She denies recent nausea, vomit, diarrhea or constipation. She denies recent dysuria, frequency, urgency or hematuria. She denies recent chest pain. Allergies: NKA Past surgical history: Right masectomy Social history: Nonsmoker. Denies EtOH use and recreational drug use. Primary Care Physician: Carrie Price M.D. " - Current Medication List Current Medications: Active Medications Allopurinol (Zyloprim -) 300 mg PO DAILY [facility] Last Admin: 03/14/17 10:42 Dose: 300 mg Diltiazem HCl (Cardizem Cd -) 120 mg PO DAILY [facility] Last Admin: 03/14/17 10:42 Dose: 120 mg Fenofibric Acid (Trilipix -) 135 mg PO DAILY [facility] Last Admin: 03/14/17 10:43 Dose: Not Given Guaifenesin (Robitussin Dm -) 10 ml PO Q6H PRN PRN Reason: COUGH Last Admin: 03/14/17 10:51 Dose: 10 ml Hydrochlorothiazide (Hctz -) 12.5 mg PO DAILY [facility] Last Admin: 03/14/17 10:43 Dose: 12.5 mg Argatroban 250,000 mcg/ Sodium (Chloride) 250 mls @ 13.82 mls/hr IVPB TITR [facility] ; 2 MCG/KG/MIN PRN Reason: Protocol Last Titration: 03/14/17 01:45 Dose: 2.16 mcg/kg/min Lactobacillus Acidophilus (Bacid -) 2 tab PO DAILY [facility] Last Admin: 03/14/17 10:42 Dose: 2 tab Losartan Potassium (Cozaar -) 50 mg PO DAILY [facility] Last Admin: 03/14/17 10:42 Dose: 50 mg Melatonin (Melatonin) 5 mg PO HS [facility] Last Admin: 03/13/17 21:19 Dose: 5 mg Metoprolol Succinate (Toprol Xl -) 25 mg PO DAILY [facility] Last Admin: 03/14/17 10:43 Dose: 25 mg Pantoprazole Sodium (Protonix -) 40 mg PO DAILY [facility] Last Admin: 03/14/17 10:43 Dose: 40 mg Silver Sulfadiazine (Silvadene -) 1 applic TP DAILY [facility] Last Admin: 03/14/17 11:27 Dose: 1 applic - Objective Vital Signs: Vital Signs Temperature 98 F 03/14/17 10:00 Pulse Rate 84 03/14/17 10:00 Respiratory Rate 18 03/14/17 10:00 Blood Pressure 124/58 03/14/17 10:00 O2 Sat by Pulse Oximetry (%) 97 03/13/17 21:00 Eyes: Yes: WNL, Conjunctiva Clear, EOM Intact HENT: Yes: WNL, Atraumatic, Normocephalic Neck: Yes: WNL, Supple, Trachea Midline Cardiovascular: Yes: WNL, Regular Rate and Rhythm Respiratory: Yes: WNL, Regular, CTA Bilaterally Gastrointestinal: Yes: WNL, Normal Bowel Sounds Genitourinary: Yes: WNL Musculoskeletal: Yes: WNL Extremities: Yes: WNL Edema: No Integumentary: Yes: WNL Neurological: Yes: WNL, Alert, Oriented ...Motor Strength: WNL Psychiatric: Yes: WNL Labs: CBC, BMP 03/14/17 05:35 03/13/17 05:45 INR, PTT INR 1.80 (0.82-1.09) H 03/14/17 05:35 Fibrinogen 176.0 mg/dL (238-498) L 03/09/17 18:00 Problem List - Problems (1) Thrombocytopenia Code(s): D69.6 - THROMBOCYTOPENIA, UNSPECIFIED (2) Cellulitis Code(s): L03.90 - CELLULITIS, UNSPECIFIED (3) Chronic instability of right knee Code(s): M23.51 - CHRONIC INSTABILITY OF KNEE, RIGHT KNEE (4) ABENA (obstructive sleep apnea) Code(s): G47.33 - OBSTRUCTIVE SLEEP APNEA (ADULT) (PEDIATRIC) (5) PAF (paroxysmal atrial fibrillation) Code(s): I48.0 - PAROXYSMAL ATRIAL FIBRILLATION (6) Pulmonary emboli Code(s): I26.99 - OTHER PULMONARY EMBOLISM WITHOUT ACUTE COR PULMONALE Qualifiers: Pulmonary embolism type: other (7) Breast CA Code(s): C50.919 - MALIGNANT NEOPLASM OF UNSP SITE OF UNSPECIFIED FEMALE BREAST Qualifiers: Patient sex: female Laterality: right (8) Diabetes Code(s): E11.9 - TYPE 2 DIABETES MELLITUS WITHOUT COMPLICATIONS Qualifiers: Diabetes mellitus type: type 2 Diabetes mellitus complication status: without complication Diabetes mellitus terminal supervisor insulin use: without fpc use Qualified Code(s): E11.9 - Type 2 diabetes mellitus without complications (9) Diastolic CHF Code(s): I50.30 - UNSPECIFIED DIASTOLIC (CONGESTIVE) HEART FAILURE (10) HTN (hypertension) Code(s): I10 - ESSENTIAL (PRIMARY) HYPERTENSION Qualifiers: Hypertension type: essential hypertension Qualified Code(s): I10 - Essential (primary) hypertension (11) Hypertriglyceridemia Code(s): E78.1 - PURE HYPERGLYCERIDEMIA (12) Obesity Code(s): E66.9 - OBESITY, UNSPECIFIED (13) Paget's disease of right breast Code(s): C50.011 - MALIGNANT NEOPLASM OF NIPPLE AND AREOLA, RIGHT FEMALE BREAST Assessment/Plan - Problems (1) Thrombocytopenia Assessment/Plan: Started agatroban. start warfarin when directed to by Dr. Guerrero, dog boarder.\\ Platelets 24-->39 in past 48 hours. Code(s): D69.6 - THROMBOCYTOPENIA, UNSPECIFIED (2) Cellulitis Code(s): L03.90 - CELLULITIS, UNSPECIFIED (3) ABENA (obstructive sleep apnea) Assessment/Plan: f/u sleep studies. Code(s): G47.33 - OBSTRUCTIVE SLEEP APNEA (ADULT) (PEDIATRIC) (4) Chronic instability of right knee Code(s): M23.51 - CHRONIC INSTABILITY OF KNEE, RIGHT KNEE (5) PAF (paroxysmal atrial fibrillation) Code(s): I48.0 - PAROXYSMAL ATRIAL FIBRILLATION (6) Pulmonary emboli Assessment/Plan: On agatraban until able to start warfarin. Code(s): I26.99 - OTHER PULMONARY EMBOLISM WITHOUT ACUTE COR PULMONALE Qualifiers: Pulmonary embolism type: other (7) Breast CA Code(s): C50.919 - MALIGNANT NEOPLASM OF UNSP SITE OF UNSPECIFIED FEMALE BREAST Qualifiers: Patient sex: female Laterality: right (8) Diabetes Code(s): E11.9 - TYPE 2 DIABETES MELLITUS WITHOUT COMPLICATIONS Qualifiers: Diabetes mellitus type: type 2 Diabetes mellitus complication status: without complication Diabetes mellitus fpc insulin use: without terminal supervisor use Qualified Code(s): E11.9 - Type 2 diabetes mellitus without complications (9) Diastolic CHF Code(s): I50.30 - UNSPECIFIED DIASTOLIC (CONGESTIVE) HEART FAILURE (10) HTN (hypertension) Assessment/Plan: on metoprolol, diltiazem, and losartan, Serial BP checks; increse losartan to 100 mg daily if necessary. F/u EKG Code(s): I10 - ESSENTIAL (PRIMARY) HYPERTENSION Qualifiers: Hypertension type: essential hypertension Qualified Code(s): I10 - Essential (primary) hypertension (11) Hypertriglyceridemia Assessment/Plan: On Trilipix. Code(s): E78.1 - PURE HYPERGLYCERIDEMIA (12) Obesity Assessment/Plan: f/u with imaging administrator. Code(s): E66.9 - OBESITY, UNSPECIFIED (13) Paget's disease of right breast Code(s): C50.011 - MALIGNANT NEOPLASM OF NIPPLE AND AREOLA, RIGHT FEMALE BREAST
--- NOTE | 2017-03-14 21:44 | PN ---
Progress Note (short form) - Note Progress Note: Patient seen and examined feels cough is improved hasd semisolid BM c/o foul dischargw from umblical site Last Vital Signs Temp Pulse Resp BP Pulse Ox 97.9 F 71 18 163/55 97 03/14/17 18:00 03/14/17 18:00 03/14/17 18:00 03/14/17 18:00 03/14/17 09:00 Breasts: right breast reconstruction. Incision is healing Cor: RSR, No murmurs, No gallops Lungs: Clear to P&A Abd: Soft, Normal bowel sounds, healing abdominal incision Ext:No significant edema wounds --RT. lower adomen, Rt. breast ---some discharge, umblical wound with erythema and discharge A/P 66 y/o patient s/p Rt. mastectomy/breast reconstrucion--01/20 presented with palpitations/afib --02/20 Diagnosed with b/l PE 02/23, Now with severe thrombocytopenia High suspicion for delayed onset HIT/T given time frame and clinical scenario CT scan showed increased embolic clot Lt. 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 Suspect low grade wound infection causing thrombocytopenia in addition to HIT ? wound culture diarrhea--c.diff neg. will discuss with cardiology regarding need for ? emt intermediate a/c for afib?? Suspect slow rise in platelets dur to onl
[2017-03-14] MEDS: MELATONIN 5 MG TABLETS PO SCH (22:10)
[2017-03-14] MEDS: BACITRACIN 15 GM TUBE TOPICAL OINTMENT TP SCH (22:10)
[2017-03-15 07:51] LABS: BASOPHIL 0.4 % (0-2.0); EOSINOPHIL 2.9 % (0-4.5); MCH 29.6 pg (25.7-33.7); MEAN CELL VOLUME 89.5 fl (80-96); MEAN PLT VOLUME 9.2 fl (7.5-11.1); NEUTROPHILS 66.3 % (42.8-82.8); PLATELET COUNT 66 K/MM3 (134-434); RDW 14.3 % (11.6-15.6); WHITE BLOOD COUNT 6.4 K/mm3 (4.0-10.0)
[2017-03-15 08:06] LABS: INR 1.69 (0.82-1.09); PROTHROMBIN TIME (PATIENT) 18.8 SEC (9.98-11.88)
[2017-03-15 08:07] LABS: ACTIVATED PTT 56.9 SECONDS (26.9-34.4)
[2017-03-15 08:10] LABS: HIGH DOSE HEPARIN SRA < 1 % (0-20); LOW DOSE HEPARIN SRA 74 % (0-20)
[2017-03-15] MEDS: ARGATROBAN - 250,000 MCG in SODIUM CHLORIDE 247.5 ML IVPB SCH ×2 (10:06→14:05)
[2017-03-15] MEDS: ALLOPURINOL 300 MG TABLET (FP) PO SCH (10:08)
[2017-03-15] MEDS: METOPROLOL SUCCINATE 25 MG TAB.SR.24H (FP) PO SCH (10:08)
[2017-03-15] MEDS: HYDROCHLOROTHIAZIDE 12.5 MG CAPSULE (FP) PO SCH (10:08)
[2017-03-15] MEDS: PANTOPRAZOLE 40 MG TABLET (FP) PO SCH (10:08)
[2017-03-15] MEDS: LOSARTAN POTASSIUM 50 MG TABLET (FP) PO SCH (10:08)
[2017-03-15] MEDS: FENOFIBRIC ACID 135 MG CAP PO SCH (10:09)
[2017-03-15] MEDS: LACTOBACILLUS ACIDOPHILUS 1 EACH TAB (FP) PO SCH (10:09)
[2017-03-15] MEDS: guaiFENesin/D-METHORPHAN HB 10 ML UNIT-DOSE CUPS PO PRN (10:20)
--- NOTE | 2017-03-15 10:36 | PN ---
Progress Note, Physician History of Present Illness: pulmonary alert,nad,less anders - Current Medication List Current Medications: Active Medications Allopurinol (Zyloprim -) 300 mg PO DAILY [facility] Last Admin: 03/15/17 10:08 Dose: 300 mg Bacitracin (Bacitracin -) 1 applic TP DAILY [facility] Last Admin: 03/14/17 22:10 Dose: 1 applic Diltiazem HCl (Cardizem Cd -) 120 mg PO DAILY [facility] Last Admin: 03/15/17 10:08 Dose: 120 mg Fenofibric Acid (Trilipix -) 135 mg PO DAILY [facility] Last Admin: 03/15/17 10:09 Dose: Not Given Guaifenesin (Robitussin Dm -) 10 ml PO Q6H PRN PRN Reason: COUGH Last Admin: 03/15/17 10:20 Dose: 10 ml Hydrochlorothiazide (Hctz -) 12.5 mg PO DAILY [facility] Last Admin: 03/15/17 10:08 Dose: 12.5 mg Argatroban 250,000 mcg/ Sodium (Chloride) 250 mls @ 13.82 mls/hr IVPB TITR [facility] ; 2 MCG/KG/MIN PRN Reason: Protocol Last Admin: 03/15/17 10:06 Dose: Not Given Lactobacillus Acidophilus (Bacid -) 2 tab PO DAILY [facility] Last Admin: 03/15/17 10:09 Dose: 2 tab Losartan Potassium (Cozaar -) 50 mg PO DAILY [facility] Last Admin: 03/15/17 10:08 Dose: 50 mg Melatonin (Melatonin) 5 mg PO HS [facility] Last Admin: 03/14/17 22:10 Dose: 5 mg Metoprolol Succinate (Toprol Xl -) 25 mg PO DAILY [facility] Last Admin: 03/15/17 10:08 Dose: 25 mg Pantoprazole Sodium (Protonix -) 40 mg PO DAILY [facility] Last Admin: 03/15/17 10:08 Dose: 40 mg Silver Sulfadiazine (Silvadene -) 1 applic TP DAILY [facility] Last Admin: 03/14/17 11:27 Dose: 1 applic - Objective Vital Signs: Vital Signs Temperature 98.6 F 03/15/17 09:45 Pulse Rate 82 03/15/17 09:45 Respiratory Rate 20 03/15/17 09:45 Blood Pressure 141/87 03/15/17 09:45 O2 Sat by Pulse Oximetry (%) 96 03/14/17 21:00 Constitutional: Yes: Well Nourished, Calm Eyes: Yes: WNL HENT: Yes: WNL Neck: Yes: WNL Cardiovascular: Yes: Regular Rate and Rhythm, S1, S2 Respiratory: Yes: CTA Bilaterally Gastrointestinal: Yes: Normal Bowel Sounds, Soft Extremities: Yes: WNL Edema: Yes Labs: CBC, BMP 03/15/17 05:35 INR, PTT INR 1.69 (0.82-1.09) H 03/15/17 05:35 Fibrinogen 176.0 mg/dL (238-498) L 03/09/17 18:00 Problem List - Problems (1) ABENA (obstructive sleep apnea) Code(s): G47.33 - OBSTRUCTIVE SLEEP APNEA (ADULT) (PEDIATRIC) (2) PAF (paroxysmal atrial fibrillation) Code(s): I48.0 - PAROXYSMAL ATRIAL FIBRILLATION (3) Pulmonary emboli Code(s): I26.99 - OTHER PULMONARY EMBOLISM WITHOUT ACUTE COR PULMONALE Qualifiers: Pulmonary embolism type: other (4) Breast CA Code(s): C50.919 - MALIGNANT NEOPLASM OF UNSP SITE OF UNSPECIFIED FEMALE BREAST Qualifiers: Patient sex: female Laterality: right (5) Diabetes Code(s): E11.9 - TYPE 2 DIABETES MELLITUS WITHOUT COMPLICATIONS Qualifiers: Diabetes mellitus type: type 2 Diabetes mellitus complication status: without complication Diabetes mellitus flight readiness technician insulin use: without flight readiness technician use Qualified Code(s): E11.9 - Type 2 diabetes mellitus without complications (6) HTN (hypertension) Code(s): I10 - ESSENTIAL (PRIMARY) HYPERTENSION Qualifiers: Hypertension type: essential hypertension Qualified Code(s): I10 - Essential (primary) hypertension (7) Obesity Code(s): E66.9 - OBESITY, UNSPECIFIED (8) Thrombocytopenia Code(s): D69.6 - THROMBOCYTOPENIA, UNSPECIFIED Assessment/Plan Progress Note: PULMONARY IMP THROMBOCYTOPENIA , HIT SLOWLY IMPROVING RECENT BILATERAL EMBOLI PROVOKED BREAST CA S/P MASTECTOMY OSAS DM PULMONARY HTN PLAN MONITOR PLT CT ARGATROBAN DR GONZALEZ Problem List - Problems (1) ABENA (obstructive sleep apnea) Code(s): G47.33 - OBSTRUCTIVE SLEEP APNEA (ADULT) (PEDIATRIC) (2) PAF (paroxysmal atrial fibrillation) Code(s): I48.0 - PAROXYSMAL ATRIAL FIBRILLATION (3) Pulmonary emboli Code(s): I26.99 - OTHER PULMONARY EMBOLISM WITHOUT ACUTE COR PULMONALE (4) Breast CA Code(s): C50.919 - MALIGNANT NEOPLASM OF UNSP SITE OF UNSPECIFIED FEMALE BREAST (5) Diabetes Code(s): E11.9 - TYPE 2 DIABETES MELLITUS WITHOUT COMPLICATIONS (6) HTN (hypertension) Code(s): I10 - ESSENTIAL (PRIMARY) HYPERTENSION (7) Obesity Code(s): E66.9 - OBESITY, UNSPECIFIED (8) Thrombocytopenia Code(s): D69.6 - THROMBOCYTOPENIA, UNSPECIFIED
--- NOTE | 2017-03-15 12:08 | PN ---
Progress Note (short form) - Note Progress Note: c/o umbilical discharge and odorx1 day CBC, BMP 03/15/17 05:35 03/13/17 05:45 Vital Signs Period Temp Pulse Resp BP Sys/Beck Pulse Ox Last 24 Hr 97.4 F-98.6 F 69-82 18-20 121-163/55-87 96 S1S2 RRR LUNGS CTA decreased pedal edema bruising resolving umbilical wound with slight erythema and clear discharge Imp Heparin Induced Thrombocytopenia recent bilateral pulmonary embolism following reconstructive breast surgery after mastectomy. Paget's disease umbilical wound discharge NIDDM HTN h/o afib-paroxysmal with PE diagnosis-none on telemetry so far Plan check wound culture ID f/up iodoform packing daily as d/w COLD STORAGE SUPERVISOR from office Argatroban while monitoring plt count close monitoring for bleeding problems once thrombocytes over 150 will have to be bridged to warfarin continue other care Problem List - Problems (1) Thrombocytopenia Code(s): D69.6 - THROMBOCYTOPENIA, UNSPECIFIED (2) PAF (paroxysmal atrial fibrillation) Code(s): I48.0 - PAROXYSMAL ATRIAL FIBRILLATION (3) Pulmonary emboli Code(s): I26.99 - OTHER PULMONARY EMBOLISM WITHOUT ACUTE COR PULMONALE Qualifiers: Pulmonary embolism type: other (4) Breast CA Code(s): C50.919 - MALIGNANT NEOPLASM OF UNSP SITE OF UNSPECIFIED FEMALE BREAST Qualifiers: Patient sex: female Laterality: right (5) Diabetes Code(s): E11.9 - TYPE 2 DIABETES MELLITUS WITHOUT COMPLICATIONS Qualifiers: Diabetes mellitus type: type 2 Diabetes mellitus complication status: without complication Diabetes mellitus remote computer terminal operator insulin use: without remote computer terminal operator use Qualified Code(s): E11.9 - Type 2 diabetes mellitus without complications (6) HTN (hypertension) Code(s): I10 - ESSENTIAL (PRIMARY) HYPERTENSION Qualifiers: Hypertension type: essential hypertension Qualified Code(s): I10 - Essential (primary) hypertension
--- NOTE | 2017-03-15 12:33 | PN ---
Progress Note (short form) - Note Progress Note: Patient seen and examined. continues to have mal-odor from the abdominal wound site. Breasts: right breast reconstruction. Incision is healing Cor: RSR, No murmurs, No gallops Lungs: Clear to P&A breast: underthe right breast, small open wound seen, no erythema or purulence noted. Abd: Soft, Normal bowel sounds, a small wound , mild purulence seen Ext:No significant edema Skin: No rashes, Integument intact Last Vital Signs Temp Pulse Resp BP Pulse Ox 97.8 F 86 22 145/78 95 03/11/17 10:00 03/11/17 10:00 03/11/17 10:00 03/11/17 10:00 03/10/17 21:00 CBC, BMP 03/11/17 06:00 03/11/17 06:00 Current Medications Generic Name Dose Route Start Last Admin Trade Name Freq PRN Reason Stop Dose Admin Allopurinol 300 mg 03/10/17 10:00 03/11/17 09:23 Zyloprim - PO 300 mg DAILY [facility] Administration Diltiazem HCl 120 mg 03/10/17 10:00 03/11/17 09:23 Cardizem Cd - PO 120 mg DAILY [facility] Administration Fenofibric Acid 135 mg 03/10/17 10:00 03/11/17 09:28 Trilipix - PO Not Given DAILY [facility] Guaifenesin 10 ml 03/10/17 17:20 03/10/17 21:35 Robitussin Dm - PO 10 ml Q6H PRN Administration COUGH Argatroban 250,000 mcg/ Sodium 250 mls @ 13.77 mls/hr 03/09/17 18:00 03/11/17 00:15 Chloride IVPB 13.77 mls/hr TITR [facility] Administration Protocol 2 MCG/KG/MIN Losartan Potassium 50 mg 03/10/17 10:00 03/11/17 09:23 Cozaar - PO 50 mg DAILY [facility] Administration Melatonin 3 mg 03/11/17 22:00 Melatonin PO HS [facility] Metoprolol Succinate 25 mg 03/10/17 10:00 03/11/17 09:24 Toprol Xl - PO 25 mg DAILY [facility] Administration Pantoprazole Sodium 40 mg 03/11/17 10:00 03/11/17 09:23 Protonix - PO 40 mg DAILY [facility] Administration Silver Sulfadiazine 1 applic 03/10/17 12:30 03/11/17 09:28 Silvadene - TP 1 applic DAILY [facility] Administration A/P 66 y/o patient s/p Rt. 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 HIT/T: on argatroban -- PTT is therapeutic (goal of 45-60),now at 15 cc/hr, platelets are improving slowly daily PTT monitoring and CBC LFT check in the am goal of 150K to start coumadin Wound infection??: site dressings as per Plastics f/u ID. discussed w/ cardiology if she is a candidate for indefinite ac ?Afib/PAF: Cardiology will look into it. Breast ca, f/u as an OP for Rx. ( hormonal) will follow closely
--- NOTE | 2017-03-15 12:47 | PN ---
Progress Note, Physician Chief Complaint: Pt denies shortness of breath or chest pain. OOB in chair; daughter at bedside. Pt dislikes receiving IV medications; trouble maintaining IV sites. Improved LEs (now trace edema). History of Present Illness: "The patient is a 66 year old white female, with a significant past medical history of PE on lovenox, PAF (at least 3 episodes), HTN, diabetes mellitus, obesity, gout, presumed obstructive sleep apnea, and breast cancer s/p right mastectomy around 7 weeks ago (January 20) who was referred to the emergency department by her PCP due to low blood platelet count. She states she was started on lovenox 2 weeks ago when she was diagnosed with acute PE. Patient denies currently experiencing any chest pain or palpitations but admits to SOB from time to time. She denies experiencing any new bruises. She denies recent fevers, chills, headache or dizziness. She denies recent nausea, vomit, diarrhea or constipation. She denies recent dysuria, frequency, urgency or hematuria. She denies recent chest pain. Allergies: NKA Past surgical history: Right masectomy Social history: Nonsmoker. Denies EtOH use and recreational drug use. Primary Care Physician: Carrie Price M.D. - Current Medication List Current Medications: Active Medications Allopurinol (Zyloprim -) 300 mg PO DAILY [facility] Last Admin: 03/15/17 10:08 Dose: 300 mg Bacitracin (Bacitracin -) 1 applic TP DAILY [facility] Last Admin: 03/14/17 22:10 Dose: 1 applic Diltiazem HCl (Cardizem Cd -) 120 mg PO DAILY [facility] Last Admin: 03/15/17 10:08 Dose: 120 mg Fenofibric Acid (Trilipix -) 135 mg PO DAILY [facility] Last Admin: 03/15/17 10:09 Dose: Not Given Guaifenesin (Robitussin Dm -) 10 ml PO Q6H PRN PRN Reason: COUGH Last Admin: 03/15/17 10:20 Dose: 10 ml Hydrochlorothiazide (Hctz -) 12.5 mg PO DAILY [facility] Last Admin: 03/15/17 10:08 Dose: 12.5 mg Argatroban 250,000 mcg/ Sodium (Chloride) 250 mls @ 13.82 mls/hr IVPB TITR [facility] ; 2 MCG/KG/MIN PRN Reason: Protocol Last Admin: 03/15/17 10:06 Dose: Not Given Lactobacillus Acidophilus (Bacid -) 2 tab PO DAILY [facility] Last Admin: 03/15/17 10:09 Dose: 2 tab Losartan Potassium (Cozaar -) 50 mg PO DAILY [facility] Last Admin: 03/15/17 10:08 Dose: 50 mg Melatonin (Melatonin) 5 mg PO HS [facility] Last Admin: 03/14/17 22:10 Dose: 5 mg Metoprolol Succinate (Toprol Xl -) 25 mg PO DAILY [facility] Last Admin: 03/15/17 10:08 Dose: 25 mg Pantoprazole Sodium (Protonix -) 40 mg PO DAILY [facility] Last Admin: 03/15/17 10:08 Dose: 40 mg Silver Sulfadiazine (Silvadene -) 1 applic TP DAILY [facility] Last Admin: 03/14/17 11:27 Dose: 1 applic - Objective Vital Signs: Vital Signs Temperature 98.6 F 03/15/17 09:45 Pulse Rate 82 03/15/17 09:45 Respiratory Rate 20 03/15/17 09:45 Blood Pressure 141/87 03/15/17 09:45 O2 Sat by Pulse Oximetry (%) 96 03/14/17 21:00 Constitutional: Yes: Anxious Eyes: Yes: WNL HENT: Yes: WNL Neck: Yes: WNL Cardiovascular: Yes: Regular Rate and Rhythm Respiratory: Yes: Diminished Gastrointestinal: Yes: Soft, Abdomen, Obese ...Rectal Exam: Yes: Deferred Genitourinary: No: Anuria Breast(s): Yes: Other Musculoskeletal: Yes: Muscle Weakness Extremities: Yes: Cool Edema: Yes Edema: LLE: Trace, RLE: Trace Peripheral Pulses WNL: No Peripheral Pulses: Left Doralis Pedis: 1+, Right Dorsalis Pedis: 1+ Integumentary: Yes: Incision Wound/Incision: Yes: Draining Neurological: Yes: Alert, Oriented, Weakness Psychiatric: Yes: Alert, Oriented Labs: CBC, BMP 03/15/17 05:35 03/13/17 05:45 INR, PTT INR 1.69 (0.82-1.09) H 03/15/17 05:35 Fibrinogen 176.0 mg/dL (238-498) L 03/09/17 18:00 Problem List - Problems (1) Thrombocytopenia Assessment/Plan: Started agatroban. start warfarin when directed to by piece cutter; will likely need to be on lifetime (multiple episodes of AF). Platelets slowly improving. Code(s): D69.6 - THROMBOCYTOPENIA, UNSPECIFIED (2) Cellulitis Code(s): L03.90 - CELLULITIS, UNSPECIFIED (3) ABENA (obstructive sleep apnea) Assessment/Plan: f/u sleep studies. Code(s): G47.33 - OBSTRUCTIVE SLEEP APNEA (ADULT) (PEDIATRIC) (4) Chronic instability of right knee Code(s): M23.51 - CHRONIC INSTABILITY OF KNEE, RIGHT KNEE (5) PAF (paroxysmal atrial fibrillation) Code(s): I48.0 - PAROXYSMAL ATRIAL FIBRILLATION (6) Pulmonary emboli Assessment/Plan: On agatraban until able to start warfarin. Code(s): I26.99 - OTHER PULMONARY EMBOLISM WITHOUT ACUTE COR PULMONALE Qualifiers: Pulmonary embolism type: other (7) Breast CA Code(s): C50.919 - MALIGNANT NEOPLASM OF UNSP SITE OF UNSPECIFIED FEMALE BREAST Qualifiers: Patient sex: female Laterality: right (8) Diabetes Code(s): E11.9 - TYPE 2 DIABETES MELLITUS WITHOUT COMPLICATIONS Qualifiers: Diabetes mellitus type: type 2 Diabetes mellitus complication status: without complication Diabetes mellitus terminal gauger insulin use: without terminal gauger use Qualified Code(s): E11.9 - Type 2 diabetes mellitus without complications (9) Diastolic CHF Code(s): I50.30 - UNSPECIFIED DIASTOLIC (CONGESTIVE) HEART FAILURE (10) HTN (hypertension) Assessment/Plan: on metoprolol, diltiazem, and losartan, Serial BP checks; increse losartan to 100 mg daily if necessary. F/u EKG Code(s): I10 - ESSENTIAL (PRIMARY) HYPERTENSION Qualifiers: Hypertension type: essential hypertension Qualified Code(s): I10 - Essential (primary) hypertension (11) Hypertriglyceridemia Assessment/Plan: On Trilipix. Code(s): E78.1 - PURE HYPERGLYCERIDEMIA (12) Obesity Assessment/Plan: f/u with process line operator. 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 antibiotics per ID. Code(s): C50.011 - MALIGNANT NEOPLASM OF NIPPLE AND AREOLA, RIGHT FEMALE BREAST
--- NOTE | 2017-03-15 13:59 | PN ---
Progress Note (short form) - Note Progress Note: feels well noted some drainage and foul odor from umbilicu asked to evaluate she was on cipro orally for one month while the drains ere in has been off antiibotics for about one month now no fevers Vital Signs Period Temp Pulse Resp BP Sys/Beck Pulse Ox Last 24 Hr 97.4 F-98.6 F 69-82 18-20 121-163/55-87 96 wounds examined breast wound with some yellow exudate, no drainage, no erythema or odor umbilical wound with erythema, wet, with yellow exudate- daughter describes the erythema as nex left flank wound- open incision, no drainage or erythema CBC, BMP 03/15/17 05:35 03/13/17 05:45 a/p umbilical wound with erythema and drainage- wound culture sent, plastic surgery followup, will start broadspectrum antibiotics- vancomycin and cefepime PE thrombocytopenia secondary to HIT breast cancer s/p reconstruction d/w PMD
[2017-03-15] MEDS: SILVER SULFADIAZINE 1% TOP CREAM 50 GM JAR TP SCH (14:00)
[2017-03-15] MEDS: BACITRACIN 15 GM TUBE TOPICAL OINTMENT TP SCH (14:01)
[2017-03-15] MEDS ORDERED: CEFEPIME HCL 1 GM VIAL (RESTRICTED TO ID) IVPB SCH (14:15)
[2017-03-15] MEDS ORDERED: DEXTROSE 5%-WATER 100 ML IVPB ONE (15:36)
[2017-03-15] MEDS ORDERED: CEFEPIME HCL 1 GM VIAL (RESTRICTED TO ID) ONE (15:36)
[2017-03-15] MEDS: CEFEPIME 1 GM in DEXTROSE 5%-WATER 100 ML IVPB SCH ×2 (15:50→17:11)
[2017-03-15] MEDS: VANCOMYCIN 1,250 MG in DEXTROSE 5%-WATER - 250 ML IVPB SCH ×2 (17:09)
[2017-03-15] MEDS: MELATONIN 5 MG TABLETS PO SCH (21:40)
[2017-03-16] MEDS ORDERED: CEFEPIME HCL 1 GM VIAL (RESTRICTED TO ID) ONE ×2 (01:37→08:24)
[2017-03-16] MEDS ORDERED: DEXTROSE 5%-WATER 100 ML IVPB ONE ×2 (01:38→08:24)
[2017-03-16] MEDS: VANCOMYCIN 1,250 MG in DEXTROSE 5%-WATER - 250 ML IVPB SCH ×2 (01:40→14:15)
[2017-03-16] MEDS: CEFEPIME 1 GM in DEXTROSE 5%-WATER 100 ML IVPB SCH ×2 (01:41→09:49)
[2017-03-16 08:09] LABS: BASOPHIL 0.6 % (0-2.0); EOSINOPHIL 2.9 % (0-4.5); MCH 29.5 pg (25.7-33.7); MCHC 33.2 g/dl (32.0-36.0); MEAN CELL VOLUME 88.8 fl (80-96); MEAN PLT VOLUME 9.2 fl (7.5-11.1); NEUTROPHILS 67.1 % (42.8-82.8); PLATELET COUNT 82 K/MM3 (134-434); RDW 14.4 % (11.6-15.6); WHITE BLOOD COUNT 6.8 K/mm3 (4.0-10.0)
[2017-03-16 08:12] LABS: HIGH DOSE HEPARIN SRA < 1 % (0-20); LOW DOSE HEPARIN SRA 70 % (0-20)
[2017-03-16] MEDS: ARGATROBAN - 250,000 MCG in SODIUM CHLORIDE 247.5 ML IVPB SCH (08:17)
[2017-03-16 08:19] LABS: INR 1.59 (0.82-1.09); PROTHROMBIN TIME (PATIENT) 17.6 SEC (9.98-11.88)
[2017-03-16 08:22] LABS: ACTIVATED PTT 52.9 SECONDS (26.9-34.4)
[2017-03-16] MEDS ORDERED: PT OWN MED DRAWER 7, Y5N ONE ×2 (08:24→23:56)
--- NOTE | 2017-03-16 08:31 | PN ---
Progress Note (short form) - Note Progress Note: CBC, BMP 03/16/17 05:46 S1S2 RRR LUNGS CTA decreased pedal edema bruising resolving umbilical wound with slight erythema iodine packing in place Imp Heparin Induced Thrombocytopenia-slowly improving, continue argatroban recent bilateral pulmonary embolism following reconstructive breast surgery after mastectomy. Paget's disease umbilical wound discharge-started cefepime and vanco yesterday pending cultures NIDDM HTN h/o afib-paroxysmal with PE diagnosis-none on telemetry so far Plan check wound culture iodoform packing daily as d/w EXTENSION EDGER from office Argatroban while monitoring plt count close monitoring for bleeding problems once thrombocytes over 150 will have to be bridged to warfarin continue other care can transfer to regular floor Problem List - Problems (1) Thrombocytopenia Code(s): D69.6 - THROMBOCYTOPENIA, UNSPECIFIED (2) PAF (paroxysmal atrial fibrillation) Code(s): I48.0 - PAROXYSMAL ATRIAL FIBRILLATION (3) Pulmonary emboli Code(s): I26.99 - OTHER PULMONARY EMBOLISM WITHOUT ACUTE COR PULMONALE Qualifiers: Pulmonary embolism type: other (4) Breast CA Code(s): C50.919 - MALIGNANT NEOPLASM OF UNSP SITE OF UNSPECIFIED FEMALE BREAST Qualifiers: Patient sex: female Laterality: right (5) Diabetes Code(s): E11.9 - TYPE 2 DIABETES MELLITUS WITHOUT COMPLICATIONS Qualifiers: Diabetes mellitus type: type 2 Diabetes mellitus complication status: without complication Diabetes mellitus shelter insulin use: without terminal makeup operator use Qualified Code(s): E11.9 - Type 2 diabetes mellitus without complications (6) HTN (hypertension) Code(s): I10 - ESSENTIAL (PRIMARY) HYPERTENSION Qualifiers: Hypertension type: essential hypertension Qualified Code(s): I10 - Essential (primary) hypertension
[2017-03-16 08:56] LABS: ALBUMIN 3.3 g/dl (3.4-5.0)
[2017-03-16 09:02] LABS: ALK PHOS 74 U/L (45-117); ANION GAP 9 (8-16); BILIRUBIN,TOTAL 0.4 mg/dL (0.2-1.0); CALCIUM 8.9 mg/dL (8.5-10.1); CO2 24 mmol/L (21-32); GLUCOSE,RANDOM 144 mg/dL (74-106); SGOT/AST 16 U/L (15-37); SGPT/ALT 30 U/L (12-78); TOT PROT 6.4 g/dl (6.4-8.2)
[2017-03-16] MEDS: FENOFIBRIC ACID 135 MG CAP PO SCH (09:45)
[2017-03-16] MEDS: guaiFENesin/D-METHORPHAN HB 10 ML UNIT-DOSE CUPS PO PRN (09:49)
[2017-03-16] MEDS: METOPROLOL SUCCINATE 25 MG TAB.SR.24H (FP) PO SCH (09:55)
[2017-03-16] MEDS: ALLOPURINOL 300 MG TABLET (FP) PO SCH (09:55)
[2017-03-16] MEDS: LACTOBACILLUS ACIDOPHILUS 1 EACH TAB (FP) PO SCH (09:55)
[2017-03-16] MEDS: PANTOPRAZOLE 40 MG TABLET (FP) PO SCH (09:55)
[2017-03-16] MEDS: HYDROCHLOROTHIAZIDE 12.5 MG CAPSULE (FP) PO SCH (09:55)
[2017-03-16] MEDS: LOSARTAN POTASSIUM 50 MG TABLET (FP) PO SCH (09:56)
[2017-03-16] MEDS: BACITRACIN 15 GM TUBE TOPICAL OINTMENT TP SCH (09:57)
[2017-03-16] MEDS: SILVER SULFADIAZINE 1% TOP CREAM 50 GM JAR TP SCH (09:57)
--- NOTE | 2017-03-16 11:23 | PN ---
Progress Note (short form) - Note Progress Note: Patient seen and examined. wound better than yesterday, decreased odor as per her. Breasts: right breast reconstruction. Incision is healing Cor: RSR, No murmurs, No gallops Lungs: Clear to P&A breast: under the right breast, small open wound seen, no erythema or purulence noted. Abd: Soft, Normal bowel sounds, a small wound , less erythema than yesterday, packd with iodoform dressing Ext:No significant edema Skin: No rashes, Integument intact Last Vital Signs Temp Pulse Resp BP Pulse Ox 97.8 F 86 22 145/78 95 03/11/17 10:00 03/11/17 10:00 03/11/17 10:00 03/11/17 10:00 03/10/17 21:00 CBC, BMP 03/11/17 06:00 03/11/17 06:00 Current Medications Generic Name Dose Route Start Last Admin Trade Name Freq PRN Reason Stop Dose Admin Allopurinol 300 mg 03/10/17 10:00 03/11/17 09:23 Zyloprim - PO 300 mg DAILY [facility] Administration Diltiazem HCl 120 mg 03/10/17 10:00 03/11/17 09:23 Cardizem Cd - PO 120 mg DAILY [facility] Administration Fenofibric Acid 135 mg 03/10/17 10:00 03/11/17 09:28 Trilipix - PO Not Given DAILY [facility] Guaifenesin 10 ml 03/10/17 17:20 03/10/17 21:35 Robitussin Dm - PO 10 ml Q6H PRN Administration COUGH Argatroban 250,000 mcg/ Sodium 250 mls @ 13.77 mls/hr 03/09/17 18:00 03/11/17 00:15 Chloride IVPB 13.77 mls/hr TITR [facility] Administration Protocol 2 MCG/KG/MIN Losartan Potassium 50 mg 03/10/17 10:00 03/11/17 09:23 Cozaar - PO 50 mg DAILY [facility] Administration Melatonin 3 mg 03/11/17 22:00 Melatonin PO HS [facility] Metoprolol Succinate 25 mg 03/10/17 10:00 03/11/17 09:24 Toprol Xl - PO 25 mg DAILY [facility] Administration Pantoprazole Sodium 40 mg 03/11/17 10:00 03/11/17 09:23 Protonix - PO 40 mg DAILY [facility] Administration Silver Sulfadiazine 1 applic 03/10/17 12:30 03/11/17 09:28 Silvadene - TP 1 applic DAILY [facility] Administration A/P 66 y/o patient s/p Rt. 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 daily PTT monitoring and CBC LFT check in the am goal of 150K to start coumadin abx per ID. discussed w/ cardiology on 03/15, if she is a candidate for indefinite ac ?Afib/ PAF: Cardiology will look into it. Breast ca, f/u as an OP for Rx. ( hormonal) will follow closely communicated with [facility]
--- NOTE | 2017-03-16 12:05 | PN ---
Progress Note, Physician History of Present Illness: "The patient is a 66 year old female, with a significant past medical history of PE on lovenox, HTN, diabetes mellitus, gout, and breast cancer s/p right mastectomy around 7 weeks ago (January 20) who was referred to the emergency department by her PCP due to low blood platelet count. She states she was started on lovenox 2 weeks ago when she was diagnosed with acute PE. Patient denies currently experiencing any chest pain or palpitations but admits to SOB from time to time. She denies experiencing any new bruises. She denies recent fevers, chills, headache or dizziness. She denies recent nausea, vomit, diarrhea or constipation. She denies recent dysuria, frequency, urgency or hematuria. She denies recent chest pain. Allergies: NKA Past surgical history: Right masectomy Social history: Nonsmoker. Denies EtOH use and recreational drug use. Primary Care Physician: Carrie Price M.D. " - Current Medication List Current Medications: Active Medications Allopurinol (Zyloprim -) 300 mg PO DAILY [facility] Last Admin: 03/16/17 09:55 Dose: 300 mg Bacitracin (Bacitracin -) 1 applic TP DAILY [facility] Last Admin: 03/16/17 09:57 Dose: Not Given Diltiazem HCl (Cardizem Cd -) 120 mg PO DAILY [facility] Last Admin: 03/16/17 09:55 Dose: 120 mg Fenofibric Acid (Trilipix -) 135 mg PO DAILY [facility] Last Admin: 03/16/17 09:45 Dose: Not Given Guaifenesin (Robitussin Dm -) 10 ml PO Q6H PRN PRN Reason: COUGH Last Admin: 03/16/17 09:49 Dose: 10 ml Hydrochlorothiazide (Hctz -) 12.5 mg PO DAILY [facility] Last Admin: 03/16/17 09:55 Dose: 12.5 mg Argatroban 250,000 mcg/ Sodium (Chloride) 250 mls @ 13.82 mls/hr IVPB TITR [facility] ; 2 MCG/KG/MIN PRN Reason: Protocol Last Admin: 03/16/17 08:17 Dose: 15 mls/hr Vancomycin HCl 1,250 mg/ (Dextrose) 250 mls @ 166.667 mls/hr IVPB BID@0230, 1430 [facility] PRN Reason: Protocol Last Admin: 03/16/17 01:40 Dose: 166.667 mls/hr Cefepime HCl 1 gm/ Dextrose 100 mls @ 200 mls/hr IVPB Q8H-IV [facility] Last Admin: 03/16/17 09:49 Dose: 200 mls/hr Lactobacillus Acidophilus (Bacid -) 2 tab PO DAILY [facility] Last Admin: 03/16/17 09:55 Dose: 2 tab Losartan Potassium (Cozaar -) 50 mg PO DAILY [facility] Last Admin: 03/16/17 09:56 Dose: 50 mg Melatonin (Melatonin) 5 mg PO HS [facility] Last Admin: 03/15/17 21:40 Dose: 5 mg Metoprolol Succinate (Toprol Xl -) 25 mg PO DAILY [facility] Last Admin: 03/16/17 09:55 Dose: 25 mg Pantoprazole Sodium (Protonix -) 40 mg PO DAILY [facility] Last Admin: 03/16/17 09:55 Dose: 40 mg Silver Sulfadiazine (Silvadene -) 1 applic TP DAILY [facility] Last Admin: 03/16/17 09:57 Dose: 1 applic - Objective Vital Signs: Vital Signs Temperature 97.9 F 03/16/17 08:10 Pulse Rate 71 03/16/17 08:10 Respiratory Rate 18 03/16/17 08:10 Blood Pressure 139/77 03/16/17 08:10 O2 Sat by Pulse Oximetry (%) 100 03/16/17 08:00 Eyes: Yes: WNL, Conjunctiva Clear, EOM Intact HENT: Yes: WNL, Atraumatic, Normocephalic Neck: Yes: WNL, Supple, Trachea Midline Cardiovascular: Yes: WNL, Regular Rate and Rhythm Respiratory: Yes: WNL, Regular, CTA Bilaterally Gastrointestinal: Yes: WNL, Normal Bowel Sounds Genitourinary: Yes: WNL Musculoskeletal: Yes: WNL Extremities: Yes: WNL Edema: No Integumentary: Yes: WNL Neurological: Yes: WNL, Alert, Oriented ...Motor Strength: WNL Psychiatric: Yes: WNL Labs: CBC, BMP 03/16/17 05:46 03/16/17 05:46 INR, PTT INR 1.59 (0.82-1.09) H 03/16/17 05:46 Fibrinogen 176.0 mg/dL (238-498) L 03/09/17 18:00 Problem List - Problems (1) Thrombocytopenia Code(s): D69.6 - THROMBOCYTOPENIA, UNSPECIFIED (2) Cellulitis Code(s): L03.90 - CELLULITIS, UNSPECIFIED (3) Chronic instability of right knee Code(s): M23.51 - CHRONIC INSTABILITY OF KNEE, RIGHT KNEE (4) ABENA (obstructive sleep apnea) Code(s): G47.33 - OBSTRUCTIVE SLEEP APNEA (ADULT) (PEDIATRIC) (5) PAF (paroxysmal atrial fibrillation) Code(s): I48.0 - PAROXYSMAL ATRIAL FIBRILLATION (6) Pulmonary emboli Code(s): I26.99 - OTHER PULMONARY EMBOLISM WITHOUT ACUTE COR PULMONALE Qualifiers: Pulmonary embolism type: other (7) Breast CA Code(s): C50.919 - MALIGNANT NEOPLASM OF UNSP SITE OF UNSPECIFIED FEMALE BREAST Qualifiers: Patient sex: female Laterality: right (8) Diabetes Code(s): E11.9 - TYPE 2 DIABETES MELLITUS WITHOUT COMPLICATIONS Qualifiers: Diabetes mellitus type: type 2 Diabetes mellitus complication status: without complication Diabetes mellitus exterminator termite insulin use: without exterminator termite use Qualified Code(s): E11.9 - Type 2 diabetes mellitus without complications (9) Diastolic CHF Code(s): I50.30 - UNSPECIFIED DIASTOLIC (CONGESTIVE) HEART FAILURE (10) HTN (hypertension) Code(s): I10 - ESSENTIAL (PRIMARY) HYPERTENSION Qualifiers: Hypertension type: essential hypertension Qualified Code(s): I10 - Essential (primary) hypertension (11) Hypertriglyceridemia Code(s): E78.1 - PURE HYPERGLYCERIDEMIA (12) Obesity Code(s): E66.9 - OBESITY, UNSPECIFIED (13) Paget's disease of right breast Code(s): C50.011 - MALIGNANT NEOPLASM OF NIPPLE AND AREOLA, RIGHT FEMALE BREAST Assessment/Plan - Problems (1) Thrombocytopenia Assessment/Plan: Started agatroban. start warfarin when directed to by cash posting clerk; will likely need to be on lifetime (multiple episodes of AF). Platelets slowly improving. Code(s): D69.6 - THROMBOCYTOPENIA, UNSPECIFIED (2) Cellulitis Code(s): L03.90 - CELLULITIS, UNSPECIFIED (3) ABENA (obstructive sleep apnea) Assessment/Plan: f/u sleep studies. Code(s): G47.33 - OBSTRUCTIVE SLEEP APNEA (ADULT) (PEDIATRIC) (4) Chronic instability of right knee Code(s): M23.51 - CHRONIC INSTABILITY OF KNEE, RIGHT KNEE (5) PAF (paroxysmal atrial fibrillation) Code(s): I48.0 - PAROXYSMAL ATRIAL FIBRILLATION (6) Pulmonary emboli Assessment/Plan: On agatraban until able to start warfarin. Code(s): I26.99 - OTHER PULMONARY EMBOLISM WITHOUT ACUTE COR PULMONALE Qualifiers: Pulmonary embolism type: other (7) Breast CA Code(s): C50.919 - MALIGNANT NEOPLASM OF UNSP SITE OF UNSPECIFIED FEMALE BREAST Qualifiers: Patient sex: female Laterality: right (8) Diabetes Code(s): E11.9 - TYPE 2 DIABETES MELLITUS WITHOUT COMPLICATIONS Qualifiers: Diabetes mellitus type: type 2 Diabetes mellitus complication status: without complication Diabetes mellitus exterminator termite insulin use: without exterminator termite use Qualified Code(s): E11.9 - Type 2 diabetes mellitus without complications (9) Diastolic CHF Code(s): I50.30 - UNSPECIFIED DIASTOLIC (CONGESTIVE) HEART FAILURE (10) HTN (hypertension) Assessment/Plan: on metoprolol, diltiazem, and losartan, Serial BP checks; increse losartan to 100 mg daily if necessary. F/u EKG Code(s): I10 - ESSENTIAL (PRIMARY) HYPERTENSION Qualifiers: Hypertension type: essential hypertension Qualified Code(s): I10 - Essential (primary) hypertension (11) Hypertriglyceridemia Assessment/Plan: On Trilipix. Code(s): E78.1 - PURE HYPERGLYCERIDEMIA (12) Obesity Assessment/Plan: f/u with supervisory civil engineer. 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 antibiotics per ID. Code(s): C50.011 - MALIGNANT NEOPLASM OF NIPPLE AND AREOLA, RIGHT FEMALE BREAST
--- NOTE | 2017-03-16 13:00 | PN ---
Progress Note, Physician History of Present Illness: pulmonary alert,oob-chair,no distress,+ anders - Current Medication List Current Medications: Active Medications Allopurinol (Zyloprim -) 300 mg PO DAILY [facility] Last Admin: 03/16/17 09:55 Dose: 300 mg Bacitracin (Bacitracin -) 1 applic TP DAILY [facility] Last Admin: 03/16/17 09:57 Dose: Not Given Diltiazem HCl (Cardizem Cd -) 120 mg PO DAILY [facility] Last Admin: 03/16/17 09:55 Dose: 120 mg Fenofibric Acid (Trilipix -) 135 mg PO DAILY [facility] Last Admin: 03/16/17 09:45 Dose: Not Given Guaifenesin (Robitussin Dm -) 10 ml PO Q6H PRN PRN Reason: COUGH Last Admin: 03/16/17 09:49 Dose: 10 ml Hydrochlorothiazide (Hctz -) 12.5 mg PO DAILY [facility] Last Admin: 03/16/17 09:55 Dose: 12.5 mg Argatroban 250,000 mcg/ Sodium (Chloride) 250 mls @ 13.82 mls/hr IVPB TITR [facility] ; 2 MCG/KG/MIN PRN Reason: Protocol Last Admin: 03/16/17 08:17 Dose: 15 mls/hr Vancomycin HCl 1,250 mg/ (Dextrose) 250 mls @ 166.667 mls/hr IVPB BID@0230, 1430 [facility] PRN Reason: Protocol Last Admin: 03/16/17 01:40 Dose: 166.667 mls/hr Cefepime HCl 1 gm/ Dextrose 100 mls @ 200 mls/hr IVPB Q8H-IV [facility] Last Admin: 03/16/17 09:49 Dose: 200 mls/hr Lactobacillus Acidophilus (Bacid -) 2 tab PO DAILY [facility] Last Admin: 03/16/17 09:55 Dose: 2 tab Losartan Potassium (Cozaar -) 50 mg PO DAILY [facility] Last Admin: 03/16/17 09:56 Dose: 50 mg Melatonin (Melatonin) 5 mg PO HS [facility] Last Admin: 03/15/17 21:40 Dose: 5 mg Metoprolol Succinate (Toprol Xl -) 25 mg PO DAILY [facility] Last Admin: 03/16/17 09:55 Dose: 25 mg Pantoprazole Sodium (Protonix -) 40 mg PO DAILY [facility] Last Admin: 03/16/17 09:55 Dose: 40 mg Silver Sulfadiazine (Silvadene -) 1 applic TP DAILY [facility] Last Admin: 03/16/17 09:57 Dose: 1 applic - Objective Vital Signs: Vital Signs Temperature 97.9 F 03/16/17 08:10 Pulse Rate 71 03/16/17 08:10 Respiratory Rate 18 03/16/17 08:10 Blood Pressure 139/77 03/16/17 08:10 O2 Sat by Pulse Oximetry (%) 100 03/16/17 08:00 Constitutional: Yes: Well Nourished, Calm Eyes: Yes: WNL HENT: Yes: WNL Neck: Yes: WNL Cardiovascular: Yes: Pulse Irregular, S1, S2 Respiratory: Yes: CTA Bilaterally Gastrointestinal: Yes: WNL Extremities: Yes: WNL Edema: Yes Labs: CBC, BMP 03/16/17 05:46 03/16/17 05:46 INR, PTT INR 1.59 (0.82-1.09) H 03/16/17 05:46 Fibrinogen 176.0 mg/dL (238-498) L 03/09/17 18:00 Problem List - Problems (1) ABENA (obstructive sleep apnea) Code(s): G47.33 - OBSTRUCTIVE SLEEP APNEA (ADULT) (PEDIATRIC) (2) PAF (paroxysmal atrial fibrillation) Code(s): I48.0 - PAROXYSMAL ATRIAL FIBRILLATION (3) Pulmonary emboli Code(s): I26.99 - OTHER PULMONARY EMBOLISM WITHOUT ACUTE COR PULMONALE Qualifiers: Pulmonary embolism type: other (4) Breast CA Code(s): C50.919 - MALIGNANT NEOPLASM OF UNSP SITE OF UNSPECIFIED FEMALE BREAST Qualifiers: Patient sex: female Laterality: right (5) Diabetes Code(s): E11.9 - TYPE 2 DIABETES MELLITUS WITHOUT COMPLICATIONS Qualifiers: Diabetes mellitus type: type 2 Diabetes mellitus complication status: without complication Diabetes mellitus roller repairer insulin use: without usp use Qualified Code(s): E11.9 - Type 2 diabetes mellitus without complications (6) HTN (hypertension) Code(s): I10 - ESSENTIAL (PRIMARY) HYPERTENSION Qualifiers: Hypertension type: essential hypertension Qualified Code(s): I10 - Essential (primary) hypertension (7) Obesity Code(s): E66.9 - OBESITY, UNSPECIFIED (8) Thrombocytopenia Code(s): D69.6 - THROMBOCYTOPENIA, UNSPECIFIED Assessment/Plan Progress Note: PULMONARY IMP THROMBOCYTOPENIA , HIT SLOWLY IMPROVING RECENT BILATERAL EMBOLI PROVOKED BREAST CA S/P MASTECTOMY OSAS DM PULMONARY HTN PLAN MONITOR PLT CT CONTINUE ARGATROBAN COUMADIN PER HEME DR GONZALEZ Problem List - Problems (1) ABENA (obstructive sleep apnea) Code(s): G47.33 - OBSTRUCTIVE SLEEP APNEA (ADULT) (PEDIATRIC) (2) PAF (paroxysmal atrial fibrillation) Code(s): I48.0 - PAROXYSMAL ATRIAL FIBRILLATION (3) Pulmonary emboli Code(s): I26.99 - OTHER PULMONARY EMBOLISM WITHOUT ACUTE COR PULMONALE (4) Breast CA Code(s): C50.919 - MALIGNANT NEOPLASM OF UNSP SITE OF UNSPECIFIED FEMALE BREAST (5) Diabetes Code(s): E11.9 - TYPE 2 DIABETES MELLITUS WITHOUT COMPLICATIONS (6) HTN (hypertension) Code(s): I10 - ESSENTIAL (PRIMARY) HYPERTENSION (7) Obesity Code(s): E66.9 - OBESITY, UNSPECIFIED (8) Thrombocytopenia Code(s): D69.6 - THROMBOCYTOPENIA, UNSPECIFIED
--- NOTE | 2017-03-16 15:17 | PN ---
Progress Note (short form) - Note Progress Note: no complaints no diarrhea Vital Signs Period Temp Pulse Resp BP Sys/Beck Pulse Ox Last 24 Hr 97.7 F-98.3 F 71-76 18-20 117-161/59-94 97-100 umbilical wound dryer, still packed, less erythema CBC, BMP 03/16/17 05:46 03/16/17 05:46 Microbiology 03/15/17 12:00 Abdomen Gram Stain - Final 03/15/17 12:00 Abdomen Wound Culture - Preliminary Non Lactose Fermenting Gnb Presumptive Mssa (Pbp2a Neg) Group D Strep Or Entero Coccus 03/09/17 19:45 Blood - Peripheral Venous Blood Culture - Final NO GROWTH AFTER 5 DAYS INCUBATION 03/09/17 18:00 Blood - Peripheral Venous Blood Culture - Final NO GROWTH AFTER 5 DAYS INCUBATION 03/13/17 16:00 Stool Clostridium difficile Antigen (ALEXX) - Final 03/13/17 16:00 Stool Clostridium difficile Toxin Assay - Final 03/12/17 12:30 Urine - Urine Clean Catch Urine Culture - Final 03/10/17 11:59 Urine - Urine Clean Catch Urine Culture - Final Contaminated: Please Repeat a/p umbilical wound with erythema and drainage- no mrsa, switch to zosyn, f/u cultures, f/u with plastics hopefully po antibiotics in am, minimal iv access PE thrombocytopenia secondary to HIT breast cancer s/p reconstruction
--- NOTE | 2017-03-16 16:35 | PN ---
Progress Note, Physician Chief Complaint: Pt is 2 months s/p right breast mastectomy with CAT flap reconstruction History of Present Illness: Pt is 2 months s/p right breast mastectomy with CAT flap reconstruction. She went to PMD appt and labs showed low platelets due to HIT. She was on Lovonox for PE treatment post surgery. Pt states yesterday she noticed a increase in odor and redness to her umbilicus. She was started on Vancomycin Iv pending wound culture. Pt states redness improved since yesterday. She denies any fever, increase pain, or chills. - Current Medication List Current Medications: Active Medications Allopurinol (Zyloprim -) 300 mg PO DAILY [facility] Last Admin: 03/16/17 09:55 Dose: 300 mg Bacitracin (Bacitracin -) 1 applic TP DAILY [facility] Last Admin: 03/16/17 09:57 Dose: Not Given Diltiazem HCl (Cardizem Cd -) 120 mg PO DAILY [facility] Last Admin: 03/16/17 09:55 Dose: 120 mg Fenofibric Acid (Trilipix -) 135 mg PO DAILY [facility] Last Admin: 03/16/17 09:45 Dose: Not Given Guaifenesin (Robitussin Dm -) 10 ml PO Q6H PRN PRN Reason: COUGH Last Admin: 03/16/17 09:49 Dose: 10 ml Hydrochlorothiazide (Hctz -) 12.5 mg PO DAILY [facility] Last Admin: 03/16/17 09:55 Dose: 12.5 mg Argatroban 250,000 mcg/ Sodium (Chloride) 250 mls @ 13.82 mls/hr IVPB TITR [facility] ; 2 MCG/KG/MIN PRN Reason: Protocol Last Admin: 03/16/17 08:17 Dose: 15 mls/hr Piperacillin Sod/Tazobactam (Sod 3.375 gm/ Dextrose) 50 mls @ 100 mls/hr IVPB Q8H-IV [facility] Lactobacillus Acidophilus (Bacid -) 2 tab PO DAILY [facility] Last Admin: 03/16/17 09:55 Dose: 2 tab Losartan Potassium (Cozaar -) 50 mg PO DAILY [facility] Last Admin: 03/16/17 09:56 Dose: 50 mg Melatonin (Melatonin) 5 mg PO HS [facility] Last Admin: 03/15/17 21:40 Dose: 5 mg Metoprolol Succinate (Toprol Xl -) 25 mg PO DAILY [facility] Last Admin: 03/16/17 09:55 Dose: 25 mg Pantoprazole Sodium (Protonix -) 40 mg PO DAILY [facility] Last Admin: 03/16/17 09:55 Dose: 40 mg Silver Sulfadiazine (Silvadene -) 1 applic TP DAILY [facility] Last Admin: 03/16/17 09:57 Dose: 1 applic - Objective Vital Signs: Vital Signs Temperature 98.3 F 03/16/17 14:46 Pulse Rate 74 03/16/17 14:46 Respiratory Rate 18 03/16/17 14:46 Blood Pressure 152/94 03/16/17 14:46 O2 Sat by Pulse Oximetry (%) 100 03/16/17 08:00 Constitutional: Yes: Well Nourished, Calm Eyes: Yes: WNL HENT: Yes: WNL Neck: Yes: WNL Cardiovascular: Yes: WNL Respiratory: Yes: WNL Gastrointestinal: Yes: WNL, Soft, Other (Lower abdominal incision healing well with 1 inch wound noted to right side laterally.) ...Rectal Exam: Yes: Deferred Genitourinary: Yes: WNL Breast(s): Yes: Right (Cat flap with appropriate swelling and soft. Wound noted medially 2 cm x 1cm with no drainage. No erythema.) Integumentary: Yes: WNL Wound/Incision: Yes: Other (Umbilicus with mild erythema and scab noted. No drainage. No tenderness. No odor noted.) Neurological: Yes: WNL Additional Findings/Remarks: Pt is s/p Right breast CAT reconstruction s/p mastectomy. She is admitted for HIT with left umbilicus infection. Assessment: THROMBOCYTOPENIA , HIT SLOWLY IMPROVING PE BREAST CA S/P mastectomy with reconstruction with CAT flap DM PULMONARY HTN PLAN: Continue to F/U labs and PLT CONTINUE ARGATROBAN COUMADIN PER HEME D/C Vancomycin and start Zosyn Cont daily dressing changes to umbilicus, right breast, and right lower abd incision with silverdine and dry gauze. Labs: CBC, BMP 03/16/17 05:46 03/16/17 05:46 INR, PTT INR 1.59 (0.82-1.09) H 03/16/17 05:46 Fibrinogen 176.0 mg/dL (238-498) L 03/09/17 18:00
[2017-03-16] MEDS ORDERED: PIPERACILLIN/TAZOBACTAM 3.375 GM VIAL IVPB ONE (17:02)
[2017-03-16] MEDS ORDERED: DEXTROSE 5%-WATER - 50 ML IVPB ONE (17:02)
[2017-03-16] MEDS: PIPERACILLIN/TAZOB 3.375 GM 3.375 GM in DEXTROSE 5%-WATER - 50 ML IVPB SCH (17:44)
[2017-03-16] MEDS ORDERED: PIPERACILLIN/TAZOB 3.375 GM/50 ML PRE-DOCKED IVPB SCH (18:00)
[2017-03-16] MEDS ORDERED: LOSARTAN POTASSIUM 50 MG TABLET (FP) PO ONE (22:00)
[2017-03-16] MEDS: MELATONIN 5 MG TABLETS PO SCH (22:06)
[2017-03-17] MEDS ORDERED: PIPERACILLIN/TAZOBACTAM 3.375 GM VIAL IVPB ONE ×2 (01:02→08:52)
[2017-03-17] MEDS ORDERED: DEXTROSE 5%-WATER - 50 ML IVPB ONE ×2 (01:02→08:52)
[2017-03-17] MEDS: ARGATROBAN - 250,000 MCG in SODIUM CHLORIDE 247.5 ML IVPB SCH ×3 (01:57→17:57)
[2017-03-17] MEDS: PIPERACILLIN/TAZOB 3.375 GM 3.375 GM in DEXTROSE 5%-WATER - 50 ML IVPB SCH ×2 (01:57→10:41)
[2017-03-17 08:02] LABS: BASOPHIL 0.6 % (0-2.0); EOSINOPHIL 2.6 % (0-4.5); MCHC 33.5 g/dl (32.0-36.0); MEAN CELL VOLUME 89.6 fl (80-96); MEAN PLT VOLUME 8.9 fl (7.5-11.1); NEUTROPHILS 69.1 % (42.8-82.8); PLATELET COUNT 81 K/MM3 (134-434); RDW 14.3 % (11.6-15.6); WHITE BLOOD COUNT 6.4 K/mm3 (4.0-10.0)
[2017-03-17 08:14] LABS: INR 1.64 (0.82-1.09); PROTHROMBIN TIME (PATIENT) 18.2 SEC (9.98-11.88)
[2017-03-17] MEDS: LACTOBACILLUS ACIDOPHILUS 1 EACH TAB (FP) PO SCH (09:10)
[2017-03-17] MEDS: PANTOPRAZOLE 40 MG TABLET (FP) PO SCH (09:10)
[2017-03-17] MEDS: LOSARTAN POTASSIUM 50 MG TABLET (FP) PO SCH (09:11)
[2017-03-17] MEDS: HYDROCHLOROTHIAZIDE 12.5 MG CAPSULE (FP) PO SCH (09:11)
[2017-03-17] MEDS: SILVER SULFADIAZINE 1% TOP CREAM 50 GM JAR TP SCH (09:11)
[2017-03-17] MEDS: guaiFENesin/D-METHORPHAN HB 10 ML UNIT-DOSE CUPS PO PRN ×2 (09:21→19:46)
[2017-03-17] MEDS: ALLOPURINOL 300 MG TABLET (FP) PO SCH (09:21)
[2017-03-17] MEDS: FENOFIBRIC ACID 135 MG CAP PO SCH (09:22)
[2017-03-17] MEDS: METOPROLOL SUCCINATE 25 MG TAB.SR.24H (FP) PO SCH (09:22)
--- NOTE | 2017-03-17 09:24 | PN ---
Progress Note (short form) - Note Progress Note: CBC, BMP 03/17/17 05:47 03/16/17 05:46 Vital Signs Period Temp Pulse Resp BP Sys/Beck Pulse Ox Last 24 Hr 97.9 F-98.3 F 71-75 18-20 119-175/66-94 98 S1S2 RRR LUNGS CTA decreased pedal edema bruising resolving umbilical wound with slight erythema seropurulent discharge this am Imp Heparin Induced Thrombocytopenia-slowly improving, continue argatroban recent bilateral pulmonary embolism following reconstructive breast surgery after mastectomy. Paget's disease umbilical wound discharge-MSSA and group D strep NIDDM HTN h/o afib-paroxysmal with PE diagnosis-none on telemetry so far Plan f/up wound culture iv zosyn to switch to po meds hopefully today Argatroban while monitoring plt count close monitoring for bleeding problems once thrombocytes over 150 will have to be bridged to warfarin continue other care await transfer to regular floor Problem List - Problems (1) Thrombocytopenia Code(s): D69.6 - THROMBOCYTOPENIA, UNSPECIFIED (2) PAF (paroxysmal atrial fibrillation) Code(s): I48.0 - PAROXYSMAL ATRIAL FIBRILLATION (3) Pulmonary emboli Code(s): I26.99 - OTHER PULMONARY EMBOLISM WITHOUT ACUTE COR PULMONALE Qualifiers: Pulmonary embolism type: other (4) Breast CA Code(s): C50.919 - MALIGNANT NEOPLASM OF UNSP SITE OF UNSPECIFIED FEMALE BREAST Qualifiers: Patient sex: female Laterality: right (5) Diabetes Code(s): E11.9 - TYPE 2 DIABETES MELLITUS WITHOUT COMPLICATIONS Qualifiers: Diabetes mellitus type: type 2 Diabetes mellitus complication status: without complication Diabetes mellitus mcfp insulin use: without middle or intermediate school principal use Qualified Code(s): E11.9 - Type 2 diabetes mellitus without complications (6) HTN (hypertension) Code(s): I10 - ESSENTIAL (PRIMARY) HYPERTENSION Qualifiers: Hypertension type: essential hypertension Qualified Code(s): I10 - Essential (primary) hypertension
--- NOTE | 2017-03-17 10:38 | PN ---
Progress Note, Physician Chief Complaint: Pt is asymptomatic; disappointed that platetlets have decresed slightly. History of Present Illness: "The patient is a 66 year old white female, with a significant past medical history of PE on lovenox, PAF (at least 3 episodes), HTN, diabetes mellitus, obesity, gout, presumed obstructive sleep apnea, and breast cancer s/p right mastectomy around 7 weeks ago (January 20) who was referred to the emergency department by her PCP due to low blood platelet count. She states she was started on lovenox 2 weeks ago when she was diagnosed with acute PE. Patient denies currently experiencing any chest pain or palpitations but admits to SOB from time to time. She denies experiencing any new bruises. She denies recent fevers, chills, headache or dizziness. She denies recent nausea, vomit, diarrhea or constipation. She denies recent dysuria, frequency, urgency or hematuria. She denies recent chest pain. Allergies: NKA Past surgical history: Right masectomy Social history: Nonsmoker. Denies EtOH use and recreational drug use. Primary Care Physician: Carrie Price M.D. - Current Medication List Current Medications: Active Medications Allopurinol (Zyloprim -) 300 mg PO DAILY [facility] Last Admin: 03/17/17 09:21 Dose: Not Given Bacitracin (Bacitracin -) 1 applic TP DAILY [facility] Last Admin: 03/16/17 09:57 Dose: Not Given Diltiazem HCl (Cardizem Cd -) 120 mg PO DAILY [facility] Last Admin: 03/17/17 09:10 Dose: 120 mg Fenofibric Acid (Trilipix -) 135 mg PO DAILY [facility] Last Admin: 03/17/17 09:22 Dose: Not Given Guaifenesin (Robitussin Dm -) 10 ml PO Q6H PRN PRN Reason: COUGH Last Admin: 03/17/17 09:21 Dose: 10 ml Hydrochlorothiazide (Hctz -) 12.5 mg PO DAILY [facility] Last Admin: 03/17/17 09:11 Dose: 12.5 mg Argatroban 250,000 mcg/ Sodium (Chloride) 250 mls @ 13.82 mls/hr IVPB TITR [facility] ; 2 MCG/KG/MIN PRN Reason: Protocol Last Admin: 03/17/17 09:10 Dose: 15 mls/hr Piperacillin Sod/Tazobactam (Sod 3.375 gm/ Dextrose) 50 mls @ 100 mls/hr IVPB Q8H-IV [facility] Last Admin: 03/17/17 01:57 Dose: 100 mls/hr Lactobacillus Acidophilus (Bacid -) 2 tab PO DAILY [facility] Last Admin: 03/17/17 09:10 Dose: 2 tab Losartan Potassium (Cozaar -) 50 mg PO DAILY [facility] Last Admin: 03/17/17 09:11 Dose: 50 mg Melatonin (Melatonin) 5 mg PO HS [facility] Last Admin: 03/16/17 22:06 Dose: 5 mg Metoprolol Succinate (Toprol Xl -) 25 mg PO DAILY [facility] Last Admin: 03/17/17 09:22 Dose: Not Given Pantoprazole Sodium (Protonix -) 40 mg PO DAILY [facility] Last Admin: 03/17/17 09:10 Dose: 40 mg Silver Sulfadiazine (Silvadene -) 1 applic TP DAILY [facility] Last Admin: 03/17/17 09:11 Dose: 1 applic - Objective Vital Signs: Vital Signs Temperature 98.2 F 03/17/17 05:00 Pulse Rate 71 03/17/17 05:00 Respiratory Rate 18 03/17/17 05:00 Blood Pressure 119/66 03/17/17 05:00 O2 Sat by Pulse Oximetry (%) 98 03/16/17 21:00 Constitutional: Yes: Calm Eyes: Yes: WNL HENT: Yes: WNL Neck: Yes: WNL Cardiovascular: Yes: WNL Respiratory: Yes: WNL Gastrointestinal: Yes: WNL ...Rectal Exam: Yes: WNL Genitourinary: Yes: WNL Breast(s): Yes: WNL Musculoskeletal: Yes: WNL Extremities: Yes: WNL Edema: Yes Edema: LLE: Trace, RLE: Trace Peripheral Pulses WNL: Yes Integumentary: Yes: WNL Neurological: Yes: WNL Labs: CBC, BMP 03/17/17 05:47 03/16/17 05:46 INR, PTT INR 1.64 (0.82-1.09) H 03/17/17 05:47 Fibrinogen 176.0 mg/dL (238-498) L 03/09/17 18:00 Abnormal Lab Results 03/17/17 03/17/17 05:47 05:47 Hct 32.3 L Plt Count 81 L PT with INR 18.20 H INR 1.64 H PTT (Actin FS) 54.0 H Problem List - Problems (1) Thrombocytopenia Assessment/Plan: ? antibiotics as contributer to decrease in platelets today, or part of slow, gradual return to normal levels. Code(s): D69.6 - THROMBOCYTOPENIA, UNSPECIFIED (2) Cellulitis Code(s): L03.90 - CELLULITIS, UNSPECIFIED (3) ABENA (obstructive sleep apnea) Assessment/Plan: f/u sleep studies. Code(s): G47.33 - OBSTRUCTIVE SLEEP APNEA (ADULT) (PEDIATRIC) (4) Chronic instability of right knee Code(s): M23.51 - CHRONIC INSTABILITY OF KNEE, RIGHT KNEE (5) PAF (paroxysmal atrial fibrillation) Assessment/Plan: On diltiazem for HR control. When warfarin is restarted, will likely have to be lifetime, given her having had several episodes of PAF. Will discuss with EP as to whether long-term monitoring will affect this decision. Code(s): I48.0 - PAROXYSMAL ATRIAL FIBRILLATION (6) Pulmonary emboli Assessment/Plan: On agatraban until able to start warfarin. Code(s): I26.99 - OTHER PULMONARY EMBOLISM WITHOUT ACUTE COR PULMONALE Qualifiers: Pulmonary embolism type: other (7) Breast CA Code(s): C50.919 - MALIGNANT NEOPLASM OF UNSP SITE OF UNSPECIFIED FEMALE BREAST Qualifiers: Patient sex: female Laterality: right (8) Diabetes Code(s): E11.9 - TYPE 2 DIABETES MELLITUS WITHOUT COMPLICATIONS Qualifiers: Diabetes mellitus type: type 2 Diabetes mellitus complication status: without complication Diabetes mellitus intermodal customer service insulin use: without intermodal customer service use Qualified Code(s): E11.9 - Type 2 diabetes mellitus without complications (9) Diastolic CHF Code(s): I50.30 - UNSPECIFIED DIASTOLIC (CONGESTIVE) HEART FAILURE (10) HTN (hypertension) Assessment/Plan: on metoprolol, diltiazem, and losartan, Serial BP checks; increse losartan to 100 mg daily if necessary. F/u EKG Code(s): I10 - ESSENTIAL (PRIMARY) HYPERTENSION Qualifiers: Hypertension type: essential hypertension Qualified Code(s): I10 - Essential (primary) hypertension (11) Hypertriglyceridemia Assessment/Plan: On Trilipix. Code(s): E78.1 - PURE HYPERGLYCERIDEMIA (12) Obesity Assessment/Plan: f/u with student counsellor. 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 antibiotics per ID. Code(s): C50.011 - MALIGNANT NEOPLASM OF NIPPLE AND AREOLA, RIGHT FEMALE BREAST
[2017-03-17] MEDS: BACITRACIN 15 GM TUBE TOPICAL OINTMENT TP SCH (10:41)
--- NOTE | 2017-03-17 11:39 | PN ---
Progress Note (short form) - Note Progress Note: Patient seen and examined feels better wound feels better Last Vital Signs Temp Pulse Resp BP Pulse Ox 98.2 F 71 18 119/66 98 03/17/17 05:00 03/17/17 05:00 03/17/17 05:00 03/17/17 05:00 03/16/17 21:00 Breasts: right breast reconstruction. Incision is healing Cor: RSR, No murmurs, No gallops Lungs: Clear to P&A Abd: Soft, Normal bowel sounds, healing abdominal incision Ext:No significant edema wounds --RT. lower adomen, Rt. breast look clean umblical woud some discharge Abnormal Lab Results 03/17/17 03/17/17 05:47 05:47 Hct 32.3 L Plt Count 81 L PT with INR 18.20 H INR 1.64 H PTT (Actin FS) 54.0 H Active Medications Generic Name Dose Route Start Last Admin Trade Name Freq PRN Reason Stop Dose Admin Allopurinol 300 mg 03/10/17 10:00 03/17/17 09:21 Zyloprim - PO Not Given DAILY [facility] Bacitracin 1 applic 03/14/17 20:15 03/17/17 10:41 Bacitracin - TP Not Given DAILY [facility] Diltiazem HCl 120 mg 03/10/17 10:00 03/17/17 09:10 Cardizem Cd - PO 120 mg DAILY [facility] Administration Fenofibric Acid 135 mg 03/10/17 10:00 03/17/17 09:22 Trilipix - PO Not Given DAILY [facility] Guaifenesin 10 ml 03/10/17 17:20 03/17/17 09:21 Robitussin Dm - PO 10 ml Q6H PRN Administration COUGH Hydrochlorothiazide 12.5 mg 03/12/17 10:00 03/17/17 09:11 Hctz - PO 12.5 mg DAILY [facility] Administration Argatroban 250,000 mcg/ Sodium 250 mls @ 13.82 mls/hr 03/14/17 08:15 03/17/17 09:10 Chloride IVPB 15 mls/hr TITR [facility] Administration Protocol 2 MCG/KG/MIN Piperacillin Sod/Tazobactam 50 mls @ 100 mls/hr 03/16/17 18:00 03/17/17 10:41 Sod 3.375 gm/ Dextrose IVPB Not Given Q8H-IV [facility] Lactobacillus Acidophilus 2 tab 03/14/17 10:00 03/17/17 09:10 Bacid - PO 2 tab DAILY [facility] Administration Losartan Potassium 50 mg 03/10/17 10:00 03/17/17 09:11 Cozaar - PO 50 mg DAILY [facility] Administration Melatonin 5 mg 03/12/17 20:00 03/16/17 22:06 Melatonin PO 5 mg HS [facility] Administration Metoprolol Succinate 25 mg 03/10/17 10:00 03/17/17 09:22 Toprol Xl - PO Not Given DAILY [facility] Pantoprazole Sodium 40 mg 03/11/17 10:00 03/17/17 09:10 Protonix - PO 40 mg DAILY [facility] Administration Silver Sulfadiazine 1 applic 03/10/17 12:30 03/17/17 09:11 Silvadene - TP 1 applic DAILY [facility] Administration A/P 66 y/o patient s/p Rt. 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 change to augmentin for 3 more days plastics to f/u on umblical wound
--- NOTE | 2017-03-17 13:00 | PN ---
Progress Note (short form) - Note Progress Note: PULMONARY States breathing is improving. +nonproductive cough. No chest pain or palpitations. Last Vital Signs Temp Pulse Resp BP Pulse Ox 98.2 F 71 18 119/66 98 03/17/17 05:00 03/17/17 05:00 03/17/17 05:00 03/17/17 05:00 03/16/17 21:00 Gen: NAD at rest Heart: RRR Lung: decreased breath sounds at the bases Abd: soft, nontender Ext: + edema CBC, BMP 03/17/17 05:47 03/16/17 05:46 Active Medications Allopurinol (Zyloprim -) 300 mg PO DAILY [facility] Last Admin: 03/17/17 09:21 Dose: Not Given Bacitracin (Bacitracin -) 1 applic TP DAILY [facility] Last Admin: 03/17/17 10:41 Dose: Not Given Diltiazem HCl (Cardizem Cd -) 120 mg PO DAILY [facility] Last Admin: 03/17/17 09:10 Dose: 120 mg Fenofibric Acid (Trilipix -) 135 mg PO DAILY [facility] Last Admin: 03/17/17 09:22 Dose: Not Given Guaifenesin (Robitussin Dm -) 10 ml PO Q6H PRN PRN Reason: COUGH Last Admin: 03/17/17 09:21 Dose: 10 ml Hydrochlorothiazide (Hctz -) 12.5 mg PO DAILY [facility] Last Admin: 03/17/17 09:11 Dose: 12.5 mg Argatroban 250,000 mcg/ Sodium (Chloride) 250 mls @ 13.82 mls/hr IVPB TITR [facility] ; 2 MCG/KG/MIN PRN Reason: Protocol Last Admin: 03/17/17 09:10 Dose: 15 mls/hr Piperacillin Sod/Tazobactam (Sod 3.375 gm/ Dextrose) 50 mls @ 100 mls/hr IVPB Q8H-IV [facility] Last Admin: 03/17/17 10:41 Dose: Not Given Lactobacillus Acidophilus (Bacid -) 2 tab PO DAILY [facility] Last Admin: 03/17/17 09:10 Dose: 2 tab Losartan Potassium (Cozaar -) 50 mg PO DAILY [facility] Last Admin: 03/17/17 09:11 Dose: 50 mg Melatonin (Melatonin) 5 mg PO HS [facility] Last Admin: 03/16/17 22:06 Dose: 5 mg Metoprolol Succinate (Toprol Xl -) 25 mg PO DAILY [facility] Last Admin: 03/17/17 09:22 Dose: Not Given Pantoprazole Sodium (Protonix -) 40 mg PO DAILY [facility] Last Admin: 03/17/17 09:10 Dose: 40 mg Silver Sulfadiazine (Silvadene -) 1 applic TP DAILY [facility] Last Admin: 03/17/17 09:11 Dose: 1 applic A/P Bilateral Pulmonary Emboli Pulmonary HTN Heparin Induced Thrombocytopenia Breast Ca DM ABENA Umbilical Wound - continue argatroban - start coumadin when platelet count improved - antibiotics per ID - encouraged ambulation
[2017-03-17] MEDS: AMOX TR/POT CLAV 875MG/125MG TABLETS (FP) PO SCH (17:30)
[2017-03-17] MEDS ORDERED: PT OWN MED DRAWER 7, Y5N ONE (19:45)
[2017-03-17] MEDS: MELATONIN 5 MG TABLETS PO SCH (21:05)
[2017-03-18 07:50] LABS: BASOPHIL 0.5 % (0-2.0); EOSINOPHIL 2.9 % (0-4.5); MCH 29.8 pg (25.7-33.7); MCHC 33.6 g/dl (32.0-36.0); MEAN CELL VOLUME 88.7 fl (80-96); MEAN PLT VOLUME 9.5 fl (7.5-11.1); NEUTROPHILS 66.5 % (42.8-82.8); PLATELET COUNT 87 K/MM3 (134-434); RDW 14.2 % (11.6-15.6); WHITE BLOOD COUNT 7.2 K/mm3 (4.0-10.0)
--- NOTE | 2017-03-18 08:16 | PN ---
Progress Note (short form) - Note Progress Note: CBC, BMP 03/18/17 06:30 Vital Signs Period Temp Pulse Resp BP Sys/Beck Pulse Ox Last 24 Hr 97.5 F-99.4 F 72-79 18-22 130-163/68-91 96-96 S1S2 RRR LUNGS CTA decreased pedal edema bruising resolving umbilical wound with slight erythema seropurulent discharge this am Imp Heparin Induced Thrombocytopenia-slowly improving, continue argatroban recent bilateral pulmonary embolism following reconstructive breast surgery after mastectomy. Paget's disease umbilical wound discharge-MSSA and group D strep NIDDM HTN h/o afib-paroxysmal with PE diagnosis-none on telemetry so far Plan oral augmentin Argatroban while monitoring plt count close monitoring for bleeding problems once thrombocytes over 150 will have to be bridged to warfarin continue other care switch toprol and allopurinol meds to pm-she prefers to take them like that at home too. Problem List - Problems (1) Thrombocytopenia Code(s): D69.6 - THROMBOCYTOPENIA, UNSPECIFIED (2) PAF (paroxysmal atrial fibrillation) Code(s): I48.0 - PAROXYSMAL ATRIAL FIBRILLATION (3) Pulmonary emboli Code(s): I26.99 - OTHER PULMONARY EMBOLISM WITHOUT ACUTE COR PULMONALE Qualifiers: Pulmonary embolism type: other (4) Breast CA Code(s): C50.919 - MALIGNANT NEOPLASM OF UNSP SITE OF UNSPECIFIED FEMALE BREAST Qualifiers: Patient sex: female Laterality: right (5) Diabetes Code(s): E11.9 - TYPE 2 DIABETES MELLITUS WITHOUT COMPLICATIONS Qualifiers: Diabetes mellitus type: type 2 Diabetes mellitus complication status: without complication Diabetes mellitus terminal supervisor insulin use: without senior living use Qualified Code(s): E11.9 - Type 2 diabetes mellitus without complications (6) HTN (hypertension) Code(s): I10 - ESSENTIAL (PRIMARY) HYPERTENSION Qualifiers: Hypertension type: essential hypertension Qualified Code(s): I10 - Essential (primary) hypertension
[2017-03-18 08:17] LABS: INR 1.64 (0.82-1.09); PROTHROMBIN TIME (PATIENT) 18.2 SEC (9.98-11.88)
[2017-03-18 08:19] LABS: ACTIVATED PTT 52.1 SECONDS (26.9-34.4)
[2017-03-18] MEDS: AMOX TR/POT CLAV 875MG/125MG TABLETS (FP) PO SCH ×2 (08:25→17:34)
[2017-03-18 08:27] LABS: ALBUMIN 3.2 g/dl (3.4-5.0); ALK PHOS 72 U/L (45-117); ANION GAP 11 (8-16); BILIRUBIN,TOTAL 0.4 mg/dL (0.2-1.0); CALCIUM 8.9 mg/dL (8.5-10.1); CO2 24 mmol/L (21-32); GLUCOSE,RANDOM 135 mg/dL (74-106); SGOT/AST 12 U/L (15-37); SGPT/ALT 26 U/L (12-78); TOT PROT 6.1 g/dl (6.4-8.2)
[2017-03-18] MEDS ORDERED: PT OWN MED DRAWER 7, Y5N ONE (09:28)
[2017-03-18] MEDS: LACTOBACILLUS ACIDOPHILUS 1 EACH TAB (FP) PO SCH (09:32)
[2017-03-18] MEDS: HYDROCHLOROTHIAZIDE 12.5 MG CAPSULE (FP) PO SCH (09:33)
[2017-03-18] MEDS: LOSARTAN POTASSIUM 50 MG TABLET (FP) PO SCH (09:33)
[2017-03-18] MEDS: FENOFIBRIC ACID 135 MG CAP PO SCH (09:34)
[2017-03-18] MEDS: guaiFENesin/D-METHORPHAN HB 10 ML UNIT-DOSE CUPS PO PRN ×2 (09:46→17:34)
[2017-03-18] MEDS: ARGATROBAN - 250,000 MCG in SODIUM CHLORIDE 247.5 ML IVPB SCH ×2 (10:16)
[2017-03-18] MEDS: SILVER SULFADIAZINE 1% TOP CREAM 50 GM JAR TP SCH (10:17)
[2017-03-18] MEDS: BACITRACIN 15 GM TUBE TOPICAL OINTMENT TP SCH (10:17)
--- NOTE | 2017-03-18 11:42 | PN ---
Progress Note (short form) - Note Progress Note: Patient seen and examined. feels well. no complains. +mild cough present Cor: RSR, No murmurs, No gallops Lungs: Clear to P&A Ext:No significant edema Skin: No rashes, Integument intact Last Vital Signs Temp Pulse Resp BP Pulse Ox 97.3 F L 80 18 134/67 96 03/18/17 08:05 03/18/17 08:05 03/18/17 08:05 03/18/17 08:05 03/17/17 21:00 CBC, BMP 03/18/17 06:30 03/18/17 06:30 Current Medications Generic Name Dose Route Start Last Admin Trade Name Freq PRN Reason Stop Dose Admin Allopurinol 300 mg 03/18/17 20:00 Zyloprim - PO DAILY [facility] Amoxicillin/Clavulanate Potassium 1 tab 03/17/17 17:30 03/18/17 08:25 Augmentin - 875mg Tablet PO 1 tab BID@0800,1730 [facility] Administration Bacitracin 1 applic 03/14/17 20:15 03/18/17 10:17 Bacitracin - TP 1 applic DAILY [facility] Administration Diltiazem HCl 120 mg 03/10/17 10:00 03/18/17 09:33 Cardizem Cd - PO 120 mg DAILY [facility] Administration Fenofibric Acid 135 mg 03/10/17 10:00 03/18/17 09:34 Trilipix - PO 135 mg DAILY [facility] Administration Guaifenesin 10 ml 03/10/17 17:20 03/18/17 09:46 Robitussin Dm - PO 10 ml Q6H PRN Administration COUGH Hydrochlorothiazide 12.5 mg 03/18/17 10:00 03/18/17 09:33 Hctz - PO 12.5 mg DAILY [facility] Administration Argatroban 250,000 mcg/ Sodium 250 mls @ 13.82 mls/hr 03/14/17 08:15 03/18/17 10:16 Chloride IVPB 15 mls/hr TITR [facility] Administration Protocol 2 MCG/KG/MIN Lactobacillus Acidophilus 2 tab 03/14/17 10:00 03/18/17 09:32 Bacid - PO 2 tab DAILY [facility] Administration Losartan Potassium 50 mg 03/10/17 10:00 03/18/17 09:33 Cozaar - PO 50 mg DAILY [facility] Administration Melatonin 5 mg 03/12/17 20:00 03/17/17 21:05 Melatonin PO 5 mg HS [facility] Administration Metoprolol Succinate 25 mg 03/18/17 20:00 Toprol Xl - PO DAILY [facility] Silver Sulfadiazine 1 applic 03/10/17 12:30 03/18/17 10:17 Silvadene - TP 1 applic DAILY [facility] Administration A/P 66 y/o patient s/p Rt. 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 HIT: c/w argatroban at present goal daily CBC/PTT On PO antibiotics Cardiology note reviewed, indefinite AC for PAF. Reviewed plastic surgery note, daily dressings. Breast ca, f/u as an OP for Rx. (hormonal)
--- NOTE | 2017-03-18 11:59 | PN ---
Progress Note (short form) - Note Progress Note: PULMONARY VSS/AFEBRILE OOB TO CHAIR SUBJECTIVE IMPROVEMENT ANICTERIC CLEAR S1S2 BS+ OBESE 1+ EDEMA ANKLES LABS/MEDS/NOTES/IMAGING REVIEWED Bilateral Pulmonary Emboli Pulmonary HTN Heparin Induced Thrombocytopenia Breast Ca DM ABENA Umbilical Wound - continue argatroban - start coumadin when platelet count improved - antibiotics per ID - encouraged ambulation Nicole BARKSDALE MD
--- NOTE | 2017-03-18 16:17 | PN ---
Progress Note, Physician Chief Complaint: Pt has no chest pain or dyspnea; wants to take some of her medications at night , as she does at home. History of Present Illness: "The patient is a 66 year old white female, with a significant past medical history of PE on lovenox, PAF (at least 3 episodes), HTN, diabetes mellitus, obesity, gout, presumed obstructive sleep apnea, and breast cancer s/p right mastectomy around 7 weeks ago (January 20) who was referred to the emergency department by her PCP due to low blood platelet count. She states she was started on lovenox 2 weeks ago when she was diagnosed with acute PE. Patient denies currently experiencing any chest pain or palpitations but admits to SOB from time to time. She denies experiencing any new bruises. She denies recent fevers, chills, headache or dizziness. She denies recent nausea, vomit, diarrhea or constipation. She denies recent dysuria, frequency, urgency or hematuria. She denies recent chest pain. Allergies: NKA Past surgical history: Right masectomy Social history: Nonsmoker. Denies EtOH use and recreational drug use. Primary Care Physician: Carrie Price M.D. - Current Medication List Current Medications: Active Medications Allopurinol (Zyloprim -) 300 mg PO DAILY [facility] Amoxicillin/Clavulanate Potassium (Augmentin - 875mg Tablet) 1 tab PO BID@0800, 1730 [facility] Last Admin: 03/18/17 08:25 Dose: 1 tab Bacitracin (Bacitracin -) 1 applic TP DAILY [facility] Last Admin: 03/18/17 10:17 Dose: 1 applic Diltiazem HCl (Cardizem Cd -) 120 mg PO DAILY [facility] Last Admin: 03/18/17 09:33 Dose: 120 mg Fenofibric Acid (Trilipix -) 135 mg PO DAILY [facility] Last Admin: 03/18/17 09:34 Dose: 135 mg Guaifenesin (Robitussin Dm -) 10 ml PO Q6H PRN PRN Reason: COUGH Last Admin: 03/18/17 09:46 Dose: 10 ml Hydrochlorothiazide (Hctz -) 12.5 mg PO DAILY [facility] Last Admin: 03/18/17 09:33 Dose: 12.5 mg Argatroban 250,000 mcg/ Sodium (Chloride) 250 mls @ 13.82 mls/hr IVPB TITR [facility] ; 2 MCG/KG/MIN PRN Reason: Protocol Last Admin: 03/18/17 10:16 Dose: 15 mls/hr Lactobacillus Acidophilus (Bacid -) 2 tab PO DAILY [facility] Last Admin: 03/18/17 09:32 Dose: 2 tab Losartan Potassium (Cozaar -) 50 mg PO DAILY [facility] Last Admin: 03/18/17 09:33 Dose: 50 mg Melatonin (Melatonin) 5 mg PO HS [facility] Last Admin: 03/17/17 21:05 Dose: 5 mg Metoprolol Succinate (Toprol Xl -) 25 mg PO DAILY [facility] Silver Sulfadiazine (Silvadene -) 1 applic TP DAILY [facility] Last Admin: 03/18/17 10:17 Dose: 1 applic - Objective Vital Signs: Vital Signs Temperature 99.1 F 03/18/17 14:59 Pulse Rate 80 03/18/17 14:59 Respiratory Rate 18 03/18/17 14:59 Blood Pressure 171/107 03/18/17 14:59 O2 Sat by Pulse Oximetry (%) 96 03/17/17 21:00 Constitutional: Yes: No Distress Eyes: Yes: WNL HENT: Yes: WNL Neck: Yes: WNL Cardiovascular: Yes: WNL Respiratory: Yes: WNL Gastrointestinal: Yes: WNL ...Rectal Exam: Yes: Deferred Genitourinary: No: Anuria Breast(s): Yes: WNL Extremities: Yes: WNL Edema: No Peripheral Pulses WNL: Yes Integumentary: Yes: WNL Neurological: Yes: Alert, Oriented Psychiatric: Yes: WNL Labs: CBC, BMP 03/18/17 06:30 03/18/17 06:30 INR, PTT INR 1.64 (0.82-1.09) H 03/18/17 06:30 Fibrinogen 176.0 mg/dL (238-498) L 03/09/17 18:00 Problem List - Problems (1) Thrombocytopenia Assessment/Plan: Slight improvement in platelet numbers today. Code(s): D69.6 - THROMBOCYTOPENIA, UNSPECIFIED (2) Cellulitis Code(s): L03.90 - CELLULITIS, UNSPECIFIED (3) ABENA (obstructive sleep apnea) Assessment/Plan: f/u sleep studies. Code(s): G47.33 - OBSTRUCTIVE SLEEP APNEA (ADULT) (PEDIATRIC) (4) Chronic instability of right knee Code(s): M23.51 - CHRONIC INSTABILITY OF KNEE, RIGHT KNEE (5) PAF (paroxysmal atrial fibrillation) Assessment/Plan: On diltiazem for HR control. When warfarin is restarted, will likely have to be lifetime, given her having had several episodes of PAF. Will discuss with EP as to whether long-term monitoring will affect this decision. Code(s): I48.0 - PAROXYSMAL ATRIAL FIBRILLATION (6) Pulmonary emboli Assessment/Plan: On argatraban until able to start warfarin. Code(s): I26.99 - OTHER PULMONARY EMBOLISM WITHOUT ACUTE COR PULMONALE (7) Breast CA Code(s): C50.919 - MALIGNANT NEOPLASM OF UNSP SITE OF UNSPECIFIED FEMALE BREAST (8) Diabetes Code(s): E11.9 - TYPE 2 DIABETES MELLITUS WITHOUT COMPLICATIONS Qualifiers: Qualified Code(s): E11.9 - Type 2 diabetes mellitus without complications (9) Diastolic CHF Code(s): I50.30 - UNSPECIFIED DIASTOLIC (CONGESTIVE) HEART FAILURE (10) HTN (hypertension) Assessment/Plan: on metoprolol, diltiazem, and losartan, Serial BP checks; increse losartan to 100 mg daily if necessary. F/u EKG Code(s): I10 - ESSENTIAL (PRIMARY) HYPERTENSION Qualifiers: Qualified Code(s): I10 - Essential (primary) hypertension (11) Hypertriglyceridemia Assessment/Plan: On Trilipix, though pt says she may stop it due to perceived side-effectsl Code(s): E78.1 - PURE HYPERGLYCERIDEMIA (12) Obesity Assessment/Plan: f/u with event staff. 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 antibiotics per ID. Code(s): C50.011 - MALIGNANT NEOPLASM OF NIPPLE AND AREOLA, RIGHT FEMALE BREAST
[2017-03-18] MEDS ORDERED: HYDROCHLOROTHIAZIDE 12.5 MG CAPSULE (FP) PO SCH (20:00)
[2017-03-18] MEDS: METOPROLOL SUCCINATE 25 MG TAB.SR.24H (FP) PO SCH (20:44)
[2017-03-18] MEDS: ALLOPURINOL 300 MG TABLET (FP) PO SCH (20:45)
[2017-03-18] MEDS: MELATONIN 5 MG TABLETS PO SCH (22:00)
[2017-03-19] MEDS: ARGATROBAN - 250,000 MCG in SODIUM CHLORIDE 247.5 ML IVPB SCH ×2 (00:15→17:46)
--- NOTE | 2017-03-19 07:45 | PN ---
Progress Note (short form) - Note Progress Note: CBC, BMP 03/18/17 06:30 03/18/17 06:30 Vital Signs Period Temp Pulse Resp BP Sys/Beck Pulse Ox Last 24 Hr 97.3 F-99.1 F 75-80 18-20 134-171/67-107 96 S1S2 RRR LUNGS CTA decreased pedal edema bruising resolving umbilical wound with no erythema, still with seropurulent discharge this am Imp Heparin Induced Thrombocytopenia-slowly improving, continue argatroban recent bilateral pulmonary embolism following reconstructive breast surgery after mastectomy. Paget's disease umbilical wound discharge-MSSA and group D strep NIDDM HTN h/o afib-paroxysmal with PE diagnosis-none on telemetry so far Plan oral augmentin Argatroban while monitoring plt count close monitoring for bleeding problems once thrombocytes over 150 will have to be bridged to warfarin continue other care dc trilipix-has been refusing and when she takes it she gets sick iodine packing to umbilical wound Problem List - Problems (1) Thrombocytopenia Code(s): D69.6 - THROMBOCYTOPENIA, UNSPECIFIED (2) PAF (paroxysmal atrial fibrillation) Code(s): I48.0 - PAROXYSMAL ATRIAL FIBRILLATION (3) Pulmonary emboli Code(s): I26.99 - OTHER PULMONARY EMBOLISM WITHOUT ACUTE COR PULMONALE (4) Breast CA Code(s): C50.919 - MALIGNANT NEOPLASM OF UNSP SITE OF UNSPECIFIED FEMALE BREAST (5) Diabetes Code(s): E11.9 - TYPE 2 DIABETES MELLITUS WITHOUT COMPLICATIONS Qualifiers: Qualified Code(s): E11.9 - Type 2 diabetes mellitus without complications (6) HTN (hypertension) Code(s): I10 - ESSENTIAL (PRIMARY) HYPERTENSION Qualifiers: Qualified Code(s): I10 - Essential (primary) hypertension
[2017-03-19 08:21] LABS: BASOPHIL 0.6 % (0-2.0); MCH 29.9 pg (25.7-33.7); MCHC 33.7 g/dl (32.0-36.0); MEAN CELL VOLUME 88.7 fl (80-96); MEAN PLT VOLUME 9.1 fl (7.5-11.1); NEUTROPHILS 71.2 % (42.8-82.8); PLATELET COUNT 87 K/MM3 (134-434); RDW 14.1 % (11.6-15.6); WHITE BLOOD COUNT 6.9 K/mm3 (4.0-10.0)
[2017-03-19 08:23] LABS: INR 1.63 (0.82-1.09); PROTHROMBIN TIME (PATIENT) 18.1 SEC (9.98-11.88)
[2017-03-19] MEDS: AMOX TR/POT CLAV 875MG/125MG TABLETS (FP) PO SCH ×2 (08:23→17:45)
[2017-03-19 08:24] LABS: ACTIVATED PTT 50.5 SECONDS (26.9-34.4)
[2017-03-19] MEDS ORDERED: PT OWN MED DRAWER 7, Y5N ONE (09:02)
[2017-03-19] MEDS: HYDROCHLOROTHIAZIDE 12.5 MG CAPSULE (FP) PO SCH (09:05)
[2017-03-19] MEDS: METOPROLOL SUCCINATE 25 MG TAB.SR.24H (FP) PO SCH ×3 (09:05→22:51)
[2017-03-19] MEDS: LOSARTAN POTASSIUM 50 MG TABLET (FP) PO SCH (09:05)
[2017-03-19] MEDS: guaiFENesin/D-METHORPHAN HB 10 ML UNIT-DOSE CUPS PO PRN (09:05)
[2017-03-19] MEDS: LACTOBACILLUS ACIDOPHILUS 1 EACH TAB (FP) PO SCH (09:06)
[2017-03-19] MEDS: SILVER SULFADIAZINE 1% TOP CREAM 50 GM JAR TP SCH (09:07)
[2017-03-19] MEDS: BACITRACIN 15 GM TUBE TOPICAL OINTMENT TP SCH (09:07)
[2017-03-19] MEDS: ALLOPURINOL 300 MG TABLET (FP) PO SCH ×3 (09:08→22:52)
--- NOTE | 2017-03-19 09:18 | PN ---
Progress Note, Physician History of Present Illness: seen and examined today in nad. no overnight events. no new complaints. states her sob is significantly improved. - Current Medication List Current Medications: Active Medications Allopurinol (Zyloprim -) 300 mg PO DAILY [facility] Last Admin: 03/19/17 09:08 Dose: 300 mg Amoxicillin/Clavulanate Potassium (Augmentin - 875mg Tablet) 1 tab PO BID@0800, 1730 [facility] Last Admin: 03/19/17 08:23 Dose: 1 tab Bacitracin (Bacitracin -) 1 applic TP DAILY [facility] Last Admin: 03/19/17 09:07 Dose: 1 applic Diltiazem HCl (Cardizem Cd -) 120 mg PO DAILY [facility] Last Admin: 03/19/17 09:05 Dose: 120 mg Guaifenesin (Robitussin Dm -) 10 ml PO Q6H PRN PRN Reason: COUGH Last Admin: 03/19/17 09:05 Dose: 10 ml Hydrochlorothiazide (Hctz -) 12.5 mg PO DAILY [facility] Last Admin: 03/19/17 09:05 Dose: 12.5 mg Argatroban 250,000 mcg/ Sodium (Chloride) 250 mls @ 13.82 mls/hr IVPB TITR [facility] ; 2 MCG/KG/MIN PRN Reason: Protocol Lactobacillus Acidophilus (Bacid -) 2 tab PO DAILY [facility] Last Admin: 03/19/17 09:06 Dose: 2 tab Losartan Potassium (Cozaar -) 50 mg PO DAILY [facility] Last Admin: 03/19/17 09:05 Dose: 50 mg Melatonin (Melatonin) 5 mg PO HS [facility] Metoprolol Succinate (Toprol Xl -) 25 mg PO DAILY [facility] Last Admin: 03/19/17 09:05 Dose: 25 mg Silver Sulfadiazine (Silvadene -) 1 applic TP DAILY [facility] Last Admin: 03/19/17 09:07 Dose: 1 applic - Objective Vital Signs: Vital Signs Temperature 99 F 03/18/17 20:35 Pulse Rate 75 03/18/17 20:35 Respiratory Rate 20 03/18/17 20:36 Blood Pressure 147/82 03/18/17 20:35 O2 Sat by Pulse Oximetry (%) 96 03/18/17 20:36 Constitutional: Yes: No Distress, Calm Eyes: Yes: Conjunctiva Clear, EOM Intact, PERRL HENT: Yes: Atraumatic, Normocephalic Neck: Yes: Supple, Trachea Midline Cardiovascular: Yes: Regular Rate and Rhythm, S1, S2. No: Bradycardia, Tachycardia, Pulse Irregular, Bruit, JVD, Gallop, Murmur, Rub, S3, S4, Varicosities Respiratory: Yes: Regular, CTA Bilaterally. No: Rales, Rhonchi, SOB, Wheezes Gastrointestinal: Yes: Normal Bowel Sounds, Soft. No: Distention, Tenderness Extremities: Yes: WNL Edema: No Peripheral Pulses WNL: Yes Peripheral Pulses: Left Doralis Pedis: 2+, Right Dorsalis Pedis: 2+ Neurological: Yes: Alert, Oriented Psychiatric: Yes: Alert, Oriented Labs: CBC, BMP 03/19/17 06:35 03/18/17 06:30 INR, PTT INR 1.63 (0.82-1.09) H 03/19/17 06:35 Fibrinogen 176.0 mg/dL (238-498) L 03/09/17 18:00 - ....Imaging Chest X-ray: Report Reviewed, Image Reviewed EKG: Report Reviewed, Image Reviewed Other: Report Reviewed, Image Reviewed Assessment/Plan 66 year old woman h/o PE on Lovenox dx 2 weeks ago, Pafib, HTN, DMII, obesity, presumed ABENA, breast ca s/p recent mastectomy admitted with thrombocytopenia presumed to be due to Lovenox. Pafib -plan is for argatroban with bridge to coumadin once plt count >150 -currently NSR -cont metoprolol, cardizem at current doses PE-with thrombocytopenia on lovenox -AC plan as above SOB-multifactorial due to PE, likely ABENA, obesity, possible diastolic chf, currently improved -currently euvolemic -does not require diuresis other than HCTZ at this time -pulm f/up HTN-variable but above goal at times -cont current medical regimen for now and uptitrate as needed
--- NOTE | 2017-03-19 11:01 | PN ---
Progress Note (short form) - Note Progress Note: PULMONARY Breathing is improving. +nonproductive cough. No chest pain or palpitations. Last Vital Signs Temp Pulse Resp BP Pulse Ox 99 F 75 20 147/82 96 03/18/17 20:35 03/18/17 20:35 03/18/17 20:36 03/18/17 20:35 03/18/17 20:36 Gen: NAD at rest Heart: RRR Lung: decreased breath sounds at the bases Abd: soft, nontender Ext: + edema CBC, BMP 03/19/17 06:35 03/18/17 06:30 Active Medications Allopurinol (Zyloprim -) 300 mg PO HS [facility] Amoxicillin/Clavulanate Potassium (Augmentin - 875mg Tablet) 1 tab PO BID@0800, 1730 [facility] Last Admin: 03/19/17 08:23 Dose: 1 tab Bacitracin (Bacitracin -) 1 applic TP DAILY [facility] Last Admin: 03/19/17 09:07 Dose: 1 applic Diltiazem HCl (Cardizem Cd -) 120 mg PO DAILY [facility] Last Admin: 03/19/17 09:05 Dose: 120 mg Guaifenesin (Robitussin Dm -) 10 ml PO Q6H PRN PRN Reason: COUGH Last Admin: 03/19/17 09:05 Dose: 10 ml Hydrochlorothiazide (Hctz -) 12.5 mg PO DAILY [facility] Last Admin: 03/19/17 09:05 Dose: 12.5 mg Argatroban 250,000 mcg/ Sodium (Chloride) 250 mls @ 13.82 mls/hr IVPB TITR [facility] ; 2 MCG/KG/MIN PRN Reason: Protocol Lactobacillus Acidophilus (Bacid -) 2 tab PO DAILY [facility] Last Admin: 03/19/17 09:06 Dose: 2 tab Losartan Potassium (Cozaar -) 50 mg PO DAILY [facility] Last Admin: 03/19/17 09:05 Dose: 50 mg Melatonin (Melatonin) 5 mg PO HS [facility] Metoprolol Succinate (Toprol Xl -) 25 mg PO HS [facility] Silver Sulfadiazine (Silvadene -) 1 applic TP DAILY [facility] Last Admin: 03/19/17 09:07 Dose: 1 applic A/P Bilateral Pulmonary Emboli Pulmonary HTN Heparin Induced Thrombocytopenia Breast Ca DM ABENA Umbilical Wound - continue argatroban - start coumadin when platelet count improved - antibiotics per ID - encouraged ambulation
--- NOTE | 2017-03-19 11:25 | PN ---
Progress Note (short form) - Note Progress Note: Patient seen and examined. feels well. no complains. odor absent in the umbilicus wound Cor: RSR, No murmurs, No gallops Lungs: Clear to P&A Ext:No significant edema Abdomen: small umbilical wound seen, no erythema, but some discharge present, no odor noted Skin: No rashes, Integument intact Last Vital Signs Temp Pulse Resp BP Pulse Ox 99 F 75 20 147/82 96 03/18/17 20:35 03/18/17 20:35 03/18/17 20:36 03/18/17 20:35 03/18/17 20:36 CBC, BMP 03/19/17 06:35 03/18/17 06:30 Current Medications Generic Name Dose Route Start Last Admin Trade Name Freq PRN Reason Stop Dose Admin Allopurinol 300 mg 03/19/17 22:00 Zyloprim - PO HS [facility] Amoxicillin/Clavulanate Potassium 1 tab 03/17/17 17:30 03/19/17 08:23 Augmentin - 875mg Tablet PO 1 tab BID@0800,1730 [facility] Administration Bacitracin 1 applic 03/19/17 10:00 03/19/17 09:07 Bacitracin - TP 1 applic DAILY [facility] Administration Diltiazem HCl 120 mg 03/19/17 10:00 03/19/17 09:05 Cardizem Cd - PO 120 mg DAILY [facility] Administration Guaifenesin 10 ml 03/19/17 07:57 03/19/17 09:05 Robitussin Dm - PO 10 ml Q6H PRN Administration COUGH Hydrochlorothiazide 12.5 mg 03/18/17 10:00 03/19/17 09:05 Hctz - PO 12.5 mg DAILY [facility] Administration Argatroban 250,000 mcg/ Sodium 250 mls @ 13.82 mls/hr 03/19/17 07:57 Chloride IVPB TITR [facility] Protocol 2 MCG/KG/MIN Lactobacillus Acidophilus 2 tab 03/19/17 10:00 03/19/17 09:06 Bacid - PO 2 tab DAILY [facility] Administration Losartan Potassium 50 mg 03/19/17 10:00 03/19/17 09:05 Cozaar - PO 50 mg DAILY [facility] Administration Melatonin 5 mg 03/19/17 22:00 Melatonin PO HS [facility] Metoprolol Succinate 25 mg 03/19/17 22:00 Toprol Xl - PO HS [facility] Silver Sulfadiazine 1 applic 03/19/17 10:00 03/19/17 09:07 Silvadene - TP 1 applic DAILY [facility] Administration A/P 66 y/o patient s/p Rt. 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 HIT: c/w argatroban at present goal daily CBC/PTT slow improvement in platelet count.. monitor Vital signs, Tmax was 99. On PO antibiotics Cardiology note reviewed, indefinite AC for PAF. Reviewed plastic surgery note, daily dressings, dressing to be done today Breast ca, f/u as an OP for Rx. (hormonal) communicated with [facility]
[2017-03-19] MEDS: MELATONIN 5 MG TABLETS PO SCH (22:52)
[2017-03-20 07:28] LABS: BASOPHIL 0.5 % (0-2.0); EOSINOPHIL 2.7 % (0-4.5); MCH 29.7 pg (25.7-33.7); MCHC 33.5 g/dl (32.0-36.0); MEAN CELL VOLUME 88.6 fl (80-96); MEAN PLT VOLUME 9.2 fl (7.5-11.1); PLATELET COUNT 95 K/MM3 (134-434); WHITE BLOOD COUNT 6.7 K/mm3 (4.0-10.0)
--- NOTE | 2017-03-20 07:35 | PN ---
Progress Note (short form) - Note Progress Note: CBC, BMP 03/18/17 06:30 Vital Signs Period Temp Pulse Resp BP Sys/Beck Pulse Ox Last 24 Hr 97.5 F-97.7 F 68-75 20-20 121-158/53-80 96-96 S1S2 RRR LUNGS CTA decreased pedal edema bruising resolving umbilical wound with no erythema, soap drier tender Imp Heparin Induced Thrombocytopenia-slowly improving, continue argatroban recent bilateral pulmonary embolism following reconstructive breast surgery after mastectomy. Paget's disease umbilical wound discharge-MSSA and group D strep NIDDM HTN h/o afib-paroxysmal with PE diagnosis-none on telemetry so far Plan oral augmentin Argatroban while monitoring plt count close monitoring for bleeding problems will have to be bridged to warfarin continue other care iodine packing to umbilical wound Problem List - Problems (1) Thrombocytopenia Code(s): D69.6 - THROMBOCYTOPENIA, UNSPECIFIED (2) PAF (paroxysmal atrial fibrillation) Code(s): I48.0 - PAROXYSMAL ATRIAL FIBRILLATION (3) Pulmonary emboli Code(s): I26.99 - OTHER PULMONARY EMBOLISM WITHOUT ACUTE COR PULMONALE (4) Breast CA Code(s): C50.919 - MALIGNANT NEOPLASM OF UNSP SITE OF UNSPECIFIED FEMALE BREAST (5) Diabetes Code(s): E11.9 - TYPE 2 DIABETES MELLITUS WITHOUT COMPLICATIONS Qualifiers: Qualified Code(s): E11.9 - Type 2 diabetes mellitus without complications (6) HTN (hypertension) Code(s): I10 - ESSENTIAL (PRIMARY) HYPERTENSION Qualifiers: Qualified Code(s): I10 - Essential (primary) hypertension
[2017-03-20 07:36] LABS: INR 1.58 (0.82-1.09); PROTHROMBIN TIME (PATIENT) 17.5 SEC (9.98-11.88)
[2017-03-20 07:39] LABS: ACTIVATED PTT 47.2 SECONDS (26.9-34.4)
[2017-03-20] MEDS: LACTOBACILLUS ACIDOPHILUS 1 EACH TAB (FP) PO SCH (09:09)
[2017-03-20] MEDS: HYDROCHLOROTHIAZIDE 12.5 MG CAPSULE (FP) PO SCH (09:09)
[2017-03-20] MEDS: LOSARTAN POTASSIUM 50 MG TABLET (FP) PO SCH (09:09)
[2017-03-20] MEDS: ARGATROBAN - 250,000 MCG in SODIUM CHLORIDE 247.5 ML IVPB SCH (09:09)
[2017-03-20] MEDS: AMOX TR/POT CLAV 875MG/125MG TABLETS (FP) PO SCH ×2 (09:09→17:21)
[2017-03-20] MEDS: guaiFENesin/D-METHORPHAN HB 10 ML UNIT-DOSE CUPS PO PRN (10:09)
[2017-03-20] MEDS: SILVER SULFADIAZINE 1% TOP CREAM 50 GM JAR TP SCH ×2 (10:10)
[2017-03-20] MEDS: BACITRACIN 15 GM TUBE TOPICAL OINTMENT TP SCH (10:11)
--- NOTE | 2017-03-20 10:48 | PN ---
Progress Note (short form) - Note Progress Note: PULMONARY Breathing continues to improve, able to ambulate hallways. +nonproductive cough. No chest pain or palpitations. Last Vital Signs Temp Pulse Resp BP Pulse Ox 97.5 F L 68 20 121/59 96 03/20/17 06:41 03/20/17 06:41 03/20/17 06:41 03/20/17 06:41 03/19/17 21:00 Gen: NAD at rest Heart: RRR Lung: decreased breath sounds at the bases Abd: soft, nontender Ext: + edema CBC, BMP 03/20/17 06:30 03/18/17 06:30 Active Medications Allopurinol (Zyloprim -) 300 mg PO HS [facility] Last Admin: 03/19/17 22:52 Dose: 300 mg Amoxicillin/Clavulanate Potassium (Augmentin - 875mg Tablet) 1 tab PO BID@0800, 1730 [facility] Last Admin: 03/20/17 09:09 Dose: 1 tab Bacitracin (Bacitracin -) 1 applic TP DAILY [facility] Last Admin: 03/20/17 10:11 Dose: 1 applic Diltiazem HCl (Cardizem Cd -) 120 mg PO DAILY [facility] Last Admin: 03/20/17 09:09 Dose: 120 mg Guaifenesin (Robitussin Dm -) 10 ml PO Q6H PRN PRN Reason: COUGH Last Admin: 03/20/17 10:09 Dose: 10 ml Hydrochlorothiazide (Hctz -) 12.5 mg PO DAILY [facility] Last Admin: 03/20/17 09:09 Dose: 12.5 mg Argatroban 250,000 mcg/ Sodium (Chloride) 250 mls @ 13.82 mls/hr IVPB TITR [facility] ; 2 MCG/KG/MIN PRN Reason: Protocol Last Admin: 03/20/17 09:09 Dose: 15 mls/hr Lactobacillus Acidophilus (Bacid -) 2 tab PO DAILY [facility] Last Admin: 03/20/17 09:09 Dose: 2 tab Losartan Potassium (Cozaar -) 50 mg PO DAILY [facility] Last Admin: 03/20/17 09:09 Dose: 50 mg Melatonin (Melatonin) 5 mg PO HS [facility] Last Admin: 03/19/17 22:52 Dose: 5 mg Metoprolol Succinate (Toprol Xl -) 25 mg PO HS [facility] Last Admin: 03/19/17 22:51 Dose: 25 mg Silver Sulfadiazine (Silvadene -) 1 applic TP DAILY [facility] Last Admin: 03/20/17 10:10 Dose: 1 applic A/P Bilateral Pulmonary Emboli Pulmonary HTN Heparin Induced Thrombocytopenia Breast Ca DM ABENA Umbilical Wound - continue argatroban - start coumadin when platelet count improved - antibiotics per ID - encouraged ambulation
--- NOTE | 2017-03-20 11:42 | PN ---
Progress Note (short form) - Note Progress Note: Patient seen and examined. feels well. no complains. Cor: RSR, No murmurs, No gallops Lungs: Clear to P&A Ext:No significant edema Abdomen: small umbilical wound seen, no erythema, looks better than yesterday Skin: No rashes, Integument intact Last Vital Signs Temp Pulse Resp BP Pulse Ox 97.5 F L 68 20 121/59 96 03/20/17 06:41 03/20/17 06:41 03/20/17 06:41 03/20/17 06:41 03/19/17 21:00 CBC, BMP 03/20/17 06:30 03/18/17 06:30 Current Medications Generic Name Dose Route Start Last Admin Trade Name Freq PRN Reason Stop Dose Admin Allopurinol 300 mg 03/19/17 22:00 03/19/17 22:52 Zyloprim - PO 300 mg HS [facility] Administration Amoxicillin/Clavulanate Potassium 1 tab 03/17/17 17:30 03/20/17 09:09 Augmentin - 875mg Tablet PO 1 tab BID@0800,1730 [facility] Administration Bacitracin 1 applic 03/19/17 10:00 03/20/17 10:11 Bacitracin - TP 1 applic DAILY [facility] Administration Diltiazem HCl 120 mg 03/19/17 10:00 03/20/17 09:09 Cardizem Cd - PO 120 mg DAILY [facility] Administration Guaifenesin 10 ml 03/19/17 07:57 03/20/17 10:09 Robitussin Dm - PO 10 ml Q6H PRN Administration COUGH Hydrochlorothiazide 12.5 mg 03/18/17 10:00 03/20/17 09:09 Hctz - PO 12.5 mg DAILY [facility] Administration Argatroban 250,000 mcg/ Sodium 250 mls @ 13.82 mls/hr 03/19/17 07:57 03/20/17 09:09 Chloride IVPB 15 mls/hr TITR [facility] Administration Protocol 2 MCG/KG/MIN Lactobacillus Acidophilus 2 tab 03/19/17 10:00 03/20/17 09:09 Bacid - PO 2 tab DAILY [facility] Administration Losartan Potassium 50 mg 03/19/17 10:00 03/20/17 09:09 Cozaar - PO 50 mg DAILY [facility] Administration Melatonin 5 mg 03/19/17 22:00 03/19/17 22:52 Melatonin PO 5 mg HS [facility] Administration Metoprolol Succinate 25 mg 03/19/17 22:00 03/19/17 22:51 Toprol Xl - PO 25 mg HS [facility] Administration Silver Sulfadiazine 1 applic 03/19/17 10:00 03/20/17 10:10 Silvadene - TP 1 applic DAILY [facility] Administration A/P 66 y/o patient s/p Rt. 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 HIT: c/w argatroban at present goal daily CBC/PTT PTT slightly decreased from the prior days, but will continue the same drip rate. On PO antibiotics Cardiology note reviewed, indefinite AC for PAF. Reviewed plastic surgery note, daily dressings as per Plastics/Primary ( wound looks better than yesterday) Breast ca, f/u as an OP for Rx. (hormonal) communicated with [facility]
[2017-03-20] MEDS: ALLOPURINOL 300 MG TABLET (FP) PO SCH (21:37)
[2017-03-20] MEDS: METOPROLOL SUCCINATE 25 MG TAB.SR.24H (FP) PO SCH (21:37)
[2017-03-20] MEDS: MELATONIN 5 MG TABLETS PO SCH (21:37)
[2017-03-21] MEDS: ARGATROBAN - 250,000 MCG in SODIUM CHLORIDE 247.5 ML IVPB SCH ×3 (02:10→18:52)
[2017-03-21 07:49] LABS: BASOPHIL 0.6 % (0-2.0); EOSINOPHIL 2.5 % (0-4.5); MCH 29.3 pg (25.7-33.7); MCHC 32.8 g/dl (32.0-36.0); MEAN CELL VOLUME 89.1 fl (80-96); NEUTROPHILS 65.5 % (42.8-82.8); PLATELET COUNT 99 K/MM3 (134-434); RDW 13.9 % (11.6-15.6); WHITE BLOOD COUNT 6.7 K/mm3 (4.0-10.0)
[2017-03-21 08:20] LABS: INR 1.68 (0.82-1.09); PROTHROMBIN TIME (PATIENT) 18.7 SEC (9.98-11.88)
[2017-03-21 08:22] LABS: ACTIVATED PTT 54.8 SECONDS (26.9-34.4)
[2017-03-21] MEDS: AMOX TR/POT CLAV 875MG/125MG TABLETS (FP) PO SCH ×2 (08:31→16:49)
[2017-03-21] MEDS: guaiFENesin/D-METHORPHAN HB 10 ML UNIT-DOSE CUPS PO PRN ×2 (08:44→16:52)
--- NOTE | 2017-03-21 08:47 | PN ---
Progress Note (short form) - Note Progress Note: CBC, BMP 03/21/17 06:00 03/18/17 06:30 Vital Signs Period Temp Pulse Resp BP Sys/Beck Pulse Ox Last 24 Hr 97.6 F-98.3 F 72-80 20-20 105-128/50-64 96-97 S1S2 RRR LUNGS CTA decreased pedal edema umbilical wound with no erythema, germ drier wound under breast with yellow slough, abd wound clean Imp Heparin Induced Thrombocytopenia-slowly improving, continue argatroban recent bilateral pulmonary embolism following reconstructive breast surgery after mastectomy. 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 discharge-MSSA and group D strep NIDDM HTN h/o afib-paroxysmal with PE diagnosis-none on telemetry during this admission Plan oral augmentin for 2 more days Argatroban while monitoring plt count close monitoring for bleeding problems will have to be bridged to warfarin continue other care iodine packing to umbilical wound Problem List - Problems (1) Thrombocytopenia Code(s): D69.6 - THROMBOCYTOPENIA, UNSPECIFIED (2) PAF (paroxysmal atrial fibrillation) Code(s): I48.0 - PAROXYSMAL ATRIAL FIBRILLATION (3) Pulmonary emboli Code(s): I26.99 - OTHER PULMONARY EMBOLISM WITHOUT ACUTE COR PULMONALE (4) Breast CA Code(s): C50.919 - MALIGNANT NEOPLASM OF UNSP SITE OF UNSPECIFIED FEMALE BREAST (5) Diabetes Code(s): E11.9 - TYPE 2 DIABETES MELLITUS WITHOUT COMPLICATIONS Qualifiers: Qualified Code(s): E11.9 - Type 2 diabetes mellitus without complications (6) HTN (hypertension) Code(s): I10 - ESSENTIAL (PRIMARY) HYPERTENSION Qualifiers: Qualified Code(s): I10 - Essential (primary) hypertension
--- NOTE | 2017-03-21 09:09 | PN ---
Progress Note (short form) - Note Progress Note: Feels OK. No acute events overnight. Breathing feels overall better. No CP. Intake & Output 03/18/17 03/19/17 03/20/17 03/21/17 23:59 23:59 23:59 23:59 Intake Total 1560 740 480 180 Balance 1560 740 480 180 Last Vital Signs Temp Pulse Resp BP Pulse Ox 97.6 F 73 20 105/53 97 03/21/17 06:00 03/21/17 06:00 03/21/17 06:00 03/21/17 06:00 03/20/17 21:00 Active Medications Allopurinol (Zyloprim -) 300 mg PO HS [facility] Last Admin: 03/20/17 21:37 Dose: 300 mg Amoxicillin/Clavulanate Potassium (Augmentin - 875mg Tablet) 1 tab PO BID@0800, 1730 [facility] Last Admin: 03/21/17 08:31 Dose: 1 tab Bacitracin (Bacitracin -) 1 applic TP DAILY [facility] Last Admin: 03/20/17 10:11 Dose: 1 applic Diltiazem HCl (Cardizem Cd -) 120 mg PO DAILY [facility] Last Admin: 03/20/17 09:09 Dose: 120 mg Guaifenesin (Robitussin Dm -) 10 ml PO Q6H PRN PRN Reason: COUGH Last Admin: 03/21/17 08:44 Dose: 10 ml Hydrochlorothiazide (Hctz -) 12.5 mg PO DAILY [facility] Last Admin: 03/20/17 09:09 Dose: 12.5 mg Argatroban 250,000 mcg/ Sodium (Chloride) 250 mls @ 13.82 mls/hr IVPB TITR [facility] ; 2 MCG/KG/MIN PRN Reason: Protocol Last Admin: 03/21/17 02:10 Dose: 15 mls/hr Lactobacillus Acidophilus (Bacid -) 2 tab PO DAILY [facility] Last Admin: 03/20/17 09:09 Dose: 2 tab Losartan Potassium (Cozaar -) 50 mg PO DAILY [facility] Last Admin: 03/20/17 09:09 Dose: 50 mg Melatonin (Melatonin) 5 mg PO HS [facility] Last Admin: 03/20/17 21:37 Dose: 5 mg Metoprolol Succinate (Toprol Xl -) 25 mg PO HS [facility] Last Admin: 03/20/17 21:37 Dose: 25 mg Silver Sulfadiazine (Silvadene -) 1 applic TP DAILY [facility] Last Admin: 03/20/17 10:10 Dose: 1 applic Constitutional: Yes: NAD Eyes: Yes: WNL, Conjunctiva Clear, EOM Intact HENT: Yes: WNL, Atraumatic, Normocephalic Neck: Yes: WNL, Supple, Trachea Midline Respiratory: Yes: Diminished breath sounds Gastrointestinal: Yes: WNL, Normal Bowel Sounds Renal/: Yes: WNL Cardiovascular: Yes: WNL, Regular Rate and Rhythm Musculoskeletal: Yes: WNL Extremities: Yes: WNL Integumentary: Yes: WNL Neurological: Yes: WNL, Alert, Oriented ...Motor Strength: WNL Psychiatric: Yes: WNL, Alert, Oriented Laboratory Results - last 24 hr 03/21/17 03/21/17 03/21/17 06:00 06:00 06:24 WBC 6.7 RBC 3.65 Hgb 10.7 Hct 32.5 MCV 89.1 MCH 29.3 MCHC 32.8 RDW 13.9 Plt Count 99 L MPV 9.0 Neutrophils % 65.5 Lymphocytes % 25.2 Monocytes % 6.2 Eosinophils % 2.5 Basophils % 0.6 PT with INR 18.70 H INR 1.68 H PTT (Actin FS) 54.8 H POC Glucometer 137 Problem List - Problems (1) ABENA (obstructive sleep apnea) Code(s): G47.33 - OBSTRUCTIVE SLEEP APNEA (ADULT) (PEDIATRIC) (2) PAF (paroxysmal atrial fibrillation) Code(s): I48.0 - PAROXYSMAL ATRIAL FIBRILLATION (3) Pulmonary emboli Code(s): I26.99 - OTHER PULMONARY EMBOLISM WITHOUT ACUTE COR PULMONALE (4) Breast CA Code(s): C50.919 - MALIGNANT NEOPLASM OF UNSP SITE OF UNSPECIFIED FEMALE BREAST (5) Diabetes Code(s): E11.9 - TYPE 2 DIABETES MELLITUS WITHOUT COMPLICATIONS (6) HTN (hypertension) Code(s): I10 - ESSENTIAL (PRIMARY) HYPERTENSION (7) Obesity Code(s): E66.9 - OBESITY, UNSPECIFIED (8) Thrombocytopenia Code(s): D69.6 - THROMBOCYTOPENIA, UNSPECIFIED IMP THROMBOCYTOPENIA -> HIT RECENT PROVOKED BILATERAL PE BREAST CA S/P MASTECTOMY OSAS DM PLAN MONITOR PLT CT ARGATROBAN O2 NEEDED AMBULATE TOLERATED DR TREJO
[2017-03-21] MEDS: HYDROCHLOROTHIAZIDE 12.5 MG CAPSULE (FP) PO SCH (10:34)
[2017-03-21] MEDS: LACTOBACILLUS ACIDOPHILUS 1 EACH TAB (FP) PO SCH (10:35)
[2017-03-21] MEDS: LOSARTAN POTASSIUM 50 MG TABLET (FP) PO SCH (10:35)
[2017-03-21] MEDS: BACITRACIN 15 GM TUBE TOPICAL OINTMENT TP SCH (10:35)
[2017-03-21] MEDS: SILVER SULFADIAZINE 1% TOP CREAM 50 GM JAR TP SCH (10:43)
--- NOTE | 2017-03-21 15:08 | PN ---
Progress Note, Physician History of Present Illness: "The patient is a 66 year old female, with a significant past medical history of PE on lovenox, HTN, diabetes mellitus, gout, and breast cancer s/p right mastectomy around 7 weeks ago (January 20) who was referred to the emergency department by her PCP due to low blood platelet count. She states she was started on lovenox 2 weeks ago when she was diagnosed with acute PE. Patient denies currently experiencing any chest pain or palpitations but admits to SOB from time to time. She denies experiencing any new bruises. She denies recent fevers, chills, headache or dizziness. She denies recent nausea, vomit, diarrhea or constipation. She denies recent dysuria, frequency, urgency or hematuria. She denies recent chest pain. Allergies: NKA Past surgical history: Right masectomy Social history: Nonsmoker. Denies EtOH use and recreational drug use. Primary Care Physician: Carrie Price M.D. " - Current Medication List Current Medications: Active Medications Allopurinol (Zyloprim -) 300 mg PO HS [facility] Last Admin: 03/20/17 21:37 Dose: 300 mg Amoxicillin/Clavulanate Potassium (Augmentin - 875mg Tablet) 1 tab PO BID@0800, 1730 [facility] Last Admin: 03/21/17 08:31 Dose: 1 tab Bacitracin (Bacitracin -) 1 applic TP DAILY [facility] Last Admin: 03/21/17 10:35 Dose: 1 applic Diltiazem HCl (Cardizem Cd -) 120 mg PO DAILY [facility] Last Admin: 03/21/17 10:34 Dose: 120 mg Guaifenesin (Robitussin Dm -) 10 ml PO Q6H PRN PRN Reason: COUGH Last Admin: 03/21/17 08:44 Dose: 10 ml Hydrochlorothiazide (Hctz -) 12.5 mg PO DAILY [facility] Last Admin: 03/21/17 10:34 Dose: 12.5 mg Argatroban 250,000 mcg/ Sodium (Chloride) 250 mls @ 13.82 mls/hr IVPB TITR [facility] ; 2 MCG/KG/MIN PRN Reason: Protocol Last Admin: 03/21/17 10:35 Dose: Not Given Lactobacillus Acidophilus (Bacid -) 2 tab PO DAILY [facility] Last Admin: 03/21/17 10:35 Dose: 2 tab Losartan Potassium (Cozaar -) 50 mg PO DAILY [facility] Last Admin: 03/21/17 10:35 Dose: 50 mg Melatonin (Melatonin) 5 mg PO [facility] Last Admin: 03/20/17 21:37 Dose: 5 mg Metoprolol Succinate (Toprol Xl -) 25 mg PO HS [facility] Last Admin: 03/20/17 21:37 Dose: 25 mg Silver Sulfadiazine (Silvadene -) 1 applic TP DAILY [facility] Last Admin: 03/21/17 10:43 Dose: 1 applic - Objective Vital Signs: Vital Signs Temperature 97.6 F 03/21/17 09:22 Pulse Rate 72 03/21/17 09:22 Respiratory Rate 20 03/21/17 09:22 Blood Pressure 131/72 03/21/17 09:22 O2 Sat by Pulse Oximetry (%) 97 03/20/17 21:00 Eyes: Yes: WNL, Conjunctiva Clear, EOM Intact HENT: Yes: WNL, Atraumatic, Normocephalic Neck: Yes: WNL, Supple, Trachea Midline Cardiovascular: Yes: WNL, Regular Rate and Rhythm Respiratory: Yes: WNL, Regular, CTA Bilaterally Gastrointestinal: Yes: WNL, Normal Bowel Sounds Genitourinary: Yes: WNL Musculoskeletal: Yes: WNL Extremities: Yes: WNL Edema: No Integumentary: Yes: WNL Neurological: Yes: WNL, Alert, Oriented ...Motor Strength: WNL Psychiatric: Yes: WNL Labs: CBC, BMP 03/21/17 06:00 03/18/17 06:30 INR, PTT INR 1.68 (0.82-1.09) H 03/21/17 06:00 Fibrinogen 176.0 mg/dL (238-498) L 03/09/17 18:00 Problem List - Problems (1) Thrombocytopenia Code(s): D69.6 - THROMBOCYTOPENIA, UNSPECIFIED (2) Cellulitis Code(s): L03.90 - CELLULITIS, UNSPECIFIED (3) Chronic instability of right knee Code(s): M23.51 - CHRONIC INSTABILITY OF KNEE, RIGHT KNEE (4) ABENA (obstructive sleep apnea) Code(s): G47.33 - OBSTRUCTIVE SLEEP APNEA (ADULT) (PEDIATRIC) (5) PAF (paroxysmal atrial fibrillation) Code(s): I48.0 - PAROXYSMAL ATRIAL FIBRILLATION (6) Pulmonary emboli Code(s): I26.99 - OTHER PULMONARY EMBOLISM WITHOUT ACUTE COR PULMONALE (7) Breast CA Code(s): C50.919 - MALIGNANT NEOPLASM OF UNSP SITE OF UNSPECIFIED FEMALE BREAST (8) Diabetes Code(s): E11.9 - TYPE 2 DIABETES MELLITUS WITHOUT COMPLICATIONS Qualifiers: Qualified Code(s): E11.9 - Type 2 diabetes mellitus without complications (9) Diastolic CHF Code(s): I50.30 - UNSPECIFIED DIASTOLIC (CONGESTIVE) HEART FAILURE (10) HTN (hypertension) Code(s): I10 - ESSENTIAL (PRIMARY) HYPERTENSION Qualifiers: Qualified Code(s): I10 - Essential (primary) hypertension (11) Hypertriglyceridemia Code(s): E78.1 - PURE HYPERGLYCERIDEMIA (12) Obesity Code(s): E66.9 - OBESITY, UNSPECIFIED (13) Paget's disease of right breast Code(s): C50.011 - MALIGNANT NEOPLASM OF NIPPLE AND AREOLA, RIGHT FEMALE BREAST Assessment/Plan 66 year old woman h/o PE on Lovenox dx 2 weeks ago, Pafib, HTN, DMII, obesity, presumed ABENA, breast ca s/p recent mastectomy admitted with thrombocytopenia presumed to be due to Lovenox. Pafib -plan is for argatroban with bridge to coumadin once plt count >150 -currently NSR -cont metoprolol, cardizem at current doses PE-with thrombocytopenia on lovenox -AC plan as above SOB-multifactorial due to PE, likely ABENA, obesity, possible diastolic chf, currently improved -currently euvolemic -does not require diuresis other than HCTZ at this time -pulm f/up HTN-variable but above goal at times -cont current medical regimen for now and uptitrate as needed
[2017-03-21] MEDS ORDERED: PT OWN MED DRAWER 7, Y5N ONE ×5 (15:16→21:17)
--- NOTE | 2017-03-21 16:44 | PN ---
Progress Note (short form) - Note Progress Note: Patient seen and examined feels better wound feels better Last Vital Signs Temp Pulse Resp BP Pulse Ox 98.1 F 72 18 143/75 97 03/21/17 15:35 03/21/17 15:35 03/21/17 15:35 03/21/17 15:35 03/21/17 09:00 Breasts: right breast reconstruction. Incision is healing Cor: RSR, No murmurs, No gallops Lungs: Clear to P&A Abd: Soft, Normal bowel sounds, healing abdominal incision Ext:No significant edema wounds --RT. lower adomen, Rt. breast look clean umblical woud some discharge Abnormal Lab Results 03/21/17 03/21/17 06:00 06:00 Plt Count 99 L PT with INR 18.70 H INR 1.68 H PTT (Actin FS) 54.8 H Active Medications Generic Name Dose Route Start Last Admin Trade Name Freq PRN Reason Stop Dose Admin Allopurinol 300 mg 03/19/17 22:00 03/20/17 21:37 Zyloprim - PO 300 mg HS [facility] Administration Amoxicillin/Clavulanate Potassium 1 tab 03/17/17 17:30 03/21/17 08:31 Augmentin - 875mg Tablet PO 1 tab BID@0800,1730 [facility] Administration Bacitracin 1 applic 03/19/17 10:00 03/21/17 10:35 Bacitracin - TP 1 applic DAILY [facility] Administration Diltiazem HCl 120 mg 03/19/17 10:00 03/21/17 10:34 Cardizem Cd - PO 120 mg DAILY [facility] Administration Guaifenesin 10 ml 03/19/17 07:57 03/21/17 08:44 Robitussin Dm - PO 10 ml Q6H PRN Administration COUGH Hydrochlorothiazide 12.5 mg 03/18/17 10:00 03/21/17 10:34 Hctz - PO 12.5 mg DAILY [facility] Administration Argatroban 250,000 mcg/ Sodium 250 mls @ 13.82 mls/hr 03/19/17 07:57 03/21/17 10:35 Chloride IVPB Not Given TITR [facility] Protocol 2 MCG/KG/MIN Lactobacillus Acidophilus 2 tab 03/19/17 10:00 03/21/17 10:35 Bacid - PO 2 tab DAILY [facility] Administration Losartan Potassium 50 mg 03/19/17 10:00 03/21/17 10:35 Cozaar - PO 50 mg DAILY [facility] Administration Melatonin 5 mg 03/19/17 22:00 03/20/17 21:37 Melatonin PO 5 mg HS [facility] Administration Metoprolol Succinate 25 mg 03/19/17 22:00 03/20/17 21:37 Toprol Xl - PO 25 mg HS [facility] Administration Silver Sulfadiazine 1 applic 03/19/17 10:00 03/21/17 10:43 Silvadene - TP 1 applic DAILY [facility] Administration A/P 66 y/o patient s/p Rt. 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
[2017-03-21] MEDS: METOPROLOL SUCCINATE 25 MG TAB.SR.24H (FP) PO SCH (21:15)
[2017-03-21] MEDS: MELATONIN 5 MG TABLETS PO SCH (21:15)
[2017-03-21] MEDS: ALLOPURINOL 300 MG TABLET (FP) PO SCH (21:17)
[2017-03-22 07:30] LABS: BASOPHIL 0.6 % (0-2.0); EOSINOPHIL 2.7 % (0-4.5); MCH 29.3 pg (25.7-33.7); MEAN CELL VOLUME 88.7 fl (80-96); NEUTROPHILS 68.3 % (42.8-82.8); PLATELET COUNT 105 K/MM3 (134-434); RDW 13.9 % (11.6-15.6); WHITE BLOOD COUNT 6.8 K/mm3 (4.0-10.0)
[2017-03-22 07:39] LABS: INR 1.62 (0.82-1.09)
[2017-03-22 07:42] LABS: ACTIVATED PTT 56.3 SECONDS (26.9-34.4)
[2017-03-22 08:38] LABS: ALBUMIN 3.1 g/dl (3.4-5.0); ALK PHOS 66 U/L (45-117); ANION GAP 10 (8-16); BILIRUBIN,TOTAL 0.3 mg/dL (0.2-1.0); CO2 25 mmol/L (21-32); CREATININE 0.9 mg/dL (0.55-1.02); GLUCOSE,RANDOM 137 mg/dL (74-106); SGOT/AST 13 U/L (15-37); SGPT/ALT 26 U/L (12-78); TOT PROT 5.9 g/dl (6.4-8.2)
[2017-03-22] MEDS: guaiFENesin/D-METHORPHAN HB 10 ML UNIT-DOSE CUPS PO PRN (08:46)
--- NOTE | 2017-03-22 08:51 | PN ---
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 discharge-MSSA and group D strep NIDDM HTN h/o afib-paroxysmal with PE diagnosis-none on telemetry during this admission Plan oral augmentin for 1 more day Argatroban while monitoring plt count close monitoring for bleeding problems will have to be bridged to warfarin continue other care iodine packing to umbilical wound Problem List - Problems (1) Thrombocytopenia Code(s): D69.6 - THROMBOCYTOPENIA, UNSPECIFIED (2) PAF (paroxysmal atrial fibrillation) Code(s): I48.0 - PAROXYSMAL ATRIAL FIBRILLATION (3) Pulmonary emboli Code(s): I26.99 - OTHER PULMONARY EMBOLISM WITHOUT ACUTE COR PULMONALE (4) Breast CA Code(s): C50.919 - MALIGNANT NEOPLASM OF UNSP SITE OF UNSPECIFIED FEMALE BREAST (5) Diabetes Code(s): E11.9 - TYPE 2 DIABETES MELLITUS WITHOUT COMPLICATIONS Qualifiers: Qualified Code(s): E11.9 - Type 2 diabetes mellitus without complications (6) HTN (hypertension) Code(s): I10 - ESSENTIAL (PRIMARY) HYPERTENSION Qualifiers: Qualified Code(s): I10 - Essential (primary) hypertension
[2017-03-22] MEDS ORDERED: PT OWN MED DRAWER 7, Y5N ONE ×3 (09:29→20:19)
[2017-03-22] MEDS: LACTOBACILLUS ACIDOPHILUS 1 EACH TAB (FP) PO SCH (09:55)
[2017-03-22] MEDS: HYDROCHLOROTHIAZIDE 12.5 MG CAPSULE (FP) PO SCH (09:56)
[2017-03-22] MEDS: ARGATROBAN - 250,000 MCG in SODIUM CHLORIDE 247.5 ML IVPB SCH ×2 (09:57→13:02)
[2017-03-22] MEDS: SILVER SULFADIAZINE 1% TOP CREAM 50 GM JAR TP SCH ×2 (10:00→10:03)
[2017-03-22] MEDS: LOSARTAN POTASSIUM 50 MG TABLET (FP) PO SCH (10:02)
[2017-03-22] MEDS: BACITRACIN 15 GM TUBE TOPICAL OINTMENT TP SCH (10:02)
--- NOTE | 2017-03-22 11:48 | PN ---
Progress Note (short form) - Note Progress Note: OOB to chair. No acute events overnight. Breathing feels overall better. No CP. Plt : 105 K Intake & Output 03/19/17 03/20/17 03/21/17 03/22/17 23:59 23:59 23:59 23:59 Intake Total 740 480 720 180 Balance 740 480 720 180 Last Vital Signs Temp Pulse Resp BP Pulse Ox 97.6 F 64 20 131/75 97 03/22/17 09:13 03/22/17 09:13 03/22/17 09:13 03/22/17 09:13 03/21/17 21:00 Active Medications Allopurinol (Zyloprim -) 300 mg PO HS [facility] Last Admin: 03/21/17 21:17 Dose: 300 mg Bacitracin (Bacitracin -) 1 applic TP DAILY [facility] Last Admin: 03/22/17 10:02 Dose: 1 applic Diltiazem HCl (Cardizem Cd -) 120 mg PO DAILY [facility] Last Admin: 03/22/17 10:02 Dose: 120 mg Guaifenesin (Robitussin Dm -) 10 ml PO Q6H PRN PRN Reason: COUGH Last Admin: 03/22/17 08:46 Dose: 10 ml Hydrochlorothiazide (Hctz -) 12.5 mg PO DAILY [facility] Last Admin: 03/22/17 09:56 Dose: 12.5 mg Argatroban 250,000 mcg/ Sodium (Chloride) 250 mls @ 13.82 mls/hr IVPB TITR [facility] ; 2 MCG/KG/MIN PRN Reason: Protocol Last Admin: 03/22/17 09:57 Dose: Not Given Lactobacillus Acidophilus (Bacid -) 2 tab PO DAILY [facility] Last Admin: 03/22/17 09:55 Dose: 2 tab Losartan Potassium (Cozaar -) 50 mg PO DAILY [facility] Last Admin: 03/22/17 10:02 Dose: 50 mg Melatonin (Melatonin) 5 mg PO HS [facility] Last Admin: 03/21/17 21:15 Dose: 5 mg Metoprolol Succinate (Toprol Xl -) 25 mg PO HS [facility] Last Admin: 03/21/17 21:15 Dose: 25 mg Silver Sulfadiazine (Silvadene -) 1 applic TP DAILY [facility] Last Admin: 03/22/17 10:03 Dose: 1 applic Constitutional: Yes: NAD Eyes: Yes: WNL, Conjunctiva Clear, EOM Intact HENT: Yes: WNL, Atraumatic, Normocephalic Neck: Yes: WNL, Supple, Trachea Midline Respiratory: Yes: Diminished breath sounds Gastrointestinal: Yes: WNL, Normal Bowel Sounds Renal/: Yes: WNL Cardiovascular: Yes: WNL, Regular Rate and Rhythm Musculoskeletal: Yes: WNL Extremities: Yes: WNL Integumentary: Yes: WNL Neurological: Yes: WNL, Alert, Oriented ...Motor Strength: WNL Psychiatric: Yes: WNL, Alert, Oriented Laboratory Results - last 24 hr 03/22/17 03/22/17 03/22/17 05:51 06:00 06:00 WBC 6.8 RBC 3.70 Hgb 10.8 Hct 32.8 MCV 88.7 MCH 29.3 MCHC 33.0 RDW 13.9 Plt Count 105 L MPV 9.0 Neutrophils % 68.3 Lymphocytes % 21.9 Monocytes % 6.5 Eosinophils % 2.7 Basophils % 0.6 PT with INR 18.00 H INR 1.62 H PTT (Actin FS) 56.3 H Sodium Potassium Chloride Carbon Dioxide Anion Gap BUN Creatinine Creat Clearance w eGFR POC Glucometer 138 Random Glucose Calcium Total Bilirubin AST ALT Alkaline Phosphatase Total Protein Albumin 03/22/17 06:00 WBC RBC Hgb Hct MCV MCH MCHC RDW Plt Count MPV Neutrophils % Lymphocytes % Monocytes % Eosinophils % Basophils % PT with INR INR PTT (Actin FS) Sodium 140 Potassium 4.1 Chloride 105 Carbon Dioxide 25 Anion Gap 10 BUN 15 D Creatinine 0.9 Creat Clearance w eGFR > 60 POC Glucometer Random Glucose 137 H Calcium 9.0 Total Bilirubin 0.3 D AST 13 L ALT 26 Alkaline Phosphatase 66 Total Protein 5.9 L Albumin 3.1 L Problem List - Problems (1) ABENA (obstructive sleep apnea) Code(s): G47.33 - OBSTRUCTIVE SLEEP APNEA (ADULT) (PEDIATRIC) (2) PAF (paroxysmal atrial fibrillation) Code(s): I48.0 - PAROXYSMAL ATRIAL FIBRILLATION (3) Pulmonary emboli Code(s): I26.99 - OTHER PULMONARY EMBOLISM WITHOUT ACUTE COR PULMONALE (4) Breast CA Code(s): C50.919 - MALIGNANT NEOPLASM OF UNSP SITE OF UNSPECIFIED FEMALE BREAST (5) Diabetes Code(s): E11.9 - TYPE 2 DIABETES MELLITUS WITHOUT COMPLICATIONS (6) HTN (hypertension) Code(s): I10 - ESSENTIAL (PRIMARY) HYPERTENSION (7) Obesity Code(s): E66.9 - OBESITY, UNSPECIFIED (8) Thrombocytopenia Code(s): D69.6 - THROMBOCYTOPENIA, UNSPECIFIED IMP THROMBOCYTOPENIA -> HIT RECENT PROVOKED BILATERAL PE BREAST CA S/P MASTECTOMY OSAS DM PLAN MONITOR PLT CT ARGATROBAN -> COUMADIN WHEN CLEARED BY HEME O2 NEEDED AMBULATE TOLERATED DR TREJO
--- NOTE | 2017-03-22 13:50 | PN ---
Progress Note, Physician Chief Complaint: Pt has no chest pain; now able to walk hallway without feeling markedly short of breath. History of Present Illness: "The patient is a 66 year old white female, with a significant past medical history of PE after breast surgery earlier this year (on lovenox), PAF (at least 3 episodes), HTN, diabetes mellitus, obesity, gout, presumed obstructive sleep apnea, and breast cancer s/p right mastectomy around 7 weeks ago (January 20 ) who was referred to the emergency department by her PCP due to low blood platelet count. She states she was started on lovenox 2 weeks ago when she was diagnosed with acute PE. Patient denies currently experiencing any chest pain or palpitations but admits to SOB from time to time. She denies experiencing any new bruises. She denies recent fevers, chills, headache or dizziness. She denies recent nausea, vomit, diarrhea or constipation. She denies recent dysuria, frequency, urgency or hematuria. She denies recent chest pain. Allergies: NKA Past surgical history: Right mastectomy Social history: Nonsmoker. Denies EtOH use and recreational drug use. Primary Care Physician: Carrie Price M.D. - Current Medication List Current Medications: Active Medications Allopurinol (Zyloprim -) 300 mg PO HS [facility] Last Admin: 03/21/17 21:17 Dose: 300 mg Bacitracin (Bacitracin -) 1 applic TP DAILY [facility] Last Admin: 03/22/17 10:02 Dose: 1 applic Diltiazem HCl (Cardizem Cd -) 120 mg PO DAILY [facility] Last Admin: 03/22/17 10:02 Dose: 120 mg Guaifenesin (Robitussin Dm -) 10 ml PO Q6H PRN PRN Reason: COUGH Last Admin: 03/22/17 08:46 Dose: 10 ml Hydrochlorothiazide (Hctz -) 12.5 mg PO DAILY [facility] Last Admin: 03/22/17 09:56 Dose: 12.5 mg Argatroban 250,000 mcg/ Sodium (Chloride) 250 mls @ 13.82 mls/hr IVPB TITR [facility] ; 2 MCG/KG/MIN PRN Reason: Protocol Last Admin: 03/22/17 13:02 Dose: 15 mls/hr Lactobacillus Acidophilus (Bacid -) 2 tab PO DAILY [facility] Last Admin: 03/22/17 09:55 Dose: 2 tab Losartan Potassium (Cozaar -) 50 mg PO DAILY [facility] Last Admin: 03/22/17 10:02 Dose: 50 mg Melatonin (Melatonin) 5 mg PO HS [facility] Last Admin: 03/21/17 21:15 Dose: 5 mg Metoprolol Succinate (Toprol Xl -) 25 mg PO HS [facility] Last Admin: 03/21/17 21:15 Dose: 25 mg Silver Sulfadiazine (Silvadene -) 1 applic TP DAILY [facility] Last Admin: 03/22/17 10:03 Dose: 1 applic - Objective Vital Signs: Vital Signs Temperature 97.3 F L 03/22/17 10:00 Pulse Rate 68 03/22/17 10:00 Respiratory Rate 18 03/22/17 10:00 Blood Pressure 124/74 03/22/17 10:00 O2 Sat by Pulse Oximetry (%) 97 03/21/17 21:00 Constitutional: Yes: Well Nourished, Calm Eyes: Yes: WNL HENT: Yes: WNL Neck: Yes: WNL Cardiovascular: Yes: WNL, S1, S2 Respiratory: Yes: WNL Gastrointestinal: Yes: Soft, Abdomen, Obese ...Rectal Exam: Yes: Deferred Genitourinary: No: Anuria Breast(s): Yes: WNL Musculoskeletal: Yes: WNL Extremities: Yes: WNL Edema: Yes Edema: LLE: Trace, RLE: Trace Peripheral Pulses WNL: Yes Integumentary: Yes: WNL Neurological: Yes: WNL Psychiatric: Yes: WNL Labs: CBC, BMP 03/22/17 06:00 03/22/17 06:00 INR, PTT INR 1.62 (0.82-1.09) H 03/22/17 06:00 Fibrinogen 176.0 mg/dL (238-498) L 03/09/17 18:00 Abnormal Lab Results 03/22/17 03/22/17 03/22/17 06:00 06:00 06:00 Plt Count 105 L PT with INR 18.00 H INR 1.62 H PTT (Actin FS) 56.3 H Random Glucose 137 H AST 13 L Total Protein 5.9 L Albumin 3.1 L Problem List - Problems (1) Cellulitis Code(s): L03.90 - CELLULITIS, UNSPECIFIED (2) ABENA (obstructive sleep apnea) Assessment/Plan: f/u sleep studies. Code(s): G47.33 - OBSTRUCTIVE SLEEP APNEA (ADULT) (PEDIATRIC) (3) Chronic instability of right knee Code(s): M23.51 - CHRONIC INSTABILITY OF KNEE, RIGHT KNEE (4) PAF (paroxysmal atrial fibrillation) Assessment/Plan: On diltiazem for HR control. When warfarin is restarted, will likely have to be lifetime, given her having had several episodes of PAF. Will discuss with EP as to whether long-term monitoring will affect this decision. Code(s): I48.0 - PAROXYSMAL ATRIAL FIBRILLATION (5) Pulmonary emboli Assessment/Plan: On argatraban until able to start warfarin. Code(s): I26.99 - OTHER PULMONARY EMBOLISM WITHOUT ACUTE COR PULMONALE Qualifiers: Pulmonary embolism type: other (6) Breast CA Code(s): C50.919 - MALIGNANT NEOPLASM OF UNSP SITE OF UNSPECIFIED FEMALE BREAST Qualifiers: Patient sex: female Laterality: right (7) Diabetes Code(s): E11.9 - TYPE 2 DIABETES MELLITUS WITHOUT COMPLICATIONS Qualifiers: Diabetes mellitus type: type 2 Diabetes mellitus complication status: without complication Diabetes mellitus mcfp insulin use: without mcfp use Qualified Code(s): E11.9 - Type 2 diabetes mellitus without complications (8) Diastolic CHF Code(s): I50.30 - UNSPECIFIED DIASTOLIC (CONGESTIVE) HEART FAILURE (9) HTN (hypertension) Assessment/Plan: on metoprolol, diltiazem, and losartan, Serial BP checks. EKG: NSR; nonspecific T wave changes. Code(s): I10 - ESSENTIAL (PRIMARY) HYPERTENSION Qualifiers: Hypertension type: essential hypertension Qualified Code(s): I10 - Essential (primary) hypertension (10) Hypertriglyceridemia Assessment/Plan: Pt says medications for Rx do not agree with her; plans to use diet/exercise to lower triglycerides. Code(s): E78.1 - PURE HYPERGLYCERIDEMIA (11) Obesity Assessment/Plan: f/u with mini bar attendant. Code(s): E66.9 - OBESITY, UNSPECIFIED (12) Paget's disease of right breast Assessment/Plan: s/p surgery, with continued wound discharge. antibiotics per ID. Code(s): C50.011 - MALIGNANT NEOPLASM OF NIPPLE AND AREOLA, RIGHT FEMALE BREAST (13) Heparin induced thrombocytopenia (HIT) Assessment/Plan: steady improvement in platelet numbers. Start warfarin (for PE and PAF) when approved by collections director. Code(s): D75.82 - HEPARIN INDUCED THROMBOCYTOPENIA (HIT)
--- NOTE | 2017-03-22 17:40 | PN ---
Progress Note (short form) - Note Progress Note: Patient seen and examined. feels well. no complains. walked in the hallway as per her Cor: RSR, No murmurs, No gallops Lungs: Clear to P&A Ext:No significant edema Abdomen: small umbilical wound seen, no erythema, looks better than yesterday Skin: No rashes, Integument intact Last Vital Signs Temp Pulse Resp BP Pulse Ox 98.1 F 65 16 137/58 95 03/22/17 14:55 03/22/17 14:55 03/22/17 14:55 03/22/17 14:55 03/22/17 09:00 CBC, BMP 03/22/17 06:00 03/22/17 06:00 Current Medications Generic Name Dose Route Start Last Admin Trade Name Freq PRN Reason Stop Dose Admin Allopurinol 300 mg 03/19/17 22:00 03/21/17 21:17 Zyloprim - PO 300 mg HS NICOLÁS Administration Bacitracin 1 applic 03/19/17 10:00 03/22/17 10:02 Bacitracin - TP 1 applic DAILY NICOLÁS Administration Diltiazem HCl 120 mg 03/19/17 10:00 03/22/17 10:02 Cardizem Cd - PO 120 mg DAILY NICOLÁS Administration Guaifenesin 10 ml 03/19/17 07:57 03/22/17 08:46 Robitussin Dm - PO 10 ml Q6H PRN Administration COUGH Hydrochlorothiazide 12.5 mg 03/18/17 10:00 03/22/17 09:56 Hctz - PO 12.5 mg DAILY NICOLÁS Administration Argatroban 250,000 mcg/ Sodium 250 mls @ 13.82 mls/hr 03/19/17 07:57 03/22/17 13:02 Chloride IVPB 15 mls/hr TITR NICOLÁS Administration Protocol 2 MCG/KG/MIN Lactobacillus Acidophilus 2 tab 03/19/17 10:00 03/22/17 09:55 Bacid - PO 2 tab DAILY NICOLÁS Administration Losartan Potassium 50 mg 03/19/17 10:00 03/22/17 10:02 Cozaar - PO 50 mg DAILY NICOL[facility]S Administration Melatonin 5 mg 03/19/17 22:00 03/21/17 21:15 Melatonin PO 5 mg HS NICOLÁS Administration Metoprolol Succinate 25 mg 03/19/17 22:00 03/21/17 21:15 Toprol Xl - PO 25 mg HS NICOLÁS Administration Silver Sulfadiazine 1 applic 03/19/17 10:00 03/22/17 10:03 Silvadene - TP 1 applic DAILY NICOLÁS Administration A/P 66 y/o patient s/p Rt. 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 HIT: platelets improving will await to be bridged to coumadin will continue at present rate. will follow
[2017-03-22] MEDS: ALLOPURINOL 300 MG TABLET (FP) PO SCH (21:09)
[2017-03-22] MEDS: METOPROLOL SUCCINATE 25 MG TAB.SR.24H (FP) PO SCH (21:09)
[2017-03-22] MEDS: MELATONIN 5 MG TABLETS PO SCH (21:10)
[2017-03-23] MEDS: ARGATROBAN - 250,000 MCG in SODIUM CHLORIDE 247.5 ML IVPB SCH ×2 (05:09→07:50)
[2017-03-23 07:34] LABS: BASOPHIL 0.6 % (0-2.0); EOSINOPHIL 2.9 % (0-4.5); MCH 29.6 pg (25.7-33.7); MCHC 33.4 g/dl (32.0-36.0); MEAN CELL VOLUME 88.5 fl (80-96); MEAN PLT VOLUME 9.6 fl (7.5-11.1); NEUTROPHILS 64.4 % (42.8-82.8); PLATELET COUNT 111 K/MM3 (134-434); RDW 13.7 % (11.6-15.6); WHITE BLOOD COUNT 6.9 K/mm3 (4.0-10.0)
[2017-03-23 07:38] LABS: INR 1.7 (0.82-1.09); PROTHROMBIN TIME (PATIENT) 18.9 SEC (9.98-11.88)
[2017-03-23 07:41] LABS: ACTIVATED PTT 42.9 SECONDS (26.9-34.4)
--- NOTE | 2017-03-23 09:24 | PN ---
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 Paget's disease of the breast NIDDM HTN h/o afib-paroxysmal with PE diagnosis-none on telemetry during this admission Plan Argatroban while monitoring plt count close monitoring for bleeding problems will have to be bridged to warfarin if plts over 130-135 continue other care local wound care Problem List - Problems (1) Thrombocytopenia Code(s): D69.6 - THROMBOCYTOPENIA, UNSPECIFIED (2) PAF (paroxysmal atrial fibrillation) Code(s): I48.0 - PAROXYSMAL ATRIAL FIBRILLATION (3) Pulmonary emboli Code(s): I26.99 - OTHER PULMONARY EMBOLISM WITHOUT ACUTE COR PULMONALE Qualifiers: Pulmonary embolism type: other (4) Breast CA Code(s): C50.919 - MALIGNANT NEOPLASM OF UNSP SITE OF UNSPECIFIED FEMALE BREAST Qualifiers: Patient sex: female Laterality: right (5) Diabetes Code(s): E11.9 - TYPE 2 DIABETES MELLITUS WITHOUT COMPLICATIONS Qualifiers: Diabetes mellitus type: type 2 Diabetes mellitus complication status: without complication Diabetes mellitus exterminator insulin use: without half-way use Qualified Code(s): E11.9 - Type 2 diabetes mellitus without complications (6) HTN (hypertension) Code(s): I10 - ESSENTIAL (PRIMARY) HYPERTENSION Qualifiers: Hypertension type: essential hypertension Qualified Code(s): I10 - Essential (primary) hypertension
--- NOTE | 2017-03-23 09:47 | EKG ---
Test Reason : Blood Pressure : / mmHG Vent. Rate : 067 BPM Atrial Rate : 067 BPM P-R Int : 160 ms QRS Dur : 088 ms QT Int : 442 ms P-R-T Axes : 024 018 -01 degrees QTc Int : 467 ms NORMAL SINUS RHYTHM NONSPECIFIC T WAVE ABNORMALITY ABNORMAL ECG WHEN COMPARED WITH ECG OF 21-FEB-2017 09:14, NO SIGNIFICANT CHANGE WAS FOUND Confirmed by JAVIER GONZALEZ, ANTONIO ([id number]) on 03/23/2017 9:47:19 AM Referred By: Amber GALVEZ Confirmed By:ANTONIO HERRERA MD
[2017-03-23] MEDS: LOSARTAN POTASSIUM 50 MG TABLET (FP) PO SCH (10:30)
[2017-03-23] MEDS: BACITRACIN 15 GM TUBE TOPICAL OINTMENT TP SCH (10:30)
[2017-03-23] MEDS: LACTOBACILLUS ACIDOPHILUS 1 EACH TAB (FP) PO SCH (10:30)
[2017-03-23] MEDS: HYDROCHLOROTHIAZIDE 12.5 MG CAPSULE (FP) PO SCH (10:31)
[2017-03-23] MEDS: SILVER SULFADIAZINE 1% TOP CREAM 50 GM JAR TP SCH (10:31)
--- NOTE | 2017-03-23 12:00 | PN ---
Progress Note (short form) - Note Progress Note: PULMONARY VSS/AFEBRILE OOB TO CHAIR SUBJECTIVE IMPROVEMENT ANICTERIC CLEAR S1S2 BS+ OBESE 1+ EDEMA ANKLES LABS/MEDS/NOTES/IMAGING REVIEWED PLTS 111K Bilateral Pulmonary Emboli Pulmonary HTN Heparin Induced Thrombocytopenia Breast Ca DM ABENA Umbilical Wound - continue argatroban - start coumadin when platelet count improved - antibiotics per ID - encouraged ambulation Nicole BARKSDALE MD
--- NOTE | 2017-03-23 12:13 | PN ---
Progress Note, Physician History of Present Illness: "The patient is a 66 year old female, with a significant past medical history of PE on lovenox, HTN, diabetes mellitus, gout, and breast cancer s/p right mastectomy around 7 weeks ago (January 20) who was referred to the emergency department by her PCP due to low blood platelet count. She states she was started on lovenox 2 weeks ago when she was diagnosed with acute PE. Patient denies currently experiencing any chest pain or palpitations but admits to SOB from time to time. She denies experiencing any new bruises. She denies recent fevers, chills, headache or dizziness. She denies recent nausea, vomit, diarrhea or constipation. She denies recent dysuria, frequency, urgency or hematuria. She denies recent chest pain. Allergies: NKA Past surgical history: Right masectomy Social history: Nonsmoker. Denies EtOH use and recreational drug use. Primary Care Physician: Carrie Price M.D. " - Current Medication List Current Medications: Active Medications Allopurinol (Zyloprim -) 300 mg PO HS [facility] Last Admin: 03/22/17 21:09 Dose: 300 mg Bacitracin (Bacitracin -) 1 applic TP DAILY NICOLÁS Last Admin: 03/23/17 10:30 Dose: 1 applic Diltiazem HCl (Cardizem Cd -) 120 mg PO DAILY [facility] Last Admin: 03/23/17 10:30 Dose: 120 mg Guaifenesin (Robitussin Dm -) 10 ml PO Q6H PRN PRN Reason: COUGH Last Admin: 03/22/17 08:46 Dose: 10 ml Hydrochlorothiazide (Hctz -) 12.5 mg PO DAILY NICOL[facility]S Last Admin: 03/23/17 10:31 Dose: 12.5 mg Argatroban 250,000 mcg/ Sodium (Chloride) 250 mls @ 13.82 mls/hr IVPB TITR NICOLÁS ; 2 MCG/KG/MIN PRN Reason: Protocol Last Admin: 03/23/17 07:50 Dose: Not Given Lactobacillus Acidophilus (Bacid -) 2 tab PO DAILY NICOLÁS Last Admin: 03/23/17 10:30 Dose: 2 tab Losartan Potassium (Cozaar -) 50 mg PO DAILY NICOLÁS Last Admin: 03/23/17 10:30 Dose: 50 mg Melatonin (Melatonin) 5 mg PO HS [facility] Last Admin: 03/22/17 21:10 Dose: 5 mg Metoprolol Succinate (Toprol Xl -) 25 mg PO HS [facility] Last Admin: 03/22/17 21:09 Dose: 25 mg Silver Sulfadiazine (Silvadene -) 1 applic TP DAILY [facility] Last Admin: 03/23/17 10:31 Dose: 1 applic - Objective Vital Signs: Vital Signs Temperature 97.8 F 03/23/17 05:56 Pulse Rate 67 03/23/17 05:56 Respiratory Rate 18 03/23/17 05:56 Blood Pressure 116/64 03/23/17 05:56 O2 Sat by Pulse Oximetry (%) 95 03/22/17 21:00 Eyes: Yes: WNL, Conjunctiva Clear, EOM Intact HENT: Yes: WNL, Atraumatic, Normocephalic Neck: Yes: WNL, Supple, Trachea Midline Cardiovascular: Yes: WNL, Regular Rate and Rhythm Respiratory: Yes: WNL, Regular, CTA Bilaterally Gastrointestinal: Yes: WNL, Normal Bowel Sounds Genitourinary: Yes: WNL Musculoskeletal: Yes: WNL Extremities: Yes: WNL Edema: No Integumentary: Yes: WNL Neurological: Yes: WNL, Alert, Oriented ...Motor Strength: WNL Psychiatric: Yes: WNL Labs: CBC, BMP 03/23/17 06:00 03/22/17 06:00 INR, PTT INR 1.70 (0.82-1.09) H 03/23/17 06:00 Fibrinogen 176.0 mg/dL (238-498) L 03/09/17 18:00 Problem List - Problems (1) Thrombocytopenia Code(s): D69.6 - THROMBOCYTOPENIA, UNSPECIFIED (2) Cellulitis Code(s): L03.90 - CELLULITIS, UNSPECIFIED (3) Chronic instability of right knee Code(s): M23.51 - CHRONIC INSTABILITY OF KNEE, RIGHT KNEE (4) ABENA (obstructive sleep apnea) Code(s): G47.33 - OBSTRUCTIVE SLEEP APNEA (ADULT) (PEDIATRIC) (5) PAF (paroxysmal atrial fibrillation) Code(s): I48.0 - PAROXYSMAL ATRIAL FIBRILLATION (6) Pulmonary emboli Code(s): I26.99 - OTHER PULMONARY EMBOLISM WITHOUT ACUTE COR PULMONALE Qualifiers: Pulmonary embolism type: other (7) Breast CA Code(s): C50.919 - MALIGNANT NEOPLASM OF UNSP SITE OF UNSPECIFIED FEMALE BREAST Qualifiers: Patient sex: female Laterality: right (8) Diabetes Code(s): E11.9 - TYPE 2 DIABETES MELLITUS WITHOUT COMPLICATIONS Qualifiers: Diabetes mellitus type: type 2 Diabetes mellitus complication status: without complication Diabetes mellitus long term care phlebotomist insulin use: without nursing home use Qualified Code(s): E11.9 - Type 2 diabetes mellitus without complications (9) Diastolic CHF Code(s): I50.30 - UNSPECIFIED DIASTOLIC (CONGESTIVE) HEART FAILURE (10) HTN (hypertension) Code(s): I10 - ESSENTIAL (PRIMARY) HYPERTENSION Qualifiers: Hypertension type: essential hypertension Qualified Code(s): I10 - Essential (primary) hypertension (11) Hypertriglyceridemia Code(s): E78.1 - PURE HYPERGLYCERIDEMIA (12) Obesity Code(s): E66.9 - OBESITY, UNSPECIFIED (13) Paget's disease of right breast Code(s): C50.011 - MALIGNANT NEOPLASM OF NIPPLE AND AREOLA, RIGHT FEMALE BREAST Assessment/Plan Problems (1) Cellulitis Code(s): L03.90 - CELLULITIS, UNSPECIFIED (2) ABENA (obstructive sleep apnea) Assessment/Plan: f/u sleep studies. Code(s): G47.33 - OBSTRUCTIVE SLEEP APNEA (ADULT) (PEDIATRIC) (3) Chronic instability of right knee Code(s): M23.51 - CHRONIC INSTABILITY OF KNEE, RIGHT KNEE (4) PAF (paroxysmal atrial fibrillation) Assessment/Plan: On diltiazem for HR control. When warfarin is restarted, will likely have to be lifetime, given her having had several episodes of PAF. Will discuss with EP as to whether long-term monitoring will affect this decision. Code(s): I48.0 - PAROXYSMAL ATRIAL FIBRILLATION (5) Pulmonary emboli Assessment/Plan: On argatraban until able to start warfarin. Code(s): I26.99 - OTHER PULMONARY EMBOLISM WITHOUT ACUTE COR PULMONALE Qualifiers: Pulmonary embolism type: other (6) Breast CA Code(s): C50.919 - MALIGNANT NEOPLASM OF UNSP SITE OF UNSPECIFIED FEMALE BREAST Qualifiers: Patient sex: female Laterality: right (7) Diabetes Code(s): E11.9 - TYPE 2 DIABETES MELLITUS WITHOUT COMPLICATIONS Qualifiers: Diabetes mellitus type: type 2 Diabetes mellitus complication status: without complication Diabetes mellitus long term care phlebotomist insulin use: without nursing home use Qualified Code(s): E11.9 - Type 2 diabetes mellitus without complications (8) Diastolic CHF Code(s): I50.30 - UNSPECIFIED DIASTOLIC (CONGESTIVE) HEART FAILURE (9) HTN (hypertension) Assessment/Plan: on metoprolol, diltiazem, and losartan, Serial BP checks. EKG: NSR; nonspecific T wave changes. Code(s): I10 - ESSENTIAL (PRIMARY) HYPERTENSION Qualifiers: Hypertension type: essential hypertension Qualified Code(s): I10 - Essential (primary) hypertension (10) Hypertriglyceridemia Assessment/Plan: Pt says medications for Rx do not agree with her; plans to use diet/exercise to lower triglycerides. Code(s): E78.1 - PURE HYPERGLYCERIDEMIA (11) Obesity Assessment/Plan: f/u with jewel bearing facer. Code(s): E66.9 - OBESITY, UNSPECIFIED (12) Paget's disease of right breast Assessment/Plan: s/p surgery, with continued wound discharge. antibiotics per ID. Code(s): C50.011 - MALIGNANT NEOPLASM OF NIPPLE AND AREOLA, RIGHT FEMALE BREAST (13) Heparin induced thrombocytopenia (HIT) Assessment/Plan: steady improvement in platelet numbers. Start warfarin (for PE and PAF) when approved by sheet metal assembler. Code(s): D75.82 - HEPARIN INDUCED THROMBOCYTOPENIA (HIT)
--- NOTE | 2017-03-23 12:27 | PN ---
Progress Note (short form) - Note Progress Note: Patient seen and examined. feels well. no complains. wound is much better she says, Cor: RSR, No murmurs, No gallops Lungs: Clear to P&A Ext:No significant edema Skin: No rashes, Integument intact Last Vital Signs Temp Pulse Resp BP Pulse Ox 97.8 F 67 18 116/64 95 03/23/17 05:56 03/23/17 05:56 03/23/17 05:56 03/23/17 05:56 03/22/17 21:00 CBC, BMP 03/23/17 06:00 03/22/17 06:00 Current Medications Generic Name Dose Route Start Last Admin Trade Name Freq PRN Reason Stop Dose Admin Allopurinol 300 mg 03/19/17 22:00 03/22/17 21:09 Zyloprim - PO 300 mg HS NICOLÁS Administration Bacitracin 1 applic 03/19/17 10:00 03/23/17 10:30 Bacitracin - TP 1 applic DAILY NICOLÁS Administration Diltiazem HCl 120 mg 03/19/17 10:00 03/23/17 10:30 Cardizem Cd - PO 120 mg DAILY NICOLÁS Administration Guaifenesin 10 ml 03/19/17 07:57 03/22/17 08:46 Robitussin Dm - PO 10 ml Q6H PRN Administration COUGH Hydrochlorothiazide 12.5 mg 03/18/17 10:00 03/23/17 10:31 Hctz - PO 12.5 mg DAILY NICOLÁS Administration Argatroban 250,000 mcg/ Sodium 250 mls @ 13.82 mls/hr 03/19/17 07:57 03/23/17 07:50 Chloride IVPB Not Given TITR NICOLÁS Protocol 2 MCG/KG/MIN Lactobacillus Acidophilus 2 tab 03/19/17 10:00 03/23/17 10:30 Bacid - PO 2 tab DAILY NICOLÁS Administration Losartan Potassium 50 mg 03/19/17 10:00 03/23/17 10:30 Cozaar - PO 50 mg DAILY NICOLÁS Administration Melatonin 5 mg 03/19/17 22:00 03/22/17 21:10 Melatonin PO 5 mg HS NICOLÁS Administration Metoprolol Succinate 25 mg 03/19/17 22:00 03/22/17 21:09 Toprol Xl - PO 25 mg HS NICOLÁS Administration Silver Sulfadiazine 1 applic 03/19/17 10:00 03/23/17 10:31 Silvadene - TP 1 applic DAILY NICOLÁS Administration A/P 66 y/o patient s/p Rt. 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 HIT: platelets improving will await to be bridged to coumadin, once started on coumadin, for the initial 4days she needs to be on both Argatroban/coumadin to avoid a "pro" coagulant state from coumadin. will continue at present rate, reviewed PTT, slightly low than prior, but will not change the rate rest of the management of per primary will follow
[2017-03-23] MEDS: guaiFENesin/D-METHORPHAN HB 10 ML UNIT-DOSE CUPS PO PRN (12:57)
[2017-03-23] MEDS ORDERED: PT OWN MED DRAWER 7, Y5N ONE (20:20)
[2017-03-23] MEDS: METOPROLOL SUCCINATE 25 MG TAB.SR.24H (FP) PO SCH (21:32)
[2017-03-23] MEDS: MELATONIN 5 MG TABLETS PO SCH (21:32)
[2017-03-23] MEDS: ALLOPURINOL 300 MG TABLET (FP) PO SCH (21:32)
[2017-03-24] MEDS: ARGATROBAN - 250,000 MCG in SODIUM CHLORIDE 247.5 ML IVPB SCH ×2 (00:22→10:04)
[2017-03-24 07:53] LABS: BASOPHIL 0.4 % (0-2.0); MCH 29.6 pg (25.7-33.7); MCHC 33.4 g/dl (32.0-36.0); MEAN CELL VOLUME 88.6 fl (80-96); MEAN PLT VOLUME 9.1 fl (7.5-11.1); NEUTROPHILS 64.6 % (42.8-82.8); PLATELET COUNT 112 K/MM3 (134-434); WHITE BLOOD COUNT 7.1 K/mm3 (4.0-10.0)
[2017-03-24 08:13] LABS: INR 1.49 (0.82-1.09); PROTHROMBIN TIME (PATIENT) 16.5 SEC (9.98-11.88)
[2017-03-24 08:15] LABS: ACTIVATED PTT 41.9 SECONDS (26.9-34.4)
--- NOTE | 2017-03-24 09:18 | PN ---
Progress Note (short form) - Note Progress Note: OOB to chair. No acute events overnight. Breathing feels overall better. No CP. Plt : 112 K Intake & Output 03/21/17 03/22/17 03/23/17 03/24/17 23:59 23:59 23:59 23:59 Intake Total 720 560 510 180 Balance 720 560 510 180 Last Vital Signs Temp Pulse Resp BP Pulse Ox 97.9 F 68 18 129/57 97 03/24/17 05:52 03/24/17 05:52 03/24/17 05:52 03/24/17 05:52 03/23/17 21:00 Active Medications Allopurinol (Zyloprim -) 300 mg PO HS [facility] Last Admin: 03/23/17 21:32 Dose: 300 mg Bacitracin (Bacitracin -) 1 applic TP DAILY [facility] Last Admin: 03/23/17 10:30 Dose: 1 applic Diltiazem HCl (Cardizem Cd -) 120 mg PO DAILY [facility] Last Admin: 03/23/17 10:30 Dose: 120 mg Guaifenesin (Robitussin Dm -) 10 ml PO Q6H PRN PRN Reason: COUGH Last Admin: 03/23/17 12:57 Dose: 10 ml Hydrochlorothiazide (Hctz -) 12.5 mg PO DAILY [facility] Last Admin: 03/23/17 10:31 Dose: 12.5 mg Argatroban 250,000 mcg/ Sodium (Chloride) 250 mls @ 13.82 mls/hr IVPB TITR NICOLÁS ; 2 MCG/KG/MIN PRN Reason: Protocol Last Admin: 03/24/17 00:22 Dose: 15 mls/hr Lactobacillus Acidophilus (Bacid -) 2 tab PO DAILY [facility] Last Admin: 03/23/17 10:30 Dose: 2 tab Losartan Potassium (Cozaar -) 50 mg PO DAILY [facility] Last Admin: 03/23/17 10:30 Dose: 50 mg Melatonin (Melatonin) 5 mg PO HS [facility] Last Admin: 03/23/17 21:32 Dose: 5 mg Metoprolol Succinate (Toprol Xl -) 25 mg PO HS [facility] Last Admin: 03/23/17 21:32 Dose: 25 mg Silver Sulfadiazine (Silvadene -) 1 applic TP DAILY [facility] Last Admin: 03/23/17 10:31 Dose: 1 applic Constitutional: Yes: NAD Eyes: Yes: WNL, Conjunctiva Clear, EOM Intact HENT: Yes: WNL, Atraumatic, Normocephalic Neck: Yes: WNL, Supple, Trachea Midline Respiratory: Yes: Diminished breath sounds Gastrointestinal: Yes: WNL, Normal Bowel Sounds Renal/: Yes: WNL Cardiovascular: Yes: WNL, Regular Rate and Rhythm Musculoskeletal: Yes: WNL Extremities: Yes: WNL Integumentary: Yes: WNL Neurological: Yes: WNL, Alert, Oriented ...Motor Strength: WNL Psychiatric: Yes: WNL, Alert, Oriented Laboratory Results - last 24 hr 03/24/17 03/24/17 03/24/17 05:41 06:30 06:30 WBC 7.1 RBC 3.66 Hgb 10.8 Hct 32.4 MCV 88.6 MCH 29.6 MCHC 33.4 RDW 14.0 Plt Count 112 L MPV 9.1 Neutrophils % 64.6 Lymphocytes % 25.9 Monocytes % 6.1 Eosinophils % 3.0 Basophils % 0.4 PT with INR 16.50 H INR 1.49 H PTT (Actin FS) 41.9 H POC Glucometer 134 Problem List - Problems (1) ABENA (obstructive sleep apnea) Code(s): G47.33 - OBSTRUCTIVE SLEEP APNEA (ADULT) (PEDIATRIC) (2) PAF (paroxysmal atrial fibrillation) Code(s): I48.0 - PAROXYSMAL ATRIAL FIBRILLATION (3) Pulmonary emboli Code(s): I26.99 - OTHER PULMONARY EMBOLISM WITHOUT ACUTE COR PULMONALE (4) Breast CA Code(s): C50.919 - MALIGNANT NEOPLASM OF UNSP SITE OF UNSPECIFIED FEMALE BREAST (5) Diabetes Code(s): E11.9 - TYPE 2 DIABETES MELLITUS WITHOUT COMPLICATIONS (6) HTN (hypertension) Code(s): I10 - ESSENTIAL (PRIMARY) HYPERTENSION (7) Obesity Code(s): E66.9 - OBESITY, UNSPECIFIED (8) Thrombocytopenia Code(s): D69.6 - THROMBOCYTOPENIA, UNSPECIFIED IMP THROMBOCYTOPENIA -> HIT RECENT PROVOKED BILATERAL PE BREAST CA S/P MASTECTOMY OSAS DM PLAN MONITOR PLT CT ARGATROBAN -> COUMADIN WHEN CLEARED BY HEME O2 NEEDED AMBULATE TOLERATED DR TREJO
[2017-03-24] MEDS ORDERED: PT OWN MED DRAWER 7, Y5N ONE ×3 (10:09→22:20)
[2017-03-24] MEDS: LOSARTAN POTASSIUM 50 MG TABLET (FP) PO SCH (10:17)
[2017-03-24] MEDS: guaiFENesin/D-METHORPHAN HB 10 ML UNIT-DOSE CUPS PO PRN (10:17)
[2017-03-24] MEDS: BACITRACIN 15 GM TUBE TOPICAL OINTMENT TP SCH (10:18)
[2017-03-24] MEDS: HYDROCHLOROTHIAZIDE 12.5 MG CAPSULE (FP) PO SCH (10:18)
[2017-03-24] MEDS: LACTOBACILLUS ACIDOPHILUS 1 EACH TAB (FP) PO SCH (10:21)
[2017-03-24] MEDS: SILVER SULFADIAZINE 1% TOP CREAM 50 GM JAR TP SCH (10:23)
--- NOTE | 2017-03-24 13:51 | PN ---
Progress Note (short form) - Note Progress Note: CBC, BMP 03/24/17 06:30 03/22/17 06:00 Vital Signs Period Temp Pulse Resp BP Sys/Beck Pulse Ox Last 24 Hr 97.9 F-98.6 F 68-77 16-18 114-143/49-73 97 S1S2 RRR LUNGS CTA no pedal edema umbilical wound with no erythema, dry wound under breast with yellow slough, abd wound clean Imp Heparin Induced Thrombocytopenia-slowly improving, continue argatroban recent bilateral pulmonary embolism following reconstructive breast surgery after mastectomy. Paget's disease of the breast NIDDM HTN h/o afib-paroxysmal with PE diagnosis-none on telemetry during this admission Plan Argatroban while monitoring plt count-dose increased today close monitoring for bleeding problems will have to be bridged to warfarin if plts over 130-135 continue other care local wound care Problem List - Problems (1) Thrombocytopenia Code(s): D69.6 - THROMBOCYTOPENIA, UNSPECIFIED (2) PAF (paroxysmal atrial fibrillation) Code(s): I48.0 - PAROXYSMAL ATRIAL FIBRILLATION (3) Pulmonary emboli Code(s): I26.99 - OTHER PULMONARY EMBOLISM WITHOUT ACUTE COR PULMONALE Qualifiers: Pulmonary embolism type: other (4) Breast CA Code(s): C50.919 - MALIGNANT NEOPLASM OF UNSP SITE OF UNSPECIFIED FEMALE BREAST Qualifiers: Patient sex: female Laterality: right (5) Diabetes Code(s): E11.9 - TYPE 2 DIABETES MELLITUS WITHOUT COMPLICATIONS Qualifiers: Diabetes mellitus type: type 2 Diabetes mellitus complication status: without complication Diabetes mellitus jail insulin use: without jail use Qualified Code(s): E11.9 - Type 2 diabetes mellitus without complications (6) HTN (hypertension) Code(s): I10 - ESSENTIAL (PRIMARY) HYPERTENSION Qualifiers: Hypertension type: essential hypertension Qualified Code(s): I10 - Essential (primary) hypertension
[2017-03-24] MEDS: MELATONIN 5 MG TABLETS PO SCH (22:31)
[2017-03-24] MEDS: METOPROLOL SUCCINATE 25 MG TAB.SR.24H (FP) PO SCH (22:31)
[2017-03-24] MEDS: ALLOPURINOL 300 MG TABLET (FP) PO SCH (22:31)
--- NOTE | 2017-03-24 22:49 | PN ---
Progress Note (short form) - Note Progress Note: Patient seen and examined feels better wound feels better AFVSS Breasts: right breast reconstruction. Incision is healing Cor: RSR, No murmurs, No gallops Lungs: Clear to P&A Abd: Soft, Normal bowel sounds, healing abdominal incision Ext:No significant edema wounds --RT. lower adomen, Rt. breast look clean umblical woud some discharge Abnormal Lab Results 03/24/17 03/24/17 03/24/17 06:30 06:30 13:40 Plt Count 112 L PT with INR 16.50 H INR 1.49 H PTT (Actin FS) 41.9 H 59.4 H D Active Medications Generic Name Dose Route Start Last Admin Trade Name Freq PRN Reason Stop Dose Admin Allopurinol 300 mg 03/19/17 22:00 03/24/17 22:31 Zyloprim - PO 300 mg HS NIC[facility]S Administration Bacitracin 1 applic 03/19/17 10:00 03/24/17 10:18 Bacitracin - TP 1 applic DAILY NIC[facility]S Administration Diltiazem HCl 120 mg 03/19/17 10:00 03/24/17 10:17 Cardizem Cd - PO 120 mg DAILY [facility] Administration Guaifenesin 10 ml 03/19/17 07:57 03/24/17 10:17 Robitussin Dm - PO 10 ml Q6H PRN Administration COUGH Hydrochlorothiazide 12.5 mg 03/18/17 10:00 03/24/17 10:18 Hctz - PO 12.5 mg DAILY [facility] Administration Argatroban 250,000 mcg/ Sodium 250 mls @ 16.59 mls/hr 03/24/17 09:45 03/24/17 10:04 Chloride IVPB 16.6 mls/hr TITR NICOLÁS Administration Protocol 2.4 MCG/KG/MIN Lactobacillus Acidophilus 2 tab 03/19/17 10:00 03/24/17 10:21 Bacid - PO 2 tab DAILY [facility] Administration Losartan Potassium 50 mg 03/19/17 10:00 03/24/17 10:17 Cozaar - PO 50 mg DAILY [facility] Administration Melatonin 5 mg 03/19/17 22:00 03/24/17 22:31 Melatonin PO 5 mg HS [facility] Administration Metoprolol Succinate 25 mg 03/19/17 22:00 03/24/17 22:31 Toprol Xl - PO 25 mg HS [facility] Administration Silver Sulfadiazine 1 applic 03/19/17 10:00 03/24/17 10:23 Silvadene - TP 1 applic DAILY [facility] Administration A/P 66 y/o patient s/p Rt. mastectomy/breast reconstrucion--01/20 presented with palpitations/afib --02/20 Diagnosed with b/l PE 02/23, presented with thrombocytopenia HIT confirmed with HIT ab on argatroban -- PTT is 54 at 15cc/hr, platelets slowly increasing --now [id number] wounds healing --will request plastics and ID f/u
[2017-03-25 07:10] LABS: BASOPHIL 0.8 % (0-2.0); EOSINOPHIL 3.1 % (0-4.5); MCH 29.8 pg (25.7-33.7); MCHC 33.7 g/dl (32.0-36.0); MEAN CELL VOLUME 88.4 fl (80-96); MEAN PLT VOLUME 8.8 fl (7.5-11.1); NEUTROPHILS 66.9 % (42.8-82.8); PLATELET COUNT 113 K/MM3 (134-434); RDW 13.8 % (11.6-15.6); WHITE BLOOD COUNT 7.1 K/mm3 (4.0-10.0)
--- NOTE | 2017-03-25 08:42 | PN ---
Progress Note (short form) - Note Progress Note: CBC, BMP 03/25/17 07:02 03/22/17 06:00 Vital Signs Period Temp Pulse Resp BP Sys/Beck Pulse Ox Last 24 Hr 97.2 F-98.2 F 70-80 16-20 105-130/57-82 96-98 S1S2 RRR LUNGS CTA no pedal edema umbilical wound with no erythema, dry crusty wound under breast with yellow slough, abd wound clean Imp Heparin Induced Thrombocytopenia-slowly improving, continue argatroban recent bilateral pulmonary embolism following reconstructive breast surgery after mastectomy. Paget's disease of the breast NIDDM HTN h/o afib-paroxysmal with PE diagnosis-none on telemetry during this admission Plan Argatroban while monitoring plt count-very slow rise close monitoring for bleeding problems will have to be bridged to warfarin if plts over 130-135 continue other care local wound care surgical f/up regarding wounds Problem List - Problems (1) Thrombocytopenia Code(s): D69.6 - THROMBOCYTOPENIA, UNSPECIFIED (2) PAF (paroxysmal atrial fibrillation) Code(s): I48.0 - PAROXYSMAL ATRIAL FIBRILLATION (3) Pulmonary emboli Code(s): I26.99 - OTHER PULMONARY EMBOLISM WITHOUT ACUTE COR PULMONALE Qualifiers: Pulmonary embolism type: other (4) Breast CA Code(s): C50.919 - MALIGNANT NEOPLASM OF UNSP SITE OF UNSPECIFIED FEMALE BREAST Qualifiers: Patient sex: female Laterality: right (5) Diabetes Code(s): E11.9 - TYPE 2 DIABETES MELLITUS WITHOUT COMPLICATIONS Qualifiers: Diabetes mellitus type: type 2 Diabetes mellitus complication status: without complication Diabetes mellitus nursing home insulin use: without nursing home use Qualified Code(s): E11.9 - Type 2 diabetes mellitus without complications (6) HTN (hypertension) Code(s): I10 - ESSENTIAL (PRIMARY) HYPERTENSION Qualifiers: Hypertension type: essential hypertension Qualified Code(s): I10 - Essential (primary) hypertension
[2017-03-25 10:46] LABS: INR 1.47 (0.82-1.09); PROTHROMBIN TIME (PATIENT) 16.3 SEC (9.98-11.88)
[2017-03-25] MEDS: LACTOBACILLUS ACIDOPHILUS 1 EACH TAB (FP) PO SCH (10:46)
[2017-03-25] MEDS: LOSARTAN POTASSIUM 50 MG TABLET (FP) PO SCH (10:46)
[2017-03-25] MEDS: BACITRACIN 15 GM TUBE TOPICAL OINTMENT TP SCH (10:46)
[2017-03-25] MEDS: HYDROCHLOROTHIAZIDE 12.5 MG CAPSULE (FP) PO SCH (10:46)
[2017-03-25] MEDS: SILVER SULFADIAZINE 1% TOP CREAM 50 GM JAR TP SCH (10:47)
[2017-03-25] MEDS: ARGATROBAN - 250,000 MCG in SODIUM CHLORIDE 247.5 ML IVPB SCH ×2 (10:47→23:00)
[2017-03-25 10:49] LABS: ACTIVATED PTT 51.8 SECONDS (26.9-34.4)
[2017-03-25] MEDS: guaiFENesin/D-METHORPHAN HB 10 ML UNIT-DOSE CUPS PO PRN (11:16)
--- NOTE | 2017-03-25 11:47 | PN ---
Progress Note (short form) - Note Progress Note: Patient seen and examined Little change in platelets last several days. Remains on argatroban drip. For ID and plastics follow up. Offers no specific complaints on ROS Last Vital Signs Temp Pulse Resp BP Pulse Ox 98 F 72 18 128/82 98 03/25/17 06:01 03/25/17 06:01 03/25/17 06:01 03/25/17 06:01 03/24/17 21:00 HEENT: PRESLEY, EOM Intact Oropharynx: No thrush, No mucositis Neck: Supple Nodes: Without adenopathy Breasts: small area of necrotic material below right breast Cor: RSR, No murmurs, No gallops Lungs: Clear to P&A Abd: Soft, Normal bowel sounds, No organomegaly, obese ; small area of necrotic material umbilical area Ext:LE edema Skin: No rashes, Integument intact CBC, BMP 03/25/17 07:02 03/22/17 06:00 Current Medications Generic Name Dose Route Start Last Admin Trade Name Freq PRN Reason Stop Dose Admin Allopurinol 300 mg 03/19/17 22:00 03/24/17 22:31 Zyloprim - PO 300 mg HS NICOLÁS Administration Bacitracin 1 applic 03/19/17 10:00 03/25/17 10:46 Bacitracin - TP 1 applic DAILY NICOLÁS Administration Diltiazem HCl 120 mg 03/19/17 10:00 03/25/17 10:46 Cardizem Cd - PO 120 mg DAILY NICOLÁS Administration Guaifenesin 10 ml 03/19/17 07:57 03/25/17 11:16 Robitussin Dm - PO 10 ml Q6H PRN Administration COUGH Hydrochlorothiazide 12.5 mg 03/18/17 10:00 03/25/17 10:46 Hctz - PO 12.5 mg DAILY NICOLÁS Administration Argatroban 250,000 mcg/ Sodium 250 mls @ 16.59 mls/hr 03/24/17 09:45 03/25/17 10:47 Chloride IVPB 16.6 mls/hr TITR NICOLÁS Administration Protocol 2.4 MCG/KG/MIN Lactobacillus Acidophilus 2 tab 03/19/17 10:00 03/25/17 10:46 Bacid - PO 2 tab DAILY NICOLÁS Administration Losartan Potassium 50 mg 03/19/17 10:00 03/25/17 10:46 Cozaar - PO 50 mg DAILY NIC[facility]S Administration Melatonin 5 mg 03/19/17 22:00 03/24/17 22:31 Melatonin PO 5 mg HS NICOLÁS Administration Metoprolol Succinate 25 mg 03/19/17 22:00 03/24/17 22:31 Toprol Xl - PO 25 mg HS NICOLÁS Administration Silver Sulfadiazine 1 applic 03/19/17 10:00 03/25/17 10:47 Silvadene - TP 1 applic DAILY NICOLÁS Administration Impression: HIT Slow response to argatroban with persistent thrombocytopenia of 113k Ashley: Continue to monitor ID and plastics follow up/ to ascertain absence of smoldering infection ?? bridge to coumadin early next week.
--- NOTE | 2017-03-25 16:04 | PN ---
Progress Note (short form) - Note Progress Note: no complaints no fevers Vital Signs Period Temp Pulse Resp BP Sys/Beck Pulse Ox Last 24 Hr 97.2 F-98 F 68-80 18-18 105-144/65-89 98-98 cor-rrr lungs clear abd soft,numbilicus is dry with scab, minimal erythema left breast ulcer unchanged- no purulence, yellow fibrinous exudate at base, no erythema right hip wound clean and dry CBC, BMP 03/25/17 07:02 03/22/17 06:00 Microbiology 03/15/17 12:00 Abdomen Gram Stain - Final 03/15/17 12:00 Abdomen Wound Culture - Final Staphylococcus Aureus Enterococcus Faecalis 03/09/17 19:45 Blood - Peripheral Venous Blood Culture - Final NO GROWTH AFTER 5 DAYS INCUBATION 03/09/17 18:00 Blood - Peripheral Venous Blood Culture - Final NO GROWTH AFTER 5 DAYS INCUBATION 03/13/17 16:00 Stool Clostridium difficile Antigen (ALEXX) - Final 03/13/17 16:00 Stool Clostridium difficile Toxin Assay - Final 03/12/17 12:30 Urine - Urine Clean Catch Urine Culture - Final 03/10/17 11:59 Urine - Urine Clean Catch Urine Culture - Final Contaminated: Please Repeat a/p umbilical wound is improved, she is s/p one week of antibiotics needs plastic surgery followup, no need for systemic antibiotics at this time PE thrombocytopenia secondary to HIT breast cancer s/p reconstruction
--- NOTE | 2017-03-25 17:24 | PN ---
Progress Note, Physician Chief Complaint: Pt sitting in chair; asymptomatic; daughter is present. History of Present Illness: The patient is a 66 year old white female, with a significant past medical history of PE after breast surgery earlier this year (on lovenox), PAF (at least 3 episodes), HTN, diabetes mellitus, obesity, gout, presumed obstructive sleep apnea, and breast cancer s/p right mastectomy around 7 weeks ago (January 20 ) who was referred to the emergency department by her PCP due to low blood platelet count. She states she was started on lovenox 2 weeks ago when she was diagnosed with acute PE. Patient denies currently experiencing any chest pain or palpitations but admits to SOB from time to time. She denies experiencing any new bruises. She denies recent fevers, chills, headache or dizziness. She denies recent nausea, vomit, diarrhea or constipation. She denies recent dysuria, frequency, urgency or hematuria. She denies recent chest pain. Allergies: NKA Past surgical history: Right mastectomy Social history: Nonsmoker. Denies EtOH use and recreational drug use. Primary Care Physician: Carrie Price M.D. - Current Medication List Current Medications: Active Medications Allopurinol (Zyloprim -) 300 mg PO HS NICOLÁS Last Admin: 03/24/17 22:31 Dose: 300 mg Bacitracin (Bacitracin -) 1 applic TP DAILY NICOL[facility]S Last Admin: 03/25/17 10:46 Dose: 1 applic Diltiazem HCl (Cardizem Cd -) 120 mg PO DAILY N[facility]S Last Admin: 03/25/17 10:46 Dose: 120 mg Guaifenesin (Robitussin Dm -) 10 ml PO Q6H PRN PRN Reason: COUGH Last Admin: 03/25/17 11:16 Dose: 10 ml Hydrochlorothiazide (Hctz -) 12.5 mg PO DAILY N[facility]S Last Admin: 03/25/17 10:46 Dose: 12.5 mg Argatroban 250,000 mcg/ Sodium (Chloride) 250 mls @ 16.59 mls/hr IVPB TITR NICOLÁS ; 2.4 MCG/KG/MIN PRN Reason: Protocol Last Admin: 03/25/17 10:47 Dose: 16.6 mls/hr Lactobacillus Acidophilus (Bacid -) 2 tab PO DAILY N[facility] Last Admin: 03/25/17 10:46 Dose: 2 tab Losartan Potassium (Cozaar -) 50 mg PO DAILY [facility] Last Admin: 03/25/17 10:46 Dose: 50 mg Melatonin (Melatonin) 5 mg PO [facility] Last Admin: 03/24/17 22:31 Dose: 5 mg Metoprolol Succinate (Toprol Xl -) 25 mg PO HS [facility] Last Admin: 03/24/17 22:31 Dose: 25 mg Silver Sulfadiazine (Silvadene -) 1 applic TP DAILY [facility] Last Admin: 03/25/17 10:47 Dose: 1 applic - Objective Vital Signs: Vital Signs Temperature 97.3 F L 03/25/17 09:00 Pulse Rate 68 03/25/17 09:00 Respiratory Rate 18 03/25/17 09:00 Blood Pressure 144/89 03/25/17 09:00 O2 Sat by Pulse Oximetry (%) 98 03/25/17 09:00 Constitutional: Yes: Calm Eyes: Yes: WNL HENT: Yes: WNL Neck: Yes: WNL Cardiovascular: Yes: Regular Rate and Rhythm, S1, S2 Respiratory: Yes: Regular Gastrointestinal: Yes: Soft, Abdomen, Obese, Other (healing umbilicus) ...Rectal Exam: Yes: Deferred Genitourinary: Yes: Anuria Breast(s): Yes: Other (s/p right mastectomy) Musculoskeletal: Yes: Muscle Weakness Extremities: Yes: Cool Edema: Yes Edema: LLE: Trace, RLE: Trace Peripheral Pulses WNL: Yes Integumentary: Yes: Other (s/p right mastectomy/reconstruction) Wound/Incision: Yes: Other (reconstruction wound with exudate) Neurological: Yes: WNL Psychiatric: Yes: WNL Labs: CBC, BMP 03/25/17 07:02 03/22/17 06:00 INR, PTT INR 1.47 (0.82-1.09) H 03/25/17 10:20 Fibrinogen 176.0 mg/dL (238-498) L 03/09/17 18:00 Abnormal Lab Results 03/25/17 03/25/17 07:02 10:20 Plt Count 113 L PT with INR 16.30 H INR 1.47 H PTT (Actin FS) 51.8 H Problem List - Problems (1) Cellulitis Code(s): L03.90 - CELLULITIS, UNSPECIFIED (2) ABENA (obstructive sleep apnea) Assessment/Plan: f/u sleep studies. Code(s): G47.33 - OBSTRUCTIVE SLEEP APNEA (ADULT) (PEDIATRIC) (3) Chronic instability of right knee Code(s): M23.51 - CHRONIC INSTABILITY OF KNEE, RIGHT KNEE (4) PAF (paroxysmal atrial fibrillation) Assessment/Plan: On diltiazem for HR control. When warfarin is restarted, will likely have to be lifetime, given her having had several episodes of PAF. Will discuss with EP as to whether long-term monitoring will affect this decision. Code(s): I48.0 - PAROXYSMAL ATRIAL FIBRILLATION (5) Pulmonary emboli Assessment/Plan: On argatraban until able to start warfarin. Code(s): I26.99 - OTHER PULMONARY EMBOLISM WITHOUT ACUTE COR PULMONALE Qualifiers: Pulmonary embolism type: other (6) Breast CA Code(s): C50.919 - MALIGNANT NEOPLASM OF UNSP SITE OF UNSPECIFIED FEMALE BREAST Qualifiers: Patient sex: female Laterality: right (7) Diabetes Code(s): E11.9 - TYPE 2 DIABETES MELLITUS WITHOUT COMPLICATIONS Qualifiers: Diabetes mellitus type: type 2 Diabetes mellitus complication status: without complication Diabetes mellitus termite exterminator helper insulin use: without detention use Qualified Code(s): E11.9 - Type 2 diabetes mellitus without complications (8) Diastolic CHF Code(s): I50.30 - UNSPECIFIED DIASTOLIC (CONGESTIVE) HEART FAILURE (9) HTN (hypertension) Assessment/Plan: on metoprolol, diltiazem, and losartan, Serial BP checks. EKG: NSR; nonspecific T wave changes. Code(s): I10 - ESSENTIAL (PRIMARY) HYPERTENSION Qualifiers: Hypertension type: essential hypertension Qualified Code(s): I10 - Essential (primary) hypertension (10) Hypertriglyceridemia Assessment/Plan: Pt says medications for Rx do not agree with her; plans to use diet/exercise to lower triglycerides. Code(s): E78.1 - PURE HYPERGLYCERIDEMIA (11) Obesity Assessment/Plan: f/u with shoe repair cobbler. Code(s): E66.9 - OBESITY, UNSPECIFIED (12) Paget's disease of right breast Assessment/Plan: s/p surgery, with continued wound discharge. Code(s): C50.011 - MALIGNANT NEOPLASM OF NIPPLE AND AREOLA, RIGHT FEMALE BREAST (13) Heparin induced thrombocytopenia (HIT) Assessment/Plan: steady but slow improvement in platelet numbers. Start warfarin (for PE and PAF) when approved by special forces communications sergeant. Code(s): D75.82 - HEPARIN INDUCED THROMBOCYTOPENIA (HIT)
[2017-03-25] MEDS: ALLOPURINOL 300 MG TABLET (FP) PO SCH (22:30)
[2017-03-25] MEDS: METOPROLOL SUCCINATE 25 MG TAB.SR.24H (FP) PO SCH (22:30)
[2017-03-25] MEDS: MELATONIN 5 MG TABLETS PO SCH (22:30)
--- NOTE | 2017-03-26 08:02 | PN ---
Progress Note (short form) - Note Progress Note: Vital Signs Period Temp Pulse Resp BP Sys/Beck Pulse Ox Last 24 Hr 97 F-97.9 F 63-68 18-20 121-144/64-89 98-98 S1S2 RRR LUNGS CTA no pedal edema Imp Heparin Induced Thrombocytopenia-slowly improving, continue argatroban recent bilateral pulmonary embolism following reconstructive breast surgery after mastectomy. Paget's disease of the breast NIDDM HTN h/o afib-paroxysmal with PE diagnosis-none on telemetry during this admission Plan Argatroban while monitoring plt count-very slow rise close monitoring for bleeding problems will have to be bridged to warfarin if plts over 130-135 continue other care local wound care surgical f/up regarding wounds Problem List - Problems (1) Thrombocytopenia Code(s): D69.6 - THROMBOCYTOPENIA, UNSPECIFIED (2) PAF (paroxysmal atrial fibrillation) Code(s): I48.0 - PAROXYSMAL ATRIAL FIBRILLATION (3) Pulmonary emboli Code(s): I26.99 - OTHER PULMONARY EMBOLISM WITHOUT ACUTE COR PULMONALE Qualifiers: Pulmonary embolism type: other (4) Breast CA Code(s): C50.919 - MALIGNANT NEOPLASM OF UNSP SITE OF UNSPECIFIED FEMALE BREAST Qualifiers: Patient sex: female Laterality: right (5) Diabetes Code(s): E11.9 - TYPE 2 DIABETES MELLITUS WITHOUT COMPLICATIONS Qualifiers: Diabetes mellitus type: type 2 Diabetes mellitus complication status: without complication Diabetes mellitus mcfp insulin use: without emt intermediate use Qualified Code(s): E11.9 - Type 2 diabetes mellitus without complications (6) HTN (hypertension) Code(s): I10 - ESSENTIAL (PRIMARY) HYPERTENSION Qualifiers: Hypertension type: essential hypertension Qualified Code(s): I10 - Essential (primary) hypertension
[2017-03-26 08:33] LABS: CALCIUM 8.9 mg/dL (8.5-10.1)
[2017-03-26 08:41] LABS: ALBUMIN 3.1 g/dl (3.4-5.0); ALK PHOS 73 U/L (45-117); ANION GAP 10 (8-16); BILIRUBIN,TOTAL 0.7 mg/dL (0.2-1.0); CO2 28 mmol/L (21-32); GLUCOSE,RANDOM 130 mg/dL (74-106); SGOT/AST 12 U/L (15-37); SGPT/ALT 23 U/L (12-78)
[2017-03-26 08:46] LABS: BASOPHIL 0.6 % (0-2.0); EOSINOPHIL 3.5 % (0-4.5); MCH 29.4 pg (25.7-33.7); MCHC 33.5 g/dl (32.0-36.0); MEAN CELL VOLUME 87.6 fl (80-96); MEAN PLT VOLUME 8.9 fl (7.5-11.1); NEUTROPHILS 65.9 % (42.8-82.8); PLATELET COUNT 115 K/MM3 (134-434); RDW 13.8 % (11.6-15.6)
--- NOTE | 2017-03-26 09:32 | PN ---
Progress Note, Physician History of Present Illness: No complaints No fever/ chills Off antibiotics - Current Medication List Current Medications: Active Medications Allopurinol (Zyloprim -) 300 mg PO HS [facility] Last Admin: 03/25/17 22:30 Dose: 300 mg Bacitracin (Bacitracin -) 1 applic TP DAILY [facility] Last Admin: 03/25/17 10:46 Dose: 1 applic Diltiazem HCl (Cardizem Cd -) 120 mg PO DAILY [facility] Last Admin: 03/25/17 10:46 Dose: 120 mg Guaifenesin (Robitussin Dm -) 10 ml PO Q6H PRN PRN Reason: COUGH Last Admin: 03/25/17 11:16 Dose: 10 ml Hydrochlorothiazide (Hctz -) 12.5 mg PO DAILY [facility] Last Admin: 03/25/17 10:46 Dose: 12.5 mg Argatroban 250,000 mcg/ Sodium (Chloride) 250 mls @ 16.59 mls/hr IVPB TITR NICOLÁS ; 2.4 MCG/KG/MIN PRN Reason: Protocol Last Admin: 03/25/17 23:00 Dose: 16.6 mls/hr Lactobacillus Acidophilus (Bacid -) 2 tab PO DAILY [facility] Last Admin: 03/25/17 10:46 Dose: 2 tab Losartan Potassium (Cozaar -) 50 mg PO DAILY [facility] Last Admin: 03/25/17 10:46 Dose: 50 mg Melatonin (Melatonin) 5 mg PO HS [facility] Last Admin: 03/25/17 22:30 Dose: 5 mg Metoprolol Succinate (Toprol Xl -) 25 mg PO HS [facility] Last Admin: 03/25/17 22:30 Dose: 25 mg Silver Sulfadiazine (Silvadene -) 1 applic TP DAILY [facility] Last Admin: 03/25/17 10:47 Dose: 1 applic - Objective Vital Signs: Vital Signs Temperature 97.9 F 03/26/17 06:00 Pulse Rate 64 03/26/17 06:00 Respiratory Rate 20 03/26/17 06:00 Blood Pressure 121/64 03/26/17 06:00 O2 Sat by Pulse Oximetry (%) 98 03/25/17 21:00 Constitutional: Yes: No Distress Eyes: Yes: Conjunctiva Clear Cardiovascular: Yes: Regular Rate and Rhythm, S1, S2 Respiratory: Yes: CTA Bilaterally Gastrointestinal: Yes: Soft. No: Tenderness Integumentary: Yes: Other (R breast , abdominal wounds examined No purulent drainage) Labs: CBC, BMP 03/26/17 07:00 03/26/17 07:00 INR, PTT INR 1.47 (0.82-1.09) H 03/25/17 10:20 Fibrinogen 176.0 mg/dL (238-498) L 03/09/17 18:00 Assessment/Plan Non-healing wounds. HIT S/P Bilateral PE S/P CAT flap reconstruction Observe off systemic antibiotics Local wound care
[2017-03-26 10:01] LABS: ACTIVATED PTT 122.1 SECONDS (26.9-34.4); PROTHROMBIN TIME (PATIENT) 55.7 SEC (9.98-11.88)
[2017-03-26 10:03] LABS: INR 4.9 (0.82-1.09)
[2017-03-26] MEDS: LACTOBACILLUS ACIDOPHILUS 1 EACH TAB (FP) PO SCH (11:14)
[2017-03-26] MEDS: LOSARTAN POTASSIUM 50 MG TABLET (FP) PO SCH (11:15)
[2017-03-26] MEDS: BACITRACIN 15 GM TUBE TOPICAL OINTMENT TP SCH (11:15)
[2017-03-26] MEDS: ARGATROBAN - 250,000 MCG in SODIUM CHLORIDE 247.5 ML IVPB SCH ×2 (11:15→17:09)
[2017-03-26] MEDS: SILVER SULFADIAZINE 1% TOP CREAM 50 GM JAR TP SCH (11:16)
[2017-03-26] MEDS: HYDROCHLOROTHIAZIDE 12.5 MG CAPSULE (FP) PO SCH (11:16)
[2017-03-26] MEDS: guaiFENesin/D-METHORPHAN HB 10 ML UNIT-DOSE CUPS PO PRN (11:31)
--- NOTE | 2017-03-26 18:00 | PN ---
Progress Note (short form) - Note Progress Note: Patient seen and examined feels tires slight discharge from umblical wound Last Vital Signs Temp Pulse Resp BP Pulse Ox 98.9 F 70 18 128/65 98 03/26/17 15:37 03/26/17 15:37 03/26/17 15:37 03/26/17 15:37 03/26/17 09:00 Breasts: right breast reconstruction. Incision is healing Cor: RSR, No murmurs, No gallops Lungs: Clear to P&A Abd: Soft, Normal bowel sounds, healing abdominal incision Ext:No significant edema wounds --RT. lower adomen, Rt. breast look clean umblical woud some discharge Abnormal Lab Results 03/26/17 03/26/17 03/26/17 07:00 07:00 09:07 Plt Count 115 L PT with INR 55.70 H INR 4.90 H* D PTT (Actin FS) 122.1 H D Random Glucose 130 H AST 12 L Total Protein 6.0 L Albumin 3.1 L 03/26/17 16:00 Plt Count PT with INR INR PTT (Actin FS) 40.0 H D Random Glucose AST Total Protein Albumin Active Medications Generic Name Dose Route Start Last Admin Trade Name Freq PRN Reason Stop Dose Admin Allopurinol 300 mg 03/19/17 22:00 03/25/17 22:30 Zyloprim - PO 300 mg HS NICOLÁS Administration Bacitracin 1 applic 03/19/17 10:00 03/26/17 11:15 Bacitracin - TP 1 applic DAILY NICOLÁS Administration Diltiazem HCl 120 mg 03/19/17 10:00 03/26/17 11:14 Cardizem Cd - PO 120 mg DAILY NICOLÁS Administration Guaifenesin 10 ml 03/19/17 07:57 03/26/17 11:31 Robitussin Dm - PO 10 ml Q6H PRN Administration COUGH Hydrochlorothiazide 12.5 mg 03/18/17 10:00 03/26/17 11:16 Hctz - PO 12.5 mg DAILY NICOLÁS Administration Argatroban 250,000 mcg/ Sodium 250 mls @ 16.59 mls/hr 03/24/17 09:45 03/26/17 17:09 Chloride IVPB 15 mls/hr TITR NICOLÁS Administration Protocol 2.4 MCG/KG/MIN Lactobacillus Acidophilus 2 tab 03/19/17 10:00 03/26/17 11:14 Bacid - PO 2 tab DAILY NICOLÁS Administration Losartan Potassium 50 mg 03/19/17 10:00 03/26/17 11:15 Cozaar - PO 50 mg DAILY NICOLÁS Administration Melatonin 5 mg 03/19/17 22:00 03/25/17 22:30 Melatonin PO 5 mg HS NICOLÁS Administration Metoprolol Succinate 25 mg 03/19/17 22:00 03/25/17 22:30 Toprol Xl - PO 25 mg HS NICOLÁS Administration Silver Sulfadiazine 1 applic 03/19/17 10:00 03/26/17 11:16 Silvadene - TP 1 applic DAILY NICOLÁS Administration A/P 66 y/o patient s/p Rt. mastectomy/breast reconstrucion--01/20 presented with palpitations/afib --02/20 Diagnosed with b/l PE 02/23, presented with thrombocytopenia HIT confirmed with HIT ab on argatroban -- PTT 122 at 16.6ml/hr. stopped for 2 hrs.--repeat PTT 40-- to resume at 15ml/hr platelets [id number] --? plateau due to ongoingwounds ? low grade infection wounds healing --will request plastics and ID f/u check u/s abdomen --? fluid collection ? abdominal wall
[2017-03-26] MEDS ORDERED: PT OWN MED DRAWER 7, Y5N ONE (21:46)
[2017-03-26 21:48] LABS: BASOPHIL 0.6 % (0-2.0); EOSINOPHIL 3.3 % (0-4.5); MCH 29.7 pg (25.7-33.7); MCHC 33.6 g/dl (32.0-36.0); MEAN CELL VOLUME 88.4 fl (80-96); MEAN PLT VOLUME 8.7 fl (7.5-11.1); NEUTROPHILS 62.7 % (42.8-82.8); PLATELET COUNT 123 K/MM3 (134-434); RDW 13.7 % (11.6-15.6); WHITE BLOOD COUNT 7.6 K/mm3 (4.0-10.0)
[2017-03-26 22:00] LABS: INR 1.6 (0.82-1.09); PROTHROMBIN TIME (PATIENT) 17.8 SEC (9.98-11.88)
[2017-03-26 22:03] LABS: ACTIVATED PTT 56.2 SECONDS (26.9-34.4)
[2017-03-26] MEDS: METOPROLOL SUCCINATE 25 MG TAB.SR.24H (FP) PO SCH (23:11)
[2017-03-26] MEDS: MELATONIN 5 MG TABLETS PO SCH (23:11)
[2017-03-26] MEDS: ALLOPURINOL 300 MG TABLET (FP) PO SCH (23:11)
[2017-03-27 00:05] LABS: ALBUMIN 3.4 g/dl (3.4-5.0); ALK PHOS 75 U/L (45-117); ANION GAP 11 (8-16); BILIRUBIN,TOTAL 0.2 mg/dL (0.2-1.0); CALCIUM 8.8 mg/dL (8.5-10.1); CO2 28 mmol/L (21-32); CREATININE 1.1 mg/dL (0.55-1.02); GLUCOSE,RANDOM 128 mg/dL (74-106); SGOT/AST 15 U/L (15-37); SGPT/ALT 24 U/L (12-78); TOT PROT 6.4 g/dl (6.4-8.2)
[2017-03-27 08:37] LABS: BASOPHIL 0.8 % (0-2.0); EOSINOPHIL 3.6 % (0-4.5); MCH 29.6 pg (25.7-33.7); MCHC 33.4 g/dl (32.0-36.0); MEAN CELL VOLUME 88.6 fl (80-96); MEAN PLT VOLUME 8.8 fl (7.5-11.1); NEUTROPHILS 69.2 % (42.8-82.8); PLATELET COUNT 135 K/MM3 (134-434); RDW 13.8 % (11.6-15.6); WHITE BLOOD COUNT 6.9 K/mm3 (4.0-10.0)
[2017-03-27 08:51] LABS: INR 1.74 (0.82-1.09); PROTHROMBIN TIME (PATIENT) 19.4 SEC (9.98-11.88)
[2017-03-27 08:54] LABS: ACTIVATED PTT 60.2 SECONDS (26.9-34.4)
--- NOTE | 2017-03-27 09:11 | PN ---
Progress Note (short form) - Note Progress Note: CBC, BMP 03/27/17 08:34 03/26/17 23:30 Vital Signs Period Temp Pulse Resp BP Sys/Beck Pulse Ox Last 24 Hr 97.5 F-98.9 F 63-70 18-20 111-146/57-95 98 S1S2 RRR LUNGS CTA no pedal edema r breast wound with yellow slough , right abd wound healing well, umbilicus with yellow crust, serous discharge Abd US reportedly showed no collection-no official reading yet Imp Heparin Induced Thrombocytopenia-slowly improving, continue argatroban recent bilateral pulmonary embolism following reconstructive breast surgery after mastectomy. Paget's disease of the breast NIDDM HTN h/o afib-paroxysmal with PE diagnosis-none on telemetry during this admission Plan Argatroban while monitoring plt count close monitoring for bleeding problems will have to be bridged to warfarin if plts over 130-135-as per heme continue other care local wound care surgical f/up regarding wounds still pending no need for abx rigth now Problem List - Problems (1) Thrombocytopenia Code(s): D69.6 - THROMBOCYTOPENIA, UNSPECIFIED (2) PAF (paroxysmal atrial fibrillation) Code(s): I48.0 - PAROXYSMAL ATRIAL FIBRILLATION (3) Pulmonary emboli Code(s): I26.99 - OTHER PULMONARY EMBOLISM WITHOUT ACUTE COR PULMONALE Qualifiers: Pulmonary embolism type: other (4) Breast CA Code(s): C50.919 - MALIGNANT NEOPLASM OF UNSP SITE OF UNSPECIFIED FEMALE BREAST Qualifiers: Patient sex: female Laterality: right (5) Diabetes Code(s): E11.9 - TYPE 2 DIABETES MELLITUS WITHOUT COMPLICATIONS Qualifiers: Diabetes mellitus type: type 2 Diabetes mellitus complication status: without complication Diabetes mellitus intermission coordinator insulin use: without care home use Qualified Code(s): E11.9 - Type 2 diabetes mellitus without complications; E11.9 - Type 2 diabetes mellitus without complications; E11.9 - Type 2 diabetes mellitus without complications; E11.9 - Type 2 diabetes mellitus without complications (6) HTN (hypertension) Code(s): I10 - ESSENTIAL (PRIMARY) HYPERTENSION Qualifiers: Hypertension type: essential hypertension Qualified Code(s): I10 - Essential (primary) hypertension; I10 - Essential (primary) hypertension; I10 - Essential (primary) hypertension
[2017-03-27] MEDS: LOSARTAN POTASSIUM 50 MG TABLET (FP) PO SCH (10:39)
[2017-03-27] MEDS: LACTOBACILLUS ACIDOPHILUS 1 EACH TAB (FP) PO SCH (10:39)
[2017-03-27] MEDS: HYDROCHLOROTHIAZIDE 12.5 MG CAPSULE (FP) PO SCH (10:39)
[2017-03-27] MEDS: SILVER SULFADIAZINE 1% TOP CREAM 50 GM JAR TP SCH (10:40)
[2017-03-27] MEDS: BACITRACIN 15 GM TUBE TOPICAL OINTMENT TP SCH (10:40)
[2017-03-27] MEDS: ARGATROBAN - 250,000 MCG in SODIUM CHLORIDE 247.5 ML IVPB SCH ×2 (10:40→13:38)
[2017-03-27] MEDS: guaiFENesin/D-METHORPHAN HB 10 ML UNIT-DOSE CUPS PO PRN (11:02)
--- NOTE | 2017-03-27 18:42 | PN ---
Progress Note (short form) - Note Progress Note: Patient seen and examined slight discharge from umblical wound Last Vital Signs Temp Pulse Resp BP Pulse Ox 98.5 F 67 16 121/58 98 03/27/17 14:07 03/27/17 14:07 03/27/17 14:07 03/27/17 14:07 03/26/17 21:00 Breasts: right breast reconstruction. Incision is healing Cor: RSR, No murmurs, No gallops Lungs: Clear to P&A Abd: Soft, Normal bowel sounds, healing abdominal incision Ext:No significant edema wounds --RT. lower adomen, Rt. breast look clean umblical woud some discharge Abnormal Lab Results 03/26/17 03/26/17 03/26/17 21:44 21:44 23:30 Plt Count 123 L PT with INR 17.80 H INR 1.60 H D PTT (Actin FS) 56.2 H D BUN 20 H D Creatinine 1.1 H Random Glucose 128 H 03/27/17 08:34 Plt Count PT with INR 19.40 H INR 1.74 H PTT (Actin FS) 60.2 H BUN Creatinine Random Glucose Home Medication List Medication Instructions Recorded Confirmed Type Allopurinol 300 mg PO DAILY 01/18/17 03/09/17 History Metformin HCl 500 mg PO BID 01/18/17 03/09/17 History Multivitamins [Multivit ([facility] 1 tab PO DAILY 01/18/17 03/09/17 History Formulary)] Active Medications Generic Name Dose Route Start Last Admin Trade Name Freq PRN Reason Stop Dose Admin Allopurinol 300 mg 03/19/17 22:00 03/26/17 23:11 Zyloprim - PO 300 mg HS NICOLÁS Administration Bacitracin 1 applic 03/19/17 10:00 03/27/17 10:40 Bacitracin - TP 1 applic DAILY [facility] Administration Diltiazem HCl 120 mg 03/19/17 10:00 03/27/17 10:39 Cardizem Cd - PO 120 mg DAILY [facility] Administration Guaifenesin 10 ml 03/19/17 07:57 03/27/17 11:02 Robitussin Dm - PO 10 ml Q6H PRN Administration COUGH Hydrochlorothiazide 12.5 mg 03/18/17 10:00 03/27/17 10:39 Hctz - PO 12.5 mg DAILY [facility] Administration Argatroban 250,000 mcg/ Sodium 250 mls @ 16.59 mls/hr 03/24/17 09:45 03/27/17 13:38 Chloride IVPB 15 mls/hr TITR NICOLÁS Administration Protocol 2.4 MCG/KG/MIN Lactobacillus Acidophilus 2 tab 03/19/17 10:00 03/27/17 10:39 Bacid - PO 2 tab DAILY [facility] Administration Losartan Potassium 50 mg 03/19/17 10:00 03/27/17 10:39 Cozaar - PO 50 mg DAILY [facility] Administration Melatonin 5 mg 03/19/17 22:00 03/26/17 23:11 Melatonin PO 5 mg HS [facility]S Administration Metoprolol Succinate 25 mg 03/19/17 22:00 03/26/17 23:11 Toprol Xl - PO 25 mg HS [facility] Administration Silver Sulfadiazine 1 applic 03/19/17 10:00 03/27/17 10:40 Silvadene - TP 1 applic DAILY [facility] Administration Warfarin Sodium 5 mg 03/27/17 18:00 Coumadin - PO DAILY@1800 N[facility]S A/P 66 y/o patient s/p Rt. mastectomy/breast reconstrucion--01/20 presented with palpitations/afib --02/20 Diagnosed with b/l PE 02/23, presented with thrombocytopenia HIT confirmed with HIT ab on argatroban -- PTT-60 platelets increased to [id number] wounds healing --will request plastics and ID f/u u/s abdominal wall--no collection Start coumadin today as platelets recovererd will need to overlap with argatroban for minimum of 5 days
[2017-03-27] MEDS: WARFARIN NA 5 MG TABLET (UD) PO SCH (19:18)
[2017-03-27] MEDS ORDERED: PT OWN MED DRAWER 7, Y5N ONE (20:57)
[2017-03-27] MEDS: MELATONIN 5 MG TABLETS PO SCH (21:41)
[2017-03-27] MEDS: ALLOPURINOL 300 MG TABLET (FP) PO SCH (21:41)
[2017-03-27] MEDS: METOPROLOL SUCCINATE 25 MG TAB.SR.24H (FP) PO SCH (21:41)
[2017-03-28] MEDS: ARGATROBAN - 250,000 MCG in SODIUM CHLORIDE 247.5 ML IVPB SCH ×3 (04:29→21:51)
[2017-03-28 07:51] LABS: BASOPHIL 0.6 % (0-2.0); EOSINOPHIL 3.4 % (0-4.5); MCH 29.4 pg (25.7-33.7); MCHC 33.3 g/dl (32.0-36.0); MEAN CELL VOLUME 88.3 fl (80-96); MEAN PLT VOLUME 9.4 fl (7.5-11.1); NEUTROPHILS 68.5 % (42.8-82.8); PLATELET COUNT 142 K/MM3 (134-434); RDW 13.9 % (11.6-15.6); WHITE BLOOD COUNT 7.7 K/mm3 (4.0-10.0)
[2017-03-28 08:09] LABS: INR 1.59 (0.82-1.09); PROTHROMBIN TIME (PATIENT) 17.7 SEC (9.98-11.88)
[2017-03-28 08:12] LABS: ACTIVATED PTT 52.4 SECONDS (26.9-34.4)
[2017-03-28] MEDS: LOSARTAN POTASSIUM 50 MG TABLET (FP) PO SCH (10:23)
[2017-03-28] MEDS: LACTOBACILLUS ACIDOPHILUS 1 EACH TAB (FP) PO SCH (10:23)
[2017-03-28] MEDS: HYDROCHLOROTHIAZIDE 12.5 MG CAPSULE (FP) PO SCH (10:23)
[2017-03-28] MEDS: SILVER SULFADIAZINE 1% TOP CREAM 50 GM JAR TP SCH (10:24)
[2017-03-28] MEDS: BACITRACIN 15 GM TUBE TOPICAL OINTMENT TP SCH (10:24)
--- NOTE | 2017-03-28 14:34 | PN ---
Progress Note, Physician History of Present Illness: "The patient is a 66 year old female, with a significant past medical history of PE on lovenox, HTN, diabetes mellitus, gout, and breast cancer s/p right mastectomy around 7 weeks ago (January 20) who was referred to the emergency department by her PCP due to low blood platelet count. She states she was started on lovenox 2 weeks ago when she was diagnosed with acute PE. Patient denies currently experiencing any chest pain or palpitations but admits to SOB from time to time. She denies experiencing any new bruises. She denies recent fevers, chills, headache or dizziness. She denies recent nausea, vomit, diarrhea or constipation. She denies recent dysuria, frequency, urgency or hematuria. She denies recent chest pain. Allergies: NKA Past surgical history: Right masectomy Social history: Nonsmoker. Denies EtOH use and recreational drug use. Primary Care Physician: Carrie Pirce M.D. " - Current Medication List Current Medications: Active Medications Allopurinol (Zyloprim -) 300 mg PO HS [facility] Last Admin: 03/27/17 21:41 Dose: 300 mg Bacitracin (Bacitracin -) 1 applic TP DAILY [facility] Last Admin: 03/28/17 10:24 Dose: 1 applic Diltiazem HCl (Cardizem Cd -) 120 mg PO DAILY [facility] Last Admin: 03/28/17 10:23 Dose: 120 mg Guaifenesin (Robitussin Dm -) 10 ml PO Q6H PRN PRN Reason: COUGH Last Admin: 03/27/17 11:02 Dose: 10 ml Hydrochlorothiazide (Hctz -) 12.5 mg PO DAILY [facility] Last Admin: 03/28/17 10:23 Dose: 12.5 mg Argatroban 250,000 mcg/ Sodium (Chloride) 250 mls @ 16.59 mls/hr IVPB TITR [facility] ; 2.4 MCG/KG/MIN PRN Reason: Protocol Last Admin: 03/28/17 10:19 Dose: Not Given Lactobacillus Acidophilus (Bacid -) 2 tab PO DAILY [facility] Last Admin: 03/28/17 10:23 Dose: 2 tab Losartan Potassium (Cozaar -) 50 mg PO DAILY [facility] Last Admin: 03/28/17 10:23 Dose: 50 mg Melatonin (Melatonin) 5 mg PO HS [facility] Last Admin: 10/01/17 21:41 Dose: 5 mg Metoprolol Succinate (Toprol Xl -) 25 mg PO HS [facility] Last Admin: 03/27/17 21:41 Dose: 25 mg Silver Sulfadiazine (Silvadene -) 1 applic TP DAILY [facility] Last Admin: 03/28/17 10:24 Dose: 1 applic Warfarin Sodium (Coumadin -) 5 mg PO DAILY@1800 [facility] Last Admin: 03/27/17 19:18 Dose: 5 mg - Objective Vital Signs: Vital Signs Temperature 97.7 F 03/28/17 13:58 Pulse Rate 70 03/28/17 13:58 Respiratory Rate 18 03/28/17 13:58 Blood Pressure 104/43 03/28/17 13:58 O2 Sat by Pulse Oximetry (%) 99 03/28/17 09:00 Eyes: Yes: WNL, Conjunctiva Clear, EOM Intact HENT: Yes: WNL, Atraumatic, Normocephalic Neck: Yes: WNL, Supple, Trachea Midline Cardiovascular: Yes: WNL, Regular Rate and Rhythm Respiratory: Yes: WNL, Regular, CTA Bilaterally Gastrointestinal: Yes: WNL, Normal Bowel Sounds Genitourinary: Yes: WNL Musculoskeletal: Yes: WNL Extremities: Yes: WNL Edema: No Integumentary: Yes: WNL Neurological: Yes: WNL, Alert, Oriented ...Motor Strength: WNL Psychiatric: Yes: WNL Labs: CBC, BMP 03/28/17 07:00 03/26/17 23:30 INR, PTT INR 1.59 (0.82-1.09) H 03/28/17 07:00 Fibrinogen 176.0 mg/dL (238-498) L 03/09/17 18:00 Problem List - Problems (1) Thrombocytopenia Code(s): D69.6 - THROMBOCYTOPENIA, UNSPECIFIED (2) Cellulitis Code(s): L03.90 - CELLULITIS, UNSPECIFIED (3) Chronic instability of right knee Code(s): M23.51 - CHRONIC INSTABILITY OF KNEE, RIGHT KNEE (4) ABENA (obstructive sleep apnea) Code(s): G47.33 - OBSTRUCTIVE SLEEP APNEA (ADULT) (PEDIATRIC) (5) PAF (paroxysmal atrial fibrillation) Code(s): I48.0 - PAROXYSMAL ATRIAL FIBRILLATION (6) Pulmonary emboli Code(s): I26.99 - OTHER PULMONARY EMBOLISM WITHOUT ACUTE COR PULMONALE Qualifiers: Pulmonary embolism type: other (7) Breast CA Code(s): C50.919 - MALIGNANT NEOPLASM OF UNSP SITE OF UNSPECIFIED FEMALE BREAST Qualifiers: Patient sex: female Laterality: right (8) Diabetes Code(s): E11.9 - TYPE 2 DIABETES MELLITUS WITHOUT COMPLICATIONS Qualifiers: Diabetes mellitus type: type 2 Diabetes mellitus complication status: without complication Diabetes mellitus electric meter setter insulin use: without retirement use Qualified Code(s): E11.9 - Type 2 diabetes mellitus without complications; E11.9 - Type 2 diabetes mellitus without complications; E11.9 - Type 2 diabetes mellitus without complications; E11.9 - Type 2 diabetes mellitus without complications (9) Diastolic CHF Code(s): I50.30 - UNSPECIFIED DIASTOLIC (CONGESTIVE) HEART FAILURE (10) HTN (hypertension) Code(s): I10 - ESSENTIAL (PRIMARY) HYPERTENSION Qualifiers: Hypertension type: essential hypertension Qualified Code(s): I10 - Essential (primary) hypertension; I10 - Essential (primary) hypertension; I10 - Essential (primary) hypertension (11) Hypertriglyceridemia Code(s): E78.1 - PURE HYPERGLYCERIDEMIA (12) Obesity Code(s): E66.9 - OBESITY, UNSPECIFIED (13) Paget's disease of right breast Code(s): C50.011 - MALIGNANT NEOPLASM OF NIPPLE AND AREOLA, RIGHT FEMALE BREAST Assessment/Plan - Problems (1) Cellulitis Code(s): L03.90 - CELLULITIS, UNSPECIFIED (2) ABENA (obstructive sleep apnea) Assessment/Plan: f/u sleep studies. Code(s): G47.33 - OBSTRUCTIVE SLEEP APNEA (ADULT) (PEDIATRIC) (3) Chronic instability of right knee Code(s): M23.51 - CHRONIC INSTABILITY OF KNEE, RIGHT KNEE (4) PAF (paroxysmal atrial fibrillation) Assessment/Plan: On diltiazem for HR control. When warfarin is restarted, will likely have to be lifetime, given her having had several episodes of PAF. Will discuss with EP as to whether long-term monitoring will affect this decision. Code(s): I48.0 - PAROXYSMAL ATRIAL FIBRILLATION (5) Pulmonary emboli Assessment/Plan: On argatraban until able to start warfarin. Code(s): I26.99 - OTHER PULMONARY EMBOLISM WITHOUT ACUTE COR PULMONALE Qualifiers: Pulmonary embolism type: other (6) Breast CA Code(s): C50.919 - MALIGNANT NEOPLASM OF UNSP SITE OF UNSPECIFIED FEMALE BREAST Qualifiers: Patient sex: female Laterality: right (7) Diabetes Code(s): E11.9 - TYPE 2 DIABETES MELLITUS WITHOUT COMPLICATIONS Qualifiers: Diabetes mellitus type: type 2 Diabetes mellitus complication status: without complication Diabetes mellitus retirement insulin use: without electric meter setter use Qualified Code(s): E11.9 - Type 2 diabetes mellitus without complications (8) Diastolic CHF Code(s): I50.30 - UNSPECIFIED DIASTOLIC (CONGESTIVE) HEART FAILURE (9) HTN (hypertension) Assessment/Plan: on metoprolol, diltiazem, and losartan, Serial BP checks. EKG: NSR; nonspecific T wave changes. Code(s): I10 - ESSENTIAL (PRIMARY) HYPERTENSION Qualifiers: Hypertension type: essential hypertension Qualified Code(s): I10 - Essential (primary) hypertension (10) Hypertriglyceridemia Assessment/Plan: Pt says medications for Rx do not agree with her; plans to use diet/exercise to lower triglycerides. Code(s): E78.1 - PURE HYPERGLYCERIDEMIA (11) Obesity Assessment/Plan: f/u with endoscopy technician. Code(s): E66.9 - OBESITY, UNSPECIFIED (12) Paget's disease of right breast Assessment/Plan: s/p surgery, with continued wound discharge. Code(s): C50.011 - MALIGNANT NEOPLASM OF NIPPLE AND AREOLA, RIGHT FEMALE BREAST (13) Heparin induced thrombocytopenia (HIT) Assessment/Plan: steady but slow improvement in platelet numbers. on warfarin (for PE and PAF) awaiting therapeutic INR Code(s): D75.82 - HEPARIN INDUCED THROMBOCYTOPENIA (HIT)
--- NOTE | 2017-03-28 14:59 | PN ---
Progress Note (short form) - Note Progress Note: OOB to chair. No acute events overnight. Breathing feels overall better. No CP. Started on Coumadin. Intake & Output 03/25/17 03/26/17 03/27/17 03/28/17 23:59 23:59 23:59 23:59 Intake Total 948.2 925 1590 165 Balance 948.2 925 1590 165 Last Vital Signs Temp Pulse Resp BP Pulse Ox 97.7 F 70 18 104/43 99 03/28/17 13:58 03/28/17 13:58 03/28/17 13:58 03/28/17 13:58 03/28/17 09:00 Active Medications Allopurinol (Zyloprim -) 300 mg PO HS [facility] Last Admin: 03/27/17 21:41 Dose: 300 mg Bacitracin (Bacitracin -) 1 applic TP DAILY [facility] Last Admin: 03/28/17 10:24 Dose: 1 applic Diltiazem HCl (Cardizem Cd -) 120 mg PO DAILY [facility] Last Admin: 03/28/17 10:23 Dose: 120 mg Guaifenesin (Robitussin Dm -) 10 ml PO Q6H PRN PRN Reason: COUGH Last Admin: 03/27/17 11:02 Dose: 10 ml Hydrochlorothiazide (Hctz -) 12.5 mg PO DAILY [facility] Last Admin: 03/28/17 10:23 Dose: 12.5 mg Argatroban 250,000 mcg/ Sodium (Chloride) 250 mls @ 16.59 mls/hr IVPB TITR [facility] ; 2.4 MCG/KG/MIN PRN Reason: Protocol Last Admin: 03/28/17 10:19 Dose: Not Given Lactobacillus Acidophilus (Bacid -) 2 tab PO DAILY [facility] Last Admin: 03/28/17 10:23 Dose: 2 tab Losartan Potassium (Cozaar -) 50 mg PO DAILY [facility] Last Admin: 03/28/17 10:23 Dose: 50 mg Melatonin (Melatonin) 5 mg PO HS [facility] Last Admin: 03/27/17 21:41 Dose: 5 mg Metoprolol Succinate (Toprol Xl -) 25 mg PO HS [facility] Last Admin: 03/27/17 21:41 Dose: 25 mg Silver Sulfadiazine (Silvadene -) 1 applic TP DAILY [facility] Last Admin: 03/28/17 10:24 Dose: 1 applic Warfarin Sodium (Coumadin -) 5 mg PO DAILY@1800 [facility] Last Admin: 03/27/17 19:18 Dose: 5 mg Constitutional: Yes: NAD Eyes: Yes: WNL, Conjunctiva Clear, EOM Intact HENT: Yes: WNL, Atraumatic, Normocephalic Neck: Yes: WNL, Supple, Trachea Midline Respiratory: Yes: Diminished breath sounds Gastrointestinal: Yes: WNL, Normal Bowel Sounds Renal/: Yes: WNL Cardiovascular: Yes: WNL, Regular Rate and Rhythm Musculoskeletal: Yes: WNL Extremities: Yes: WNL Integumentary: Yes: WNL Neurological: Yes: WNL, Alert, Oriented ...Motor Strength: WNL Psychiatric: Yes: WNL, Alert, Oriented Laboratory Results - last 24 hr 03/28/17 03/28/17 03/28/17 05:59 07:00 07:00 WBC 7.7 RBC 3.95 Hgb 11.6 Hct 34.9 MCV 88.3 MCH 29.4 MCHC 33.3 RDW 13.9 Plt Count 142 MPV 9.4 Neutrophils % 68.5 Lymphocytes % 21.7 Monocytes % 5.8 Eosinophils % 3.4 Basophils % 0.6 PT with INR 17.70 H INR 1.59 H PTT (Actin FS) 52.4 H POC Glucometer 138 Problem List - Problems (1) ABENA (obstructive sleep apnea) Code(s): G47.33 - OBSTRUCTIVE SLEEP APNEA (ADULT) (PEDIATRIC) (2) PAF (paroxysmal atrial fibrillation) Code(s): I48.0 - PAROXYSMAL ATRIAL FIBRILLATION (3) Pulmonary emboli Code(s): I26.99 - OTHER PULMONARY EMBOLISM WITHOUT ACUTE COR PULMONALE (4) Breast CA Code(s): C50.919 - MALIGNANT NEOPLASM OF UNSP SITE OF UNSPECIFIED FEMALE BREAST (5) Diabetes Code(s): E11.9 - TYPE 2 DIABETES MELLITUS WITHOUT COMPLICATIONS (6) HTN (hypertension) Code(s): I10 - ESSENTIAL (PRIMARY) HYPERTENSION (7) Obesity Code(s): E66.9 - OBESITY, UNSPECIFIED (8) Thrombocytopenia Code(s): D69.6 - THROMBOCYTOPENIA, UNSPECIFIED IMP THROMBOCYTOPENIA -> HIT RECENT PROVOKED BILATERAL PE BREAST CA S/P MASTECTOMY OSAS DM PLAN MONITOR PLT CT ARGATROBAN & COUMADIN O2 NEEDED AMBULATE TOLERATED DR TREJO
--- NOTE | 2017-03-28 15:58 | PN ---
Progress Note (short form) - Note Progress Note: CBC, BMP 03/28/17 07:00 03/26/17 23:30 Vital Signs Period Temp Pulse Resp BP Sys/Beck Pulse Ox Last 24 Hr 97.1 F-98.2 F 63-75 18-20 104-149/43-86 99-99 S1S2 RRR LUNGS CTA no pedal edema Abd US reportedly showed no collection-no official reading yet Imp Heparin Induced Thrombocytopenia-slowly improving, continue argatroban recent bilateral pulmonary embolism following reconstructive breast surgery after mastectomy. Paget's disease of the breast NIDDM HTN h/o afib-paroxysmal with PE diagnosis-none on telemetry during this admission Plan sterted warfarin Argatroban while INR is below 4 close monitoring for bleeding problems continue other care local wound care surgical f/up regarding wounds still pending no need for abx right now Problem List - Problems (1) PAF (paroxysmal atrial fibrillation) Code(s): I48.0 - PAROXYSMAL ATRIAL FIBRILLATION (2) Pulmonary emboli Code(s): I26.99 - OTHER PULMONARY EMBOLISM WITHOUT ACUTE COR PULMONALE Qualifiers: Pulmonary embolism type: other (3) Breast CA Code(s): C50.919 - MALIGNANT NEOPLASM OF UNSP SITE OF UNSPECIFIED FEMALE BREAST Qualifiers: Patient sex: female Laterality: right (4) Diabetes Code(s): E11.9 - TYPE 2 DIABETES MELLITUS WITHOUT COMPLICATIONS Qualifiers: Diabetes mellitus type: type 2 Diabetes mellitus complication status: without complication Diabetes mellitus halfway insulin use: without halfway use Qualified Code(s): E11.9 - Type 2 diabetes mellitus without complications; E11.9 - Type 2 diabetes mellitus without complications; E11.9 - Type 2 diabetes mellitus without complications; E11.9 - Type 2 diabetes mellitus without complications (5) HTN (hypertension) Code(s): I10 - ESSENTIAL (PRIMARY) HYPERTENSION Qualifiers: Hypertension type: essential hypertension Qualified Code(s): I10 - Essential (primary) hypertension; I10 - Essential (primary) hypertension; I10 - Essential (primary) hypertension
[2017-03-28] MEDS: WARFARIN NA 5 MG TABLET (UD) PO SCH (18:23)
[2017-03-28] MEDS ORDERED: PT OWN MED DRAWER 7, Y5N ONE (21:47)
[2017-03-28] MEDS: guaiFENesin/D-METHORPHAN HB 10 ML UNIT-DOSE CUPS PO PRN (21:51)
[2017-03-28] MEDS: MELATONIN 5 MG TABLETS PO SCH (21:51)
[2017-03-28] MEDS: METOPROLOL SUCCINATE 25 MG TAB.SR.24H (FP) PO SCH (21:51)
[2017-03-28] MEDS: ALLOPURINOL 300 MG TABLET (FP) PO SCH (21:51)
--- NOTE | 2017-03-28 22:15 | PN ---
Progress Note (short form) - Note Progress Note: Patient seen and examined slight discharge from umblical wound Last Vital Signs Temp Pulse Resp BP Pulse Ox 97.2 F L 66 20 123/69 99 03/28/17 20:53 03/28/17 20:53 03/28/17 20:53 03/28/17 20:53 03/28/17 20:53 Breasts: right breast reconstruction. Incision is healing Cor: RSR, No murmurs, No gallops Lungs: Clear to P&A Abd: Soft, Normal bowel sounds, healing abdominal incision Ext:No significant edema wounds --RT. lower adomen, Rt. breast look clean umblical woud some discharge Abnormal Lab Results 03/28/17 07:00 PT with INR 17.70 H INR 1.59 H PTT (Actin FS) 52.4 H Home Medication List Medication Instructions Recorded Confirmed Type Allopurinol 300 mg PO DAILY 01/18/17 03/09/17 History Metformin HCl 500 mg PO BID 01/18/17 03/09/17 History Multivitamins [Multivit ([facility] 1 tab PO DAILY 01/18/17 03/09/17 History Formulary)] Active Medications Generic Name Dose Route Start Last Admin Trade Name Freq PRN Reason Stop Dose Admin Allopurinol 300 mg 03/19/17 22:00 03/28/17 21:51 Zyloprim - PO 300 mg HS [facility] Administration Bacitracin 1 applic 03/19/17 10:00 03/28/17 10:24 Bacitracin - TP 1 applic DAILY [facility] Administration Diltiazem HCl 120 mg 03/19/17 10:00 03/28/17 10:23 Cardizem Cd - PO 120 mg DAILY [facility] Administration Guaifenesin 10 ml 03/19/17 07:57 03/28/17 21:51 Robitussin Dm - PO 10 ml Q6H PRN Administration COUGH Hydrochlorothiazide 12.5 mg 03/18/17 10:00 03/28/17 10:23 Hctz - PO 12.5 mg DAILY [facility] Administration Argatroban 250,000 mcg/ Sodium 250 mls @ 16.59 mls/hr 03/24/17 09:45 03/28/17 21:51 Chloride IVPB 15 mls/hr TITR [facility] Administration Protocol 2.4 MCG/KG/MIN Lactobacillus Acidophilus 2 tab 03/19/17 10:00 03/28/17 10:23 Bacid - PO 2 tab DAILY [facility] Administration Losartan Potassium 50 mg 03/19/17 10:00 03/28/17 10:23 Cozaar - PO 50 mg DAILY [facility] Administration Melatonin 5 mg 03/19/17 22:00 03/28/17 21:51 Melatonin PO 5 mg HS [facility] Administration Metoprolol Succinate 25 mg 03/19/17 22:00 03/28/17 21:51 Toprol Xl - PO 25 mg HS [facility] Administration Silver Sulfadiazine 1 applic 03/19/17 10:00 03/28/17 10:24 Silvadene - TP 1 applic DAILY [facility] Administration Warfarin Sodium 5 mg 03/27/17 18:00 03/28/17 18:23 Coumadin - PO 5 mg DAILY@1800 [facility] Administration A/P 66 y/o patient s/p Rt. mastectomy/breast reconstruction--01/20 presented with palpitations/afib --02/20 Diagnosed with b/l PE 02/23, presented with worsening thrombocytopenia 03/09 HIT confirmed with HIT ab on argatroban -- PTT-52 platelets increased to [id number] wounds healing --discussed with plastics --to continue silvadene dressigs u/s abdominal wall--no collection On coumadin 5mg daily started 03/27 Overlap with argatroban till INR is 4 May need to increase to 7.5 to 8mg daily after 5 days discussed with nursing staff
[2017-03-29 07:37] LABS: BASOPHIL 0.5 % (0-2.0); EOSINOPHIL 3.8 % (0-4.5); MCH 29.6 pg (25.7-33.7); MCHC 33.5 g/dl (32.0-36.0); MEAN CELL VOLUME 88.3 fl (80-96); MEAN PLT VOLUME 9.4 fl (7.5-11.1); NEUTROPHILS 65.9 % (42.8-82.8); PLATELET COUNT 123 K/MM3 (134-434); RDW 13.9 % (11.6-15.6); WHITE BLOOD COUNT 6.6 K/mm3 (4.0-10.0)
[2017-03-29 07:50] LABS: INR 1.71 (0.82-1.09)
[2017-03-29 07:53] LABS: ACTIVATED PTT 52.1 SECONDS (26.9-34.4)
[2017-03-29 07:56] LABS: ALBUMIN 2.9 g/dl (3.4-5.0); ANION GAP 7 (8-16); CALCIUM 8.6 mg/dL (8.5-10.1); CO2 26 mmol/L (21-32); GLUCOSE,RANDOM 129 mg/dL (74-106)
[2017-03-29 08:00] LABS: ALK PHOS 71 U/L (45-117); BILIRUBIN,TOTAL 0.4 mg/dL (0.2-1.0); SGOT/AST 12 U/L (15-37); SGPT/ALT 22 U/L (12-78); TOT PROT 5.8 g/dl (6.4-8.2)
--- NOTE | 2017-03-29 08:27 | PN ---
Progress Note (short form) - Note Progress Note: Shellie is a 66 y/o patient s/p Rt. mastectomy/breast reconstruction--01/20 who presented to the ER here at [facility] with palpitations/afib on 02/20. She was then diagnosed with b/l PE 02/23. She was discharged on lovenox; however, she presented with worsening thrombocytopenia on 03/09, and a confirmed dx of HIT. Patient has been here for 20 days. Patient was seen by bedside with nursing aid. Patient has been eating well, and has been tolerating pain. She was switched to Coumadin two days ago, and they have been doing daily checks on her. States ID has been following her as well - have been doing silvadene and dry gauze dressings on breast and umbilicus. She denies any fever, increase pain , or chills. Vital Signs - 24 hr 03/28/17 03/28/17 03/28/17 09:00 10:00 13:58 Temperature 98.2 F 97.7 F Pulse Rate 74 70 Respiratory 18 18 18 Rate Blood Pressure 144/76 104/43 O2 Sat by Pulse 99 Oximetry (%) 03/28/17 03/28/17 03/29/17 16:25 20:53 06:40 Temperature 97 F L 97.2 F L 97.5 F L Pulse Rate 64 66 70 Respiratory 20 20 20 Rate Blood Pressure 121/82 123/69 122/46 O2 Sat by Pulse 99 Oximetry (%) Laboratory Results - last 24 hr 03/29/17 03/29/17 03/29/17 06:18 06:30 06:30 WBC 6.6 RBC 3.68 Hgb 10.9 Hct 32.5 MCV 88.3 MCH 29.6 MCHC 33.5 RDW 13.9 Plt Count 123 L MPV 9.4 Neutrophils % 65.9 Lymphocytes % 22.8 Monocytes % 7.0 Eosinophils % 3.8 Basophils % 0.5 PT with INR 19.00 H INR 1.71 H PTT (Actin FS) 52.1 H Sodium Potassium Chloride Carbon Dioxide Anion Gap BUN Creatinine Creat Clearance w eGFR POC Glucometer 134 Random Glucose Calcium Total Bilirubin AST ALT Alkaline Phosphatase Total Protein Albumin 03/29/17 06:30 WBC RBC Hgb Hct MCV MCH MCHC RDW Plt Count MPV Neutrophils % Lymphocytes % Monocytes % Eosinophils % Basophils % PT with INR INR PTT (Actin FS) Sodium 140 Potassium 3.9 Chloride 107 Carbon Dioxide 26 Anion Gap 7 L BUN 17 Creatinine 1.0 Creat Clearance w eGFR 55.82 POC Glucometer Random Glucose 129 H Calcium 8.6 Total Bilirubin 0.4 D AST 12 L ALT 22 Alkaline Phosphatase 71 Total Protein 5.8 L Albumin 2.9 L On PE, her bilateral breast flaps are 100% with good cap refill. Incision is c/d/i with no erythema exception to right breast: On her right breast in the lower medial aspect, there is necrotic skin - this was locally debrided by bedside this morning. Good vasculature. This will promote healing. no s/s of infection. Umbilicus - gauze and tegaderm removed - some serous drainage at this time on the gauze. incision is c/d/i with no erythema. A/P: Pt is s/p Right breast CAT reconstruction s/p mastectomy on 01/13. She is admitted for HIT with left umbilicus infection. She has been inpatient 20 days. THROMBOCYTOPENIA , HIT PE Paget's Dz - S/P mastectomy with reconstruction with CAT flap DM PULMONARY HTN PLAN: Continue to F/U labs and PLT COUMADIN PER HEME Appreciate heme, and ID following. Cont daily dressing changes to umbilicus: please use silvadene and dry gauze, and keep dry as possible. recommend paper tape than tegaderm to keep off moisture. to right breast: debrided the area. please do wet to dry dressings daily. to right lower abd incision: continue with silverdine and dry gauze. All dressing changes were discussed with MEMO Franklin - her nurse today.
--- NOTE | 2017-03-29 09:12 | PN ---
Progress Note (short form) - Note Progress Note: Patient seen and examined. feels well. no complains. Chart reviewed in detail. Cor: RSR, No murmurs, No gallops Lungs: Clear to P&A Ext:No significant edema Skin: No rashes, Integument intact Last Vital Signs Temp Pulse Resp BP Pulse Ox 97.5 F L 70 20 122/46 99 03/29/17 06:40 03/29/17 06:40 03/29/17 06:40 03/29/17 06:40 03/28/17 20:53 CBC, BMP 03/29/17 06:30 03/29/17 06:30 INR, PTT INR 1.71 (0.82-1.09) H 03/29/17 06:30 Fibrinogen 176.0 mg/dL (238-498) L 03/09/17 18:00 A/P 66 y/o patient s/p Rt. mastectomy/breast reconstruction--01/20 presented with palpitations/afib --02/20 Diagnosed with b/l PE 02/23, presented with worsening thrombocytopenia 03/09 HIT confirmed with HIT ab on argatroban -- PTT-therapeutic u/s abdominal wall--no collection On coumadin 5mg daily started 03/27 Overlap with argatroban till INR is 4 today CBC decreased , will repeat CBC evening daily CBC ,PT/INR, PTT
[2017-03-29] MEDS: LOSARTAN POTASSIUM 50 MG TABLET (FP) PO SCH (09:22)
[2017-03-29] MEDS: HYDROCHLOROTHIAZIDE 12.5 MG CAPSULE (FP) PO SCH (09:22)
[2017-03-29] MEDS: LACTOBACILLUS ACIDOPHILUS 1 EACH TAB (FP) PO SCH (09:22)
[2017-03-29] MEDS: BACITRACIN 15 GM TUBE TOPICAL OINTMENT TP SCH (09:22)
[2017-03-29] MEDS: guaiFENesin/D-METHORPHAN HB 10 ML UNIT-DOSE CUPS PO PRN ×2 (09:22→14:48)
[2017-03-29] MEDS: ARGATROBAN - 250,000 MCG in SODIUM CHLORIDE 247.5 ML IVPB SCH ×2 (09:23→14:44)
[2017-03-29] MEDS: SILVER SULFADIAZINE 1% TOP CREAM 50 GM JAR TP SCH (09:27)
--- NOTE | 2017-03-29 11:07 | PN ---
Progress Note (short form) - Note Progress Note: CBC, BMP CBC, BMP 03/29/17 06:30 03/29/17 06:30 Vital Signs Period Temp Pulse Resp BP Sys/Beck Pulse Ox Last 24 Hr 97 F-97.7 F 64-70 18-20 104-123/43-82 99 S1S2 RRR LUNGS CTA no pedal edema Imp Heparin Induced Thrombocytopenia-slowly improving, continue argatroban day 2 warfarin with drop in plt count recent bilateral pulmonary embolism following reconstructive breast surgery after mastectomy. Paget's disease of the breast NIDDM HTN h/o afib-paroxysmal with PE diagnosis-none on telemetry during this admission Plan repeat cbc tonight started warfarin Argatroban while INR is below 4 close monitoring for bleeding problems continue other care local wound care surgical f/up appreciated no need for abx right now Problem List - Problems (1) PAF (paroxysmal atrial fibrillation) Code(s): I48.0 - PAROXYSMAL ATRIAL FIBRILLATION (2) Pulmonary emboli Code(s): I26.99 - OTHER PULMONARY EMBOLISM WITHOUT ACUTE COR PULMONALE Qualifiers: Pulmonary embolism type: other (3) Breast CA Code(s): C50.919 - MALIGNANT NEOPLASM OF UNSP SITE OF UNSPECIFIED FEMALE BREAST Qualifiers: Patient sex: female Laterality: right (4) Diabetes Code(s): E11.9 - TYPE 2 DIABETES MELLITUS WITHOUT COMPLICATIONS Qualifiers: Diabetes mellitus type: type 2 Diabetes mellitus complication status: without complication Diabetes mellitus terminal superintendent insulin use: without terminal superintendent use Qualified Code(s): E11.9 - Type 2 diabetes mellitus without complications; E11.9 - Type 2 diabetes mellitus without complications; E11.9 - Type 2 diabetes mellitus without complications; E11.9 - Type 2 diabetes mellitus without complications (5) HTN (hypertension) Code(s): I10 - ESSENTIAL (PRIMARY) HYPERTENSION Qualifiers: Hypertension type: essential hypertension Qualified Code(s): I10 - Essential (primary) hypertension; I10 - Essential (primary) hypertension; I10 - Essential (primary) hypertension
[2017-03-29 16:50] LABS: MCH 30.1 pg (25.7-33.7); MCHC 33.9 g/dl (32.0-36.0); MEAN CELL VOLUME 88.6 fl (80-96); MEAN PLT VOLUME 9.4 fl (7.5-11.1); PLATELET COUNT 157 K/MM3 (134-434); WHITE BLOOD COUNT 8.2 K/mm3 (4.0-10.0)
[2017-03-29] MEDS: WARFARIN NA 5 MG TABLET (UD) PO SCH (17:36)
--- NOTE | 2017-03-29 18:23 | PN ---
Progress Note, Physician Chief Complaint: Pt sitting in chair; no chest pain or dyspnea. Anxious regarding drop in platetlets. History of Present Illness: The patient is a 66 year old white female, with a significant past medical history of PE after breast surgery earlier this year (on lovenox), PAF (at least 3 episodes), HTN, diabetes mellitus, obesity, gout, presumed obstructive sleep apnea, and breast cancer s/p right mastectomy around 7 weeks ago (January 20 ) who was referred to the emergency department by her PCP due to low blood platelet count. She states she was started on lovenox 2 weeks ago when she was diagnosed with acute PE. Patient denies currently experiencing any chest pain or palpitations but admits to SOB from time to time. She denies experiencing any new bruises. She denies recent fevers, chills, headache or dizziness. She denies recent nausea, vomit, diarrhea or constipation. She denies recent dysuria, frequency, urgency or hematuria. She denies recent chest pain. Allergies: NKA Past surgical history: Right mastectomy Social history: Nonsmoker. Denies EtOH use and recreational drug use. Primary Care Physician: Carrie Price M.D. - Current Medication List Current Medications: Active Medications Allopurinol (Zyloprim -) 300 mg PO HS [facility] Last Admin: 03/28/17 21:51 Dose: 300 mg Bacitracin (Bacitracin -) 1 applic TP DAILY [facility] Last Admin: 03/29/17 09:22 Dose: 1 applic Diltiazem HCl (Cardizem Cd -) 120 mg PO DAILY [facility] Last Admin: 03/29/17 09:22 Dose: 120 mg Guaifenesin (Robitussin Dm -) 10 ml PO Q6H PRN PRN Reason: COUGH Last Admin: 03/29/17 14:48 Dose: 10 ml Hydrochlorothiazide (Hctz -) 12.5 mg PO DAILY [facility] Last Admin: 03/29/17 09:22 Dose: 12.5 mg Argatroban 250,000 mcg/ Sodium (Chloride) 250 mls @ 16.59 mls/hr IVPB TITR [facility] ; 2.4 MCG/KG/MIN PRN Reason: Protocol Last Admin: 03/29/17 14:44 Dose: 15 mls/hr Lactobacillus Acidophilus (Bacid -) 2 tab PO DAILY [facility] Last Admin: 03/29/17 09:22 Dose: 2 tab Losartan Potassium (Cozaar -) 50 mg PO DAILY [facility] Last Admin: 03/29/17 09:22 Dose: 50 mg Melatonin (Melatonin) 5 mg PO [facility] Last Admin: 03/28/17 21:51 Dose: 5 mg Metoprolol Succinate (Toprol Xl -) 25 mg PO HS [facility] Last Admin: 03/28/17 21:51 Dose: 25 mg Silver Sulfadiazine (Silvadene -) 1 applic TP DAILY [facility] Last Admin: 03/29/17 09:27 Dose: 1 applic Warfarin Sodium (Coumadin -) 5 mg PO DAILY@1800 [facility] Last Admin: 03/29/17 17:36 Dose: 5 mg - Objective Vital Signs: Vital Signs Temperature 97.6 F 03/29/17 16:55 Pulse Rate 64 03/29/17 16:55 Respiratory Rate 18 03/29/17 16:55 Blood Pressure 158/85 03/29/17 16:55 O2 Sat by Pulse Oximetry (%) 96 03/29/17 09:00 Constitutional: Yes: Anxious Eyes: Yes: WNL HENT: Yes: WNL Neck: Yes: WNL Cardiovascular: Yes: Regular Rate and Rhythm, S2 Respiratory: Yes: WNL Gastrointestinal: Yes: Soft, Abdomen, Obese ...Rectal Exam: Yes: Deferred Genitourinary: No: Anuria Breast(s): Yes: Other (s/p Rt mastectomy and reconstruction; wound with drainage ) Musculoskeletal: Yes: Muscle Weakness Extremities: Yes: Cool Edema: No Peripheral Pulses WNL: Yes Integumentary: Yes: Incision Wound/Incision: Yes: Open to air Neurological: Yes: WNL Psychiatric: Yes: WNL Labs: CBC, BMP 03/29/17 16:10 03/29/17 06:30 INR, PTT INR 1.71 (0.82-1.09) H 03/29/17 06:30 Fibrinogen 176.0 mg/dL (238-498) L 03/09/17 18:00 Abnormal Lab Results 03/29/17 03/29/17 03/29/17 06:30 06:30 06:30 Plt Count 123 L PT with INR 19.00 H INR 1.71 H PTT (Actin FS) 52.1 H Anion Gap 7 L Random Glucose 129 H AST 12 L Total Protein 5.8 L Albumin 2.9 L Problem List - Problems (1) Cellulitis Code(s): L03.90 - CELLULITIS, UNSPECIFIED (2) ABENA (obstructive sleep apnea) Assessment/Plan: f/u sleep studies. Code(s): G47.33 - OBSTRUCTIVE SLEEP APNEA (ADULT) (PEDIATRIC) (3) Chronic instability of right knee Code(s): M23.51 - CHRONIC INSTABILITY OF KNEE, RIGHT KNEE (4) PAF (paroxysmal atrial fibrillation) Assessment/Plan: On diltiazem for HR control. Warfarin restarted, will likely have to be lifetime, given her having had several episodes of PAF. Goal is INR 4 or greater before stopping argatroban. Code(s): I48.0 - PAROXYSMAL ATRIAL FIBRILLATION (5) Pulmonary emboli Assessment/Plan: On argatraban until warfarin raises INR to 4 or greator. Code(s): I26.99 - OTHER PULMONARY EMBOLISM WITHOUT ACUTE COR PULMONALE Qualifiers: Pulmonary embolism type: other (6) Breast CA Code(s): C50.919 - MALIGNANT NEOPLASM OF UNSP SITE OF UNSPECIFIED FEMALE BREAST Qualifiers: Patient sex: female Laterality: right (7) Diabetes Code(s): E11.9 - TYPE 2 DIABETES MELLITUS WITHOUT COMPLICATIONS Qualifiers: Diabetes mellitus type: type 2 Diabetes mellitus complication status: without complication Diabetes mellitus buttermilk drier operator insulin use: without buttermilk drier operator use Qualified Code(s): E11.9 - Type 2 diabetes mellitus without complications; E11.9 - Type 2 diabetes mellitus without complications; E11.9 - Type 2 diabetes mellitus without complications; E11.9 - Type 2 diabetes mellitus without complications (8) Diastolic CHF Code(s): I50.30 - UNSPECIFIED DIASTOLIC (CONGESTIVE) HEART FAILURE (9) HTN (hypertension) Code(s): I10 - ESSENTIAL (PRIMARY) HYPERTENSION Qualifiers: Hypertension type: essential hypertension Qualified Code(s): I10 - Essential (primary) hypertension; I10 - Essential (primary) hypertension; I10 - Essential (primary) hypertension (10) Hypertriglyceridemia Assessment/Plan: Pt says medications for Rx do not agree with her; plans to use diet/exercise to lower triglycerides. Code(s): E78.1 - PURE HYPERGLYCERIDEMIA (11) Obesity Assessment/Plan: f/u with oracle applications developer. Code(s): E66.9 - OBESITY, UNSPECIFIED (12) Paget's disease of right breast Assessment/Plan: as noted by surgeon, right breast necrotic tissue debrided today; umbilical wound also being treated. Code(s): C50.011 - MALIGNANT NEOPLASM OF NIPPLE AND AREOLA, RIGHT FEMALE BREAST (13) Heparin induced thrombocytopenia (HIT) Assessment/Plan: Platelets improved enough to start warfarin, but now with mild decrease. Started warfarin (for PE and PAF). Code(s): D75.82 - HEPARIN INDUCED THROMBOCYTOPENIA (HIT)
[2017-03-29] MEDS: ALLOPURINOL 300 MG TABLET (FP) PO SCH (22:33)
[2017-03-29] MEDS: MELATONIN 5 MG TABLETS PO SCH (22:33)
[2017-03-29] MEDS: METOPROLOL SUCCINATE 25 MG TAB.SR.24H (FP) PO SCH (22:33)
[2017-03-30] MEDS: ARGATROBAN - 250,000 MCG in SODIUM CHLORIDE 247.5 ML IVPB SCH ×3 (05:29→22:00)
[2017-03-30 07:36] LABS: BASOPHIL 0.6 % (0-2.0); EOSINOPHIL 3.9 % (0-4.5); MCH 29.6 pg (25.7-33.7); MCHC 33.1 g/dl (32.0-36.0); MEAN CELL VOLUME 89.2 fl (80-96); NEUTROPHILS 62.8 % (42.8-82.8); PLATELET COUNT 123 K/MM3 (134-434); RDW 13.9 % (11.6-15.6); WHITE BLOOD COUNT 6.1 K/mm3 (4.0-10.0)
[2017-03-30 08:07] LABS: INR 2.59 (0.82-1.09); PROTHROMBIN TIME (PATIENT) 29.1 SEC (9.98-11.88)
[2017-03-30 08:10] LABS: ACTIVATED PTT 59.3 SECONDS (26.9-34.4)
--- NOTE | 2017-03-30 08:53 | PN ---
Progress Note (short form) - Note Progress Note: CBC, BMP CBC, BMP CBC, BMP 03/30/17 07:20 03/29/17 06:30 INR 2.58 Vital Signs Period Temp Pulse Resp BP Sys/Beck Pulse Ox Last 24 Hr 97.6 F-97.8 F 63-66 18-20 108-158/57-85 96-96 S1S2 RRR LUNGS CTA no pedal edema wounds are clean, no slough, no discharge Imp/plan Heparin Induced Thrombocytopenia-slowly improving, continue argatroban day 3 warfarin platelet count fluctuating needs argatroban drip until INR is 4 local wound care with silvadene stop HCTZ-can decrease plt count sometimes too, if needed can do prn lasix recent bilateral pulmonary embolism following reconstructive breast surgery after mastectomy. Paget's disease of the breast NIDDM HTN h/o afib-paroxysmal with PE diagnosis-none on telemetry during this admission Problem List - Problems (1) PAF (paroxysmal atrial fibrillation) Code(s): I48.0 - PAROXYSMAL ATRIAL FIBRILLATION (2) Pulmonary emboli Code(s): I26.99 - OTHER PULMONARY EMBOLISM WITHOUT ACUTE COR PULMONALE Qualifiers: Pulmonary embolism type: other (3) Breast CA Code(s): C50.919 - MALIGNANT NEOPLASM OF UNSP SITE OF UNSPECIFIED FEMALE BREAST Qualifiers: Patient sex: female Laterality: right (4) Diabetes Code(s): E11.9 - TYPE 2 DIABETES MELLITUS WITHOUT COMPLICATIONS Qualifiers: Diabetes mellitus type: type 2 Diabetes mellitus complication status: without complication Diabetes mellitus correction insulin use: without correction use Qualified Code(s): E11.9 - Type 2 diabetes mellitus without complications; E11.9 - Type 2 diabetes mellitus without complications; E11.9 - Type 2 diabetes mellitus without complications; E11.9 - Type 2 diabetes mellitus without complications (5) HTN (hypertension) Code(s): I10 - ESSENTIAL (PRIMARY) HYPERTENSION Qualifiers: Hypertension type: essential hypertension Qualified Code(s): I10 - Essential (primary) hypertension; I10 - Essential (primary) hypertension; I10 - Essential (primary) hypertension
[2017-03-30] MEDS: BACITRACIN 15 GM TUBE TOPICAL OINTMENT TP SCH (11:06)
[2017-03-30] MEDS: LACTOBACILLUS ACIDOPHILUS 1 EACH TAB (FP) PO SCH (11:06)
[2017-03-30] MEDS: LOSARTAN POTASSIUM 50 MG TABLET (FP) PO SCH (11:07)
[2017-03-30] MEDS: SILVER SULFADIAZINE 1% TOP CREAM 50 GM JAR TP SCH (11:07)
--- NOTE | 2017-03-30 11:45 | PN ---
Progress Note (short form) - Note Progress Note: PULMONARY VSS/AFEBRILE OOB TO CHAIR SUBJECTIVE IMPROVEMENT ANICTERIC CLEAR S1S2 BS+ OBESE 1+ EDEMA ANKLES LABS/MEDS/NOTES/IMAGING REVIEWED PLTS 123K inr2.59 Bilateral Pulmonary Emboli Pulmonary HTN Heparin Induced Thrombocytopenia Breast Ca DM ABENA Umbilical Wound - continue argatroban - coumadin to continue - encouraged ambulation Nicole BARKSDALE MD
--- NOTE | 2017-03-30 11:46 | PN ---
Progress Note, Physician History of Present Illness: "The patient is a 66 year old female, with a significant past medical history of PE on lovenox, HTN, diabetes mellitus, gout, and breast cancer s/p right mastectomy around 7 weeks ago (January 20) who was referred to the emergency department by her PCP due to low blood platelet count. She states she was started on lovenox 2 weeks ago when she was diagnosed with acute PE. Patient denies currently experiencing any chest pain or palpitations but admits to SOB from time to time. She denies experiencing any new bruises. She denies recent fevers, chills, headache or dizziness. She denies recent nausea, vomit, diarrhea or constipation. She denies recent dysuria, frequency, urgency or hematuria. She denies recent chest pain. Allergies: NKA Past surgical history: Right masectomy Social history: Nonsmoker. Denies EtOH use and recreational drug use. Primary Care Physician: Carrie Price M.D. " - Current Medication List Current Medications: Active Medications Allopurinol (Zyloprim -) 300 mg PO HS [facility] Last Admin: 03/29/17 22:33 Dose: 300 mg Bacitracin (Bacitracin -) 1 applic TP DAILY [facility] Last Admin: 03/30/17 11:06 Dose: 1 applic Diltiazem HCl (Cardizem Cd -) 120 mg PO DAILY [facility] Last Admin: 03/30/17 11:07 Dose: 120 mg Guaifenesin (Robitussin Dm -) 10 ml PO Q6H PRN PRN Reason: COUGH Last Admin: 03/29/17 14:48 Dose: 10 ml Argatroban 250,000 mcg/ Sodium (Chloride) 250 mls @ 16.59 mls/hr IVPB TITR [facility] ; 2.4 MCG/KG/MIN PRN Reason: Protocol Last Admin: 03/30/17 11:05 Dose: Not Given Lactobacillus Acidophilus (Bacid -) 2 tab PO DAILY [facility] Last Admin: 03/30/17 11:06 Dose: 2 tab Losartan Potassium (Cozaar -) 50 mg PO DAILY [facility] Last Admin: 03/30/17 11:07 Dose: 50 mg Melatonin (Melatonin) 5 mg PO HS [facility] Last Admin: 03/29/17 22:33 Dose: 5 mg Metoprolol Succinate (Toprol Xl -) 25 mg PO HS [facility] Last Admin: 03/29/17 22:33 Dose: 25 mg Silver Sulfadiazine (Silvadene -) 1 applic TP DAILY [facility] Last Admin: 03/30/17 11:07 Dose: 1 applic Warfarin Sodium (Coumadin -) 5 mg PO DAILY@1800 [facility] Last Admin: 03/29/17 17:36 Dose: 5 mg - Objective Vital Signs: Vital Signs Temperature 97.7 F 03/30/17 09:16 Pulse Rate 72 03/30/17 09:16 Respiratory Rate 20 03/30/17 09:16 Blood Pressure 154/80 03/30/17 09:16 O2 Sat by Pulse Oximetry (%) 96 03/29/17 21:00 Eyes: Yes: WNL, Conjunctiva Clear, EOM Intact HENT: Yes: WNL, Atraumatic, Normocephalic Neck: Yes: WNL, Supple, Trachea Midline Cardiovascular: Yes: WNL, Regular Rate and Rhythm Respiratory: Yes: WNL, Regular, CTA Bilaterally Gastrointestinal: Yes: WNL, Normal Bowel Sounds Genitourinary: Yes: WNL Musculoskeletal: Yes: WNL Extremities: Yes: WNL Edema: No Integumentary: Yes: WNL Neurological: Yes: WNL, Alert, Oriented ...Motor Strength: WNL Psychiatric: Yes: WNL Labs: CBC, BMP 03/30/17 07:20 03/29/17 06:30 INR, PTT INR 2.59 (0.82-1.09) H D 03/30/17 07:20 Fibrinogen 176.0 mg/dL (238-498) L 03/09/17 18:00 Problem List - Problems (1) Thrombocytopenia Code(s): D69.6 - THROMBOCYTOPENIA, UNSPECIFIED (2) Cellulitis Code(s): L03.90 - CELLULITIS, UNSPECIFIED (3) Chronic instability of right knee Code(s): M23.51 - CHRONIC INSTABILITY OF KNEE, RIGHT KNEE (4) ABENA (obstructive sleep apnea) Code(s): G47.33 - OBSTRUCTIVE SLEEP APNEA (ADULT) (PEDIATRIC) (5) PAF (paroxysmal atrial fibrillation) Code(s): I48.0 - PAROXYSMAL ATRIAL FIBRILLATION (6) Pulmonary emboli Code(s): I26.99 - OTHER PULMONARY EMBOLISM WITHOUT ACUTE COR PULMONALE Qualifiers: Pulmonary embolism type: other (7) Breast CA Code(s): C50.919 - MALIGNANT NEOPLASM OF UNSP SITE OF UNSPECIFIED FEMALE BREAST Qualifiers: Patient sex: female Laterality: right (8) Diabetes Code(s): E11.9 - TYPE 2 DIABETES MELLITUS WITHOUT COMPLICATIONS Qualifiers: Diabetes mellitus type: type 2 Diabetes mellitus complication status: without complication Diabetes mellitus chcf insulin use: without termite exterminator helper use Qualified Code(s): E11.9 - Type 2 diabetes mellitus without complications; E11.9 - Type 2 diabetes mellitus without complications; E11.9 - Type 2 diabetes mellitus without complications; E11.9 - Type 2 diabetes mellitus without complications (9) Diastolic CHF Code(s): I50.30 - UNSPECIFIED DIASTOLIC (CONGESTIVE) HEART FAILURE (10) HTN (hypertension) Code(s): I10 - ESSENTIAL (PRIMARY) HYPERTENSION Qualifiers: Hypertension type: essential hypertension Qualified Code(s): I10 - Essential (primary) hypertension; I10 - Essential (primary) hypertension; I10 - Essential (primary) hypertension (11) Hypertriglyceridemia Code(s): E78.1 - PURE HYPERGLYCERIDEMIA (12) Obesity Code(s): E66.9 - OBESITY, UNSPECIFIED (13) Paget's disease of right breast Code(s): C50.011 - MALIGNANT NEOPLASM OF NIPPLE AND AREOLA, RIGHT FEMALE BREAST Assessment/Plan - Problems (1) Cellulitis Code(s): L03.90 - CELLULITIS, UNSPECIFIED (2) ABENA (obstructive sleep apnea) Assessment/Plan: f/u sleep studies. Code(s): G47.33 - OBSTRUCTIVE SLEEP APNEA (ADULT) (PEDIATRIC) (3) Chronic instability of right knee Code(s): M23.51 - CHRONIC INSTABILITY OF KNEE, RIGHT KNEE (4) PAF (paroxysmal atrial fibrillation) Assessment/Plan: On diltiazem for HR control. Warfarin restarted, will likely have to be lifetime, given her having had several episodes of PAF. Goal is INR 4 or greater before stopping argatroban. Code(s): I48.0 - PAROXYSMAL ATRIAL FIBRILLATION (5) Pulmonary emboli Assessment/Plan: On argatraban until warfarin raises INR to 4 or greator. Code(s): I26.99 - OTHER PULMONARY EMBOLISM WITHOUT ACUTE COR PULMONALE Qualifiers: Pulmonary embolism type: other (6) Breast CA Code(s): C50.919 - MALIGNANT NEOPLASM OF UNSP SITE OF UNSPECIFIED FEMALE BREAST Qualifiers: Patient sex: female Laterality: right (7) Diabetes Code(s): E11.9 - TYPE 2 DIABETES MELLITUS WITHOUT COMPLICATIONS Qualifiers: Diabetes mellitus type: type 2 Diabetes mellitus complication status: without complication Diabetes mellitus termite exterminator helper insulin use: without termite exterminator helper use Qualified Code(s): E11.9 - Type 2 diabetes mellitus without complications; E11.9 - Type 2 diabetes mellitus without complications; E11.9 - Type 2 diabetes mellitus without complications; E11.9 - Type 2 diabetes mellitus without complications (8) Diastolic CHF Code(s): I50.30 - UNSPECIFIED DIASTOLIC (CONGESTIVE) HEART FAILURE (9) HTN (hypertension) Code(s): I10 - ESSENTIAL (PRIMARY) HYPERTENSION Qualifiers: Hypertension type: essential hypertension Qualified Code(s): I10 - Essential (primary) hypertension; I10 - Essential (primary) hypertension; I10 - Essential (primary) hypertension (10) Hypertriglyceridemia Assessment/Plan: Pt says medications for Rx do not agree with her; plans to use diet/exercise to lower triglycerides. Code(s): E78.1 - PURE HYPERGLYCERIDEMIA (11) Obesity Assessment/Plan: f/u with driveway attendant. Code(s): E66.9 - OBESITY, UNSPECIFIED (12) Paget's disease of right breast Assessment/Plan: as noted by surgeon, right breast necrotic tissue debrided today; umbilical wound also being treated. Code(s): C50.011 - MALIGNANT NEOPLASM OF NIPPLE AND AREOLA, RIGHT FEMALE BREAST (13) Heparin induced thrombocytopenia (HIT) Assessment/Plan: Platelets improved enough to start warfarin, but now with mild decrease. Started warfarin (for PE and PAF). Code(s): D75.82 - HEPARIN INDUCED THROMBOCYTOPENIA (HIT)
--- NOTE | 2017-03-30 14:06 | PN ---
Progress Note (short form) - Note Progress Note: Patient seen and examined. feels well. no complains. Cor: RSR, No murmurs, No gallops Lungs: Clear to P&A Ext:No significant edema Skin: No rashes, Integument intact CBC, BMP 03/30/17 07:20 03/29/17 06:30 Current Medications Generic Name Dose Route Start Last Admin Trade Name Freq PRN Reason Stop Dose Admin Allopurinol 300 mg 03/19/17 22:00 03/29/17 22:33 Zyloprim - PO 300 mg HS [facility] Administration Bacitracin 1 applic 03/19/17 10:00 03/30/17 11:06 Bacitracin - TP 1 applic DAILY [facility] Administration Diltiazem HCl 120 mg 03/19/17 10:00 03/30/17 11:07 Cardizem Cd - PO 120 mg DAILY [facility] Administration Guaifenesin 10 ml 03/19/17 07:57 03/29/17 14:48 Robitussin Dm - PO 10 ml Q6H PRN Administration COUGH Argatroban 250,000 mcg/ Sodium 250 mls @ 16.59 mls/hr 03/24/17 09:45 03/30/17 11:05 Chloride IVPB Not Given TITR [facility] Protocol 2.4 MCG/KG/MIN Lactobacillus Acidophilus 2 tab 03/19/17 10:00 03/30/17 11:06 Bacid - PO 2 tab DAILY [facility] Administration Losartan Potassium 50 mg 03/19/17 10:00 03/30/17 11:07 Cozaar - PO 50 mg DAILY [facility] Administration Melatonin 5 mg 03/19/17 22:00 03/29/17 22:33 Melatonin PO 5 mg HS [facility] Administration Metoprolol Succinate 25 mg 03/19/17 22:00 03/29/17 22:33 Toprol Xl - PO 25 mg HS [facility] Administration Silver Sulfadiazine 1 applic 03/19/17 10:00 03/30/17 11:07 Silvadene - TP 1 applic DAILY [facility] Administration Warfarin Sodium 5 mg 03/27/17 18:00 03/29/17 17:36 Coumadin - PO 5 mg DAILY@1800 [facility] Administration Last Vital Signs Temp Pulse Resp BP Pulse Ox 97.7 F 72 20 154/80 96 03/30/17 09:16 03/30/17 09:16 03/30/17 09:16 03/30/17 09:16 03/29/17 21:00 A/P 66 y/o patient s/p Rt. mastectomy/breast reconstruction--01/20 presented with palpitations/afib --02/20 Diagnosed with b/l PE 02/23, presented with worsening thrombocytopenia 03/09 HIT confirmed with HIT ab on argatroban -- PTT-therapeutic On coumadin 5mg daily started 03/27 Overlap with argatroban till INR is 4 platelet fluctauation, do not think its from HIT, likely discontinuation of thiazide could make a difference daily CBC ,PT/INR, PTT wound care per plastics communicated w/ RN.
[2017-03-30] MEDS ORDERED: ONDANSETRON 4 MG TABLET PO ONE (16:46)
[2017-03-30] MEDS: WARFARIN NA 5 MG TABLET (UD) PO SCH (17:12)
[2017-03-30] MEDS ORDERED: ONDANSETRON 4 MG TABLET PO PRN (21:23)
[2017-03-30] MEDS: ALLOPURINOL 300 MG TABLET (FP) PO SCH (21:59)
[2017-03-30] MEDS: METOPROLOL SUCCINATE 25 MG TAB.SR.24H (FP) PO SCH (21:59)
[2017-03-30] MEDS: MELATONIN 5 MG TABLETS PO SCH (21:59)
[2017-03-31 08:08] LABS: BASOPHIL 0.5 % (0-2.0); EOSINOPHIL 3.6 % (0-4.5); MCHC 32.6 g/dl (32.0-36.0); MEAN CELL VOLUME 88.9 fl (80-96); MEAN PLT VOLUME 8.8 fl (7.5-11.1); PLATELET COUNT 140 K/MM3 (134-434); RDW 13.8 % (11.6-15.6); WHITE BLOOD COUNT 6.1 K/mm3 (4.0-10.0)
[2017-03-31 08:29] LABS: PROTHROMBIN TIME (PATIENT) 33.7 SEC (9.98-11.88)
[2017-03-31 08:32] LABS: ACTIVATED PTT 64.3 SECONDS (26.9-34.4)
[2017-03-31 08:38] LABS: ALBUMIN 2.9 g/dl (3.4-5.0); ANION GAP 7 (8-16); BILIRUBIN,TOTAL 0.2 mg/dL (0.2-1.0); CALCIUM 8.9 mg/dL (8.5-10.1); CO2 26 mmol/L (21-32); GLUCOSE,RANDOM 129 mg/dL (74-106); SGOT/AST 14 U/L (15-37); SGPT/ALT 21 U/L (12-78); TOT PROT 5.9 g/dl (6.4-8.2)
[2017-03-31 08:39] LABS: ALK PHOS 69 U/L (45-117)
[2017-03-31] MEDS ORDERED: PT OWN MED DRAWER 7, Y5N ONE ×3 (09:54→20:50)
[2017-03-31] MEDS: LACTOBACILLUS ACIDOPHILUS 1 EACH TAB (FP) PO SCH (09:57)
[2017-03-31] MEDS: LOSARTAN POTASSIUM 50 MG TABLET (FP) PO SCH (09:57)
[2017-03-31] MEDS: ARGATROBAN - 250,000 MCG in SODIUM CHLORIDE 247.5 ML IVPB SCH ×2 (09:58→16:20)
[2017-03-31] MEDS: BACITRACIN 15 GM TUBE TOPICAL OINTMENT TP SCH (09:58)
[2017-03-31] MEDS: SILVER SULFADIAZINE 1% TOP CREAM 50 GM JAR TP SCH (09:59)
--- NOTE | 2017-03-31 10:17 | PN ---
Progress Note (short form) - Note Progress Note: PULMONARY Denies shortness of breath. + mild nonproductive cough. No chest pain or palpitations. Last Vital Signs Temp Pulse Resp BP Pulse Ox 98.1 F 74 20 105/48 96 03/31/17 07:27 03/31/17 07:27 03/31/17 07:27 03/31/17 07:27 03/30/17 21:00 Gen: NAD at rest Heart: RRR Lung: decreased breath sounds at the bases Abd: soft, nontender Ext: + trace edema CBC, BMP 03/31/17 07:45 03/31/17 07:45 INR, PTT INR 3.00 (0.82-1.09) H 03/31/17 07:45 Fibrinogen 176.0 mg/dL (238-498) L 03/09/17 18:00 Active Medications Allopurinol (Zyloprim -) 300 mg PO HS [facility] Last Admin: 03/30/17 21:59 Dose: 300 mg Bacitracin (Bacitracin -) 1 applic TP DAILY [facility] Last Admin: 03/31/17 09:58 Dose: 1 applic Diltiazem HCl (Cardizem Cd -) 120 mg PO DAILY [facility] Last Admin: 03/31/17 09:57 Dose: 120 mg Argatroban 250,000 mcg/ Sodium (Chloride) 250 mls @ 16.59 mls/hr IVPB TITR [facility] ; 2.4 MCG/KG/MIN PRN Reason: Protocol Last Admin: 03/31/17 09:58 Dose: Not Given Lactobacillus Acidophilus (Bacid -) 2 tab PO DAILY [facility] Last Admin: 03/31/17 09:57 Dose: 2 tab Losartan Potassium (Cozaar -) 50 mg PO DAILY [facility] Last Admin: 03/31/17 09:57 Dose: 50 mg Melatonin (Melatonin) 5 mg PO HS [facility] Last Admin: 03/30/17 21:59 Dose: 5 mg Metoprolol Succinate (Toprol Xl -) 25 mg PO HS [facility] Last Admin: 03/30/17 21:59 Dose: 25 mg Ondansetron HCl (Zofran -) 4 mg PO QID PRN PRN Reason: NAUSEA Last Admin: 03/30/17 21:59 Dose: 4 mg Silver Sulfadiazine (Silvadene -) 1 applic TP DAILY [facility] Last Admin: 03/31/17 09:59 Dose: 1 applic Warfarin Sodium (Coumadin -) 5 mg PO DAILY@1800 [facility] Last Admin: 03/30/17 17:12 Dose: 5 mg A/P Bilateral Pulmonary Emboli Pulmonary HTN Heparin Induced Thrombocytopenia Breast Ca DM ABENA Umbilical Wound - continue argatroban transition to coumadin - encouraged ambulation
--- NOTE | 2017-03-31 11:16 | PN ---
Progress Note (short form) - Note Progress Note: CBC, BMP CBC,CMP WBC 6.1 K/mm3 (4.0-10.0) 03/31/17 07:45 RBC 3.82 M/mm3 (3.60-5.2) 03/31/17 07:45 Hgb 11.1 GM/dL (10.7-15.3) 03/31/17 07:45 Hct 33.9 % (32.4-45.2) 03/31/17 07:45 MCV 88.9 fl (80-96) 03/31/17 07:45 MCH 29.0 pg (25.7-33.7) 03/31/17 07:45 MCHC 32.6 g/dl (32.0-36.0) 03/31/17 07:45 RDW 13.8 % (11.6-15.6) 03/31/17 07:45 Plt Count 140 K/MM3 (134-434) 03/31/17 07:45 MPV 8.8 fl (7.5-11.1) 03/31/17 07:45 Neutrophils % 66.0 % (42.8-82.8) 03/31/17 07:45 Lymphocytes % 23.4 % (8-40) 03/31/17 07:45 Monocytes % 6.5 % (3.8-10.2) 03/31/17 07:45 Eosinophils % 3.6 % (0-4.5) 03/31/17 07:45 Basophils % 0.5 % (0-2.0) 03/31/17 07:45 Platelet Estimate Markedly decreased (NORMAL) 03/10/17 05:00 Platelet Comment No clotting detected 03/10/17 05:00 Platelet Comment No clumping noted 03/10/17 05:00 Sodium 141 mmol/L (136-145) 03/31/17 07:45 Potassium 4.3 mmol/L (3.5-5.1) 03/31/17 07:45 Chloride 108 mmol/L (98-107) H 03/31/17 07:45 Carbon Dioxide 26 mmol/L (21-32) 03/31/17 07:45 Anion Gap 7 (8-16) L 03/31/17 07:45 BUN 17 mg/dL (7-18) 03/31/17 07:45 Creatinine 1.0 mg/dL (0.55-1.02) 03/31/17 07:45 Creat Clearance w eGFR 55.82 (>60) 03/31/17 07:45 POC Glucometer 142 UNITS (()) 03/31/17 05:44 Random Glucose 129 mg/dL (74-106) H 03/31/17 07:45 Calcium 8.9 mg/dL (8.5-10.1) 03/31/17 07:45 Total Bilirubin 0.2 mg/dL (0.2-1.0) D 03/31/17 07:45 AST 14 U/L (15-37) L 03/31/17 07:45 ALT 21 U/L (12-78) 03/31/17 07:45 Alkaline Phosphatase 69 U/L (45-117) 03/31/17 07:45 Creatine Kinase 51 IU/L (26-192) 03/09/17 11:00 Troponin I < 0.02 ng/ml (0.00-0.05) 03/09/17 11:00 B-Natriuretic Peptide 179.12 pg/ml (5-125) H 03/09/17 11:00 Total Protein 5.9 g/dl (6.4-8.2) L 03/31/17 07:45 Albumin 2.9 g/dl (3.4-5.0) L 03/31/17 07:45 INR 3 Vital Signs Period Temp Pulse Resp BP Sys/Beck Pulse Ox Last 24 Hr 97.2 F-98.1 F 66-74 18-20 105-149/48-85 96-96 S1S2 RRR LUNGS CTA no pedal edema abd soft NT +BS episode of nausea and soft/loose BMx3 yesterday afternoon resolved with 2 doses of zofran Imp/plan Heparin Induced Thrombocytopenia-slowly improving, continue argatroban day 4 warfarin platelet count fluctuating needs argatroban drip until INR is 4 local wound care with silvadene stop HCTZ-can decrease plt count sometimes too, if needed can do prn lasix recent bilateral pulmonary embolism following reconstructive breast surgery after mastectomy. Paget's disease of the breast NIDDM HTN h/o afib-paroxysmal with PE diagnosis-none on telemetry during this admission Problem List - Problems (1) PAF (paroxysmal atrial fibrillation) Code(s): I48.0 - PAROXYSMAL ATRIAL FIBRILLATION (2) Pulmonary emboli Code(s): I26.99 - OTHER PULMONARY EMBOLISM WITHOUT ACUTE COR PULMONALE Qualifiers: Pulmonary embolism type: other (3) Breast CA Code(s): C50.919 - MALIGNANT NEOPLASM OF UNSP SITE OF UNSPECIFIED FEMALE BREAST Qualifiers: Patient sex: female Laterality: right (4) Diabetes Code(s): E11.9 - TYPE 2 DIABETES MELLITUS WITHOUT COMPLICATIONS Qualifiers: Diabetes mellitus type: type 2 Diabetes mellitus complication status: without complication Diabetes mellitus fpc insulin use: without fpc use Qualified Code(s): E11.9 - Type 2 diabetes mellitus without complications; E11.9 - Type 2 diabetes mellitus without complications; E11.9 - Type 2 diabetes mellitus without complications; E11.9 - Type 2 diabetes mellitus without complications (5) HTN (hypertension) Code(s): I10 - ESSENTIAL (PRIMARY) HYPERTENSION Qualifiers: Hypertension type: essential hypertension Qualified Code(s): I10 - Essential (primary) hypertension; I10 - Essential (primary) hypertension; I10 - Essential (primary) hypertension
[2017-03-31] MEDS: WARFARIN NA 5 MG TABLET (UD) PO SCH (18:31)
--- NOTE | 2017-03-31 21:09 | PN ---
Progress Note (short form) - Note Progress Note: Patient seen and examined slight discharge from umblical wound Last Vital Signs Temp Pulse Resp BP Pulse Ox 97.9 F 63 20 157/87 93 L 03/31/17 16:55 03/31/17 16:55 03/31/17 16:55 03/31/17 16:55 03/31/17 09:00 Breasts: right breast reconstruction. Incision is healing Cor: RSR, No murmurs, No gallops Lungs: Clear to P&A Abd: Soft, Normal bowel sounds, healing abdominal incision Ext:No significant edema wounds --RT. lower adomen, Rt. breast look clean umblical woud some discharge Abnormal Lab Results 03/31/17 03/31/17 07:45 07:45 PT with INR 33.70 H INR 3.00 H PTT (Actin FS) 64.3 H Chloride 108 H Anion Gap 7 L Random Glucose 129 H AST 14 L Total Protein 5.9 L Albumin 2.9 L Active Medications Generic Name Dose Route Start Last Admin Trade Name Julioq PRN Reason Stop Dose Admin Allopurinol 300 mg 03/19/17 22:00 03/30/17 21:59 Zyloprim - PO 300 mg HS NICOLÁS Administration Bacitracin 1 applic 03/19/17 10:00 03/31/17 09:58 Bacitracin - TP 1 applic DAILY NICOLÁS Administration Diltiazem HCl 120 mg 03/19/17 10:00 03/31/17 09:57 Cardizem Cd - PO 120 mg DAILY NICOLÁS Administration Argatroban 250,000 mcg/ Sodium 250 mls @ 16.59 mls/hr 03/24/17 09:45 03/31/17 16:20 Chloride IVPB 15 mls/hr TITR NICOLÁS Administration Protocol 2.4 MCG/KG/MIN Lactobacillus Acidophilus 2 tab 03/19/17 10:00 03/31/17 09:57 Bacid - PO 2 tab DAILY NICOLÁS Administration Losartan Potassium 50 mg 03/19/17 10:00 03/31/17 09:57 Cozaar - PO 50 mg DAILY NICOLÁS Administration Melatonin 5 mg 03/19/17 22:00 03/30/17 21:59 Melatonin PO 5 mg HS NICOLÁS Administration Metoprolol Succinate 25 mg 03/19/17 22:00 03/30/17 21:59 Toprol Xl - PO 25 mg HS NICOLÁS Administration Ondansetron HCl 4 mg 03/30/17 21:23 03/30/17 21:59 Zofran - PO 4 mg QID PRN Administration NAUSEA Silver Sulfadiazine 1 applic 03/19/17 10:00 03/31/17 09:59 Silvadene - TP 1 applic DAILY NICOLÁS Administration Warfarin Sodium 5 mg 03/27/17 18:00 03/31/17 18:31 Coumadin - PO 5 mg DAILY@1800 NICOLÁS Administration A/P 66 y/o patient s/p Rt. 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
[2017-03-31] MEDS: ALLOPURINOL 300 MG TABLET (FP) PO SCH (22:04)
[2017-03-31] MEDS: MELATONIN 5 MG TABLETS PO SCH (22:04)
[2017-03-31] MEDS: METOPROLOL SUCCINATE 25 MG TAB.SR.24H (FP) PO SCH (22:04)
--- NOTE | 2017-03-31 22:20 | PN ---
Progress Note, Physician Chief Complaint: Pt sitting in chair; no chest pain or dyspnea. History of Present Illness: The patient is a 66 year old white female, with a significant past medical history of PE after breast surgery earlier this year (on lovenox), PAF (at least 3 episodes), HTN, diabetes mellitus, obesity, gout, presumed obstructive sleep apnea, and breast cancer s/p right mastectomy around 7 weeks ago (January 20 ) who was referred to the emergency department by her PCP due to low blood platelet count. She states she was started on lovenox 2 weeks ago when she was diagnosed with acute PE. Patient denies currently experiencing any chest pain or palpitations but admits to SOB from time to time. She denies experiencing any new bruises. She denies recent fevers, chills, headache or dizziness. She denies recent nausea, vomit, diarrhea or constipation. She denies recent dysuria, frequency, urgency or hematuria. She denies recent chest pain. Allergies: NKA Past surgical history: Right mastectomy Social history: Nonsmoker. Denies EtOH use and recreational drug use. Primary Care Physician: Carrie Price M.D. - Current Medication List Current Medications: Active Medications Allopurinol (Zyloprim -) 300 mg PO HS [facility] Last Admin: 03/31/17 22:04 Dose: 300 mg Bacitracin (Bacitracin -) 1 applic TP DAILY [facility] Last Admin: 03/31/17 09:58 Dose: 1 applic Diltiazem HCl (Cardizem Cd -) 120 mg PO DAILY [facility] Last Admin: 03/31/17 09:57 Dose: 120 mg Argatroban 250,000 mcg/ Sodium (Chloride) 250 mls @ 16.59 mls/hr IVPB TITR NICOLÁS ; 2.4 MCG/KG/MIN PRN Reason: Protocol Last Admin: 03/31/17 16:20 Dose: 15 mls/hr Lactobacillus Acidophilus (Bacid -) 2 tab PO DAILY [facility] Last Admin: 03/31/17 09:57 Dose: 2 tab Losartan Potassium (Cozaar -) 50 mg PO DAILY [facility] Last Admin: 03/31/17 09:57 Dose: 50 mg Melatonin (Melatonin) 5 mg PO [facility] Last Admin: 03/31/17 22:04 Dose: 5 mg Metoprolol Succinate (Toprol Xl -) 25 mg PO HS [facility] Last Admin: 03/31/17 22:04 Dose: 25 mg Ondansetron HCl (Zofran -) 4 mg PO QID PRN PRN Reason: NAUSEA Last Admin: 03/30/17 21:59 Dose: 4 mg Silver Sulfadiazine (Silvadene -) 1 applic TP DAILY [facility] Last Admin: 03/31/17 09:59 Dose: 1 applic Warfarin Sodium (Coumadin -) 5 mg PO DAILY@1800 [facility] Last Admin: 03/31/17 18:31 Dose: 5 mg - Objective Vital Signs: Vital Signs Temperature 97.9 F 03/31/17 16:55 Pulse Rate 63 03/31/17 16:55 Respiratory Rate 20 03/31/17 16:55 Blood Pressure 157/87 03/31/17 16:55 O2 Sat by Pulse Oximetry (%) 93 L 03/31/17 09:00 Constitutional: Yes: Calm Eyes: Yes: WNL HENT: Yes: WNL Neck: Yes: WNL Cardiovascular: Yes: Regular Rate and Rhythm Respiratory: Yes: WNL Gastrointestinal: Yes: Soft ...Rectal Exam: Yes: Deferred Genitourinary: No: Anuria Breast(s): Yes: Other Musculoskeletal: Yes: Muscle Weakness Extremities: Yes: WNL Edema: No Peripheral Pulses WNL: Yes Integumentary: Yes: Incision Wound/Incision: Yes: Dressing Removed Neurological: Yes: WNL Psychiatric: Yes: WNL Labs: CBC, BMP 03/31/17 07:45 03/31/17 07:45 INR, PTT INR 3.00 (0.82-1.09) H 03/31/17 07:45 Fibrinogen 176.0 mg/dL (238-498) L 03/09/17 18:00 Abnormal Lab Results 03/31/17 03/31/17 07:45 07:45 PT with INR 33.70 H INR 3.00 H PTT (Actin FS) 64.3 H Chloride 108 H Anion Gap 7 L Random Glucose 129 H AST 14 L Total Protein 5.9 L Albumin 2.9 L Problem List - Problems (1) Cellulitis Code(s): L03.90 - CELLULITIS, UNSPECIFIED (2) ABENA (obstructive sleep apnea) Assessment/Plan: sleep studies. Code(s): G47.33 - OBSTRUCTIVE SLEEP APNEA (ADULT) (PEDIATRIC) (3) Chronic instability of right knee Code(s): M23.51 - CHRONIC INSTABILITY OF KNEE, RIGHT KNEE (4) PAF (paroxysmal atrial fibrillation) Assessment/Plan: On diltiazem for HR control. Warfarin restarted, will likely have to be lifetime, given her having had several episodes of PAF. Goal is INR 4 or greater before stopping argatroban. Plts have increased to 140. Code(s): I48.0 - PAROXYSMAL ATRIAL FIBRILLATION (5) Pulmonary emboli Assessment/Plan: On argatraban until warfarin raises INR to 4 or greater. Code(s): I26.99 - OTHER PULMONARY EMBOLISM WITHOUT ACUTE COR PULMONALE Qualifiers: Pulmonary embolism type: other (6) Breast CA Code(s): C50.919 - MALIGNANT NEOPLASM OF UNSP SITE OF UNSPECIFIED FEMALE BREAST Qualifiers: Patient sex: female Laterality: right (7) Diabetes Code(s): E11.9 - TYPE 2 DIABETES MELLITUS WITHOUT COMPLICATIONS Qualifiers: Diabetes mellitus type: type 2 Diabetes mellitus complication status: without complication Diabetes mellitus service operations manager insulin use: without mcfp use Qualified Code(s): E11.9 - Type 2 diabetes mellitus without complications; E11.9 - Type 2 diabetes mellitus without complications; E11.9 - Type 2 diabetes mellitus without complications; E11.9 - Type 2 diabetes mellitus without complications (8) Diastolic CHF Code(s): I50.30 - UNSPECIFIED DIASTOLIC (CONGESTIVE) HEART FAILURE (9) HTN (hypertension) Assessment/Plan: on metoprolol, diltiazem, and losartan, Serial BP checks, and adjust medication dosages as needed. EKG: NSR; nonspecific T wave changes. Code(s): I10 - ESSENTIAL (PRIMARY) HYPERTENSION Qualifiers: Hypertension type: essential hypertension Qualified Code(s): I10 - Essential (primary) hypertension; I10 - Essential (primary) hypertension; I10 - Essential (primary) hypertension (10) Hypertriglyceridemia Assessment/Plan: Pt says medications for Rx do not agree with her; plans to use diet/exercise to lower triglycerides. Code(s): E78.1 - PURE HYPERGLYCERIDEMIA (11) Obesity Assessment/Plan: f/u with pulmonary disease specialist. 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 Code(s): C50.011 - MALIGNANT NEOPLASM OF NIPPLE AND AREOLA, RIGHT FEMALE BREAST (13) Heparin induced thrombocytopenia (HIT) Assessment/Plan: Platelets improved enough to start warfarin; platelets have increased to 140. Started warfarin (for PE and PAF). Code(s): D75.82 - HEPARIN INDUCED THROMBOCYTOPENIA (HIT)
[2017-04-01] MEDS ORDERED: PT OWN MED DRAWER 7, Y5N ONE ×2 (07:06→20:58)
[2017-04-01 07:59] LABS: BASOPHIL 0.6 % (0-2.0); EOSINOPHIL 3.9 % (0-4.5); MCHC 32.6 g/dl (32.0-36.0); MEAN PLT VOLUME 9.6 fl (7.5-11.1); NEUTROPHILS 60.8 % (42.8-82.8); PLATELET COUNT 138 K/MM3 (134-434); WHITE BLOOD COUNT 5.8 K/mm3 (4.0-10.0)
[2017-04-01 08:00] LABS: INR 3.34 (0.82-1.09); PROTHROMBIN TIME (PATIENT) 37.6 SEC (9.98-11.88)
[2017-04-01 08:03] LABS: ACTIVATED PTT 64.9 SECONDS (26.9-34.4)
--- NOTE | 2017-04-01 08:30 | PN ---
Progress Note (short form) - Note Progress Note: CBC, BMP 04/01/17 07:00 03/31/17 07:45 INR 3.35 Vital Signs Period Temp Pulse Resp BP Sys/Beck Pulse Ox Last 24 Hr 97.9 F-98.0 F 62-66 18-20 107-157/47-87 93-96 S1S2 RRR LUNGS CTA no pedal edema abd soft NT +BS wounds clean with minimal slough nausea resolved Imp/plan Heparin Induced Thrombocytopenia-slowly improving, continue argatroban 7.5 mg warfarin tonight platelet count fluctuating needs argatroban drip until INR is 4 local wound care with silvadene recent bilateral pulmonary embolism following reconstructive breast surgery after mastectomy. Paget's disease of the breast NIDDM HTN h/o afib-paroxysmal with PE diagnosis-none on telemetry during this admission Problem List - Problems (1) PAF (paroxysmal atrial fibrillation) Code(s): I48.0 - PAROXYSMAL ATRIAL FIBRILLATION (2) Pulmonary emboli Code(s): I26.99 - OTHER PULMONARY EMBOLISM WITHOUT ACUTE COR PULMONALE Qualifiers: Pulmonary embolism type: other (3) Breast CA Code(s): C50.919 - MALIGNANT NEOPLASM OF UNSP SITE OF UNSPECIFIED FEMALE BREAST Qualifiers: Patient sex: female Laterality: right (4) Diabetes Code(s): E11.9 - TYPE 2 DIABETES MELLITUS WITHOUT COMPLICATIONS Qualifiers: Diabetes mellitus type: type 2 Diabetes mellitus complication status: without complication Diabetes mellitus ad terminal makeup operator insulin use: without ad terminal makeup operator use Qualified Code(s): E11.9 - Type 2 diabetes mellitus without complications; E11.9 - Type 2 diabetes mellitus without complications; E11.9 - Type 2 diabetes mellitus without complications; E11.9 - Type 2 diabetes mellitus without complications (5) HTN (hypertension) Code(s): I10 - ESSENTIAL (PRIMARY) HYPERTENSION Qualifiers: Hypertension type: essential hypertension Qualified Code(s): I10 - Essential (primary) hypertension; I10 - Essential (primary) hypertension; I10 - Essential (primary) hypertension
[2017-04-01] MEDS: LOSARTAN POTASSIUM 50 MG TABLET (FP) PO SCH (09:56)
[2017-04-01] MEDS: LACTOBACILLUS ACIDOPHILUS 1 EACH TAB (FP) PO SCH (09:56)
[2017-04-01] MEDS: ARGATROBAN - 250,000 MCG in SODIUM CHLORIDE 247.5 ML IVPB SCH (09:57)
[2017-04-01] MEDS: BACITRACIN 15 GM TUBE TOPICAL OINTMENT TP SCH (09:58)
[2017-04-01] MEDS: SILVER SULFADIAZINE 1% TOP CREAM 50 GM JAR TP SCH (09:58)
--- NOTE | 2017-04-01 13:49 | PN ---
Progress Note, Physician History of Present Illness: pulmonary alert,no distress,-sob,-cough - Current Medication List Current Medications: Active Medications Allopurinol (Zyloprim -) 300 mg PO HS [facility] Last Admin: 03/31/17 22:04 Dose: 300 mg Bacitracin (Bacitracin -) 1 applic TP DAILY [facility] Last Admin: 04/01/17 09:58 Dose: Not Given Diltiazem HCl (Cardizem Cd -) 120 mg PO DAILY [facility] Last Admin: 04/01/17 09:56 Dose: 120 mg Argatroban 250,000 mcg/ Sodium (Chloride) 250 mls @ 16.59 mls/hr IVPB TITR NICOLÁS ; 2.4 MCG/KG/MIN PRN Reason: Protocol Last Admin: 04/01/17 09:57 Dose: 15 mls/hr Lactobacillus Acidophilus (Bacid -) 2 tab PO DAILY [facility] Last Admin: 04/01/17 09:56 Dose: 2 tab Losartan Potassium (Cozaar -) 50 mg PO DAILY [facility] Last Admin: 04/01/17 09:56 Dose: 50 mg Melatonin (Melatonin) 5 mg PO HS [facility] Last Admin: 03/31/17 22:04 Dose: 5 mg Metoprolol Succinate (Toprol Xl -) 25 mg PO HS [facility] Last Admin: 03/31/17 22:04 Dose: 25 mg Ondansetron HCl (Zofran -) 4 mg PO QID PRN PRN Reason: NAUSEA Last Admin: 03/30/17 21:59 Dose: 4 mg Silver Sulfadiazine (Silvadene -) 1 applic TP DAILY [facility] Last Admin: 04/01/17 09:58 Dose: 1 applic Warfarin Sodium (Coumadin -) 7.5 mg PO ONCE@1800 ONE Stop: 04/01/17 18:01 - Objective Vital Signs: Vital Signs Temperature 97.6 F 04/01/17 09:00 Pulse Rate 59 L 04/01/17 09:00 Respiratory Rate 20 04/01/17 09:00 Blood Pressure 127/74 04/01/17 09:00 O2 Sat by Pulse Oximetry (%) 96 03/31/17 23:37 Constitutional: Yes: Well Nourished, Calm Eyes: Yes: WNL HENT: Yes: WNL Neck: Yes: WNL Cardiovascular: Yes: Regular Rate and Rhythm, S1, S2 Respiratory: Yes: Diminished Gastrointestinal: Yes: Normal Bowel Sounds, Soft Extremities: Yes: WNL Edema: Yes Labs: CBC, BMP 04/01/17 07:00 03/31/17 07:45 INR, PTT INR 3.34 (0.82-1.09) H 04/01/17 07:00 Fibrinogen 176.0 mg/dL (238-498) L 03/09/17 18:00 Problem List - Problems (1) ABENA (obstructive sleep apnea) Code(s): G47.33 - OBSTRUCTIVE SLEEP APNEA (ADULT) (PEDIATRIC) (2) PAF (paroxysmal atrial fibrillation) Code(s): I48.0 - PAROXYSMAL ATRIAL FIBRILLATION (3) Pulmonary emboli Code(s): I26.99 - OTHER PULMONARY EMBOLISM WITHOUT ACUTE COR PULMONALE Qualifiers: Pulmonary embolism type: other (4) Breast CA Code(s): C50.919 - MALIGNANT NEOPLASM OF UNSP SITE OF UNSPECIFIED FEMALE BREAST Qualifiers: Patient sex: female Laterality: right (5) Diabetes Code(s): E11.9 - TYPE 2 DIABETES MELLITUS WITHOUT COMPLICATIONS Qualifiers: Diabetes mellitus type: type 2 Diabetes mellitus complication status: without complication Diabetes mellitus long term care administrator insulin use: without fci use Qualified Code(s): E11.9 - Type 2 diabetes mellitus without complications; E11.9 - Type 2 diabetes mellitus without complications; E11.9 - Type 2 diabetes mellitus without complications; E11.9 - Type 2 diabetes mellitus without complications (6) HTN (hypertension) Code(s): I10 - ESSENTIAL (PRIMARY) HYPERTENSION Qualifiers: Hypertension type: essential hypertension Qualified Code(s): I10 - Essential (primary) hypertension; I10 - Essential (primary) hypertension; I10 - Essential (primary) hypertension (7) Obesity Code(s): E66.9 - OBESITY, UNSPECIFIED (8) Thrombocytopenia Code(s): D69.6 - THROMBOCYTOPENIA, UNSPECIFIED Assessment/Plan Progress Note: PULMONARY IMP THROMBOCYTOPENIA , HIT improved RECENT BILATERAL EMBOLI PROVOKED BREAST CA S/P MASTECTOMY OSAS DM PULMONARY HTN PLAN MONITOR PLT CT CONTINUE ARGATROBAN COUMADIN PER ARCHANA GONZALEZ Problem List - Problems (1) ABENA (obstructive sleep apnea) Code(s): G47.33 - OBSTRUCTIVE SLEEP APNEA (ADULT) (PEDIATRIC) (2) PAF (paroxysmal atrial fibrillation) Code(s): I48.0 - PAROXYSMAL ATRIAL FIBRILLATION (3) Pulmonary emboli Code(s): I26.99 - OTHER PULMONARY EMBOLISM WITHOUT ACUTE COR PULMONALE (4) Breast CA Code(s): C50.919 - MALIGNANT NEOPLASM OF UNSP SITE OF UNSPECIFIED FEMALE BREAST (5) Diabetes Code(s): E11.9 - TYPE 2 DIABETES MELLITUS WITHOUT COMPLICATIONS (6) HTN (hypertension) Code(s): I10 - ESSENTIAL (PRIMARY) HYPERTENSION (7) Obesity Code(s): E66.9 - OBESITY, UNSPECIFIED (8) Thrombocytopenia Code(s): D69.6 - THROMBOCYTOPENIA, UNSPECIFIED
--- NOTE | 2017-04-01 14:44 | PN ---
Progress Note (short form) - Note Progress Note: Patient seen and examined slight discharge from umblical wound Last Vital Signs Temp Pulse Resp BP Pulse Ox 97.6 F 59 L 20 127/74 96 04/01/17 09:00 04/01/17 09:00 04/01/17 09:00 04/01/17 09:00 04/01/17 09:00 Breasts: right breast reconstruction. Incision is healing Cor: RSR, No murmurs, No gallops Lungs: Clear to P&A Abd: Soft, Normal bowel sounds, healing abdominal incision Ext:No significant edema wounds --RT. lower adomen, Rt. breast look clean umblical woud some discharge Abnormal Lab Results 04/01/17 04/01/17 07:00 07:00 Hgb 10.5 L Hct 32.1 L PT with INR 37.60 H INR 3.34 H PTT (Actin FS) 64.9 H Home Medication List Medication Instructions Recorded Confirmed Type Allopurinol 300 mg PO DAILY 01/18/17 03/09/17 History Metformin HCl 500 mg PO BID 01/18/17 03/09/17 History Multivitamins [Multivit ([facility] 1 tab PO DAILY 01/18/17 03/09/17 History Formulary)] Active Medications Generic Name Dose Route Start Last Admin Trade Name Brendan PRN Reason Stop Dose Admin Allopurinol 300 mg 03/19/17 22:00 03/31/17 22:04 Zyloprim - PO 300 mg HS NICOLÁS Administration Bacitracin 1 applic 03/19/17 10:00 04/01/17 09:58 Bacitracin - TP Not Given DAILY NICOLÁS Diltiazem HCl 120 mg 03/19/17 10:00 04/01/17 09:56 Cardizem Cd - PO 120 mg DAILY NICOLÁS Administration Argatroban 250,000 mcg/ Sodium 250 mls @ 16.59 mls/hr 03/24/17 09:45 04/01/17 09:57 Chloride IVPB 15 mls/hr TITR NICOLÁS Administration Protocol 2.4 MCG/KG/MIN Lactobacillus Acidophilus 2 tab 03/19/17 10:00 04/01/17 09:56 Bacid - PO 2 tab DAILY NICOLÁS Administration Losartan Potassium 50 mg 03/19/17 10:00 04/01/17 09:56 Cozaar - PO 50 mg DAILY NICOLÁS Administration Melatonin 5 mg 03/19/17 22:00 03/31/17 22:04 Melatonin PO 5 mg HS NICOLÁS Administration Metoprolol Succinate 25 mg 03/19/17 22:00 03/31/17 22:04 Toprol Xl - PO 25 mg HS NICOLÁS Administration Ondansetron HCl 4 mg 03/30/17 21:23 03/30/17 21:59 Zofran - PO 4 mg QID PRN Administration NAUSEA Silver Sulfadiazine 1 applic 03/19/17 10:00 04/01/17 09:58 Silvadene - TP 1 applic DAILY NICOLÁS Administration Warfarin Sodium 7.5 mg 04/01/17 18:00 Coumadin - PO 04/01/17 18:01 ONCE@1800 ONE A/P 66 y/o patient s/p Rt. 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
--- NOTE | 2017-04-01 17:09 | PN ---
Progress Note, Physician Chief Complaint: Pt sitting in chair; no chest pain or dyspnea. Disappointed she may not be sent home this weekend, but "I can finally see a light at the end of the tunnel". History of Present Illness: The patient is a 66 year old white female, with a significant past medical history of PE after breast surgery earlier this year (on lovenox), PAF (at least 3 episodes), HTN, diabetes mellitus, obesity, gout, presumed obstructive sleep apnea, and breast cancer s/p right mastectomy around 7 weeks ago (January 20 ) who was referred to the emergency department by her PCP due to low blood platelet count. She states she was started on lovenox 2 weeks ago when she was diagnosed with acute PE. Patient denies currently experiencing any chest pain or palpitations but admits to SOB from time to time. She denies experiencing any new bruises. She denies recent fevers, chills, headache or dizziness. She denies recent nausea, vomit, diarrhea or constipation. She denies recent dysuria, frequency, urgency or hematuria. She denies recent chest pain. Allergies: NKA Past surgical history: Right mastectomy Social history: Nonsmoker. Denies EtOH use and recreational drug use. Primary Care Physician: Carrie Price M.D. - Current Medication List Current Medications: Active Medications Allopurinol (Zyloprim -) 300 mg PO HS [facility] Last Admin: 03/31/17 22:04 Dose: 300 mg Bacitracin (Bacitracin -) 1 applic TP DAILY [facility] Last Admin: 04/01/17 09:58 Dose: Not Given Diltiazem HCl (Cardizem Cd -) 120 mg PO DAILY [facility] Last Admin: 04/01/17 09:56 Dose: 120 mg Argatroban 250,000 mcg/ Sodium (Chloride) 250 mls @ 16.59 mls/hr IVPB TITR [facility] ; 2.4 MCG/KG/MIN PRN Reason: Protocol Last Admin: 04/01/17 09:57 Dose: 15 mls/hr Lactobacillus Acidophilus (Bacid -) 2 tab PO DAILY [facility] Last Admin: 04/01/17 09:56 Dose: 2 tab Losartan Potassium (Cozaar -) 50 mg PO DAILY [facility] Last Admin: 04/01/17 09:56 Dose: 50 mg Melatonin (Melatonin) 5 mg PO [facility] Last Admin: 03/31/17 22:04 Dose: 5 mg Metoprolol Succinate (Toprol Xl -) 25 mg PO HS [facility] Last Admin: 03/31/17 22:04 Dose: 25 mg Ondansetron HCl (Zofran -) 4 mg PO QID PRN PRN Reason: NAUSEA Last Admin: 03/30/17 21:59 Dose: 4 mg Silver Sulfadiazine (Silvadene -) 1 applic TP DAILY [facility] Last Admin: 04/01/17 09:58 Dose: 1 applic Warfarin Sodium (Coumadin -) 7.5 mg PO ONCE@1800 ONE Stop: 04/01/17 18:01 - Objective Vital Signs: Vital Signs Temperature 97.6 F 04/01/17 09:00 Pulse Rate 59 L 04/01/17 09:00 Respiratory Rate 20 04/01/17 09:00 Blood Pressure 127/74 04/01/17 09:00 O2 Sat by Pulse Oximetry (%) 96 04/01/17 09:00 Constitutional: Yes: Calm Eyes: Yes: WNL HENT: Yes: WNL Neck: Yes: WNL Cardiovascular: Yes: Regular Rate and Rhythm Respiratory: Yes: WNL Gastrointestinal: Yes: Soft, Abdomen, Obese ...Rectal Exam: Yes: Deferred Genitourinary: No: Anuria Breast(s): Yes: Other (s/p right mastectomy and reconstruction) Musculoskeletal: Yes: Muscle Weakness Extremities: Yes: Cool Edema: Yes Edema: LLE: Trace, RLE: Trace Peripheral Pulses WNL: Yes Integumentary: Yes: Incision Wound/Incision: Yes: Draining Neurological: Yes: WNL Psychiatric: Yes: WNL Labs: CBC, BMP 04/01/17 07:00 03/31/17 07:45 INR, PTT INR 3.34 (0.82-1.09) H 04/01/17 07:00 Fibrinogen 176.0 mg/dL (238-498) L 03/09/17 18:00 Abnormal Lab Results 04/01/17 04/01/17 07:00 07:00 Hgb 10.5 L Hct 32.1 L PT with INR 37.60 H INR 3.34 H PTT (Actin FS) 64.9 H Problem List - Problems (1) Cellulitis Code(s): L03.90 - CELLULITIS, UNSPECIFIED (2) ABENA (obstructive sleep apnea) Assessment/Plan: sleep studies. Code(s): G47.33 - OBSTRUCTIVE SLEEP APNEA (ADULT) (PEDIATRIC) (3) Chronic instability of right knee Code(s): M23.51 - CHRONIC INSTABILITY OF KNEE, RIGHT KNEE (4) PAF (paroxysmal atrial fibrillation) Assessment/Plan: On diltiazem for HR control. Warfarin restarted, will likely have to be lifetime, given her having had several episodes of PAF. Goal is INR 4 or greater before stopping argatroban; presently 3.4. Plts have increased to 140. Code(s): I48.0 - PAROXYSMAL ATRIAL FIBRILLATION (5) Pulmonary emboli Assessment/Plan: On argatraban until warfarin raises INR to 4 or greater. Code(s): I26.99 - OTHER PULMONARY EMBOLISM WITHOUT ACUTE COR PULMONALE Qualifiers: Pulmonary embolism type: other (6) Breast CA Code(s): C50.919 - MALIGNANT NEOPLASM OF UNSP SITE OF UNSPECIFIED FEMALE BREAST Qualifiers: Patient sex: female Laterality: right (7) Diabetes Code(s): E11.9 - TYPE 2 DIABETES MELLITUS WITHOUT COMPLICATIONS Qualifiers: Diabetes mellitus type: type 2 Diabetes mellitus complication status: without complication Diabetes mellitus buttermaker continuous churn insulin use: without buttermaker continuous churn use Qualified Code(s): E11.9 - Type 2 diabetes mellitus without complications; E11.9 - Type 2 diabetes mellitus without complications; E11.9 - Type 2 diabetes mellitus without complications; E11.9 - Type 2 diabetes mellitus without complications (8) Diastolic CHF Code(s): I50.30 - UNSPECIFIED DIASTOLIC (CONGESTIVE) HEART FAILURE (9) HTN (hypertension) Code(s): I10 - ESSENTIAL (PRIMARY) HYPERTENSION Qualifiers: Hypertension type: essential hypertension Qualified Code(s): I10 - Essential (primary) hypertension; I10 - Essential (primary) hypertension; I10 - Essential (primary) hypertension (10) Hypertriglyceridemia Code(s): E78.1 - PURE HYPERGLYCERIDEMIA (11) Obesity Code(s): E66.9 - OBESITY, UNSPECIFIED (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
[2017-04-01] MEDS ORDERED: WARFARIN NA 7.5 MG TABLET (FP) PO ONE (18:00)
[2017-04-01] MEDS: ALLOPURINOL 300 MG TABLET (FP) PO SCH (21:39)
[2017-04-01] MEDS: METOPROLOL SUCCINATE 25 MG TAB.SR.24H (FP) PO SCH (21:39)
[2017-04-01] MEDS: MELATONIN 5 MG TABLETS PO SCH (21:39)
[2017-04-02 08:23] LABS: BASOPHIL 0.5 % (0-2.0); EOSINOPHIL 3.5 % (0-4.5); MCHC 32.6 g/dl (32.0-36.0); MEAN CELL VOLUME 89.1 fl (80-96); NEUTROPHILS 68.6 % (42.8-82.8); PLATELET COUNT 173 K/MM3 (134-434)
[2017-04-02 08:42] LABS: PROTHROMBIN TIME (PATIENT) 45.7 SEC (9.98-11.88)
[2017-04-02 09:00] LABS: ACTIVATED PTT 75.6 SECONDS (26.9-34.4)
[2017-04-02 09:01] LABS: INR 4.04 (0.82-1.09)
[2017-04-02] MEDS: ARGATROBAN - 250,000 MCG in SODIUM CHLORIDE 247.5 ML IVPB SCH (11:00)
[2017-04-02] MEDS ORDERED: PT OWN MED DRAWER 7, Y5N ONE ×3 (11:05→22:33)
[2017-04-02] MEDS: LOSARTAN POTASSIUM 50 MG TABLET (FP) PO SCH (11:38)
[2017-04-02] MEDS: LACTOBACILLUS ACIDOPHILUS 1 EACH TAB (FP) PO SCH (11:38)
--- NOTE | 2017-04-02 11:40 | CONSULT ---
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 Her breast and umbilical wounds are still healing and surgical consult made. - History Source History Provided By: Patient Limitations to Obtaining History: No Limitations - Past Medical History Cardio/Vascular: Yes: AFIB (paroxysmal while with PE), HTN Pulmonary: Yes: Pulmonary Embolus (2017), Other (likely osas). No: Asthma, COPD , O2 Dependent, Pneumonia, Pulmonary Fibrosis Heme/Onc: Yes: Other (Patient with initial history of right breast DCIS in 1990 and underwent partial mastectomy followed by XRT for DCIS. 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 and underwent the right breast total mastectomy and CAT flap reconstruction on January 20, 2017.) Musculoskeletal: Yes: Other (pagets/gout) Rheumatology: Yes: Gout Endocrine: Yes: Diabetes Mellitus (type two) - Past Surgical History Past Surgical History: Yes: , Mastectomy (right with reconstruction 01.20.17) - Alcohol/Substance Use Hx Alcohol Use: No - Smoking History Smoking history: Never smoked Have you smoked in the past 12 months: No If you are a former smoker, when did you quit?: 40YRS AGO - Social History Usual Living Arrangement: With Spouse ADL: Independent History of Recent Travel: No Home Medications - Allergies Allergies/Adverse Reactions: Allergies Allergy/AdvReac Type Severity Reaction Status Date / Time enoxaparin sodium Allergy Verified 03/09/17 17:55 [From Lovenox] heparin Allergy Verified 03/09/17 17:47 - Home Medications Home Medications: Ambulatory Orders Allopurinol 300 mg PO DAILY 01/18/17 Metformin HCl 500 mg PO BID 01/18/17 Multivitamins [Multivit ([facility] Formul[facility])] 1 tab PO DAILY 01/18/17 Diltiazem Cd [Cardizem Cd -] 120 mg PO DAILY #30 cap.cd.24h 02/25/17 Enoxaparin Sodium [Lovenox] 110 mg SQ BID #60 vial 02/25/17 Fenofibric Acid [Trilipix -] 135 mg PO DAILY #30 cap 02/25/17 Losartan Potassium [Cozaar -] 50 mg PO DAILY #30 tablet 02/25/17 Metoprolol Succinate [Toprol Xl -] 25 mg PO DAILY #30 tab.sr.24h 02/25/17 Family Disease History - Family Disease History Family Disease History: Heart Disease: Mother (CRC 82; colon cancer), CA: Grandparent (mat GF gastric ca 93), Mother, Other: Brother (CVA) Review of Systems - Review of Systems Breasts: reports: Other (Still with healing wounds on right CAT flap and umbilical wounds) Physical Exam Vital Signs: Vital Signs Temperature 97.7 F 04/02/17 06:48 Pulse Rate 68 04/02/17 06:48 Respiratory Rate 20 04/02/17 06:48 Blood Pressure 116/62 04/02/17 06:48 O2 Sat by Pulse Oximetry (%) 98 04/01/17 21:00 Constitutional: Yes: Well Nourished, No Distress Eyes: Yes: WNL HENT: Yes: Atraumatic, Normocephalic Neck: Yes: WNL Cardiovascular: Yes: Other (Paroxysmal A-fib) Respiratory: Yes: Regular, CTA Bilaterally Gastrointestinal: Yes: Normal Bowel Sounds, Soft ...Rectal Exam: Yes: Deferred Renal/: Yes: WNL Breast(s): Yes: Other (Right breast CAT flap with small area of open granulating wound on medial aspect. Umbilical wound with some fibrin but clean and healing) Musculoskeletal: Yes: WNL Extremities: Yes: WNL Wound/Incision: Yes: Clean/Dry, Other (Ganulating breast wound and healing umbilical wound) Neurological: Yes: WNL Psychiatric: Yes: Alert, Oriented Labs: CBC, BMP 04/02/17 06:00 03/31/17 07:45 Problem List - Problems (1) Breast CA Assessment/Plan: The patient is feeling well today and I examined her wounds. The breast CAT wound is granulating well. Typically would consider a skin graft at this point but given the PE and HIT syndrome, will just let heal by secondary intention. The umbilical wound is almost completely healed. I agree with current wound care with saline wet-dry dressings. Patient can shower with current wounds. Just replace dressings after shower. Current INR in range and thrombin inhibitor stopped. Likely discharge soon. On discharge, the patient has appointment to see me in [address] Ashley as well within the next month. Code(s): C50.919 - MALIGNANT NEOPLASM OF UNSP SITE OF UNSPECIFIED FEMALE BREAST Qualifiers: Breast location: combined nipple and areola Patient sex: female Laterality: right Qualified Code(s): C50.011 - Malignant neoplasm of nipple and areola, right female breast; C50.011 - Malignant neoplasm of nipple and areola, right female breast; C50.011 - Malignant neoplasm of nipple and areola, right female breast; C50.011 - Malignant neoplasm of nipple and areola, right female breast; Z17.0 - Estrogen receptor positive status [ER+]; Z17.0 - Estrogen receptor positive status [ER+]
[2017-04-02] MEDS: BACITRACIN 15 GM TUBE TOPICAL OINTMENT TP SCH (11:50)
[2017-04-02] MEDS: SILVER SULFADIAZINE 1% TOP CREAM 50 GM JAR TP SCH (11:51)
--- NOTE | 2017-04-02 12:28 | PN ---
Progress Note (short form) - Note Progress Note: Patient seen and examined. feels well. no complains. Cor: RSR, No murmurs, No gallops Lungs: Clear to P&A Ext:No significant edema Skin: No rashes, Integument intact CBC, BMP 04/02/17 06:00 03/31/17 07:45 Current Medications Generic Name Dose Route Start Last Admin Trade Name Freq PRN Reason Stop Dose Admin Allopurinol 300 mg 03/19/17 22:00 04/01/17 21:39 Zyloprim - PO 300 mg HS [facility] Administration Bacitracin 1 applic 03/19/17 10:00 04/02/17 11:50 Bacitracin - TP Not Given DAILY [facility] Diltiazem HCl 120 mg 03/19/17 10:00 04/02/17 11:38 Cardizem Cd - PO 120 mg DAILY [facility] Administration Argatroban 250,000 mcg/ Sodium 250 mls @ 16.59 mls/hr 03/24/17 09:45 04/02/17 11:00 Chloride IVPB Not Given TITR N[facility]S Protocol 2.4 MCG/KG/MIN Lactobacillus Acidophilus 2 tab 03/19/17 10:00 04/02/17 11:38 Bacid - PO 2 tab DAILY [facility] Administration Losartan Potassium 50 mg 03/19/17 10:00 04/02/17 11:38 Cozaar - PO 50 mg DAILY [facility] Administration Melatonin 5 mg 03/19/17 22:00 04/01/17 21:39 Melatonin PO 5 mg HS [facility] Administration Metoprolol Succinate 25 mg 03/19/17 22:00 04/01/17 21:39 Toprol Xl - PO 25 mg HS [facility] Administration Ondansetron HCl 4 mg 03/30/17 21:23 03/30/17 21:59 Zofran - PO 4 mg QID PRN Administration NAUSEA Silver Sulfadiazine 1 applic 03/19/17 10:00 04/02/17 11:51 Silvadene - TP Not Given DAILY [facility] Warfarin Sodium 7.5 mg 04/02/17 18:00 Coumadin - PO 04/02/17 18:01 ONCE@1800 ONE Last Vital Signs Temp Pulse Resp BP Pulse Ox 97.7 F 68 20 116/62 98 04/02/17 06:48 04/02/17 06:48 04/02/17 06:48 04/02/17 06:48 04/01/17 21:00 INR, PTT INR 4.04 (0.82-1.09) H* 04/02/17 06:00 Fibrinogen 176.0 mg/dL (238-498) L 03/09/17 18:00 A/P 66 y/o patient s/p Rt. mastectomy/breast reconstruction--01/20 presented with palpitations/afib --02/20 Diagnosed with b/l PE 02/23, presented with worsening thrombocytopenia 03/09 HIT confirmed with HIT ab on argatroban -- PTT-therapeutic coumadin 7.5 stop argatroban , repeat INR plan pending repeat INR. seen by SurgOnc d/w and communicated with RN
[2017-04-02 16:16] LABS: INR 2.86 (0.82-1.09); PROTHROMBIN TIME (PATIENT) 32.1 SEC (9.98-11.88)
[2017-04-02] MEDS ORDERED: WARFARIN NA 7.5 MG TABLET (FP) PO ONE (18:00)
--- NOTE | 2017-04-02 18:04 | PN ---
Progress Note (short form) - Note Progress Note: patient is better no distress no bleeding vs Vital Signs Period Temp Pulse Resp BP Sys/Beck Pulse Ox Last 24 Hr 97.7 F-98.9 F 62-69 20-20 116-135/62-82 97-98 CBC, BMP 04/02/17 06:00 03/31/17 07:45 Laboratory 03/26/17 03/26/17 03/26/17 21:44 21:44 21:44 WBC 7.6 K/mm3 K/mm3 (4.0-10.0) RBC 3.78 M/mm3 M/mm3 (3.60-5.2) Hgb 11.2 GM/dL GM/dL (10.7-15.3) Hct 33.4 % % (32.4-45.2) MCV 88.4 fl fl (80-96) MCH 29.7 pg pg (25.7-33.7) MCHC 33.6 g/dl g/dl (32.0-36.0) RDW 13.7 % % (11.6-15.6) Plt Count 123 K/MM3 L K/MM3 (134-434) MPV 8.7 fl fl (7.5-11.1) Neutrophils % 62.7 % % (42.8-82.8) Lymphocytes % 26.6 % % (8-40) Monocytes % 6.8 % % (3.8-10.2) Eosinophils % 3.3 % % (0-4.5) Basophils % 0.6 % % (0-2.0) PT with INR 17.80 SEC H SEC (9.98-11.88) INR 1.60 H D (0.82-1.09) PTT (Actin FS) 56.2 SECONDS H D SECONDS (26.9-34.4) Sodium Cancelled Potassium Cancelled Chloride Cancelled Carbon Dioxide Cancelled Anion Gap Cancelled BUN Cancelled Creatinine Cancelled Creat Clearance w eGFR Cancelled POC Glucometer Random Glucose Cancelled Calcium Cancelled Total Bilirubin Cancelled AST Cancelled ALT Cancelled Alkaline Phosphatase Cancelled Total Protein Cancelled Albumin Cancelled 03/26/17 03/27/17 03/27/17 23:30 06:01 08:34 WBC 6.9 K/mm3 K/mm3 (4.0-10.0) RBC 4.09 M/mm3 M/mm3 (3.60-5.2) Hgb 12.1 GM/dL GM/dL (10.7-15.3) Hct 36.2 % % (32.4-45.2) MCV 88.6 fl fl (80-96) MCH 29.6 pg pg (25.7-33.7) MCHC 33.4 g/dl g/dl (32.0-36.0) RDW 13.8 % % (11.6-15.6) Plt Count 135 K/MM3 K/MM3 (134-434) MPV 8.8 fl fl (7.5-11.1) Neutrophils % 69.2 % % (42.8-82.8) Lymphocytes % 20.9 % D % (8-40) Monocytes % 5.5 % % (3.8-10.2) Eosinophils % 3.6 % % (0-4.5) Basophils % 0.8 % % (0-2.0) PT with INR INR PTT (Actin FS) Sodium 141 mmol/L mmol/L (136-145) Potassium 4.0 mmol/L mmol/L (3.5-5.1) Chloride 102 mmol/L mmol/L (98-107) Carbon Dioxide 28 mmol/L mmol/L (21-32) Anion Gap 11 (8-16) BUN 20 mg/dL H D mg/dL (7-18) Creatinine 1.1 mg/dL H mg/dL (0.55-1.02) Creat Clearance w eGFR 50.01 (>60) POC Glucometer 121 UNITS UNITS (()) Random Glucose 128 mg/dL H mg/dL (74-106) Calcium 8.8 mg/dL mg/dL (8.5-10.1) Total Bilirubin 0.2 mg/dL D mg/dL (0.2-1.0) AST 15 U/L D U/L (15-37) ALT 24 U/L U/L (12-78) Alkaline Phosphatase 75 U/L U/L (45-117) Total Protein 6.4 g/dl g/dl (6.4-8.2) Albumin 3.4 g/dl g/dl (3.4-5.0) 03/27/17 03/28/17 03/28/17 08:34 05:59 07:00 WBC 7.7 K/mm3 K/mm3 (4.0-10.0) RBC 3.95 M/mm3 M/mm3 (3.60-5.2) Hgb 11.6 GM/dL GM/dL (10.7-15.3) Hct 34.9 % % (32.4-45.2) MCV 88.3 fl fl (80-96) MCH 29.4 pg pg (25.7-33.7) MCHC 33.3 g/dl g/dl (32.0-36.0) RDW 13.9 % % (11.6-15.6) Plt Count 142 K/MM3 K/MM3 (134-434) MPV 9.4 fl fl (7.5-11.1) Neutrophils % 68.5 % % (42.8-82.8) Lymphocytes % 21.7 % % (8-40) Monocytes % 5.8 % % (3.8-10.2) Eosinophils % 3.4 % % (0-4.5) Basophils % 0.6 % % (0-2.0) PT with INR 19.40 SEC H SEC (9.98-11.88) INR 1.74 H (0.82-1.09) PTT (Actin FS) 60.2 SECONDS H SECONDS (26.9-34.4) Sodium Potassium Chloride Carbon Dioxide Anion Gap BUN Creatinine Creat Clearance w eGFR POC Glucometer 138 UNITS UNITS (()) Random Glucose Calcium Total Bilirubin AST ALT Alkaline Phosphatase Total Protein Albumin 03/28/17 03/29/17 03/29/17 07:00 06:18 06:30 WBC 6.6 K/mm3 K/mm3 (4.0-10.0) RBC 3.68 M/mm3 M/mm3 (3.60-5.2) Hgb 10.9 GM/dL GM/dL (10.7-15.3) Hct 32.5 % % (32.4-45.2) MCV 88.3 fl fl (80-96) MCH 29.6 pg pg (25.7-33.7) MCHC 33.5 g/dl g/dl (32.0-36.0) RDW 13.9 % % (11.6-15.6) Plt Count 123 K/MM3 L K/MM3 (134-434) MPV 9.4 fl fl (7.5-11.1) Neutrophils % 65.9 % % (42.8-82.8) Lymphocytes % 22.8 % % (8-40) Monocytes % 7.0 % % (3.8-10.2) Eosinophils % 3.8 % % (0-4.5) Basophils % 0.5 % % (0-2.0) PT with INR 17.70 SEC H SEC (9.98-11.88) INR 1.59 H (0.82-1.09) PTT (Actin FS) 52.4 SECONDS H SECONDS (26.9-34.4) Sodium Potassium Chloride Carbon Dioxide Anion Gap BUN Creatinine Creat Clearance w eGFR POC Glucometer 134 UNITS UNITS (()) Random Glucose Calcium Total Bilirubin AST ALT Alkaline Phosphatase Total Protein Albumin 03/29/17 03/29/17 03/29/17 06:30 06:30 16:10 WBC 8.2 K/mm3 K/mm3 (4.0-10.0) RBC 3.84 M/mm3 M/mm3 (3.60-5.2) Hgb 11.6 GM/dL GM/dL (10.7-15.3) Hct 34.1 % % (32.4-45.2) MCV 88.6 fl fl (80-96) MCH 30.1 pg pg (25.7-33.7) MCHC 33.9 g/dl g/dl (32.0-36.0) RDW 14.0 % % (11.6-15.6) Plt Count 157 K/MM3 D K/MM3 (134-434) MPV 9.4 fl fl (7.5-11.1) Neutrophils % Lymphocytes % Monocytes % Eosinophils % Basophils % PT with INR 19.00 SEC H SEC (9.98-11.88) INR 1.71 H (0.82-1.09) PTT (Actin FS) 52.1 SECONDS H SECONDS (26.9-34.4) Sodium 140 mmol/L mmol/L (136-145) Potassium 3.9 mmol/L mmol/L (3.5-5.1) Chloride 107 mmol/L mmol/L (98-107) Carbon Dioxide 26 mmol/L mmol/L (21-32) Anion Gap 7 L (8-16) BUN 17 mg/dL mg/dL (7-18) Creatinine 1.0 mg/dL mg/dL (0.55-1.02) Creat Clearance w eGFR 55.82 (>60) POC Glucometer Random Glucose 129 mg/dL H mg/dL (74-106) Calcium 8.6 mg/dL mg/dL (8.5-10.1) Total Bilirubin 0.4 mg/dL D mg/dL (0.2-1.0) AST 12 U/L L U/L (15-37) ALT 22 U/L U/L (12-78) Alkaline Phosphatase 71 U/L U/L (45-117) Total Protein 5.8 g/dl L g/dl (6.4-8.2) Albumin 2.9 g/dl L g/dl (3.4-5.0) 03/30/17 03/30/17 03/30/17 06:56 07:20 07:20 WBC 6.1 K/mm3 K/mm3 (4.0-10.0) RBC 3.61 M/mm3 M/mm3 (3.60-5.2) Hgb 10.7 GM/dL GM/dL (10.7-15.3) Hct 32.2 % L % (32.4-45.2) MCV 89.2 fl fl (80-96) MCH 29.6 pg pg (25.7-33.7) MCHC 33.1 g/dl g/dl (32.0-36.0) RDW 13.9 % % (11.6-15.6) Plt Count 123 K/MM3 L D K/MM3 (134-434) MPV 9.0 fl fl (7.5-11.1) Neutrophils % 62.8 % % (42.8-82.8) Lymphocytes % 26.1 % % (8-40) Monocytes % 6.6 % % (3.8-10.2) Eosinophils % 3.9 % % (0-4.5) Basophils % 0.6 % % (0-2.0) PT with INR 29.10 SEC H SEC (9.98-11.88) INR 2.59 H D (0.82-1.09) PTT (Actin FS) 59.3 SECONDS H SECONDS (26.9-34.4) Sodium Potassium Chloride Carbon Dioxide Anion Gap BUN Creatinine Creat Clearance w eGFR POC Glucometer 131 UNITS UNITS (()) Random Glucose Calcium Total Bilirubin AST ALT Alkaline Phosphatase Total Protein Albumin 03/31/17 03/31/17 03/31/17 05:44 07:45 07:45 WBC 6.1 K/mm3 K/mm3 (4.0-10.0) RBC 3.82 M/mm3 M/mm3 (3.60-5.2) Hgb 11.1 GM/dL GM/dL (10.7-15.3) Hct 33.9 % % (32.4-45.2) MCV 88.9 fl fl (80-96) MCH 29.0 pg pg (25.7-33.7) MCHC 32.6 g/dl g/dl (32.0-36.0) RDW 13.8 % % (11.6-15.6) Plt Count 140 K/MM3 K/MM3 (134-434) MPV 8.8 fl fl (7.5-11.1) Neutrophils % 66.0 % % (42.8-82.8) Lymphocytes % 23.4 % % (8-40) Monocytes % 6.5 % % (3.8-10.2) Eosinophils % 3.6 % % (0-4.5) Basophils % 0.5 % % (0-2.0) PT with INR 33.70 SEC H SEC (9.98-11.88) INR 3.00 H (0.82-1.09) PTT (Actin FS) 64.3 SECONDS H SECONDS (26.9-34.4) Sodium Potassium Chloride Carbon Dioxide Anion Gap BUN Creatinine Creat Clearance w eGFR POC Glucometer 142 UNITS UNITS (()) Random Glucose Calcium Total Bilirubin AST ALT Alkaline Phosphatase Total Protein Albumin 03/31/17 04/01/17 04/01/17 07:45 07:00 07:00 WBC 5.8 K/mm3 K/mm3 (4.0-10.0) RBC 3.60 M/mm3 M/mm3 (3.60-5.2) Hgb 10.5 GM/dL L GM/dL (10.7-15.3) Hct 32.1 % L % (32.4-45.2) MCV 89.0 fl fl (80-96) MCH 29.0 pg pg (25.7-33.7) MCHC 32.6 g/dl g/dl (32.0-36.0) RDW 14.0 % % (11.6-15.6) Plt Count 138 K/MM3 K/MM3 (134-434) MPV 9.6 fl fl (7.5-11.1) Neutrophils % 60.8 % % (42.8-82.8) Lymphocytes % 28.0 % % (8-40) Monocytes % 6.7 % % (3.8-10.2) Eosinophils % 3.9 % % (0-4.5) Basophils % 0.6 % % (0-2.0) PT with INR 37.60 SEC H SEC (9.98-11.88) INR 3.34 H (0.82-1.09) PTT (Actin FS) 64.9 SECONDS H SECONDS (26.9-34.4) Sodium 141 mmol/L mmol/L (136-145) Potassium 4.3 mmol/L mmol/L (3.5-5.1) Chloride 108 mmol/L H mmol/L (98-107) Carbon Dioxide 26 mmol/L mmol/L (21-32) Anion Gap 7 L (8-16) BUN 17 mg/dL mg/dL (7-18) Creatinine 1.0 mg/dL mg/dL (0.55-1.02) Creat Clearance w eGFR 55.82 (>60) POC Glucometer Random Glucose 129 mg/dL H mg/dL (74-106) Calcium 8.9 mg/dL mg/dL (8.5-10.1) Total Bilirubin 0.2 mg/dL D mg/dL (0.2-1.0) AST 14 U/L L U/L (15-37) ALT 21 U/L U/L (12-78) Alkaline Phosphatase 69 U/L U/L (45-117) Total Protein 5.9 g/dl L g/dl (6.4-8.2) Albumin 2.9 g/dl L g/dl (3.4-5.0) 04/02/17 04/02/17 04/02/17 06:00 06:00 15:28 WBC 6.0 K/mm3 K/mm3 (4.0-10.0) RBC 3.91 M/mm3 M/mm3 (3.60-5.2) Hgb 11.3 GM/dL GM/dL (10.7-15.3) Hct 34.8 % % (32.4-45.2) MCV 89.1 fl fl (80-96) MCH 29.0 pg pg (25.7-33.7) MCHC 32.6 g/dl g/dl (32.0-36.0) RDW 14.0 % % (11.6-15.6) Plt Count 173 K/MM3 D K/MM3 (134-434) MPV 9.0 fl fl (7.5-11.1) Neutrophils % 68.6 % % (42.8-82.8) Lymphocytes % 22.3 % D % (8-40) Monocytes % 5.1 % % (3.8-10.2) Eosinophils % 3.5 % % (0-4.5) Basophils % 0.5 % % (0-2.0) PT with INR 45.70 SEC H SEC 32.10 SEC H SEC (9.98-11.88) (9.98-11.88) INR 4.04 H* 2.86 H (0.82-1.09) (0.82-1.09) PTT (Actin FS) 75.6 SECONDS H SECONDS (26.9-34.4) Sodium Potassium Chloride Carbon Dioxide Anion Gap BUN Creatinine Creat Clearance w eGFR POC Glucometer Random Glucose Calcium Total Bilirubin AST ALT Alkaline Phosphatase Total Protein Albumin heent nad lungs clear heart no change ext no edema ap she is on coumadin and stoped 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
[2017-04-02] MEDS: ALLOPURINOL 300 MG TABLET (FP) PO SCH (22:41)
[2017-04-02] MEDS: METOPROLOL SUCCINATE 25 MG TAB.SR.24H (FP) PO SCH (22:41)
[2017-04-02] MEDS: MELATONIN 5 MG TABLETS PO SCH (22:41)
[2017-04-03 08:39] LABS: BASOPHIL 0.5 % (0-2.0); EOSINOPHIL 3.8 % (0-4.5); MCHC 32.9 g/dl (32.0-36.0); MEAN CELL VOLUME 88.2 fl (80-96); MEAN PLT VOLUME 9.4 fl (7.5-11.1); NEUTROPHILS 64.3 % (42.8-82.8); PLATELET COUNT 152 K/MM3 (134-434); RDW 14.2 % (11.6-15.6)
[2017-04-03 08:57] LABS: INR 3.11 (0.82-1.09)
[2017-04-03 08:59] LABS: ACTIVATED PTT 35.3 SECONDS (26.9-34.4)
[2017-04-03] MEDS: LACTOBACILLUS ACIDOPHILUS 1 EACH TAB (FP) PO SCH (09:33)
[2017-04-03] MEDS: LOSARTAN POTASSIUM 50 MG TABLET (FP) PO SCH (09:33)
[2017-04-03] MEDS: BACITRACIN 15 GM TUBE TOPICAL OINTMENT TP SCH ×2 (09:34→14:54)
--- NOTE | 2017-04-03 11:19 | PN ---
Progress Note (short form) - Note Progress Note: she is c/o constipation and when she went to bathroom she has tiny bleeding no pain vs and labs Laboratory Results - last 24 hr 04/02/17 04/03/17 04/03/17 15:28 05:34 06:45 WBC 6.0 RBC 3.69 Hgb 10.7 Hct 32.6 MCV 88.2 MCH 29.0 MCHC 32.9 RDW 14.2 Plt Count 152 MPV 9.4 Neutrophils % 64.3 Lymphocytes % 25.2 Monocytes % 6.2 Eosinophils % 3.8 Basophils % 0.5 PT with INR 32.10 H INR 2.86 H PTT (Actin FS) POC Glucometer 113 04/03/17 06:45 WBC RBC Hgb Hct MCV MCH MCHC RDW Plt Count MPV Neutrophils % Lymphocytes % Monocytes % Eosinophils % Basophils % PT with INR 35.00 H INR 3.11 H PTT (Actin FS) 35.3 H D POC Glucometer Vital Signs Period Temp Pulse Resp BP Sys/Beck Pulse Ox Last 24 Hr 97.5 F-98.2 F 62-70 18-20 115-149/48-75 97-97 exam unchanged ap constipation add colace MILY inr is 3.1 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
--- NOTE | 2017-04-03 12:18 | PN ---
Progress Note, Physician History of Present Illness: pulmonary alert,oob-chair,comfortable,-resp distres - Current Medication List Current Medications: Active Medications Allopurinol (Zyloprim -) 300 mg PO HS [facility] Last Admin: 04/02/17 22:41 Dose: 300 mg Bacitracin (Bacitracin -) 1 applic TP DAILY [facility] Last Admin: 04/03/17 09:34 Dose: Not Given Diltiazem HCl (Cardizem Cd -) 120 mg PO DAILY [facility] Last Admin: 04/03/17 09:33 Dose: 120 mg Docusate Sodium (Colace -) 300 mg PO DAILY [facility] Lactobacillus Acidophilus (Bacid -) 2 tab PO DAILY [facility] Last Admin: 04/03/17 09:33 Dose: 2 tab Losartan Potassium (Cozaar -) 50 mg PO DAILY [facility] Last Admin: 04/03/17 09:33 Dose: 50 mg Melatonin (Melatonin) 5 mg PO HS [facility] Last Admin: 04/02/17 22:41 Dose: 5 mg Metoprolol Succinate (Toprol Xl -) 25 mg PO [facility] Last Admin: 04/02/17 22:41 Dose: 25 mg Ondansetron HCl (Zofran -) 4 mg PO QID PRN PRN Reason: NAUSEA Last Admin: 03/30/17 21:59 Dose: 4 mg Silver Sulfadiazine (Silvadene -) 1 applic TP DAILY [facility] Last Admin: 04/02/17 11:51 Dose: Not Given - Objective Vital Signs: Vital Signs Temperature 98.2 F 04/03/17 09:30 Pulse Rate 67 04/03/17 09:30 Respiratory Rate 18 04/03/17 09:30 Blood Pressure 117/66 04/03/17 09:30 O2 Sat by Pulse Oximetry (%) 98 04/03/17 09:33 Constitutional: Yes: Well Nourished, Calm Eyes: Yes: WNL HENT: Yes: WNL Neck: Yes: WNL Cardiovascular: Yes: Pulse Irregular, S1, S2 Respiratory: Yes: CTA Bilaterally Gastrointestinal: Yes: Normal Bowel Sounds, Soft Extremities: Yes: WNL Edema: Yes Labs: CBC, BMP 04/03/17 06:45 03/31/17 07:45 INR, PTT INR 3.11 (0.82-1.09) H 04/03/17 06:45 Fibrinogen 176.0 mg/dL (238-498) L 03/09/17 18:00 Problem List - Problems (1) ABENA (obstructive sleep apnea) Code(s): G47.33 - OBSTRUCTIVE SLEEP APNEA (ADULT) (PEDIATRIC) (2) PAF (paroxysmal atrial fibrillation) Code(s): I48.0 - PAROXYSMAL ATRIAL FIBRILLATION (3) Pulmonary emboli Code(s): I26.99 - OTHER PULMONARY EMBOLISM WITHOUT ACUTE COR PULMONALE Qualifiers: Pulmonary embolism type: other (4) Breast CA Code(s): C50.919 - MALIGNANT NEOPLASM OF UNSP SITE OF UNSPECIFIED FEMALE BREAST Qualifiers: Breast location: combined nipple and areola Patient sex: female Laterality: right Qualified Code(s): C50.011 - Malignant neoplasm of nipple and areola, right female breast; C50.011 - Malignant neoplasm of nipple and areola, right female breast; C50.011 - Malignant neoplasm of nipple and areola, right female breast; C50.011 - Malignant neoplasm of nipple and areola, right female breast; Z17.0 - Estrogen receptor positive status [ER+]; Z17.0 - Estrogen receptor positive status [ER+] (5) Diabetes Code(s): E11.9 - TYPE 2 DIABETES MELLITUS WITHOUT COMPLICATIONS Qualifiers: Diabetes mellitus type: type 2 Diabetes mellitus complication status: without complication Diabetes mellitus correction insulin use: without tire room supervisor use Qualified Code(s): E11.9 - Type 2 diabetes mellitus without complications; E11.9 - Type 2 diabetes mellitus without complications; E11.9 - Type 2 diabetes mellitus without complications; E11.9 - Type 2 diabetes mellitus without complications (6) HTN (hypertension) Code(s): I10 - ESSENTIAL (PRIMARY) HYPERTENSION Qualifiers: Hypertension type: essential hypertension Qualified Code(s): I10 - Essential (primary) hypertension; I10 - Essential (primary) hypertension; I10 - Essential (primary) hypertension (7) Obesity Code(s): E66.9 - OBESITY, UNSPECIFIED (8) Thrombocytopenia Code(s): D69.6 - THROMBOCYTOPENIA, UNSPECIFIED Assessment/Plan Progress Note: PULMONARY IMP THROMBOCYTOPENIA , HIT improved RECENT BILATERAL EMBOLI PROVOKED BREAST CA S/P MASTECTOMY OSAS DM PULMONARY HTN PLAN MONITOR PLT CT COUMADIN DR GONZALEZ Problem List - Problems (1) ABENA (obstructive sleep apnea) Code(s): G47.33 - OBSTRUCTIVE SLEEP APNEA (ADULT) (PEDIATRIC) (2) PAF (paroxysmal atrial fibrillation) Code(s): I48.0 - PAROXYSMAL ATRIAL FIBRILLATION (3) Pulmonary emboli Code(s): I26.99 - OTHER PULMONARY EMBOLISM WITHOUT ACUTE COR PULMONALE (4) Breast CA Code(s): C50.919 - MALIGNANT NEOPLASM OF UNSP SITE OF UNSPECIFIED FEMALE BREAST (5) Diabetes Code(s): E11.9 - TYPE 2 DIABETES MELLITUS WITHOUT COMPLICATIONS (6) HTN (hypertension) Code(s): I10 - ESSENTIAL (PRIMARY) HYPERTENSION (7) Obesity Code(s): E66.9 - OBESITY, UNSPECIFIED (8) Thrombocytopenia Code(s): D69.6 - THROMBOCYTOPENIA, UNSPECIFIED
[2017-04-03] MEDS: DOCUSATE SODIUM 100 MG CAPSULE (FP) PO SCH (13:11)
--- NOTE | 2017-04-03 13:22 | PN ---
Progress Note (short form) - Note Progress Note: Patient seen and examined. Had constipation and had some blood noticed on the toilet paper feels well otherwise Cor: RSR, No murmurs, No gallops Lungs: Clear to P&A Ext:No significant edema Skin: No rashes, Integument intact CBC, BMP 04/02/17 06:00 03/31/17 07:45 Current Medications Generic Name Dose Route Start Last Admin Trade Name Freq PRN Reason Stop Dose Admin Allopurinol 300 mg 03/19/17 22:00 04/01/17 21:39 Zyloprim - PO 300 mg HS [facility] Administration Bacitracin 1 applic 03/19/17 10:00 04/02/17 11:50 Bacitracin - TP Not Given DAILY [facility] Diltiazem HCl 120 mg 03/19/17 10:00 04/02/17 11:38 Cardizem Cd - PO 120 mg DAILY [facility] Administration Argatroban 250,000 mcg/ Sodium 250 mls @ 16.59 mls/hr 03/24/17 09:45 04/02/17 11:00 Chloride IVPB Not Given TITR [facility] Protocol 2.4 MCG/KG/MIN Lactobacillus Acidophilus 2 tab 03/19/17 10:00 04/02/17 11:38 Bacid - PO 2 tab DAILY [facility] Administration Losartan Potassium 50 mg 03/19/17 10:00 04/02/17 11:38 Cozaar - PO 50 mg DAILY [facility] Administration Melatonin 5 mg 03/19/17 22:00 04/01/17 21:39 Melatonin PO 5 mg HS [facility] Administration Metoprolol Succinate 25 mg 03/19/17 22:00 04/01/17 21:39 Toprol Xl - PO 25 mg HS [facility] Administration Ondansetron HCl 4 mg 03/30/17 21:23 03/30/17 21:59 Zofran - PO 4 mg QID PRN Administration NAUSEA Silver Sulfadiazine 1 applic 03/19/17 10:00 04/02/17 11:51 Silvadene - TP Not Given DAILY [facility] Warfarin Sodium 7.5 mg 04/02/17 18:00 Coumadin - PO 04/02/17 18:01 ONCE@1800 ONE Last Vital Signs Temp Pulse Resp BP Pulse Ox 97.7 F 68 20 116/62 98 04/02/17 06:48 04/02/17 06:48 04/02/17 06:48 04/02/17 06:48 04/01/17 21:00 INR, PTT INR 4.04 (0.82-1.09) H* 04/02/17 06:00 Fibrinogen 176.0 mg/dL (238-498) L 03/09/17 18:00 A/P 66 y/o patient s/p Rt. 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 Pt aware likely dc once stable coumadin dose achieved in the next 2days
[2017-04-03] MEDS: SILVER SULFADIAZINE 1% TOP CREAM 50 GM JAR TP SCH (14:53)
[2017-04-03] MEDS ORDERED: WARFARIN NA 1 MG TABLET (FP) PO SCH (18:00)
[2017-04-03] MEDS ORDERED: WARFARIN NA 7.5 MG TABLET (FP) PO SCH (18:00)
[2017-04-03] MEDS ORDERED: PT OWN MED DRAWER 7, Y5N ONE (22:02)
[2017-04-03] MEDS: MELATONIN 5 MG TABLETS PO SCH (22:20)
[2017-04-03] MEDS: METOPROLOL SUCCINATE 25 MG TAB.SR.24H (FP) PO SCH (22:21)
[2017-04-03] MEDS: ALLOPURINOL 300 MG TABLET (FP) PO SCH (22:21)
[2017-04-03] MEDS: HYDROCORTISONE 2.5% TOPICAL CREAM 30 GM TUBE PR SCH (22:26)
[2017-04-04 07:47] LABS: BASOPHIL 0.5 % (0-2.0); EOSINOPHIL 3.8 % (0-4.5); MCH 29.1 pg (25.7-33.7); MCHC 32.9 g/dl (32.0-36.0); MEAN CELL VOLUME 88.4 fl (80-96); MEAN PLT VOLUME 9.3 fl (7.5-11.1); NEUTROPHILS 61.3 % (42.8-82.8); PLATELET COUNT 157 K/MM3 (134-434); RDW 14.2 % (11.6-15.6); WHITE BLOOD COUNT 6.1 K/mm3 (4.0-10.0)
[2017-04-04 07:57] LABS: INR 3.08 (0.82-1.09); PROTHROMBIN TIME (PATIENT) 34.7 SEC (9.98-11.88)
[2017-04-04 08:00] LABS: ACTIVATED PTT 37.8 SECONDS (26.9-34.4)
--- NOTE | 2017-04-04 08:50 | PN ---
Progress Note (short form) - Note Progress Note: CBC, BMP inr 3.08 CBC, BMP 04/04/17 06:45 03/31/17 07:45 Vital Signs Period Temp Pulse Resp BP Sys/Beck Pulse Ox Last 24 Hr 97.3 F-98.2 F 66-80 18-18 115-134/49-74 98-98 S1S2 RRR LUNGS CTA no pedal edema abd soft NT +BS wounds clean with minimal slough nausea resolved Imp/plan Heparin Induced Thrombocytopenia recent bilateral pulmonary embolism following reconstructive breast surgery after mastectomy. Paget's disease of the breast NIDDM HTN h/o afib-paroxysmal with PE diagnosis-none on telemetry during this admission did not receive warfarin yesterday-due to slight hemorrhoidal rectal bleed off of argatroban INR still therapeutic 6 mg warfarin tonight if ok with heme dc planning Problem List - Problems (1) PAF (paroxysmal atrial fibrillation) Code(s): I48.0 - PAROXYSMAL ATRIAL FIBRILLATION (2) Pulmonary emboli Code(s): I26.99 - OTHER PULMONARY EMBOLISM WITHOUT ACUTE COR PULMONALE Qualifiers: Pulmonary embolism type: other (3) Breast CA Code(s): C50.919 - MALIGNANT NEOPLASM OF UNSP SITE OF UNSPECIFIED FEMALE BREAST Qualifiers: Breast location: combined nipple and areola Patient sex: female Laterality: right Qualified Code(s): C50.011 - Malignant neoplasm of nipple and areola, right female breast; C50.011 - Malignant neoplasm of nipple and areola, right female breast; C50.011 - Malignant neoplasm of nipple and areola, right female breast; C50.011 - Malignant neoplasm of nipple and areola, right female breast; Z17.0 - Estrogen receptor positive status [ER+]; Z17.0 - Estrogen receptor positive status [ER+] (4) Diabetes Code(s): E11.9 - TYPE 2 DIABETES MELLITUS WITHOUT COMPLICATIONS Qualifiers: Diabetes mellitus type: type 2 Diabetes mellitus complication status: without complication Diabetes mellitus [facility] insulin use: without [facility] use Qualified Code(s): E11.9 - Type 2 diabetes mellitus without complications; E11.9 - Type 2 diabetes mellitus without complications; E11.9 - Type 2 diabetes mellitus without complications; E11.9 - Type 2 diabetes mellitus without complications (5) HTN (hypertension) Code(s): I10 - ESSENTIAL (PRIMARY) HYPERTENSION Qualifiers: Hypertension type: essential hypertension Qualified Code(s): I10 - Essential (primary) hypertension; I10 - Essential (primary) hypertension; I10 - Essential (primary) hypertension
[2017-04-04] MEDS: LACTOBACILLUS ACIDOPHILUS 1 EACH TAB (FP) PO SCH (11:00)
[2017-04-04] MEDS: DOCUSATE SODIUM 100 MG CAPSULE (FP) PO SCH (11:01)
[2017-04-04] MEDS: LOSARTAN POTASSIUM 50 MG TABLET (FP) PO SCH (11:01)
--- NOTE | 2017-04-04 11:01 | PN ---
Progress Note (short form) - Note Progress Note: No acute events overnight. Breathing feels overall better. No CP. INR has been therapeutic. Intake & Output 04/01/17 04/02/17 04/03/17 04/04/17 23:59 23:59 23:59 23:59 Intake Total 1508 1430 1060 240 Balance 1508 1430 1060 240 Last Vital Signs Temp Pulse Resp BP Pulse Ox 97.3 F L 76 18 126/61 98 04/04/17 06:00 04/04/17 06:00 04/04/17 06:00 04/04/17 06:00 04/03/17 21:00 Active Medications Allopurinol (Zyloprim -) 300 mg PO HS [facility] Last Admin: 04/03/17 22:21 Dose: 300 mg Bacitracin (Bacitracin -) 1 applic TP DAILY [facility] Last Admin: 04/03/17 14:54 Dose: 1 applic Diltiazem HCl (Cardizem Cd -) 120 mg PO DAILY [facility] Last Admin: 04/03/17 09:33 Dose: 120 mg Docusate Sodium (Colace -) 300 mg PO DAILY [facility] Last Admin: 04/03/17 13:11 Dose: 300 mg Hydrocortisone (Anusol 2.5% Hc Cream -) 1 applic [place] HS [facility] Last Admin: 04/03/17 22:26 Dose: Not Given Lactobacillus Acidophilus (Bacid -) 2 tab PO DAILY [facility] Last Admin: 04/03/17 09:33 Dose: 2 tab Losartan Potassium (Cozaar -) 50 mg PO DAILY [facility] Last Admin: 04/03/17 09:33 Dose: 50 mg Melatonin (Melatonin) 5 mg PO HS [facility] Last Admin: 04/03/17 22:20 Dose: 5 mg Metoprolol Succinate (Toprol Xl -) 25 mg PO HS [facility] Last Admin: 04/03/17 22:21 Dose: 25 mg Ondansetron HCl (Zofran -) 4 mg PO QID PRN PRN Reason: NAUSEA Last Admin: 03/30/17 21:59 Dose: 4 mg Silver Sulfadiazine (Silvadene -) 1 applic TP DAILY [facility] Last Admin: 04/03/17 14:53 Dose: 1 applic Warfarin Sodium 5 mg/ Warfarin (Sodium 2 mg) 7 mg PO DAILY@1800 [facility] Constitutional: Yes: NAD Eyes: Yes: WNL, Conjunctiva Clear, EOM Intact HENT: Yes: WNL, Atraumatic, Normocephalic Neck: Yes: WNL, Supple, Trachea Midline Respiratory: Yes: Diminished breath sounds Gastrointestinal: Yes: WNL, Normal Bowel Sounds Renal/: Yes: WNL Cardiovascular: Yes: WNL, Regular Rate and Rhythm Musculoskeletal: Yes: WNL Extremities: Yes: WNL Integumentary: Yes: WNL Neurological: Yes: WNL, Alert, Oriented ...Motor Strength: WNL Psychiatric: Yes: WNL, Alert, Oriented Laboratory Results - last 24 hr 04/04/17 04/04/17 04/04/17 06:19 06:45 06:45 WBC 6.1 RBC 3.70 Hgb 10.8 Hct 32.7 MCV 88.4 MCH 29.1 MCHC 32.9 RDW 14.2 Plt Count 157 MPV 9.3 Neutrophils % 61.3 Lymphocytes % 27.8 Monocytes % 6.6 Eosinophils % 3.8 Basophils % 0.5 PT with INR 34.70 H INR 3.08 H PTT (Actin FS) 37.8 H POC Glucometer 121 Problem List - Problems (1) ABENA (obstructive sleep apnea) Code(s): G47.33 - OBSTRUCTIVE SLEEP APNEA (ADULT) (PEDIATRIC) (2) PAF (paroxysmal atrial fibrillation) Code(s): I48.0 - PAROXYSMAL ATRIAL FIBRILLATION (3) Pulmonary emboli Code(s): I26.99 - OTHER PULMONARY EMBOLISM WITHOUT ACUTE COR PULMONALE (4) Breast CA Code(s): C50.919 - MALIGNANT NEOPLASM OF UNSP SITE OF UNSPECIFIED FEMALE BREAST (5) Diabetes Code(s): E11.9 - TYPE 2 DIABETES MELLITUS WITHOUT COMPLICATIONS (6) HTN (hypertension) Code(s): I10 - ESSENTIAL (PRIMARY) HYPERTENSION (7) Obesity Code(s): E66.9 - OBESITY, UNSPECIFIED (8) Thrombocytopenia Code(s): D69.6 - THROMBOCYTOPENIA, UNSPECIFIED IMP THROMBOCYTOPENIA -> HIT RECENT PROVOKED BILATERAL PE BREAST CA S/P MASTECTOMY OSAS DM PLAN MONITOR PLT CT ARGATROBAN & COUMADIN O2 NEEDED AMBULATE TOLERATED D/C PLANNING DR TREJO
--- NOTE | 2017-04-04 11:10 | PN ---
Progress Note, Physician History of Present Illness: "The patient is a 66 year old female, with a significant past medical history of PE on lovenox, HTN, diabetes mellitus, gout, and breast cancer s/p right mastectomy around 7 weeks ago (January 20) who was referred to the emergency department by her PCP due to low blood platelet count. She states she was started on lovenox 2 weeks ago when she was diagnosed with acute PE. Patient denies currently experiencing any chest pain or palpitations but admits to SOB from time to time. She denies experiencing any new bruises. She denies recent fevers, chills, headache or dizziness. She denies recent nausea, vomit, diarrhea or constipation. She denies recent dysuria, frequency, urgency or hematuria. She denies recent chest pain. Allergies: NKA Past surgical history: Right masectomy Social history: Nonsmoker. Denies EtOH use and recreational drug use. Primary Care Physician: Carrie Price M.D. " - Current Medication List Current Medications: Active Medications Allopurinol (Zyloprim -) 300 mg PO HS [facility] Last Admin: 04/03/17 22:21 Dose: 300 mg Bacitracin (Bacitracin -) 1 applic TP DAILY [facility] Last Admin: 04/03/17 14:54 Dose: 1 applic Diltiazem HCl (Cardizem Cd -) 120 mg PO DAILY [facility] Last Admin: 04/04/17 11:00 Dose: 120 mg Docusate Sodium (Colace -) 300 mg PO DAILY [facility] Last Admin: 04/04/17 11:01 Dose: 300 mg Hydrocortisone (Anusol 2.5% Hc Cream -) 1 applic [place] HS [facility] Last Admin: 04/03/17 22:26 Dose: Not Given Lactobacillus Acidophilus (Bacid -) 2 tab PO DAILY [facility] Last Admin: 04/04/17 11:00 Dose: 2 tab Losartan Potassium (Cozaar -) 50 mg PO DAILY [facility] Last Admin: 04/04/17 11:01 Dose: 50 mg Melatonin (Melatonin) 5 mg PO HS [facility] Last Admin: 04/03/17 22:20 Dose: 5 mg Metoprolol Succinate (Toprol Xl -) 25 mg PO HS [facility] Last Admin: 04/03/17 22:21 Dose: 25 mg Ondansetron HCl (Zofran -) 4 mg PO QID PRN PRN Reason: NAUSEA Last Admin: 03/30/17 21:59 Dose: 4 mg Silver Sulfadiazine (Silvadene -) 1 applic TP DAILY [facility] Last Admin: 04/03/17 14:53 Dose: 1 applic Warfarin Sodium 5 mg/ Warfarin (Sodium 2 mg) 7 mg PO DAILY@1800 [facility] - Objective Vital Signs: Vital Signs Temperature 97.3 F L 04/04/17 06:00 Pulse Rate 76 04/04/17 06:00 Respiratory Rate 18 04/04/17 06:00 Blood Pressure 126/61 04/04/17 06:00 O2 Sat by Pulse Oximetry (%) 98 04/03/17 21:00 Eyes: Yes: WNL, Conjunctiva Clear, EOM Intact HENT: Yes: WNL, Atraumatic, Normocephalic Neck: Yes: WNL, Supple, Trachea Midline Cardiovascular: Yes: WNL, Regular Rate and Rhythm Respiratory: Yes: WNL, Regular, CTA Bilaterally Gastrointestinal: Yes: WNL, Normal Bowel Sounds Genitourinary: Yes: WNL Musculoskeletal: Yes: WNL Extremities: Yes: WNL Edema: No Integumentary: Yes: WNL Neurological: Yes: WNL, Alert, Oriented ...Motor Strength: WNL Psychiatric: Yes: WNL Labs: CBC, BMP 04/04/17 06:45 03/31/17 07:45 INR, PTT INR 3.08 (0.82-1.09) H 04/04/17 06:45 Fibrinogen 176.0 mg/dL (238-498) L 03/09/17 18:00 Problem List - Problems (1) Thrombocytopenia Code(s): D69.6 - THROMBOCYTOPENIA, UNSPECIFIED (2) Cellulitis Code(s): L03.90 - CELLULITIS, UNSPECIFIED (3) Chronic instability of right knee Code(s): M23.51 - CHRONIC INSTABILITY OF KNEE, RIGHT KNEE (4) ABENA (obstructive sleep apnea) Code(s): G47.33 - OBSTRUCTIVE SLEEP APNEA (ADULT) (PEDIATRIC) (5) PAF (paroxysmal atrial fibrillation) Code(s): I48.0 - PAROXYSMAL ATRIAL FIBRILLATION (6) Pulmonary emboli Code(s): I26.99 - OTHER PULMONARY EMBOLISM WITHOUT ACUTE COR PULMONALE Qualifiers: Pulmonary embolism type: other (7) Breast CA Code(s): C50.919 - MALIGNANT NEOPLASM OF UNSP SITE OF UNSPECIFIED FEMALE BREAST Qualifiers: Breast location: combined nipple and areola Patient sex: female Laterality: right Qualified Code(s): C50.011 - Malignant neoplasm of nipple and areola, right female breast; C50.011 - Malignant neoplasm of nipple and areola, right female breast; C50.011 - Malignant neoplasm of nipple and areola, right female breast; C50.011 - Malignant neoplasm of nipple and areola, right female breast; Z17.0 - Estrogen receptor positive status [ER+]; Z17.0 - Estrogen receptor positive status [ER+] (8) Diabetes Code(s): E11.9 - TYPE 2 DIABETES MELLITUS WITHOUT COMPLICATIONS Qualifiers: Diabetes mellitus type: type 2 Diabetes mellitus complication status: without complication Diabetes mellitus bed bug exterminator insulin use: without bed bug exterminator use Qualified Code(s): E11.9 - Type 2 diabetes mellitus without complications; E11.9 - Type 2 diabetes mellitus without complications; E11.9 - Type 2 diabetes mellitus without complications; E11.9 - Type 2 diabetes mellitus without complications (9) Diastolic CHF Code(s): I50.30 - UNSPECIFIED DIASTOLIC (CONGESTIVE) HEART FAILURE (10) HTN (hypertension) Code(s): I10 - ESSENTIAL (PRIMARY) HYPERTENSION Qualifiers: Hypertension type: essential hypertension Qualified Code(s): I10 - Essential (primary) hypertension; I10 - Essential (primary) hypertension; I10 - Essential (primary) hypertension (11) Hypertriglyceridemia Code(s): E78.1 - PURE HYPERGLYCERIDEMIA (12) Obesity Code(s): E66.9 - OBESITY, UNSPECIFIED (13) Paget's disease of right breast Code(s): C50.011 - MALIGNANT NEOPLASM OF NIPPLE AND AREOLA, RIGHT FEMALE BREAST Assessment/Plan - Problems (1) Cellulitis Code(s): L03.90 - CELLULITIS, UNSPECIFIED (2) ABENA (obstructive sleep apnea) Assessment/Plan: f/u sleep studies. Code(s): G47.33 - OBSTRUCTIVE SLEEP APNEA (ADULT) (PEDIATRIC) (3) Chronic instability of right knee Code(s): M23.51 - CHRONIC INSTABILITY OF KNEE, RIGHT KNEE (4) PAF (paroxysmal atrial fibrillation) Assessment/Plan: On diltiazem for HR control. Warfarin restarted, will likely have to be lifetime, given her having had several episodes of PAF. Goal is INR 4 or greater before stopping argatroban. Code(s): I48.0 - PAROXYSMAL ATRIAL FIBRILLATION (5) Pulmonary emboli Assessment/Plan: On argatraban until warfarin raises INR to 4 or greator. Code(s): I26.99 - OTHER PULMONARY EMBOLISM WITHOUT ACUTE COR PULMONALE Qualifiers: Pulmonary embolism type: other (6) Breast CA Code(s): C50.919 - MALIGNANT NEOPLASM OF UNSP SITE OF UNSPECIFIED FEMALE BREAST Qualifiers: Patient sex: female Laterality: right (7) Diabetes Code(s): E11.9 - TYPE 2 DIABETES MELLITUS WITHOUT COMPLICATIONS Qualifiers: Diabetes mellitus type: type 2 Diabetes mellitus complication status: without complication Diabetes mellitus mcfp insulin use: without mcfp use Qualified Code(s): E11.9 - Type 2 diabetes mellitus without complications; E11.9 - Type 2 diabetes mellitus without complications; E11.9 - Type 2 diabetes mellitus without complications; E11.9 - Type 2 diabetes mellitus without complications (8) Diastolic CHF Code(s): I50.30 - UNSPECIFIED DIASTOLIC (CONGESTIVE) HEART FAILURE (9) HTN (hypertension) Code(s): I10 - ESSENTIAL (PRIMARY) HYPERTENSION Qualifiers: Hypertension type: essential hypertension Qualified Code(s): I10 - Essential (primary) hypertension; I10 - Essential (primary) hypertension; I10 - Essential (primary) hypertension (10) Hypertriglyceridemia Assessment/Plan: Pt says medications for Rx do not agree with her; plans to use diet/exercise to lower triglycerides. Code(s): E78.1 - PURE HYPERGLYCERIDEMIA (11) Obesity Assessment/Plan: f/u with restaurant assistant. Code(s): E66.9 - OBESITY, UNSPECIFIED (12) Paget's disease of right breast Assessment/Plan: as noted by surgeon, right breast necrotic tissue debrided today; umbilical wound also being treated. Code(s): C50.011 - MALIGNANT NEOPLASM OF NIPPLE AND AREOLA, RIGHT FEMALE BREAST (13) Heparin induced thrombocytopenia (HIT) Assessment/Plan: Platelets improved Started warfarin (for PE and PAF). Code(s): D75.82 - HEPARIN INDUCED THROMBOCYTOPENIA (HIT)
[2017-04-04] MEDS ORDERED: PT OWN MED DRAWER 7, Y5N ONE ×2 (15:27→22:18)
[2017-04-04] MEDS: BACITRACIN 15 GM TUBE TOPICAL OINTMENT TP SCH (17:38)
[2017-04-04] MEDS: SILVER SULFADIAZINE 1% TOP CREAM 50 GM JAR TP SCH (17:38)
[2017-04-04] MEDS ORDERED: WARFARIN NA 5 MG, WARFARIN NA 2 MG PO SCH (18:00)
[2017-04-04] MEDS ORDERED: WARFARIN NA 2 MG TABLET (UD) PO ONE (18:00)
[2017-04-04] MEDS: HYDROCORTISONE 2.5% TOPICAL CREAM 30 GM TUBE PR SCH (22:26)
[2017-04-04] MEDS: METOPROLOL SUCCINATE 25 MG TAB.SR.24H (FP) PO SCH (22:26)
--- NOTE | 2017-04-04 22:27 | PN ---
Progress Note (short form) - Note Progress Note: Patient seen and examined Feels well No complaints had some re hemorrhoidal rectal bleeding yesterday decreased today Last Vital Signs Temp Pulse Resp BP Pulse Ox 98.0 F 71 20 140/80 98 04/04/17 17:26 04/04/17 17:26 04/04/17 17:26 04/04/17 17:26 04/04/17 09:00 Breasts: right breast reconstruction. Incision with granulation tissue Cor: RSR, No murmurs, No gallops Lungs: Clear to P&A Abd: Soft, Normal bowel sounds, healing abdominal incision Ext:No significant edema wounds --RT. lower adomen, Rt. breast look clean umblical woud some discharge Abnormal Lab Results 04/04/17 06:45 PT with INR 34.70 H INR 3.08 H PTT (Actin FS) 37.8 H Home Medication List Medication Instructions Recorded Confirmed Type Allopurinol 300 mg PO DAILY 01/18/17 03/09/17 History Metformin HCl 500 mg PO BID 01/18/17 03/09/17 History Multivitamins [Multivit ([facility] 1 tab PO DAILY 01/18/17 03/09/17 History Formulary)] Active Medications Generic Name Dose Route Start Last Admin Trade Name Freq PRN Reason Stop Dose Admin Allopurinol 300 mg 03/19/17 22:00 04/04/17 22:43 Zyloprim - PO 300 mg HS [facility] Administration Bacitracin 1 applic 03/19/17 10:00 04/04/17 17:38 Bacitracin - TP 1 applic DAILY [facility] Administration Diltiazem HCl 120 mg 03/19/17 10:00 04/04/17 11:00 Cardizem Cd - PO 120 mg DAILY [facility] Administration Docusate Sodium 300 mg 04/03/17 11:15 04/04/17 11:01 Colace - PO 300 mg DAILY [facility] Administration Hydrocortisone 1 applic 04/03/17 22:00 04/04/17 22:26 Anusol 2.5% Hc Cream - [place] Not Given HS [facility] Lactobacillus Acidophilus 2 tab 03/19/17 10:00 04/04/17 11:00 Bacid - PO 2 tab DAILY [facility] Administration Losartan Potassium 50 mg 03/19/17 10:00 04/04/17 11:01 Cozaar - PO 50 mg DAILY [facility] Administration Melatonin 5 mg 03/19/17 22:00 04/04/17 22:43 Melatonin PO 5 mg HS [facility] Administration Metoprolol Succinate 25 mg 03/19/17 22:00 04/04/17 22:26 Toprol Xl - PO 25 mg HS [facility] Administration Ondansetron HCl 4 mg 03/30/17 21:23 03/30/17 21:59 Zofran - PO 4 mg QID PRN Administration NAUSEA Silver Sulfadiazine 1 applic 03/19/17 10:00 04/04/17 17:38 Silvadene - TP 1 applic DAILY [facility] Administration A/P 66 y/o patient s/p Rt. 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 s/p mastectomy/reconstruction Would consider aromatase inhibitor for 5yrs. Patient instructed to f/u in 2 weeks Patient to f/u with PMD for close INR checks
[2017-04-04] MEDS: ALLOPURINOL 300 MG TABLET (FP) PO SCH (22:43)
[2017-04-04] MEDS: MELATONIN 5 MG TABLETS PO SCH (22:43)
[2017-04-05 07:16] LABS: BASOPHIL 0.6 % (0-2.0); EOSINOPHIL 4.4 % (0-4.5); MCHC 32.8 g/dl (32.0-36.0); MEAN CELL VOLUME 88.5 fl (80-96); MEAN PLT VOLUME 9.1 fl (7.5-11.1); NEUTROPHILS 57.6 % (42.8-82.8); PLATELET COUNT 166 K/MM3 (134-434); RDW 14.1 % (11.6-15.6); WHITE BLOOD COUNT 5.6 K/mm3 (4.0-10.0)
[2017-04-05 07:28] LABS: INR 2.72 (0.82-1.09); PROTHROMBIN TIME (PATIENT) 29.9 SEC (9.98-11.88)
[2017-04-05 07:31] LABS: ACTIVATED PTT 37.7 SECONDS (26.9-34.4)
[2017-04-05] MEDS ORDERED: PT OWN MED DRAWER 7, Y5N ONE (10:14)
[2017-04-05] MEDS: LOSARTAN POTASSIUM 50 MG TABLET (FP) PO SCH (10:20)
[2017-04-05] MEDS: LACTOBACILLUS ACIDOPHILUS 1 EACH TAB (FP) PO SCH (10:20)
[2017-04-05] MEDS: DOCUSATE SODIUM 100 MG CAPSULE (FP) PO SCH (10:20)
--- NOTE | 2017-04-05 10:56 | DS ---
Physical Examination Vital Signs: Vital Signs Temperature 97.6 F 04/05/17 05:48 Pulse Rate 64 04/05/17 05:48 Respiratory Rate 20 04/05/17 05:48 Blood Pressure 127/65 04/05/17 05:48 O2 Sat by Pulse Oximetry (%) 98 04/04/17 21:00 Constitutional: Yes: No Distress, Calm Eyes: Yes: EOM Intact HENT: Yes: Normocephalic Neck: Yes: Trachea Midline Cardiovascular: Yes: Regular Rate and Rhythm Respiratory: Yes: CTA Bilaterally Gastrointestinal: Yes: Normal Bowel Sounds, Soft Labs: CBC, BMP 04/05/17 06:30 03/31/17 07:45 Discharge Summary Reason For Visit: THROMBOCYTOPENIA Current Active Problems Heparin induced thrombocytopenia (HIT) (Acute) Hospital Course: Admitted for critically low platelet count and easy bruising on lovenox injections given for acute PE treatment lovenox was stopped, repeat CTA showed worsening PE since previous exam, HIT Ab was positive pt was started on argatroban for ac platelet count gradually improved and eventually pt was started on warfarin currently inr is 2.8, plat count ic over 150, medically stable to [facility] home with close outpt monitoring Condition: Fair - Instructions Diet, Activity, Other Instructions: TOMORROW AT 10 AM Referrals: Carrie Price MD [Primary Care Provider] - Disposition: HOME - Home Medications Comprehensive Discharge Medication List: Ambulatory Orders Losartan Potassium [Cozaar -] 50 mg PO DAILY #30 tablet 02/25/17 Allopurinol 300 mg PO DAILY #30 tab 04/05/17 Diltiazem Cd [Cardizem Cd -] 120 mg PO DAILY #30 cap.cd.24h 04/05/17 Docusate Sodium [Colace -] 300 mg PO DAILY #90 cap 04/05/17 Fenofibric Acid [Trilipix -] 135 mg PO DAILY #30 cap 04/05/17 Hydrocortisone 2.5% Topical Cr [Anusol-Hc -] 1 applic [place] HS #45 grams 04/05/17 Metformin HCl 500 mg PO BID #60 tab 04/05/17 Metoprolol Succinate [Toprol XL -] 25 mg PO DAILY #30 tab.sr.24h 04/05/17 Multivitamins [Multivit ([facility] Formulary)] 1 tab PO DAILY #30 tab 04/05/17 Silver Sulfadiazine 1% Top Cr [Silvadene -] 1 applic TP DAILY #1000 grams Warfarin Sodium 1 mg PO HS #30 tablet 04/05/17 Warfarin Sodium 5 mg PO HS #30 tablet 04/05/17
--- NOTE | 2017-04-05 10:57 | PN ---
Progress Note (short form) - Note Progress Note: No acute events overnight. Breathing feels overall better. No CP. INR has been therapeutic. Intake & Output 04/02/17 04/03/17 04/04/17 04/05/17 23:59 23:59 23:59 23:59 Intake Total 1430 1060 840 200 Balance 1430 1060 840 200 Last Vital Signs Temp Pulse Resp BP Pulse Ox 97.6 F 64 20 127/65 98 04/05/17 05:48 04/05/17 05:48 04/05/17 05:48 04/05/17 05:48 04/04/17 21:00 Active Medications Allopurinol (Zyloprim -) 300 mg PO HS [facility] Last Admin: 04/04/17 22:43 Dose: 300 mg Bacitracin (Bacitracin -) 1 applic TP DAILY [facility] Last Admin: 04/04/17 17:38 Dose: 1 applic Diltiazem HCl (Cardizem Cd -) 120 mg PO DAILY [facility] Last Admin: 04/05/17 10:20 Dose: 120 mg Docusate Sodium (Colace -) 300 mg PO DAILY [facility] Last Admin: 04/05/17 10:20 Dose: 300 mg Hydrocortisone (Anusol 2.5% Hc Cream -) 1 applic [place] HS [facility] Last Admin: 04/04/17 22:26 Dose: Not Given Lactobacillus Acidophilus (Bacid -) 2 tab PO DAILY [facility] Last Admin: 04/05/17 10:20 Dose: 2 tab Losartan Potassium (Cozaar -) 50 mg PO DAILY [facility] Last Admin: 04/05/17 10:20 Dose: 50 mg Melatonin (Melatonin) 5 mg PO HS [facility] Last Admin: 04/04/17 22:43 Dose: 5 mg Metoprolol Succinate (Toprol Xl -) 25 mg PO HS [facility] Last Admin: 04/04/17 22:26 Dose: 25 mg Ondansetron HCl (Zofran -) 4 mg PO QID PRN PRN Reason: NAUSEA Last Admin: 03/30/17 21:59 Dose: 4 mg Silver Sulfadiazine (Silvadene -) 1 applic TP DAILY [facility] Last Admin: 04/04/17 17:38 Dose: 1 applic Constitutional: Yes: NAD Eyes: Yes: WNL, Conjunctiva Clear, EOM Intact HENT: Yes: WNL, Atraumatic, Normocephalic Neck: Yes: WNL, Supple, Trachea Midline Respiratory: Yes: Diminished breath sounds Gastrointestinal: Yes: WNL, Normal Bowel Sounds Renal/: Yes: WNL Cardiovascular: Yes: WNL, Regular Rate and Rhythm Musculoskeletal: Yes: WNL Extremities: Yes: WNL Integumentary: Yes: WNL Neurological: Yes: WNL, Alert, Oriented ...Motor Strength: WNL Psychiatric: Yes: WNL, Alert, Oriented Laboratory Results - last 24 hr 04/05/17 04/05/17 04/05/17 06:23 06:30 06:30 WBC 5.6 RBC 3.73 Hgb 10.8 Hct 33.0 MCV 88.5 MCH 29.0 MCHC 32.8 RDW 14.1 Plt Count 166 MPV 9.1 Neutrophils % 57.6 Lymphocytes % 30.6 Monocytes % 6.8 Eosinophils % 4.4 Basophils % 0.6 PT with INR 29.90 H INR 2.72 H PTT (Actin FS) 37.7 H POC Glucometer 128 Problem List - Problems (1) ABENA (obstructive sleep apnea) Code(s): G47.33 - OBSTRUCTIVE SLEEP APNEA (ADULT) (PEDIATRIC) (2) PAF (paroxysmal atrial fibrillation) Code(s): I48.0 - PAROXYSMAL ATRIAL FIBRILLATION (3) Pulmonary emboli Code(s): I26.99 - OTHER PULMONARY EMBOLISM WITHOUT ACUTE COR PULMONALE (4) Breast CA Code(s): C50.919 - MALIGNANT NEOPLASM OF UNSP SITE OF UNSPECIFIED FEMALE BREAST (5) Diabetes Code(s): E11.9 - TYPE 2 DIABETES MELLITUS WITHOUT COMPLICATIONS (6) HTN (hypertension) Code(s): I10 - ESSENTIAL (PRIMARY) HYPERTENSION (7) Obesity Code(s): E66.9 - OBESITY, UNSPECIFIED (8) Thrombocytopenia Code(s): D69.6 - THROMBOCYTOPENIA, UNSPECIFIED IMP THROMBOCYTOPENIA -> HIT RECENT PROVOKED BILATERAL PE BREAST CA S/P MASTECTOMY OSAS DM PLAN COUMADIN NO HOME O2 NEEDED D/C PLANNING DR TREJO
[2017-04-05 12:29] VITALS: BP 121/53; PULSE 82; TEMP 98
[2017-04-06 16:33] LABS: HEPARIN ANTI X-a <0.1 IU/mL (.); HEPARIN INDUCED PLATELET AB. 2.426 OD (0.000-0.400)
[2017-04-07 06:07] LABS: BETA-2-GLYCOPROTEIN I IGA <9 (0-25)
[2017-04-07 08:11] LABS: LAC INTERPRETATION Comment: (.); PTT-LA MIX 49.4 sec (0.0-48.9)
== END 2017-04-05 12:30 | disposition home or self-care (01) | DRG 813 ==
LOC: JER 10:18 → JERBED 14:28 → J5S 16:51 → J4W 18:32 → J8W 03-17 11:29
PROVIDERS: ADMIT Internal Medicine; ATTEND Internal Medicine
DX: D75.82 Heparin induced thrombocytopenia (HIT) (principal); I26.99 Other pulmonary embolism without acute cor pulmonale; I50.32 Chronic diastolic (congestive) heart failure; Z68.42 Body mass index [BMI] 45.0-49.9, adult; T81.4XXA Infection following a procedure, initial encounter; E11.9 Type 2 diabetes mellitus without complications; M10.9 Gout, unspecified; Z87.891 Personal history of nicotine dependence; G47.33 Obstructive sleep apnea (adult) (pediatric); R05 Cough; I48.0 Paroxysmal atrial fibrillation; E66.9 Obesity, unspecified; Z79.84 Long term (current) use of oral hypoglycemic drugs; E78.1 Pure hyperglyceridemia; I11.0 Hypertensive heart disease with heart failure; R19.7 Diarrhea, unspecified; C50.011 Malignant neoplasm of nipple and areola, right female breast; I27.20 Pulmonary hypertension, unspecified; L53.8 Other specified erythematous conditions; Y83.9 Surgical procedure, unspecified as the cause of abnormal reaction of the patient, or of later complication, without mention of misadventure at the time of the procedure; K59.00 Constipation, unspecified
CPT/HCPCS: 36415; 71275-TC; 76705-TC; 80048; 80053; 81003; 81240; 81241; 82542; 83880; 84484; 85025; 85027; 85300; 85301; 85384; 85520; 85610; 85613; 85730; 85732; 86022; 86146; 86850; 86900; 86901; 87040; 87070; 87086; 87186; 87205; 87324; 87449; 93005; 93010; 93306-TC; 93970-TC; 99283-25; J0883

== ENCOUNTER 2019-05-04 08:45 | Day surgery (SDC) | payer OTHER ==
[2019-05-03 09:30] VITALS: BMI 47.2
[2019-05-04 10:50] VITALS: TEMP 97.5
[2019-05-04 12:27] VITALS: BP 123/70; PULSE 72
--- NOTE | 2019-05-07 17:35 | PATH ---
Surgical Pathology Report Patient Name: EUGENE CURTIS [facility]. Rec. #: [id number] /Age/Gender: 1950 (Age: 68) / F Account: [id number] Location: U-ENDOSCOPY Taken: 05/04/2019 Received: 05/04/2019 Reported: 05/07/2019 Physicians: Mary Marin M.D. Specimen(s) Received A: DISTAL POLYP TRANSVERSE COLON B: CECAL POLYP Clinical History History of breast cancer, family history of colon cancer Postoperative diagnosis: Colon polyps, diverticulosis Final Diagnosis A. DISTAL TRANSVERSE COLON, HOT SNARE POLYPECTOMY: HYPERPLASTIC POLYP, INFLAMED B. CECAL POLYP, BIOPSY: HYPERPLASTIC POLYP. Electronically Signed Arin Boo M.D. Gross Description A. Received in formalin, labeled "distal transverse colon" is a [place], polypoid portion of soft tissue measuring 0.7 cm. in greatest dimension. The specimen is submitted in toto in one cassette. B. Received in formalin, labeled "cecal polyp biopsy" are 4 [place], irregular portions of soft tissue ranging from 0.2-0.4 cm. in greatest dimension. The specimens are submitted in toto in one cassette. /05/04/2019 saudi05/04/2019
== END 2019-05-04 11:40 | disposition home or self-care (01) ==
LOC: JASU-ENDO 08:45
PROVIDERS: ATTEND Internal Medicine Gastroenterology
PROC: 0DBE8ZX Excision of Large Intestine, Via Natural or Artificial Opening Endoscopic, Diagnostic (ICD-10-PCS; 2019-05-04)
PROC: 0DBL8ZX Excision of Transverse Colon, Via Natural or Artificial Opening Endoscopic, Diagnostic (ICD-10-PCS; principal; 2019-05-04 09:30)
DX: Z12.11 Encounter for screening for malignant neoplasm of colon (principal); D12.3 Benign neoplasm of transverse colon; K64.8 Other hemorrhoids; K57.30 Diverticulosis of large intestine without perforation or abscess without bleeding; Z80.0 Family history of malignant neoplasm of digestive organs; E11.9 Type 2 diabetes mellitus without complications; E66.01 Morbid (severe) obesity due to excess calories
CPT/HCPCS: 88305-TC

== ENCOUNTER 2020-05-29 16:22 | Emergency (ER) | payer OTHER | END 2020-05-29 18:33 | disposition home or self-care (01) | LOC: JVIRT 16:22 | DX: Z03.818 Encounter for observation for suspected exposure to other biological agents ruled out (principal) | CPT/HCPCS: C9803; G2012-GT; U0003 ==

== ENCOUNTER 2020-06-05 12:59 | Emergency (ER) | payer OTHER | END 2020-06-05 13:06 | disposition home or self-care (01) | LOC: JVIRT 12:59 | DX: Z11.59 Encounter for screening for other viral diseases (principal) | CPT/HCPCS: C9803; G2012-GT; U0003 ==

== ENCOUNTER 2021-05-06 14:45 | Emergency (ER) | payer OTHER ==
[2021-05-06 14:58] VITALS: BP 176/78; PULSE 74; TEMP 98; BMI 46.0
[2021-05-06] MEDS ORDERED: CASIRIVIMAB/IMDEVIMAB 10 ML in SODIUM CHLORIDE 100 ML IVPB ONE (16:21)
== END 2021-05-06 16:25 | disposition home or self-care (01) ==
LOC: JCOVINFU 14:45
PROC: 3E033GC Introduction of Other Therapeutic Substance into Peripheral Vein, Percutaneous Approach (ICD-10-PCS; principal; 2021-05-06)
DX: U07.1 COVID-19 (principal)
CPT/HCPCS: 71046-TC-FY; 99284-25

== ENCOUNTER 2021-12-31 14:16 | Emergency (ER) | payer OTHER ==
[2021-12-31 14:42] VITALS: TEMP 97.8; BMI 47.8
[2021-12-31 18:00] VITALS: BP 158/60; PULSE 67
[2021-12-31 18:53] LABS: BASO % 0.2 % (0-2.0); EOS % 2.1 % (0-4.5); HEMATOCRIT 39.2 % (32.4-45.2); HEMOGLOBIN 12.7 GM/dL (10.7-15.3); LYMPH % 24.2 % (8-40); MCH 28.6 pg (25.7-33.7); MCHC 32.5 g/dl (32.0-36.0); NEUT % 67.5 % (42.8-82.8); PLATELET COUNT 260 10^3/uL (134-434); RBC 4.45 M/mm3 (3.60-5.2); RDW 15.1 % (11.6-15.6); WHITE BLOOD COUNT 7.8 K/mm3 (4.0-10.0)
[2021-12-31 19:01] LABS: INR 0.93 (0.83-1.09); PROTHROMBIN TIME (PATIENT) 10.7 SEC (9.7-13.0)
[2021-12-31 19:04] LABS: ACTIVATED PTT 26.4 SECONDS (25.2-36.5)
[2021-12-31 19:20] LABS: CALCIUM 9.1 mg/dL (8.5-10.1)
[2021-12-31 19:21] LABS: ALBUMIN 3.3 g/dl (3.4-5.0); BLOOD UREA NITROGEN 18.9 mg/dL (7-18)
[2021-12-31 19:24] LABS: CREATININE 1.2 mg/dL (0.55-1.3)
[2021-12-31 19:25] LABS: BILIRUBIN,TOTAL 0.4 mg/dL (0.2-1); TOT PROT 6.4 g/dl (6.4-8.2)
== END 2021-12-31 20:10 | disposition home or self-care (01) ==
LOC: JER 14:16
DX: I82.90 Acute embolism and thrombosis of unspecified vein (principal)
CPT/HCPCS: 36415; 80053; 80061; 82306; 82962; 83036; 84439; 84443; 84481; 85025; 85610; 85730; 86376; 86800; 99283-25